=== PATIENT | female | born 1945 | race Asian ===

== ENCOUNTER 2023-01-13 14:39 | Inpatient (IN) ==
[2023-01-13] MEDS ORDERED: FUROSEMIDE 40 MG/4 ML VIAL IV ONE (15:09)
--- NOTE | 2023-01-13 15:12 | Emergency Department Note ---
Impression & Plan Pulmonary edema, Atrial fibrillation with RVR, Non-STEMI (non-ST elevated myocardial infarction), Hypoxia ED Provider Note NAME: JENNIFER RODNEY AGE: 77 SEX: F : 1945 ARRIVES VIA: Ambulance INFORMANT: Patient, EMS ED PROVIDER(S): Ran Madsen DO CHIEF COMPLAINT: Shortness of breath HPI: The patient is a 77-year-old female who presented to the emergency department by ambulance for an evaluation of difficulty breathing. The patient started having difficulty breathing over the last 2 weeks. She was seen in our facility for similar complaints but signed out AGAINST MEDICAL ADVICE. The patient has a history of atrial fibrillation as well as CHF. She appears to be volume overloaded with shortness of breath. She is wearing oxygen. She is currently in atrial fibrillation with RVR. ROS: See above HPI for pertinent positives & negatives. A total of 10 systems reviewed and were otherwise negative. PAST MEDICAL HISTORY: See Below PAST SURGICAL HISTORY: See Below FAMILY HISTORY: See Below SOCIAL HISTORY: See Below HOME MEDICATIONS: See Below ALLERGIES: See Below VITALS: See Below PHYSICAL EXAMINATION: GENERAL: Patient is awake and alert. She appears to be somewhat anxious. EYES: The conjunctivae are clear. The pupils are round and reactive. EARS, NOSE, MOUTH AND THROAT: The nose is without any evidence of any deformity. NECK: The neck is nontender and supple. RESPIRATORY: Shallow respirations were noted. There is significant tachypnea. Diminished breath sounds noted throughout with rales. CARDIOVASCULAR: Tachycardic and irregular heart sounds were noted to auscultation. There is no definite murmur. GASTROINTESTINAL: The abdomen is soft. Abdomen is nontender. MUSCULOSKELETAL/EXTREMITIES: There is no evidence of gross deformity full range of motion is noted in the hips and shoulders. SKIN: Pedal edema was noted bilaterally. Skin was warm and dry. NEUROLOGIC: Patient is awake alert and oriented x3. The patient follows commands. MEDICAL DECISION MAKING: The patient is a 77-year-old female who presented to the emergency department for an evaluation of difficulty breathing. The patient has a history of pulmonary edema. She was seen in our facility recently for similar complaints but ultimately refused to stay in the hospital and signed out AGAINST MEDICAL ADVICE. Today she appears to be more agreeable to evaluation and treatment. She was found to be in rapid atrial fibrillation and was treated with IV Cardizem. She was also treated with IV digoxin as well as IV Lasix for pulmonary edema. The patient was found to have no significant change from her previous EKG however it is an abnormal EKG. She was also found have an elevation in her troponin. I discussed her condition with the on-call [facility]. They have agreed to evaluate the patient in the emergency department for further management and disposition. Triage Nursing notes reviewed. Prior medical records reviewed Vital Signs: reviewed and remarkable for tachycardia and hypertension. The patient was also hypoxic off of supplemental oxygen. Differential diagnosis: Reactive airway disease, pneumonia, pneumothorax, COPD, CHF, infections, cardiac ischemia, pulmonary embolism, musculoskeletal, gastrointestinal, as well as other pathologies. ER treatment provided: See below Diagnostics interpreted by me: ECG: EKG was obtained in the emergency department. My interpretation is atrial fibrillation at 153 bpm. There was no PVCs noted. Low voltage was noted throughout. This was compared to a tracing from January 02, 2023. No changes were noted. Cardiac Monitoring: An order was placed for continuous cardiac monitoring. The monitor shows a rate of 145 bpm with atrial fibrillation RVR. Laboratory studies: As stated above and show below. Imaging studies: See below. Radiographic imaging was reviewed by myself Consultation(s): I discussed this case with Dr. Harrington who is on-call for the [facility] group. ED COURSE: Procedures: none Critical Care: I have personally spent greater than 45 minutes of critical care time in the direct management of this patient. This includes bedside care, interpretation of diagnostic studies, and testing, discussion with consultants, patient, and family members, and other required patient management activities. This 45 minutes is in excess of all separately billable procedures. Past Med/Surg History Medical History Arthritis Atrial fibrillation with RVR Congestive heart failure Surgical History No significant past surgical history Social History Smoking Status: Never smoker Hx Alcohol Use: Yes Hx Substance Use: No Communication Tools: IPad Feels Safe at Home: Yes Allergies Allergies Allergy/AdvReac Type Severity Reaction Status Date / Time No Known Allergies Allergy Verified 01/13/23 15:32 Home Meds Home Medications Medication Instructions Recorded Confirmed furosemide 20 mg tablet 20 mg PO DAILY 01/13/23 01/13/23 Previous Rx's Medication Instructions Recorded metoprolol succinate 25 mg 25 mg PO DAILY #30 tabs 01/02/23 tablet,extended release 24 hr Results & Data (ED) Vital Signs Vital Signs - 24 hr 01/13/23 14:55 01/13/23 14:58 01/13/23 16:52 Temperature 36.5 C Temperature Source Axillary Pulse Rate 157 H 161 H 150 H Pulse Rate [Right Finger] Pulse Rhythm Regular Pulse Rhythm [Right Finger] Pulse Strength Normal Respiratory Rate 18 28 H Respiratory Effort / Characteristics Non-Labored Spontaneous Respiratory Depth Normal Respiratory Pattern Regular Blood Pressure 130/101 H Blood Pressure [Left Arm] Blood Pressure Mean 110 Blood Pressure Mean [Left Arm] Blood Pressure Position Lying Pulse Oximetry 93 93 Oxygen Delivery Method Nasal Cannula Nasal Cannula Oxygen Flow Rate 2 2 Sepsis Recent Fever Within 48 Hours No Sepsis New/Unexplained Change in Mental Status No Sepsis Action Taken by Nursing No Action Required 01/13/23 17:10 01/13/23 17:32 01/13/23 17:47 Temperature Temperature Source Pulse Rate 166 H Pulse Rate [Right Finger] 160 H 145 H Pulse Rhythm Pulse Rhythm [Right Finger] Irregular Pulse Strength Respiratory Rate 22 22 Respiratory Effort / Characteristics Respiratory Depth Normal Normal Respiratory Pattern Blood Pressure Blood Pressure [Left Arm] 137/106 H Blood Pressure Mean Blood Pressure Mean [Left Arm] 116 Blood Pressure Position Pulse Oximetry 92 98 Oxygen Delivery Method Nasal Cannula Nasal Cannula Oxygen Flow Rate Sepsis Recent Fever Within 48 Hours Sepsis New/Unexplained Change in Mental Status Sepsis Action Taken by Nursing 01/13/23 18:08 Temperature Temperature Source Pulse Rate Pulse Rate [Right Finger] 128 H Pulse Rhythm Pulse Rhythm [Right Finger] Pulse Strength Respiratory Rate Respiratory Effort / Characteristics Respiratory Depth Respiratory Pattern Blood Pressure Blood Pressure [Left Arm] 120/88 Blood Pressure Mean Blood Pressure Mean [Left Arm] 98 Blood Pressure Position Pulse Oximetry 99 Oxygen Delivery Method Nasal Cannula Oxygen Flow Rate 2 Sepsis Recent Fever Within 48 Hours Sepsis New/Unexplained Change in Mental Status Sepsis Action Taken by Retirement Medications Current Medication List: was personally reviewed by me Laboratory Data Attestation: I reviewed the patient's lab results. 01/13/23 15:50 01/13/23 15:50 Lab Results 01/13/23 01/13/23 01/13/23 Range/Units 15:40 15:50 15:50 WBC 8.54 (4.8-10.8) K/ul RBC 4.72 (4.20-5.40) M/uL Hgb 14.0 (12.0-16.0) g/dl Hct 40.8 (37.0-47.0) % MCV 86.4 (80.0-100.0) fL MCH 29.7 (25.0-34.0) pg MCHC 34.3 (32.0-36.0) g/dL RDW Std Deviation 60.5 H (36.4-46.3) fL RDW Coeff of Bubba 20.2 H (11.5-14.5) % Plt Count 178 (130-400) K/uL MPV 12.3 (9.4-12.4) fL Immature Gran % (Auto) 0.6 % Neut % (Auto) 82.3 % Lymph % (Auto) 9.7 % [place] % (Auto) 6.9 % Eos % (Auto) 0.1 % Baso % (Auto) 0.4 % Neut # (Auto) 7.03 H (1.40-6.50) K/uL Lymph # (Auto) 0.83 L (1.2-3.4) K/uL [place] # (Auto) 0.59 (0.11-0.59) K/uL Eos # (Auto) 0.01 (0-0.50) K/uL Baso # (Auto) 0.03 (0-0.2) K/uL Immature Gran # (Auto) 0.05 (0.01-0.20) K/uL Absolute Nucleated RBC 0.26 H (0-0.12) K/uL Nucleated RBC % (auto) 3.0 % Polychromasia 1+ Anisocytosis Present Ovalocytes 1+ Echinocytes 1+ PT 13.0 H (9.0-12.0) Seconds INR 1.2 H (0.9-1.1) APTT 26.9 (21.0-31.0) Seconds PTT Ratio 1.0 VBG pH (7.36-7.41) VBG pCO2 (38-50) mmHg VBG pO2 mmHg VBG HCO3 mmol/L VBG O2 Saturation % VBG Base Excess mEq/L Sodium (136-145) mmol/L Potassium (3.5-5.1) mmol/L Chloride (98-107) mmol/L Carbon Dioxide (21-32) mmol/L Anion Gap (3-11) BUN (6-23) mg/dl Creatinine (0.6-1.2) mg/dl Est Cr Clr Drug Dosing ml/min Est GFR ( Amer) ml/min Est GFR (Non-Af Amer) ml/min BUN/Creatinine Ratio (10-20) Glucose (70-99(Fasting)) mg/dl Calcium (8.5-10.1) mg/dl Magnesium (1.7-2.4) mg/dl Total Bilirubin (0.2-1.0) mg/dl AST (13-39) U/L ALT (7-52) U/L Alkaline Phosphatase (34-104) U/L Troponin I High Sens (0-14) pg/ml B-Natriuretic Peptide (0-100) pg/ml Total Protein (6.0-8.3) gm/dl Albumin (3.4-5.0) gm/dl Globulin (2.5-4.0) gm/dl Albumin/Globulin Ratio (0.9-2) TSH (0.300-4.500) uIu/ml Free T4 (0.61-1.60) ng/dl Urine Color Urine Appearance (Clear) Urine pH (4.5-7.5) Ur Specific [place] (1.000-1.030) Urine Protein (Negative) Urine Glucose (UA) (Negative) Urine Ketones (Negative) Urine Blood (Negative) Urine Nitrite (Negative) Urine Bilirubin (Negative) Urine Urobilinogen (Negative) Ur Leukocyte Esterase (Negative) Digoxin (0.8-2.0) ng/ml SARS-CoV-2, RNA, NAAT NEGATIVE (NEGATIVE) 01/13/23 01/13/23 01/13/23 Range/Units 15:50 15:50 15:50 WBC (4.8-10.8) K/ul RBC (4.20-5.40) M/uL Hgb (12.0-16.0) g/dl Hct (37.0-47.0) % MCV (80.0-100.0) fL MCH (25.0-34.0) pg MCHC (32.0-36.0) g/dL RDW Std Deviation (36.4-46.3) fL RDW Coeff of Bubba (11.5-14.5) % Plt Count (130-400) K/uL MPV (9.4-12.4) fL Immature Gran % (Auto) % Neut % (Auto) % Lymph % (Auto) % [place] % (Auto) % Eos % (Auto) % Baso % (Auto) % Neut # (Auto) (1.40-6.50) K/uL Lymph # (Auto) (1.2-3.4) K/uL [place] # (Auto) (0.11-0.59) K/uL Eos # (Auto) (0-0.50) K/uL Baso # (Auto) (0-0.2) K/uL Immature Gran # (Auto) (0.01-0.20) K/uL Absolute Nucleated RBC (0-0.12) K/uL Nucleated RBC % (auto) % Polychromasia Anisocytosis Ovalocytes Echinocytes PT (9.0-12.0) Seconds INR (0.9-1.1) APTT (21.0-31.0) Seconds PTT Ratio VBG pH 7.38 (7.36-7.41) VBG pCO2 41 (38-50) mmHg VBG pO2 26 mmHg VBG HCO3 24 mmol/L VBG O2 Saturation < 60.0 % VBG Base Excess -0.8 mEq/L Sodium 138 (136-145) mmol/L Potassium 4.5 (3.5-5.1) mmol/L Chloride 106 (98-107) mmol/L Carbon Dioxide 23 (21-32) mmol/L Anion Gap 9 (3-11) BUN 46 H (6-23) mg/dl Creatinine 1.47 H (0.6-1.2) mg/dl Est Cr Clr Drug Dosing 29.9 ml/min Est GFR ( Amer) 39.2 ml/min Est GFR (Non-Af Amer) 33.8 ml/min BUN/Creatinine Ratio 31.3 H (10-20) Glucose 114 H (70-99(Fasting)) mg/dl Calcium 8.6 (8.5-10.1) mg/dl Magnesium 2.5 H (1.7-2.4) mg/dl Total Bilirubin 3.1 H (0.2-1.0) mg/dl AST 22 (13-39) U/L ALT 15 (7-52) U/L Alkaline Phosphatase 105 H (34-104) U/L Troponin I High Sens 175.8 H* (0-14) pg/ml B-Natriuretic Peptide 1820 H (0-100) pg/ml Total Protein 6.3 (6.0-8.3) gm/dl Albumin 3.4 (3.4-5.0) gm/dl Globulin 2.9 (2.5-4.0) gm/dl Albumin/Globulin Ratio 1.2 (0.9-2) TSH (0.300-4.500) uIu/ml Free T4 (0.61-1.60) ng/dl Urine Color Urine Appearance (Clear) Urine pH (4.5-7.5) Ur Specific [place] (1.000-1.030) Urine Protein (Negative) Urine Glucose (UA) (Negative) Urine Ketones (Negative) Urine Blood (Negative) Urine Nitrite (Negative) Urine Bilirubin (Negative) Urine Urobilinogen (Negative) Ur Leukocyte Esterase (Negative) Digoxin (0.8-2.0) ng/ml SARS-CoV-2, RNA, NAAT (NEGATIVE) 01/13/23 01/13/23 01/13/23 Range/Units 15:50 15:50 17:25 WBC (4.8-10.8) K/ul RBC (4.20-5.40) M/uL Hgb (12.0-16.0) g/dl Hct (37.0-47.0) % MCV (80.0-100.0) fL MCH (25.0-34.0) pg MCHC (32.0-36.0) g/dL RDW Std Deviation (36.4-46.3) fL RDW Coeff of Bubba (11.5-14.5) % Plt Count (130-400) K/uL MPV (9.4-12.4) fL Immature Gran % (Auto) % Neut % (Auto) % Lymph % (Auto) % [place] % (Auto) % Eos % (Auto) % Baso % (Auto) % Neut # (Auto) (1.40-6.50) K/uL Lymph # (Auto) (1.2-3.4) K/uL [place] # (Auto) (0.11-0.59) K/uL Eos # (Auto) (0-0.50) K/uL Baso # (Auto) (0-0.2) K/uL Immature Gran # (Auto) (0.01-0.20) K/uL Absolute Nucleated RBC (0-0.12) K/uL Nucleated RBC % (auto) % Polychromasia Anisocytosis Ovalocytes Echinocytes PT (9.0-12.0) Seconds INR (0.9-1.1) APTT (21.0-31.0) Seconds PTT Ratio VBG pH (7.36-7.41) VBG pCO2 (38-50) mmHg VBG pO2 mmHg VBG HCO3 mmol/L VBG O2 Saturation % VBG Base Excess mEq/L Sodium (136-145) mmol/L Potassium (3.5-5.1) mmol/L Chloride (98-107) mmol/L Carbon Dioxide (21-32) mmol/L Anion Gap (3-11) BUN (6-23) mg/dl Creatinine (0.6-1.2) mg/dl Est Cr Clr Drug Dosing ml/min Est GFR ( Amer) ml/min Est GFR (Non-Af Amer) ml/min BUN/Creatinine Ratio (10-20) Glucose (70-99(Fasting)) mg/dl Calcium (8.5-10.1) mg/dl Magnesium (1.7-2.4) mg/dl Total Bilirubin (0.2-1.0) mg/dl AST (13-39) U/L ALT (7-52) U/L Alkaline Phosphatase (34-104) U/L Troponin I High Sens (0-14) pg/ml B-Natriuretic Peptide (0-100) pg/ml Total Protein (6.0-8.3) gm/dl Albumin (3.4-5.0) gm/dl Globulin (2.5-4.0) gm/dl Albumin/Globulin Ratio (0.9-2) TSH 8.266 H (0.300-4.500) uIu/ml Free T4 1.30 (0.61-1.60) ng/dl Urine Color Yellow Urine Appearance Clear (Clear) Urine pH 5.0 (4.5-7.5) Ur Specific [place] 1.009 (1.000-1.030) Urine Protein Negative (Negative) Urine Glucose (UA) Negative (Negative) Urine Ketones Negative (Negative) Urine Blood Negative (Negative) Urine Nitrite Negative (Negative) Urine Bilirubin Negative (Negative) Urine Urobilinogen Negative (Negative) Ur Leukocyte Esterase Negative (Negative) Digoxin < 0.3 L (0.8-2.0) ng/ml SARS-CoV-2, RNA, NAAT (NEGATIVE) Administered Medications Diltiazem HCl 125 mg/ Dextrose 125 mls @ 10 mls/hr IV .[id number] [facility]; Protocol Stop: 02/12/23 16:29 Last Titration: 01/13/23 20:40 Dose: 10 mg/hr, 10 mls/hr Documented By: JUAN LUIS Co-signed By: JIM Titration: 01/13/23 18:00 Dose: 10 mg/hr, 10 mls/hr Documented By: VALENTINE Co-signed By: LUIS M Admin: 01/13/23 17:11 Dose: 5 mg/hr, 5 mls/hr Documented By: LUIS M Co-signed By: VALENTINE Discontinued Medications Furosemide (Furosemide 40 Mg/4 Ml Vial) 40 mg IV ONE ONE Stop: 01/13/23 15:10 Last Admin: 01/13/23 16:01 Dose: 40 mg Documented By: LUIS M Digoxin 125 mcg/ Syringe 10 mls @ 2 mls/min IV ONE ONE Stop: 01/13/23 16:33 Last Admin: 01/13/23 17:10 Dose: 2 mls/min Documented By: LUIS M Miscellaneous (Stat Iv Infusion Titration Per Protocol) 1 each N/A NOW STA Stop: 01/13/23 16:30 Last Admin: 01/13/23 17:12 Dose: Not Given Documented By: LUIS M Imaging Data Radiologist's Impression: Chest X-Ray 01/13/23 15:07 SINGLE VIEW CHEST CLINICAL HISTORY: Dyspnea FINDINGS: An AP, portable, upright chest radiograph is compared to study dated 01/02/2023. The examination is degraded by portable technique and apical lordotic positioning. The heart is enlarged noting atherosclerotic calcification of the thoracic aorta. There is pulmonary vascular congestion. There are layering pleural effusions with dependent consolidation. No pneumothorax is seen. The skeletal structures are osteopenic. The bony thorax is grossly intact. IMPRESSION: 1. Cardiomegaly with evidence of congestive failure. 2. Layering pleural effusions with dependent consolidation. ACT 112: Negative or not required by law. Electronically signed by: Sulaiman Diop M.D. 01/13/2023 3:52 PM Discharge Plan Visit Data Chief Complaint: Swelling/Edema to Extremity Stated Complaint: ARM & LEG EDEMA ED Provider: Ran Madsen Discharge Problem: Pulmonary edema, Atrial fibrillation with RVR, Non-STEMI (non-ST elevated myocardial infarction), Hypoxia Patient Disposition: Admitted As Inpatient Discharge Instructions Interventions: ED Discharge Assessment Last Done: 01/13/23 19:13 Pulmonary edema Qualifiers: Chronicity: acute Qualified Code(s): J81.0 - Acute pulmonary edema
--- NOTE | 2023-01-13 15:53 | XRay Report ---
SINGLE VIEW CHEST CLINICAL HISTORY: Dyspnea FINDINGS: An AP, portable, upright chest radiograph is compared to study dated 01/02/2023. The examina tion is degraded by portable technique and apical lordotic positioning. The heart is enlarged noting atherosclerotic calcification of the thoracic aorta. There is pulmonary vascular congestion. There ar e layering pleural effusions with dependent consolidation. No pneumothorax is seen. The skeletal stru ctures are osteopenic. The bony thorax is grossly intact. IMPRESSION: 1. Cardiomegaly with evidence of congestive failure. 2. Layering pleural effusions with dependent consolidation. ACT 112: Negative or not required by law. Electronically signed by: Sulaiman Diop M.D. 01/13/2023 3:52 PM
[2023-01-13 16:25] LABS: Basophils # (auto) 0.03 K/uL (0-0.2); Basophils % (auto) 0.4 %; Eosinophils # (auto) 0.01 K/uL (0-0.50); Eosinophils % (auto) 0.1 %; Hematocrit (blood only) 40.8 % (37.0-47.0); Immature Granulocytes # (auto) 0.05 K/uL (0.01-0.20); Immature Granulocytes % (auto) 0.6 %; Lymphocytes # (auto) 0.83 K/uL (1.2-3.4); Lymphocytes % (auto) 9.7 %; Mean Corpuscular Hemoglobin 29.7 pg (25.0-34.0); Mean Corpuscular Hgb Conc 34.3 g/dL (32.0-36.0); Mean Corpuscular Volume 86.4 fL (80.0-100.0); Mean Platelet Volume 12.3 fL (9.4-12.4); Monocytes # (auto) 0.59 K/uL (0.11-0.59); Monocytes % (auto) 6.9 %; Neutrophils # (auto) 7.03 K/uL (1.40-6.50); Neutrophils % (auto) 82.3 %; Nucleated RBC # (auto) 0.26 K/uL (0-0.12); Platelet Count 178 K/uL (130-400); RDW Coefficient of Variation 20.2 % (11.5-14.5); RDW Standard Deviation 60.5 fL (36.4-46.3); Red Blood Count 4.72 M/uL (4.20-5.40); White Blood Count 8.54 K/ul (4.8-10.8)
[2023-01-13 16:26] LABS: Base Excess VBG -0.8 mEq/L; HCO3 VBG 24 mmol/L; Oxygen Saturation VBG < 60.0 %; PCO2 VBG 41 mmHg (38-50); PO2 VBG 26 mmHg; pH VBG 7.38 (7.36-7.41)
[2023-01-13] MEDS ORDERED: STAT IV Infusion **Titration per Protocol STA (16:29)
[2023-01-13] MEDS ORDERED: DIGOXIN 125 MCG in SYRINGE 9.5 ML IV ONE (16:29)
[2023-01-13] MEDS ORDERED: dilTIAZem HCL 125 MG in DEXTROSE 5% 100 ML IV SCH (16:30)
[2023-01-13 16:46] LABS: Albumin Globulin Ratio 1.2 (0.9-2); Albumin Level 3.4 gm/dl (3.4-5.0); BUN Creatinine Ratio 31.3 (10-20); Bilirubin,Total 3.1 mg/dl (0.2-1.0); Calcium 8.6 mg/dl (8.5-10.1); Creatinine Clr Calc Pharmacy 29.9 ml/min; Est GFR (African American) 39.2 ml/min; Est GFR (Non-African American) 33.8 ml/min; Globulin 2.9 gm/dl (2.5-4.0); Magnesium 2.5 mg/dl (1.7-2.4); Potassium 4.5 mmol/L (3.5-5.1); Total Protein 6.3 gm/dl (6.0-8.3)
[2023-01-13 16:47] LABS: Anisocytosis Present; Echinocytes 1+; Ovalocytes 1+; Polychromasia 1+
[2023-01-13 16:58] LABS: Troponin I High Sensitivity 175.8 pg/ml (0-14)
--- NOTE | 2023-01-13 17:12 | Electrocardiogram Report ---
Test Reason : Blood Pressure : / mmHG Vent. Rate : 153 BPM Atrial Rate : 052 BPM P-R Int : 000 ms QRS Dur : 068 ms QT Int : 254 ms P-R-T Axes : 000 015 254 degrees QTc Int : 405 ms Poor data quality, interpretation may be adversely affected Atrial fibrillation with rapid ventricular response Nonspecific ST abnormality Abnormal ECG When compared with ECG of 02-JAN-2023 16:40, No significant change was found Confirmed by Marc Renee ([id number]) on 01/13/2023 5:12:16 PM Referred By: REFERRED SELF Confirmed By:Shivam Renee
[2023-01-13 17:23] LABS: INR 1.2 (0.9-1.1); Partial Thromboplastin Time 26.9 Seconds (21.0-31.0)
[2023-01-13 17:45] LABS: Thyroid Stimulating Hormone 8.266 uIu/ml (0.300-4.500)
[2023-01-13 17:45] LABS: Appearance Urine Clear (Clear); Bilirubin Urine Negative (Negative); Blood Urine Negative (Negative); Color Urine Yellow; Glucose Urine UA Negative (Negative); Ketones Urine Negative (Negative); Leukocyte Esterase Urine Negative (Negative); Nitrite Urine Negative (Negative); Protein Urine Negative (Negative); Specific Gravity Urine 1.009 (1.000-1.030); Urobilinogen Urine Negative (Negative)
[2023-01-13 18:31] LABS: T4 Free Thyroxine 1.3 ng/dl (0.61-1.60)
--- NOTE | 2023-01-13 19:25 | History & Physical Report ---
Date of Service January 13, 2023 Assessment & Plan (1) Atrial fibrillation with RVR: Plan: Atrial Fibrillation RVR: New diagnosis CXR:Cardiomegaly with evidence of congestive failure. Layering pleural effusions with dependent consolidation. Obtain ECHO Start on metoprolol, Cardizem ggt, Heparin ggt Received digoxin in ED Cardiology consulted Trend Cardiac enzymes Replace electrolytes as needed Acute respiratory failure with hypoxia Volume overload Likely CHF, Afib RVR CXR as above BNP 1820 check ECHO Start IV Lasix 20mg BID Daily weight, I/Os, fluid restriction Low sodium diet, fluid restriction Oxygen support PRN Monitor renal function/electrolytes Cardiology consulted We will check abdominal ultrasound for ascites Check procalcitonin Troponin elevation Likely demand ischemia due to volume overload, A-fib RVR Trend cardiac enzymes N.p.o. after midnight Abnormal thyroid function test Elevated TSH Free normal T4 We will repeat thyroid function test No known history of hypothyroidism ? CKD Unknown baseline Creatinine 1.47 Monitor renal function Hyperglycemia Check HbA1c Ambulatory dysfunction Fall precautions PT OT as able DVT prophylaxis IV heparin CODE STATUS Full code as per my discussion with patient and patient's son Disposition PT OT prior to discharge History of Present Illness Chief Complaint: Shortness of breath Primary Care Provider: NO PCP Patient is a 77-year-old female with past medical history of arthritis and no other significant past medical history presents with history of worsening edema, shortness of breath and ambulatory dysfunction. Patient is mandrin speaking and most of the history is obtained using science interpreter service and also from patient's son over the phone. She states having worsening lower extremity edema, increased abdominal distention which has been gradually worsening since 2021. She had poor oral intake which she attributes to indigestion. Patient's son informs that patient has chronic dyspnea on exertion which worsened especially since since 2 months duration. She uses a cane for ambulation but currently having difficulty with ambulation as well. Intermittent cough with occasional hemoptysis several days ago. Currently denies any history of bleeding. She also has trouble laying flat and at times wakes up in the middle of the night with trouble breathing. She believes her abdomen has been gradually getting distended over few days. She was found in A- fib RVR while in ED and started on Cardizem drip. Denies any history of chest pain, palpitations, dizziness, fever, chills, fall, head trauma, syncope, headache, change in vision, double/blurry vision, nausea, vomiting, abdominal pain, weight loss, dysuria, hematuria. Presented to ED 2 weeks ago but left AMA. Allergies Allergy/AdvReac Type Severity Reaction Status Date / Time No Known Allergies Allergy Verified 01/13/23 15:32 Home Medications Medication Instructions Recorded Confirmed Type metoprolol succinate 25 mg 25 mg PO DAILY #30 tabs 01/02/23 01/13/23 Rx tablet,extended release 24 hr furosemide 20 mg tablet 20 mg PO DAILY 01/13/23 01/13/23 History Past Med/Surg History Medical History Arthritis Atrial fibrillation with RVR Congestive heart failure Surgical History No significant past surgical history Social History Smoking Status: Never smoker Hx Alcohol Use: Yes Hx Substance Use: No Communication Tools: IPad Feels Safe at Home: Yes Review of Systems Review of Systems: All systems reviewed & are unremarkable except as noted in HPI & below Physical Exam Physical Exam: Physical Exam: Vitals signs as noted above General Appearance:Moderately built and nourished, Elderly, Chronic ill appearing, no apparent distress Head: normocephalic, Atraumatic Eyes: normal inspection, EOMI Neck: supple, Trachea midline Respiratory/Chest: Normal breath sounds, CTA, No accessory muscle use Cardiovascular: Irregularly irregular, tachycardic, No murmur Abdomen/GI:Soft, Non tender, +distended, Bowel sounds present Extremities/Musculoskeletal:normal inspection, 2-3+ B/L LE edema Neurologic/Psych:AAOX3, grossly no focal neurological deficits Skin: normal color, warm Results & Data Results & Data ([facility]) Vital Signs (Past 12 Hours) Vital Signs Temp Pulse Pulse Resp BP BP Pulse Ox 01/13/23 18:08 128 H 120/88 99 01/13/23 17:47 145 H 22 98 01/13/23 17:32 160 H 22 137/106 H 92 01/13/23 17:10 166 H 01/13/23 16:52 150 H 28 H 93 01/13/23 14:58 161 H 01/13/23 14:55 36.5 C 157 H 18 130/101 H 93 O2 Del Method O2 Flow Rate 01/13/23 18:08 Nasal Cannula 2 01/13/23 17:47 Nasal Cannula 01/13/23 17:32 Nasal Cannula 01/13/23 17:10 01/13/23 16:52 Nasal Cannula 2 01/13/23 14:58 01/13/23 14:55 Nasal Cannula 2 Laboratory Results Short CBC 01/13/23 Range/Units 15:50 WBC 8.54 (4.8-10.8) K/ul Hgb 14.0 (12.0-16.0) g/dl Hct 40.8 (37.0-47.0) % Plt Count 178 (130-400) K/uL BMP 01/13/23 15:50 Sodium 138 Potassium 4.5 Chloride 106 Carbon Dioxide 23 BUN 46 H Creatinine 1.47 H Glucose 114 H Calcium 8.6 Liver Function 01/13/23 Range/Units 15:50 Total Bilirubin 3.1 H (0.2-1.0) mg/dl AST 22 (13-39) U/L ALT 15 (7-52) U/L Alkaline Phosphatase 105 H (34-104) U/L Albumin 3.4 (3.4-5.0) gm/dl Urine 01/13/23 Range/Units 17:25 Urine Color Yellow Urine Appearance Clear (Clear) Urine pH 5.0 (4.5-7.5) Ur Specific [place] 1.009 (1.000-1.030) Urine Protein Negative (Negative) Urine Glucose (UA) Negative (Negative) ECG Additional Comments: EKG: Atrial fibrillation with RVR, nonspecific ST abnormality, QTc 405 Code Status & VTE Plan VTE Prophylaxis Plan VTE Prophylaxis will be ordered: Yes
[2023-01-13] MEDS ORDERED: Heparin IV Adult Wt-Based Standard *NO* Bolus Protocol IV SCH (19:26)
[2023-01-13] MEDS ORDERED: POLYETHYLENE (MIRALAX) 17 GM PACK PO PRN (19:26)
[2023-01-13] MEDS ORDERED: ACETAMINOPHEN 325 MG TAB PO PRN (19:26)
[2023-01-13] MEDS ORDERED: ALBUMIN 25% 12.5 GM/50 ML VIAL IV ONE (21:03)
[2023-01-13 21:29] LABS: Partial Thromboplastin Time 27.8 Seconds (21.0-31.0)
[2023-01-13] MEDS: METOPROLOL TARTRATE 25 MG TAB PO SCH (21:42)
[2023-01-13] MEDS: FUROSEMIDE INJ 20 MG/2 ML VIAL IV SCH (21:43)
[2023-01-13] MEDS: HEPARIN SODIUM/DEXTROSE 25,000 UNITS/500 ML BAG IV SCH (21:43)
[2023-01-13 21:44] LABS: Basophils # (auto) 0.02 K/uL (0-0.2); Basophils % (auto) 0.2 %; Hematocrit (blood only) 37.6 % (37.0-47.0); Hemoglobin 12.8 g/dl (12.0-16.0); Immature Granulocytes # (auto) 0.04 K/uL (0.01-0.20); Immature Granulocytes % (auto) 0.5 %; Lymphocytes # (auto) 0.66 K/uL (1.2-3.4); Lymphocytes % (auto) 8.1 %; Mean Corpuscular Hemoglobin 29.4 pg (25.0-34.0); Mean Corpuscular Volume 86.2 fL (80.0-100.0); Mean Platelet Volume 12.1 fL (9.4-12.4); Monocytes # (auto) 0.61 K/uL (0.11-0.59); Monocytes % (auto) 7.5 %; Neutrophils # (auto) 6.82 K/uL (1.40-6.50); Neutrophils % (auto) 83.7 %; Nucleated RBC # (auto) 0.11 K/uL (0-0.12); Nucleated RBC % (auto) 1.3 %; Platelet Count 159 K/uL (130-400); RDW Coefficient of Variation 19.9 % (11.5-14.5); RDW Standard Deviation 60.3 fL (36.4-46.3); Red Blood Count 4.36 M/uL (4.20-5.40); White Blood Count 8.15 K/ul (4.8-10.8)
[2023-01-14] MEDS: METOPROLOL TARTRATE 25 MG TAB PO SCH ×4 (02:48→20:17)
[2023-01-14 04:30] LABS: Partial Thromboplastin Ratio 4.4
[2023-01-14 04:40] LABS: Partial Thromboplastin Time 122.2 Seconds (21.0-31.0)
[2023-01-14 06:42] LABS: Basophils # (auto) 0.02 K/uL (0-0.2); Basophils % (auto) 0.3 %; Eosinophils # (auto) 0.01 K/uL (0-0.50); Eosinophils % (auto) 0.1 %; Hematocrit (blood only) 34.9 % (37.0-47.0); Hemoglobin 11.7 g/dl (12.0-16.0); Immature Granulocytes # (auto) 0.06 K/uL (0.01-0.20); Immature Granulocytes % (auto) 0.9 %; Lymphocytes % (auto) 11.6 %; Mean Corpuscular Hemoglobin 29.5 pg (25.0-34.0); Mean Corpuscular Hgb Conc 33.5 g/dL (32.0-36.0); Mean Corpuscular Volume 87.9 fL (80.0-100.0); Mean Platelet Volume 11.5 fL (9.4-12.4); Monocytes % (auto) 7.2 %; Neutrophils # (auto) 5.52 K/uL (1.40-6.50); Neutrophils % (auto) 79.9 %; Nucleated RBC # (auto) 0.07 K/uL (0-0.12); Platelet Count 148 K/uL (130-400); RDW Coefficient of Variation 19.7 % (11.5-14.5); RDW Standard Deviation 60.1 fL (36.4-46.3); Red Blood Count 3.97 M/uL (4.20-5.40); White Blood Count 6.91 K/ul (4.8-10.8)
[2023-01-14 06:57] LABS: Albumin Globulin Ratio 1.2 (0.9-2); BUN Creatinine Ratio 28.6 (10-20); Bilirubin,Total 2.8 mg/dl (0.2-1.0); Calcium 8.3 mg/dl (8.5-10.1); Est GFR (African American) 39.2 ml/min; Est GFR (Non-African American) 33.8 ml/min; Globulin 2.5 gm/dl (2.5-4.0); Magnesium 2.2 mg/dl (1.7-2.4); Potassium 3.8 mmol/L (3.5-5.1); Total Protein 5.5 gm/dl (6.0-8.3)
--- NOTE | 2023-01-14 08:16 | Cardiology Consultation ---
Date of Consultation January 14, 2023 Assessment & Plan (1) Atrial fibrillation with RVR: (2) HFrEF (heart failure with reduced ejection fraction): (3) Tachycardia induced cardiomyopathy: Plan Frail 77 year old female with new onset AFIB with RVR, unknown duration- first discovered 01/02/2023. Found to have new HFrEF, possibly tachycardic induced. No other pertinent past medical history. Rates in AFIB now well controlled in the 70s- patient asymptomatic. She is having short episodes of bradycardia and 1.8 second pauses- dilt was then dc'd. Breathing improved with diuresis, patient remains hypervolemic on exam. Left foot swelling and pain > right. RECOMMENDATIONS: 1. Continue Metoprolol tartrate 12.5 mg q6hr- monitor for worsening TBS on telemetry. Remain OFF diltiazem and digoxin 2. Given patient is asymptomatic will continue rate management at this juncture rather than rhythm control. Patietn would be highly unlikely to maintain NSR given findings on current echo (biatrial enlargement, severe MR/TR). Also, concerns for сергей-dysrhythmias with DCCV. Okay to eat from a cardiology standpoint. 3. Continue Heparin for stroke prevention with AFIB while inpatient- long wall mining machine tender AC will need to be discussed, ? fall risk 4. Continue diuresis with IV Lasix 20 mg BID- monitor renal function and electrolytes. Strict I&Os and daily weights. Will need a low sodium diet. 5. Echo showing a severely reduced LVEF of 15-20%, elevated troponins- likely secondary to demand ischemia in the setting of AFIB RVR. Will attempt titration of GDMT. medication titration limited due to BP and HR readings. 6. BLLE venous duplex ordered for r/o DVT (right leg pain and worsening swelling) Case discussed with Dr. Anguiano-- will follow. Supervising Physician Co-Signing Physician Notes I have reviewed the advanced practitioner documentation and agree. I saw and evaluated the patient on date of service referenced in note and have performed the following medically appropriate history and/or exam: newly discovered afib along with severe biventricular heart failure. Also, possible tachybrady syndrome with rates dipping into 40's. Continue to cautiously diurese. Given transient bradycardia would avoid cardioversion at this time. May benefit from Lexiscan nuclear stress test next week. If BP improves will implement GDMT during stay. Prognosis poor. History of Present Illness Reason for Consultation: PAF with RVR and CHF Requesting Physician: Astrid antonio Attending Physician: Haris Urias MD History of Present Illness 77-year-old Mandarin speaking female. No significant medical history, does not seek regular care by a physician. The use of a medical apparatus model maker was utilized ([employer] [id number]). Patient is very hard of hearting. Patient was initially evaluated in the ED on 01/02 but left AGAINST MEDICAL ADVICE. At this time she was also in atrial fibrillation with RVR with rates in the 160s. She was treated with a dose of IV diltiazem which improved rates into the 90s. She was given a prescription of Lopressor, anticoagulation was not prescribed. Overall exam at this time was unremarkable with the exception of tachycardia. She represented to [facility] emergency department on 01/13 due to ongoing shortness of breath. She was more agreeable to admission and treatment at this time and was given IV Cardizem as well as IV digoxin in the emergency department. Pulmonary edema noted on chest x-ray. Patient diuresed with 40 mg of IV Lasix. Heart rates remained elevated, diltiazem drip started ~1700 on 01/13 and discontinued around 0500 on 01/14- HR in the 70s (AFIB) Heparin drip started for anticoagulation Labs: Ongoing renal dysfunction, serum creatinine of 1.47 (improvement from 2 weeks ago ~1.79)- unknown baseline. BNP elevated at 1800, IV Lasix 20 mg twice daily started. High-sensitivity troponin elevated but flat ( 198.3 on 01/02 >>175>>165>>162) CXR: 1. Cardiomegaly with evidence of congestive failure. 2. Layering pleural effusions with dependent consolidation. Echo: LVEF 15-20%, severe global hypokinesis, RV enlarged with reduced function, Moderate to severe MR and TR, severe biatrial enlargement, large left pleural effusion. Abdominal ultrasound: A right pleural effusion is seen, at least moderate in size. A small amount of ascites is seen, largest pocket is in the right lower quadrant and pelvis. Upon entrance into the room patient resting in bed with HOB about 60 degrees- with the help of the medical apparatus model maker patient denied any chest pain, or palpitations. SOB improved from yesterday. Orthopnea remains. Main concern is left leg/foot pain and swelling. Tele: AFIB 70s, drops for 40-50s for brief moments-patient asymptomatic. 1.8 sec pause. I&O: -800 mL Weight: 82 kg >> 77.6 kg PAST MEDICAL HISTORY: -Arthritis -[place] Allergies Allergy/AdvReac Type Severity Reaction Status Date / Time No Known Allergies Allergy Verified 01/13/23 15:32 Home Medications Medication Instructions Recorded Confirmed Type metoprolol succinate 25 mg 25 mg PO DAILY #30 tabs 01/02/23 01/13/23 Rx tablet,extended release 24 hr furosemide 20 mg tablet 20 mg PO DAILY 01/13/23 01/13/23 History Patient History Medical History Arthritis Atrial fibrillation with RVR Congestive heart failure Surgical History No significant past surgical history Social History Smoking Status: Never smoker Second Hand Exposure: No; Do You Dip or Chew Tobacco: No; Tobacco Cessation Education Requested by Patient: No Hx Alcohol Use: Yes Alcohol type: wine Hx Substance Use: No Preferred Language: Mandarin Slovak Communication Ability Comment: Hard of Hearing Communication Tools: IPad Power Station Operator Required: Yes Current Living Situation: Family Other Information That Helps Us Care for You: No Feels Safe at Home: Yes Safety Concerns: Feels Safe At This Time Assistive Devices: Walker Review of Systems Review of Systems: All systems reviewed & are unremarkable except as noted in HPI & below (Power Station Operator service used. ) Physical Exam Constitutional: + cachectic; no acute distress Eyes: PERRL, conjunctivae normal, anicteric sclerae Neck: normal visual inspection and trachea midline Respiratory: normal respiratory effort; no respiratory distress Auscultation: + crackles; no rhonchi and no wheezes Cardiovascular: Rate/Rhythm: regular rate and + irregularly irregular Heart Sounds: normal S1, normal S2 and + murmur (+systolic murmur ) Vessels: no JVD Extremities: + edema (L>R +2-3) Gastrointestinal (Abdomen): normal bowel sounds, soft, nontender, no hepatosplenomegaly Skin: no rashes, warm and dry Psychiatric: A+Ox3, euthymic affect Results & Data ([facility]) Vital Signs (Past 12 Hours) Vital Signs Temp Pulse Resp BP Pulse Ox O2 Del Method O2 Flow Rate 01/14/23 07:52 Room Air 01/14/23 07:36 36.4 C L 70 14 106/62 95 Nasal Cannula 2 01/14/23 03:29 36.4 C L 79 20 116/76 97 Nasal Cannula 2 01/13/23 22:21 36.5 C 77 18 110/72 97 Nasal Cannula 2 Laboratory Results Cardiac Enzymes 01/13/23 01/13/23 01/13/23 Range/Units 15:50 15:50 22:26 AST 22 (13-39) U/L Troponin I High Sens 175.8 H* 165.7 H* (0-14) pg/ml B-Natriuretic Peptide 1820 H (0-100) pg/ml 01/14/23 01/14/23 Range/Units 06:22 06:22 AST 17 (13-39) U/L Troponin I High Sens 162.3 H* (0-14) pg/ml B-Natriuretic Peptide (0-100) pg/ml Coagulation 01/13/23 01/13/23 01/13/23 Range/Units 15:50 15:50 20:58 PT 13.0 H (9.0-12.0) Seconds APTT 26.9 27.8 (21.0-31.0) Seconds B-Natriuretic Peptide 1820 H (0-100) pg/ml 01/14/23 Range/Units 03:46 PT (9.0-12.0) Seconds APTT 122.2 H* (21.0-31.0) Seconds B-Natriuretic Peptide (0-100) pg/ml CBC 01/13/23 01/13/23 01/14/23 Range/Units 15:50 20:58 06:22 WBC 8.54 8.15 6.91 (4.8-10.8) K/ul RBC 4.72 4.36 3.97 L (4.20-5.40) M/uL Hgb 14.0 12.8 11.7 L (12.0-16.0) g/dl Hct 40.8 37.6 34.9 L (37.0-47.0) % Plt Count 178 159 148 (130-400) K/uL Neut # (Auto) 7.03 H 6.82 H 5.52 (1.40-6.50) K/uL Lymph # (Auto) 0.83 L 0.66 L 0.80 L (1.2-3.4) K/uL [place] # (Auto) 0.59 0.61 H 0.50 (0.11-0.59) K/uL Eos # (Auto) 0.01 0.00 0.01 (0-0.50) K/uL Baso # (Auto) 0.03 0.02 0.02 (0-0.2) K/uL Comprehensive Metabolic Panel 01/13/23 01/14/23 Range/Units 15:50 06:22 Sodium 138 138 (136-145) mmol/L Potassium 4.5 3.8 (3.5-5.1) mmol/L Chloride 106 106 (98-107) mmol/L Carbon Dioxide 23 27 (21-32) mmol/L BUN 46 H 42 H (6-23) mg/dl Creatinine 1.47 H 1.47 H (0.6-1.2) mg/dl Glucose 114 H 93 (70-99(Fasting)) mg/dl Calcium 8.6 8.3 L (8.5-10.1) mg/dl AST 22 17 (13-39) U/L ALT 15 12 (7-52) U/L Alkaline Phosphatase 105 H 73 (34-104) U/L Total Protein 6.3 5.5 L (6.0-8.3) gm/dl Albumin 3.4 3.0 L (3.4-5.0) gm/dl Intake and Output 01/13/23 01/14/23 01/14/23 22:59 06:59 14:59 Intake Total 148.583 / 638.733 490.15 / 638.733 Output Total 250 / 1100 850 / 1100 350 / 350 Balance -101.417 / -461.267 -359.85 / -461.267 -350 / -350 Intake: IV 48.583 / 288.733 240.15 / 288.733 Albumin 25% 12.5 gm In 50 ml @ 50 / 50 50 mls/hr IV ONE ONE Rx#: [id number] Heparin Sodium/Dextrose 25,000 158.4 / 158.4 units In 500 ml @ 850 UNITS/HR 17 mls/hr IV .Q24H [facility] Rx#: [id number] dilTIAZem HCL 125 mg In 48.583 / 80.333 31.75 / 80.333 Dextrose 5% 100 ml @ 5 MG/HR 5 mls/hr IV .Q24H [facility] Rx#: [id number] Oral 100 / 350 250 / 350 Output: Urine 250 / 1100 850 / 1100 350 / 350 Other: Weight 79.8 kg 77.6 kg Weight Measurement Method Built in [facility] Built in [facility]
[2023-01-14] MEDS: FUROSEMIDE INJ 20 MG/2 ML VIAL IV SCH ×2 (08:49→20:18)
[2023-01-14] MEDS: POTASSIUM CHLORIDE 10 MEQ TABCR PO SCH ×2 (08:54→20:17)
[2023-01-14 09:06] LABS: Estimated Average Glucose 137 mg/dl; Hemoglobin A1C 6.4 % (4.5-5.6)
--- NOTE | 2023-01-14 09:12 | Ultrasound Report ---
US abdomen ltd ascites CLINICAL HISTORY: Abdominal distention TECHNIQUE: Real-time grayscale sonographic images of the abdomen were obtained. Comparison: None available at the time of this dictation. FINDINGS/IMPRESSION: A right pleural effusion is seen, at least moderate in size. A small amount of a scites is seen, largest pocket is in the right lower quadrant and pelvis. ACT 112: Negative or not required by law. Electronically signed by: Abrahan Castellanos M.D. 01/14/2023 9:10 AM
--- NOTE | 2023-01-14 11:07 | Ultrasound Report ---
US venous doppler LE BI CLINICAL HISTORY: r/o DVT. Left leg swelling > Right, painful TECHNIQUE: Bilateral lower extremity real-time compression venous ultrasound with Color Doppler imagi ng. Utilizing real-time ultrasonic imaging multiple real time high-resolution ultrasonic images with compression and noncompression maneuvers of the deep venous system in addition to color doppler imagi ng were performed from the common femoral vein through the proximal calf veins. COMPARISON: None available at the time of this dictation. FINDINGS/IMPRESSION: Deep venous thrombus is seen in the posterior tibial vein on the right. No superficial venous thrombo sis is identified. ACT 112: Negative or not required by law. Electronically signed by: Abrahan Castellanos M.D. 01/14/2023 11:05 AM
--- NOTE | 2023-01-14 11:37 | Electrocardiogram Report ---
Test Reason : Blood Pressure : / mmHG Vent. Rate : 070 BPM Atrial Rate : 312 BPM P-R Int : 000 ms QRS Dur : 082 ms QT Int : 500 ms P-R-T Axes : 000 011 200 degrees QTc Int : 540 ms Atrial fibrillation T wave abnormality, consider anterolateral ischemia Prolonged QT Abnormal ECG When compared with ECG of 13-JAN-2023 14:55, Vent. rate has decreased BY 83 BPM Inverted T waves have replaced nonspecific T wave abnormality in Anterolateral leads Confirmed by Marc Renee ([id number]) on 01/14/2023 11:36:30 AM Referred By: REFERRED SELF Confirmed By:Shivam Renee
[2023-01-14 13:53] LABS: Partial Thromboplastin Ratio 3.7
[2023-01-14 14:14] LABS: Partial Thromboplastin Time 101.6 Seconds (21.0-31.0)
--- NOTE | 2023-01-14 16:14 | Hospitalist Progress Note ---
Date of Service January 14, 2023 Assessment & Plan (1) Atrial fibrillation with RVR: Plan: Atrial Fibrillation RVR: New diagnosis Tachybradycardia arrhythmias --CXR:Cardiomegaly with evidence of congestive failure. Layering pleural effusions with dependent consolidation. --ECHO: Mild dilated LV chamber size with normal wall thickness. Severely reduced LV systolic function with severe global hypokinesis, EF 15 to 20%. Right ventricle cavity is enlarged. The right ventricle systolic function is reduced as assessed by tricuspid annular valve systolic excursion. Aortic valve sclerosis moderate, without significant aortic valvular stenosis. Dilated mitral annulus with poor leaflet coaptation. Moderate to severe secondary mitral regurgitation. There is moderate to severe tricuspid regurgitation. Severe biatrial enlargement. Large left pleural effusion. --IV Cardizem discontinued Continue metoprolol On IV heparin for anticoagulation Replace electrolytes as needed Appreciate cardiology input Acute respiratory failure with hypoxia Volume overload Severe biventricular heart failure Acute systolic heart failure CXR as above ABD usd:A right pleural effusion is seen, at least moderate in size. A small amount of ascites is seen, largest pocket is in the right lower quadrant and pelvis. BNP 1820 ECHO as above Likely will need nuclear stress test as able Continue IV Lasix 20mg BID Daily weight, I/Os, fluid restriction Low sodium diet, fluid restriction Oxygen support PRN Monitor renal function/electrolytes We will check abdominal ultrasound for ascites Acute right lower extremity DVT Venous Doppler:Deep venous thrombus is seen in the posterior tibial vein on the right. No superficial venous thrombosis is identified. Continue IV heparin Type II MD likely due to demand ischemia Secondary to volume overload, A-fib RVR Monitor Abnormal thyroid function test No known history of hypothyroidism Elevated TSH Free normal T4 Low Free T3 We will repeat thyroid function test as outpatient ? CKD Unknown baseline Creatinine 1.47 Monitor renal function Prediabetes HbA1C: 6.4 Ambulatory dysfunction Fall precautions PT OT as able DVT prophylaxis IV heparin CODE STATUS Full code Disposition PT OT prior to discharge Admission and Anticipated Discharge Date Admission Date: January 13, 2023 Subjective Patient is seen and examined at bedside History is obtained using interpretation service States feeling much better today Dyspnea much improved States having leg pain and swelling Denies any chest pain, dizziness, nausea, abdominal pain No other complaints Review of Systems Review of Systems: All systems reviewed & are unremarkable except as noted in Subjective Physical Exam Physical Exam: Physical Exam: Vitals signs as noted above General Appearance:Moderately built and nourished, Elderly, Chronic ill appearing, no apparent distress Head: normocephalic, Atraumatic Eyes: normal inspection, EOMI Neck: supple, Trachea midline Respiratory/Chest: Normal breath sounds, CTA, No accessory muscle use Cardiovascular: Irregularly irregular, No murmur Abdomen/GI:Soft, Non tender, +distended, Bowel sounds present Extremities/Musculoskeletal:normal inspection, 2-3+ B/L LE edema Neurologic/Psych:AAOX3, grossly no focal neurological deficits Skin: normal color, warm Results & Data Results & Data ([facility]) Vital Signs (Past 12 Hours) Vital Signs Temp Pulse Pulse Resp BP Pulse Ox O2 Del Method 01/14/23 14:57 80 01/14/23 07:52 Room Air 01/14/23 07:36 36.4 C L 70 14 106/62 95 Nasal Cannula O2 Flow Rate 01/14/23 14:57 01/14/23 07:52 01/14/23 07:36 2 Laboratory Results Short CBC 01/13/23 01/13/23 01/14/23 Range/Units 15:50 20:58 06:22 WBC 8.54 8.15 6.91 (4.8-10.8) K/ul Hgb 14.0 12.8 11.7 L (12.0-16.0) g/dl Hct 40.8 37.6 34.9 L (37.0-47.0) % Plt Count 178 159 148 (130-400) K/uL BMP 01/13/23 01/14/23 15:50 06:22 Sodium 138 138 Potassium 4.5 3.8 Chloride 106 106 Carbon Dioxide 23 27 BUN 46 H 42 H Creatinine 1.47 H 1.47 H Glucose 114 H 93 Calcium 8.6 8.3 L Liver Function 01/13/23 01/14/23 Range/Units 15:50 06:22 Total Bilirubin 3.1 H 2.8 H (0.2-1.0) mg/dl AST 22 17 (13-39) U/L ALT 15 12 (7-52) U/L Alkaline Phosphatase 105 H 73 (34-104) U/L Albumin 3.4 3.0 L (3.4-5.0) gm/dl Urine 01/13/23 Range/Units 17:25 Urine Color Yellow Urine Appearance Clear (Clear) Urine pH 5.0 (4.5-7.5) Ur Specific [place] 1.009 (1.000-1.030) Urine Protein Negative (Negative) Urine Glucose (UA) Negative (Negative)
[2023-01-14] MEDS: HEPARIN SODIUM/DEXTROSE 25,000 UNITS/500 ML BAG IV SCH (19:25)
[2023-01-14 22:38] LABS: Partial Thromboplastin Time 82.1 Seconds (21.0-31.0)
[2023-01-15] MEDS: METOPROLOL TARTRATE 25 MG TAB PO SCH ×4 (02:06→20:15)
[2023-01-15 05:45] LABS: Basophils # (auto) 0.02 K/uL (0-0.2); Basophils % (auto) 0.3 %; Eosinophils # (auto) 0.02 K/uL (0-0.50); Eosinophils % (auto) 0.3 %; Hematocrit (blood only) 35.5 % (37.0-47.0); Hemoglobin 11.9 g/dl (12.0-16.0); Immature Granulocytes # (auto) 0.03 K/uL (0.01-0.20); Immature Granulocytes % (auto) 0.5 %; Lymphocytes # (auto) 1.07 K/uL (1.2-3.4); Lymphocytes % (auto) 16.2 %; Mean Corpuscular Hemoglobin 29.4 pg (25.0-34.0); Mean Corpuscular Hgb Conc 33.5 g/dL (32.0-36.0); Mean Corpuscular Volume 87.7 fL (80.0-100.0); Mean Platelet Volume 11.3 fL (9.4-12.4); Monocytes # (auto) 0.39 K/uL (0.11-0.59); Monocytes % (auto) 5.9 %; Neutrophils # (auto) 5.07 K/uL (1.40-6.50); Neutrophils % (auto) 76.8 %; Nucleated RBC # (auto) 0.04 K/uL (0-0.12); Nucleated RBC % (auto) 0.6 %; Platelet Count 156 K/uL (130-400); RDW Coefficient of Variation 19.5 % (11.5-14.5); RDW Standard Deviation 59.5 fL (36.4-46.3); Red Blood Count 4.05 M/uL (4.20-5.40)
[2023-01-15 06:01] LABS: Albumin Globulin Ratio 1.4 (0.9-2); BUN Creatinine Ratio 27.6 (10-20); Bilirubin,Total 2.5 mg/dl (0.2-1.0); Calcium 8.2 mg/dl (8.5-10.1); Creatinine Clr Calc Pharmacy 29.4 ml/min; Est GFR (African American) 39.9 ml/min; Est GFR (Non-African American) 34.4 ml/min; Globulin 2.2 gm/dl (2.5-4.0); Potassium 3.4 mmol/L (3.5-5.1); Total Protein 5.2 gm/dl (6.0-8.3)
[2023-01-15] MEDS: HEPARIN SODIUM/DEXTROSE 25,000 UNITS/500 ML BAG IV SCH ×2 (06:19→18:35)
[2023-01-15 06:41] LABS: Partial Thromboplastin Time 82.6 Seconds (21.0-31.0)
[2023-01-15] MEDS: POTASSIUM CHLORIDE 10 MEQ TABCR PO SCH (09:49)
[2023-01-15] MEDS: FUROSEMIDE INJ 20 MG/2 ML VIAL IV SCH ×2 (09:49→20:16)
[2023-01-15] MEDS ORDERED: POTASSIUM CHLORIDE 10 MEQ TABCR PO ONE (09:57)
--- NOTE | 2023-01-15 10:22 | Electrocardiogram Report ---
Test Reason : Blood Pressure : / mmHG Vent. Rate : 080 BPM Atrial Rate : 083 BPM P-R Int : 000 ms QRS Dur : 086 ms QT Int : 430 ms P-R-T Axes : 000 007 -85 degrees QTc Int : 495 ms Atrial fibrillation with premature ventricular or aberrantly conducted complexes T wave abnormality, consider anterolateral ischemia Abnormal ECG When compared with ECG of 14-JAN-2023 05:30, No significant change was found Confirmed by Morgan Gupta ([id number]) on 01/15/2023 10:21:53 AM Referred By: REFERRED SELF Confirmed By:Morgan Gupta
[2023-01-15] MEDS ORDERED: lisinopril 5 MG TAB PO ONE (10:44)
--- NOTE | 2023-01-15 10:44 | Cardiology Progress Note ---
Date of Service January 15, 2023 Assessment & Plan (1) Atrial fibrillation with RVR: (2) HFrEF (heart failure with reduced ejection fraction): (3) Tachycardia induced cardiomyopathy: Plan Medically and socially complex patient. She is not only extremely hard of hearing. She only speaks Mandarin. She may also have a degree of dementia. Information taken through the fire controlman as well as nursing would indicate her son speaks very minimal Japanese. She lives alone in an apartment which she never leaves. Apparently her son supplies her with food and other goods. The good news, is that she is diuresing and her blood pressure seems to have improved and her heart rate has slowed. At this point I am going to try to add an MAX inhibitor. I do note that her creatinine is slightly elevated but I think she needs this medication for her heart failure and I will started at a low dose and titrated. She will need several more days in the hospital. Social service should be consulted to help with post discharge management. Admission and Anticipated Discharge Date Admission Date: January 13, 2023 Subjective The patient is extremely hard of hearing and has no command of the Japanese language. We utilized the fire controlman service. I do not believe that patient fully comprehended any of the conversation. Review of Systems Review of Systems: Not obtainable Physical Exam Physical Exam: General: no acute distress and stated age Head: normocephalic, no masses, lesions, tenderness or abnormalities Eyes: conjunctiva are pink and non-injected, sclera clear Neck: supple, no adenopathy, no bruits, normal jugular venous pulse, no hepatojugular reflux Chest: normal shape and normal respiratory effort Lungs: clear to auscultation and percussion Cardiac Exam: - irregular rate & rhythm, no murmurs gallops or rubs - normal S1, normal S2 Pulses: 2(+) throughout Abdomen: abdomen soft, non-tender, no abnormal masses and no hepatosplenomegaly Musculoskeletal: no gait disturbance, no joint inflammation, no deforming arthritis Extremities: Edema of the lower extremities Neuro: grossly normal exam Results & Data ([facility]) Vital Signs (Past 12 Hours) Vital Signs Temp Pulse Pulse Resp BP Pulse Ox O2 Del Method 01/15/23 07:00 85 01/15/23 07:00 Nasal Cannula 01/15/23 07:06 36.5 C 80 18 112/73 93 Nasal Cannula 01/15/23 03:22 36.6 C 89 18 115/83 97 Nasal Cannula 01/15/23 00:00 87 01/14/23 23:03 36.4 C L 80 18 116/75 100 Nasal Cannula O2 Flow Rate 01/15/23 07:00 01/15/23 07:00 2 01/15/23 07:06 01/15/23 03:22 2 01/15/23 00:00 01/14/23 23:03 2 Laboratory Results Laboratory Results - last 24 hr 01/14/23 01/14/23 01/15/23 12:45 21:10 05:23 WBC 6.60 RBC 4.05 L Hgb 11.9 L Hct 35.5 L MCV 87.7 MCH 29.4 MCHC 33.5 RDW Std Deviation 59.5 H RDW Coeff of Bubba 19.5 H Plt Count 156 MPV 11.3 Immature Gran % (Auto) 0.5 Neut % (Auto) 76.8 Lymph % (Auto) 16.2 [place] % (Auto) 5.9 Eos % (Auto) 0.3 Baso % (Auto) 0.3 Neut # (Auto) 5.07 Lymph # (Auto) 1.07 L [place] # (Auto) 0.39 Eos # (Auto) 0.02 Baso # (Auto) 0.02 Immature Gran # (Auto) 0.03 Absolute Nucleated RBC 0.04 Nucleated RBC % (auto) 0.6 APTT 101.6 H* 82.1 H* PTT Ratio 3.7 3.0 Sodium Potassium Chloride Carbon Dioxide Anion Gap BUN Creatinine Est Cr Clr Drug Dosing Est GFR ( Amer) Est GFR (Non-Af Amer) BUN/Creatinine Ratio Glucose Calcium Magnesium Total Bilirubin AST ALT Alkaline Phosphatase Total Protein Albumin Globulin Albumin/Globulin Ratio 01/15/23 01/15/23 05:23 05:23 WBC RBC Hgb Hct MCV MCH MCHC RDW Std Deviation RDW Coeff of Bubba Plt Count MPV Immature Gran % (Auto) Neut % (Auto) Lymph % (Auto) [place] % (Auto) Eos % (Auto) Baso % (Auto) Neut # (Auto) Lymph # (Auto) [place] # (Auto) Eos # (Auto) Baso # (Auto) Immature Gran # (Auto) Absolute Nucleated RBC Nucleated RBC % (auto) APTT 82.6 H* PTT Ratio 3.0 Sodium 138 Potassium 3.4 L Chloride 104 Carbon Dioxide 29 Anion Gap 5 BUN 40 H Creatinine 1.45 H Est Cr Clr Drug Dosing 29.4 Est GFR ( Amer) 39.9 Est GFR (Non-Af Amer) 34.4 BUN/Creatinine Ratio 27.6 H Glucose 79 Calcium 8.2 L Magnesium 2.0 Total Bilirubin 2.5 H AST 16 ALT 11 Alkaline Phosphatase 70 Total Protein 5.2 L Albumin 3.0 L Globulin 2.2 L Albumin/Globulin Ratio 1.4 Medications Administered Current Inpatient Medications Acetaminophen (Acetaminophen 325 Mg Tab) 650 mg PO Q4H PRN PRN Reason: Pain or Fever Stop: 02/12/23 19:25 Last Admin: 01/14/23 08:53 Dose: 650 mg Furosemide (Furosemide Inj 20 Mg/2 Ml Vial) 20 mg IV BID [facility] Stop: 02/12/23 20:59 Last Admin: 01/15/23 09:49 Dose: 20 mg Heparin Sodium/Dextrose (Heparin Sodium/Dextrose) 25,000 units in 500 mls @ 13 mls/hr IV .Q24H [facility]; Protocol Stop: 02/12/23 19:25 Last Titration: 01/15/23 06:52 Dose: 650 units/hr, 13 mls/hr Metoprolol Tartrate (Metoprolol Tartrate 25 Mg Tab) 12.5 mg PO Q6H [facility] Stop: 02/12/23 19:25 Last Admin: 01/15/23 06:32 Dose: 12.5 mg Polyethylene Glycol (Polyethylene (Miralax) 17 Gm Pack) 17 gm PO DAILY PRN PRN Reason: Constipation Stop: 02/12/23 19:25 Potassium Chloride (Potassium Chloride Crtab 20 Meq Tabcr) 20 meq PO BID [facility] Stop: 02/14/23 20:59
[2023-01-15 13:59] LABS: Partial Thromboplastin Ratio 2.4
[2023-01-15 14:00] LABS: Partial Thromboplastin Time 66.1 Seconds (21.0-31.0)
--- NOTE | 2023-01-15 17:08 | Hospitalist Progress Note ---
Date of Service January 15, 2023 Assessment & Plan (1) Atrial fibrillation with RVR: Plan: Atrial Fibrillation RVR: New diagnosis Tachybradycardia arrhythmias --CXR:Cardiomegaly with evidence of congestive failure. Layering pleural effusions with dependent consolidation. --ECHO: Mild dilated LV chamber size with normal wall thickness. Severely reduced LV systolic function with severe global hypokinesis, EF 15 to 20%. Right ventricle cavity is enlarged. The right ventricle systolic function is reduced as assessed by tricuspid annular valve systolic excursion. Aortic valve sclerosis moderate, without significant aortic valvular stenosis. Dilated mitral annulus with poor leaflet coaptation. Moderate to severe secondary mitral regurgitation. There is moderate to severe tricuspid regurgitation. Severe biatrial enlargement. Large left pleural effusion. --IV Cardizem discontinued Continue metoprolol On IV heparin for anticoagulation Replace electrolytes as needed Appreciate cardiology input Will need long-term anticoagulation given acute DVT Acute respiratory failure with hypoxia Volume overload Severe biventricular heart failure Acute systolic heart failure CXR as above ABD usd:A right pleural effusion is seen, at least moderate in size. A small amount of ascites is seen, largest pocket is in the right lower quadrant and pelvis. BNP 1820 ECHO as above Likely will need nuclear stress test as able Continue IV Lasix 20mg BID Daily weight, I/Os, fluid restriction Low sodium diet, fluid restriction Oxygen support PRN Monitor renal function/electrolytes Added lisinopril 5 mg daily Monitor renal function Appreciate cardiology input Acute right lower extremity DVT Venous Doppler:Deep venous thrombus is seen in the posterior tibial vein on the right. No superficial venous thrombosis is identified. Continue IV heparin Type II [place] likely due to demand ischemia Secondary to volume overload, A-fib RVR Monitor Abnormal thyroid function test No known history of hypothyroidism Elevated TSH Free normal T4 Low Free T3 We will repeat thyroid function test as outpatient ? CKD Unknown baseline Creatinine 1.47 Monitor renal function Prediabetes HbA1C: 6.4 Ambulatory dysfunction Fall precautions PT OT as able DVT prophylaxis IV heparin CODE STATUS Full code Disposition PT OT prior to discharge Admission and Anticipated Discharge Date Admission Date: January 13, 2023 Subjective Patient is seen and examined at bedside History is obtained using interpretation service States feeling well today Leg pain improved Denies any dyspnea today Eager to get discharged, initially plan to sign out AMA Discussed with cardiology today Denies any chest pain, dizziness, nausea, abdominal pain On 2 L supplemental oxygen Review of Systems Review of Systems: All systems reviewed & are unremarkable except as noted in Subjective Physical Exam Physical Exam: Physical Exam: Vitals signs as noted above General Appearance:Moderately built and nourished, Elderly, Chronic ill appearing, no apparent distress Head: normocephalic, Atraumatic Eyes: normal inspection, EOMI Neck: supple, Trachea midline Respiratory/Chest: Normal breath sounds, CTA, No accessory muscle use Cardiovascular: Irregularly irregular, No murmur Abdomen/GI:Soft, Non tender, +distended, Bowel sounds present Extremities/Musculoskeletal:normal inspection, 2-3+ B/L LE edema Neurologic/Psych:AAOX3, grossly no focal neurological deficits Skin: normal color, warm Results & Data Results & Data ([facility]) Vital Signs (Past 12 Hours) Vital Signs Temp Pulse Pulse Resp BP BP Pulse Ox 01/15/23 16:00 36.5 C 110 H 22 114/83 98 01/15/23 15:00 114 H 01/15/23 11:44 36.8 C 89 18 115/73 96 01/15/23 07:00 85 01/15/23 07:00 01/15/23 07:06 36.5 C 80 18 112/73 93 O2 Del Method O2 Flow Rate 01/15/23 16:00 Nasal Cannula 2 01/15/23 15:00 01/15/23 11:44 Room Air 01/15/23 07:00 01/15/23 07:00 Nasal Cannula 2 01/15/23 07:06 Nasal Cannula Laboratory Results Short CBC 01/15/23 Range/Units 05:23 WBC 6.60 (4.8-10.8) K/ul Hgb 11.9 L (12.0-16.0) g/dl Hct 35.5 L (37.0-47.0) % Plt Count 156 (130-400) K/uL BMP 01/15/23 05:23 Sodium 138 Potassium 3.4 L Chloride 104 Carbon Dioxide 29 BUN 40 H Creatinine 1.45 H Glucose 79 Calcium 8.2 L Liver Function 01/15/23 Range/Units 05:23 Total Bilirubin 2.5 H (0.2-1.0) mg/dl AST 16 (13-39) U/L ALT 11 (7-52) U/L Alkaline Phosphatase 70 (34-104) U/L Albumin 3.0 L (3.4-5.0) gm/dl
[2023-01-15] MEDS: POTASSIUM CHLORIDE CRTAB 20 MEQ TABCR PO SCH (20:15)
[2023-01-15 22:08] LABS: Partial Thromboplastin Ratio 2.1
[2023-01-15 22:10] LABS: Partial Thromboplastin Time 58.5 Seconds (21.0-31.0)
[2023-01-16] MEDS: METOPROLOL TARTRATE 25 MG TAB PO SCH ×2 (01:45→06:36)
[2023-01-16 07:05] LABS: Calcium 8.3 mg/dl (8.5-10.1); Potassium 3.3 mmol/L (3.5-5.1)
[2023-01-16 07:10] LABS: Creatinine Clr Calc Pharmacy 36.1 ml/min; Est GFR (African American) 52.8 ml/min; Est GFR (Non-African American) 45.5 ml/min
[2023-01-16] MEDS: FUROSEMIDE INJ 20 MG/2 ML VIAL IV SCH ×2 (08:04→21:32)
[2023-01-16] MEDS: lisinopril 5 MG TAB PO SCH (08:05)
[2023-01-16] MEDS: POTASSIUM CHLORIDE CRTAB 20 MEQ TABCR PO SCH ×2 (08:05→21:31)
[2023-01-16 08:31] LABS: Partial Thromboplastin Ratio 2.9
[2023-01-16 08:39] LABS: Partial Thromboplastin Time 81.1 Seconds (21.0-31.0)
[2023-01-16] MEDS ORDERED: POTASSIUM CHLORIDE CRTAB 20 MEQ TABCR PO ONE (08:52)
--- NOTE | 2023-01-16 11:23 | Cardiology Progress Note ---
Date of Service January 16, 2023 Assessment & Plan (1) Atrial fibrillation with RVR: (2) HFrEF (heart failure with reduced ejection fraction): (3) Tachycardia induced cardiomyopathy: Plan The patient's blood pressure has improved and she had another large diuresis yesterday. She still has a lot of volume on board with lower extremity edema. Fortunately, she has agreed to stay at least through tomorrow. I am going to discontinue her heparin and start her on Eliquis 2.5 mg twice daily. The indication for the reduced dose of Eliquis is her age which is almost 79 and her very small size. Her blood pressure has improved and we can make adjustments now to her guideline directed medications for heart failure. I would supplement her potassium as needed. Admission and Anticipated Discharge Date Admission Date: January 13, 2023 Subjective Fortunately, the patient has decided to stay at least through tomorrow. She is sitting in a chair today. Review of Systems Review of Systems: Not obtainable Physical Exam Physical Exam: General: no acute distress and stated age Head: normocephalic, no masses, lesions, tenderness or abnormalities Eyes: conjunctiva are pink and non-injected, sclera clear Neck: supple, no adenopathy, no bruits, normal jugular venous pulse, no hepatojugular reflux Chest: normal shape and normal respiratory effort Lungs: clear to auscultation and percussion Cardiac Exam: - irregular rate & rhythm, no murmurs gallops or rubs - normal S1, normal S2 Pulses: 2(+) throughout Abdomen: abdomen soft, non-tender, no abnormal masses and no hepatosplenomegaly Musculoskeletal: no gait disturbance, no joint inflammation, no deforming arthritis Extremities: Edema of the lower extremities Neuro: grossly normal exam Results & Data ([facility]) Vital Signs (Past 12 Hours) Vital Signs Temp Pulse Pulse Resp BP Pulse Ox O2 Del Method 01/16/23 09:00 77 01/16/23 07:38 37.1 C 88 18 108/69 91 Room Air 01/16/23 07:38 Nasal Cannula 01/16/23 02:42 36.7 C 80 18 103/69 98 Room Air 01/15/23 23:33 97 H O2 Flow Rate 01/16/23 09:00 01/16/23 07:38 01/16/23 07:38 2 01/16/23 02:42 01/15/23 23:33 Laboratory Results Laboratory Results - last 24 hr 01/15/23 01/15/23 01/16/23 13:01 20:31 06:10 APTT 66.1 H* 58.5 H* PTT Ratio 2.4 2.1 Sodium 139 Potassium 3.3 L Chloride 101 Carbon Dioxide 32 Anion Gap 6 BUN 31 H Creatinine 1.15 D Est Cr Clr Drug Dosing 36.1 Est GFR ( Amer) 52.8 Est GFR (Non-Af Amer) 45.5 BUN/Creatinine Ratio 27.0 H Glucose 82 Calcium 8.3 L 01/16/23 07:30 APTT 81.1 H* PTT Ratio 2.9 Sodium Potassium Chloride Carbon Dioxide Anion Gap BUN Creatinine Est Cr Clr Drug Dosing Est GFR ( Amer) Est GFR (Non-Af Amer) BUN/Creatinine Ratio Glucose Calcium Medications Administered Current Inpatient Medications Acetaminophen (Acetaminophen 325 Mg Tab) 650 mg PO Q4H PRN PRN Reason: Pain or Fever Stop: 02/12/23 19:25 Last Admin: 01/14/23 08:53 Dose: 650 mg Apixaban (Apixaban 2.5 Mg Tab) 2.5 mg PO BID [facility] Stop: 02/15/23 11:29 Furosemide (Furosemide Inj 20 Mg/2 Ml Vial) 20 mg IV BID [facility] Stop: 02/12/23 20:59 Last Admin: 01/16/23 08:04 Dose: 20 mg Lisinopril (Lisinopril 5 Mg Tab) 5 mg PO QAM [facility] Stop: 02/15/23 08:59 Last Admin: 01/16/23 08:05 Dose: 5 mg Metoprolol Succinate (Metoprolol Succ 25mg Ext Rel Tab) 12.5 mg PO BID [facility] Stop: 02/15/23 20:59 Polyethylene Glycol (Polyethylene (Miralax) 17 Gm Pack) 17 gm PO DAILY PRN PRN Reason: Constipation Stop: 02/12/23 19:25 Potassium Chloride (Potassium Chloride Crtab 20 Meq Tabcr) 20 meq PO BID [facility] Stop: 02/14/23 20:59 Last Admin: 01/16/23 08:05 Dose: 20 meq
[2023-01-16] MEDS ORDERED: APIXABAN 2.5 MG TAB PO SCH (11:30)
--- NOTE | 2023-01-16 14:47 | Hospitalist Progress Note ---
Date of Service January 16, 2023 Assessment & Plan (1) Atrial fibrillation with RVR: Plan: Atrial Fibrillation RVR: New diagnosis Tachybradycardia arrhythmias --CXR:Cardiomegaly with evidence of congestive failure. Layering pleural effusions with dependent consolidation. --ECHO: Mild dilated LV chamber size with normal wall thickness. Severely reduced LV systolic function with severe global hypokinesis, EF 15 to 20%. Right ventricle cavity is enlarged. The right ventricle systolic function is reduced as assessed by tricuspid annular valve systolic excursion. Aortic valve sclerosis moderate, without significant aortic valvular stenosis. Dilated mitral annulus with poor leaflet coaptation. Moderate to severe secondary mitral regurgitation. There is moderate to severe tricuspid regurgitation. Severe biatrial enlargement. Large left pleural effusion. --IV Cardizem discontinued Continue metoprolol On IV heparin transition to Eliquis (needs therapeutic doses as patient also has acute DVT) Replace electrolytes as needed Appreciate cardiology input Acute respiratory failure with hypoxia Volume overload Severe biventricular heart failure Acute systolic heart failure CXR as above ABD usd:A right pleural effusion is seen, at least moderate in size. A small amount of ascites is seen, largest pocket is in the right lower quadrant and pelvis. BNP 1820 ECHO as above Likely will need nuclear stress test as able Continue IV Lasix 20mg BID Daily weight, I/Os, fluid restriction Low sodium diet, fluid restriction Oxygen support PRN Monitor renal function/electrolytes Added lisinopril 5 mg daily Monitor renal function Appreciate cardiology input Continue current management Acute right lower extremity DVT Venous Doppler:Deep venous thrombus is seen in the posterior tibial vein on the right. No superficial venous thrombosis is identified. Continue IV heparin>> transition to Eliquis Type II [place] likely due to demand ischemia Secondary to volume overload, A-fib RVR Monitor Abnormal thyroid function test No known history of hypothyroidism Elevated TSH Free normal T4 Low Free T3 We will repeat thyroid function test as outpatient ? CKD III Unknown baseline Creatinine 1.47> 1.1 Monitor renal function Prediabetes HbA1C: 6.4 Ambulatory dysfunction Fall precautions PT OT as able DVT prophylaxis Eliquis CODE STATUS Full code Disposition PT OT prior to discharge Admission and Anticipated Discharge Date Admission Date: January 13, 2023 Subjective Patient is seen and examined at bedside History is obtained using interpretation service States having dizziness and generalized weakness Eager to get discharged Weaned off of supplemental oxygen Saturating low 90s on room air Denies any chest pain, dizziness, nausea, abdominal pain Review of Systems Review of Systems: All systems reviewed & are unremarkable except as noted in Subjective Physical Exam Physical Exam: Physical Exam: Vitals signs as noted above General Appearance:Moderately built and nourished, Elderly, Chronic ill appearing, no apparent distress Head: normocephalic, Atraumatic Eyes: normal inspection, EOMI Neck: supple, Trachea midline Respiratory/Chest: Normal breath sounds, CTA, No accessory muscle use Cardiovascular: Irregularly irregular, No murmur Abdomen/GI:Soft, Non tender, +distended, Bowel sounds present Extremities/Musculoskeletal:normal inspection, 2-3+ B/L LE edema Neurologic/Psych:AAOX3, grossly no focal neurological deficits Skin: normal color, warm Results & Data Results & Data ([facility]) Vital Signs (Past 12 Hours) Vital Signs Temp Pulse Pulse Resp BP Pulse Ox O2 Del Method 01/16/23 11:48 37.1 C 112 H 18 93/57 L 92 Room Air 01/16/23 09:00 77 01/16/23 07:38 37.1 C 88 18 108/69 91 Room Air 01/16/23 07:38 Nasal Cannula O2 Flow Rate 01/16/23 11:48 01/16/23 09:00 01/16/23 07:38 01/16/23 07:38 2 Laboratory Results [facility] 01/16/23 06:10 Sodium 139 Potassium 3.3 L Chloride 101 Carbon Dioxide 32 BUN 31 H Creatinine 1.15 D Glucose 82 Calcium 8.3 L
[2023-01-16] MEDS: METOPROLOL SUCC 25MG EXT REL TAB PO SCH (20:16)
[2023-01-16] MEDS: APIXABAN 5 MG TABLET PO SCH (21:31)
[2023-01-17 07:26] LABS: Hematocrit (blood only) 35.2 % (37.0-47.0); Hemoglobin 11.8 g/dl (12.0-16.0); Mean Corpuscular Hemoglobin 29.2 pg (25.0-34.0); Mean Corpuscular Hgb Conc 33.5 g/dL (32.0-36.0); Mean Corpuscular Volume 87.1 fL (80.0-100.0); Mean Platelet Volume 11.4 fL (9.4-12.4); Platelet Count 151 K/uL (130-400); RDW Coefficient of Variation 19.3 % (11.5-14.5); RDW Standard Deviation 59.7 fL (36.4-46.3); Red Blood Count 4.04 M/uL (4.20-5.40); White Blood Count 5.25 K/ul (4.8-10.8)
[2023-01-17 07:41] LABS: BUN Creatinine Ratio 24.2 (10-20); Calcium 8.2 mg/dl (8.5-10.1); Creatinine Clr Calc Pharmacy 34.3 ml/min; Est GFR (African American) 50.1 ml/min; Est GFR (Non-African American) 43.3 ml/min; Magnesium 1.6 mg/dl (1.7-2.4); Potassium 3.5 mmol/L (3.5-5.1)
[2023-01-17] MEDS: POTASSIUM CHLORIDE CRTAB 20 MEQ TABCR PO SCH (08:21)
[2023-01-17] MEDS: APIXABAN 5 MG TABLET PO SCH ×2 (08:21→19:59)
[2023-01-17] MEDS: METOPROLOL SUCC 25MG EXT REL TAB PO SCH ×2 (08:21→19:58)
[2023-01-17] MEDS: FUROSEMIDE INJ 20 MG/2 ML VIAL IV SCH (08:22)
[2023-01-17] MEDS: lisinopril 5 MG TAB PO SCH (08:22)
[2023-01-17] MEDS ORDERED: DOCUSATE SODIUM 100 MG CAP PO PRN (09:49)
[2023-01-17] MEDS ORDERED: PROMETHAZINE HCL 6.25 MG in SODIUM CHLORIDE 0.9% 50 ML IV PRN (09:49)
[2023-01-17] MEDS ORDERED: lisinopril 10 MG TAB PO SCH (10:15)
--- NOTE | 2023-01-17 10:35 | Cardiology Progress Note ---
Date of Service January 17, 2023 Assessment & Plan (1) HFrEF (heart failure with reduced ejection fraction): (2) Tachycardia induced cardiomyopathy: (3) DVT (deep venous thrombosis): (4) Atrial fibrillation: Plan The patient's overall condition has improved. She has only minimal edema in her lower extremities at this point and I think we can lower her diuretics and make them oral. I wanted to also increase her lisinopril from 5 to 10 mg daily however, this morning she had low blood pressure after her morning meds and the IV Lasix. The patient, on a lower extremity ultrasound, has a DVT of the tibial artery and I agree with increasing her Eliquis to 10 mg twice daily however, after discharge I am concerned that the patient may not have dosage decreased as recommended. The patient still is at risk after discharge due to social reasons. Admission and Anticipated Discharge Date Admission Date: January 13, 2023 Subjective The patient is overall doing better. Unfortunately, there is still a language barrier and patient is hard of hearing along with a very difficult social situation. Review of Systems Review of Systems: Not obtainable Physical Exam Physical Exam: General: no acute distress and stated age Head: normocephalic, no masses, lesions, tenderness or abnormalities Eyes: conjunctiva are pink and non-injected, sclera clear Neck: supple, no adenopathy, no bruits, normal jugular venous pulse, no hepatojugular reflux Chest: normal shape and normal respiratory effort Lungs: clear to auscultation and percussion Cardiac Exam: - irregular rate & rhythm, no murmurs gallops or rubs - normal S1, normal S2 Pulses: 2(+) throughout Abdomen: abdomen soft, non-tender, no abnormal masses and no hepatosplenomegaly Musculoskeletal: no gait disturbance, no joint inflammation, no deforming arthritis Extremities: Edema of the lower extremities Neuro: grossly normal exam Results & Data ([facility]) Vital Signs (Past 12 Hours) Vital Signs Temp Pulse Pulse Resp BP BP Pulse Ox 01/17/23 07:18 36.5 C 97 H 16 115/75 97 01/17/23 03:52 76 18 115/76 94 01/17/23 00:00 106 H 01/16/23 23:00 97 H 18 101/68 91 O2 Del Method O2 Flow Rate 01/17/23 07:18 Nasal Cannula 2 01/17/23 03:52 Room Air 01/17/23 00:00 01/16/23 23:00 Room Air Laboratory Results Laboratory Results - last 24 hr 01/17/23 01/17/23 06:21 06:21 WBC 5.25 RBC 4.04 L Hgb 11.8 L Hct 35.2 L MCV 87.1 MCH 29.2 MCHC 33.5 RDW Std Deviation 59.7 H RDW Coeff of Bubba 19.3 H Plt Count 151 MPV 11.4 Sodium 139 Potassium 3.5 Chloride 100 Carbon Dioxide 32 Anion Gap 7 BUN 29 H Creatinine 1.20 Est Cr Clr Drug Dosing 34.3 Est GFR ( Amer) 50.1 Est GFR (Non-Af Amer) 43.3 BUN/Creatinine Ratio 24.2 H Glucose 74 Calcium 8.2 L Magnesium 1.6 L Medications Administered Current Inpatient Medications Acetaminophen (Acetaminophen 325 Mg Tab) 650 mg PO Q4H PRN PRN Reason: Pain or Fever Stop: 02/12/23 19:25 Last Admin: 01/14/23 08:53 Dose: 650 mg Apixaban (Apixaban 5 Mg Tablet) 10 mg PO BID [facility] Stop: 01/23/23 09:01 Last Admin: 01/17/23 08:21 Dose: 10 mg Docusate Sodium (Docusate Sodium 100 Mg Cap) 100 mg PO BID PRN PRN Reason: Constipation Stop: 02/16/23 20:59 Furosemide (Furosemide 20 Mg Tab) 20 mg PO BID17 [facility] Stop: 02/16/23 16:59 Promethazine HCl 6.25 mg/ (Sodium Chloride) 50.25 mls @ 201 mls/hr IV Q6H PRN PRN Reason: Nausea And Vomiting Stop: 02/16/23 09:48 Lisinopril (Lisinopril 5 Mg Tab) 5 mg PO QAM [facility] Stop: 02/17/23 08:59 Magnesium Chloride (Magnesium Chloride W/Calcium 64mg Delayed Rel Tab) 64 mg PO BID [facility] Stop: 02/16/23 09:14 Metoprolol Succinate (Metoprolol Succ 25mg Ext Rel Tab) 12.5 mg PO BID [facility] Stop: 02/15/23 20:59 Last Admin: 01/17/23 08:21 Dose: 12.5 mg Polyethylene Glycol (Polyethylene (Miralax) 17 Gm Pack) 17 gm PO DAILY PRN PRN Reason: Constipation Stop: 02/12/23 19:25 Last Admin: 01/17/23 09:47 Dose: 17 gm Potassium Chloride (Potassium Chloride Crtab 20 Meq Tabcr) [facility] [place]: 02/17/23 08:59
[2023-01-17] MEDS: MAGNESIUM CHLORIDE W/CALCIUM 64MG DELAYED REL TAB PO SCH ×2 (10:59→19:59)
--- NOTE | 2023-01-17 16:01 | Hospitalist Progress Note ---
Date of Service January 17, 2023 Assessment & Plan (1) Atrial fibrillation with RVR: Plan: Atrial Fibrillation RVR: New diagnosis Tachybradycardia arrhythmias --CXR:Cardiomegaly with evidence of congestive failure. Layering pleural effusions with dependent consolidation. --ECHO: Mild dilated LV chamber size with normal wall thickness. Severely reduced LV systolic function with severe global hypokinesis, EF 15 to 20%. Right ventricle cavity is enlarged. The right ventricle systolic function is reduced as assessed by tricuspid annular valve systolic excursion. Aortic valve sclerosis moderate, without significant aortic valvular stenosis. Dilated mitral annulus with poor leaflet coaptation. Moderate to severe secondary mitral regurgitation. There is moderate to severe tricuspid regurgitation. Severe biatrial enlargement. Large left pleural effusion. --IV Cardizem discontinued Continue metoprolol On IV heparin transition to Eliquis (needs therapeutic doses as patient also has acute DVT) Replace electrolytes as needed Appreciate cardiology input Patient prefers to sign out AGAINST MEDICAL ADVICE despite explaining the risks and complications of leaving without complete treatment. Patient understands t he risks involved but prefers to be discharged home. Called patient's son several times: No answer. Requested patient to provide patient's son's cell number but patient reluctant to provide the same. " I take my own decisions, my son has no business with my care" Advised to follow-up with PCP, cardiology upon discharge Acute respiratory failure with hypoxia Volume overload Severe biventricular heart failure Acute systolic heart failure CXR as above ABD usd:A right pleural effusion is seen, at least moderate in size. A small amount of ascites is seen, largest pocket is in the right lower quadrant and pelvis. BNP 1820 ECHO as above Likely will need nuclear stress test as able Continue IV Lasix 20mg BID Daily weight, I/Os, fluid restriction Low sodium diet, fluid restriction Oxygen support PRN Monitor renal function/electrolytes Added lisinopril 5 mg daily Monitor renal function Appreciate cardiology input Continue current management Acute right lower extremity DVT Venous Doppler:Deep venous thrombus is seen in the posterior tibial vein on the right. No superficial venous thrombosis is identified. Continue IV heparin>> transition to Eliquis Type II [place] likely due to demand ischemia Secondary to volume overload, A-fib RVR Monitor Abnormal thyroid function test No known history of hypothyroidism Elevated TSH Free normal T4 Low Free T3 We will repeat thyroid function test as outpatient ? CKD III Unknown baseline Creatinine 1.47> 1.1 Monitor renal function Prediabetes HbA1C: 6.4 Ambulatory dysfunction Fall precautions PT OT as able DVT prophylaxis Eliquis CODE STATUS Full code Disposition PT OT prior to discharge Disposition AGAINST MEDICAL ADVICE Admission and Anticipated Discharge Date Admission Date: January 13, 2023 Subjective Patient is seen and examined at bedside History is obtained using interpretation service States having dizziness, constipation and nausea Discussed with cardiology today Patient prefers to be discharged home despite explaining the risks and complications Denies any chest pain, abdominal pain Review of Systems Review of Systems: All systems reviewed & are unremarkable except as noted in Subjective Physical Exam Physical Exam: Physical Exam: Vitals signs as noted above General Appearance:Moderately built and nourished, Elderly, Chronic ill appearing, no apparent distress Head: normocephalic, Atraumatic Eyes: normal inspection, EOMI Neck: supple, Trachea midline Respiratory/Chest: Normal breath sounds, CTA, No accessory muscle use Cardiovascular: Irregularly irregular, No murmur Abdomen/GI:Soft, Non tender, +distended, Bowel sounds present Extremities/Musculoskeletal:normal inspection, 2-3+ B/L LE edema Neurologic/Psych:AAOX3, grossly no focal neurological deficits Skin: normal color, warm Results & Data Results & Data ([facility]) Vital Signs (Past 12 Hours) Vital Signs Temp Pulse Pulse Resp BP BP Pulse Ox 01/17/23 11:04 36.4 C L 130 H 20 111/65 99 01/17/23 09:50 94/62 L 01/17/23 06:00 88 01/17/23 08:20 01/17/23 07:18 36.5 C 97 H 16 115/75 97 O2 Del Method O2 Flow Rate 01/17/23 11:04 Nasal Cannula 2 01/17/23 09:50 01/17/23 06:00 01/17/23 08:20 Room Air 01/17/23 07:18 Nasal Cannula 2 Laboratory Results Short CBC 01/17/23 Range/Units 06:21 WBC 5.25 (4.8-10.8) K/ul Hgb 11.8 L (12.0-16.0) g/dl Hct 35.2 L (37.0-47.0) % Plt Count 151 (130-400) K/uL BMP 01/17/23 06:21 Sodium 139 Potassium 3.5 Chloride 100 Carbon Dioxide 32 BUN 29 H Creatinine 1.20 Glucose 74 Calcium 8.2 L
--- NOTE | 2023-01-17 16:04 | Discharge Summary ---
Date of Service January 17, 2023 Admission HPI Per Admitting Provider Patient is a 77-year-old female with past medical history of arthritis and no other significant past medical history presents with history of worsening edema, shortness of breath and ambulatory dysfunction. Patient is mandrin speaking and most of the history is obtained using paraprofessional interpreter service and also from patient's son over the phone. She states having worsening lower extremity edema, increased abdominal distention which has been gradually worsening since October 2022. She had poor oral intake which she attributes to indigestion. Patient's son informs that patient has chronic dyspnea on exertion which worsened especially since since 2 months duration. She uses a cane for ambulation but currently having difficulty with ambulation as well. Intermittent cough with occasional hemoptysis several days ago. Currently denies any history of bleeding. She also has trouble laying flat and at times wakes up in the middle of the night with trouble breathing. She believes her abdomen has been gradually getting distended over few days. She was found in A- fib RVR while in ED and started on Cardizem drip. Denies any history of chest pain, palpitations, dizziness, fever, chills, fall, head trauma, syncope, headache, change in vision, double/blurry vision, nausea, vomiting, abdominal pain, weight loss, dysuria, hematuria. Presented to ED 2 weeks ago but left AMA. Admission Exam Per Admitting Provider Physical Exam: Vitals signs as noted above General Appearance:Moderately built and nourished, Elderly, Chronic ill appearing, no apparent distress Head: normocephalic, Atraumatic Eyes: normal inspection, EOMI Neck: supple, Trachea midline Respiratory/Chest: Normal breath sounds, CTA, No accessory muscle use Cardiovascular: Irregularly irregular, tachycardic, No murmur Abdomen/GI:Soft, Non tender, +distended, Bowel sounds present Extremities/Musculoskeletal:normal inspection, 2-3+ B/L LE edema Neurologic/Psych:AAOX3, grossly no focal neurological deficits Skin: normal color, warm Principal Diagnosis Atrial Fibrillation RVR Acute respiratory failure with hypoxia Acute right lower extremity DVT MADY on CKD III Hypomagnesemia Constipation Discharge Data Allergies Allergy/AdvReac Type Severity Reaction Status Date / Time No Known Allergies Allergy Verified 01/13/23 15:32 Consultations 01/13/23 17:52 ED Decision to Admit Stat 01/13/23 19:26 Consult Cardiology Routine Procedures Performed Laboratory Results WBC 5.25 K/ul (4.8-10.8) 01/17/23 06:21 RBC 4.04 M/uL (4.20-5.40) L 01/17/23 06:21 Hgb 11.8 g/dl (12.0-16.0) L 01/17/23 06:21 Hct 35.2 % (37.0-47.0) L 01/17/23 06:21 MCV 87.1 fL (80.0-100.0) 01/17/23 06:21 MCH 29.2 pg (25.0-34.0) 01/17/23 06:21 MCHC 33.5 g/dL (32.0-36.0) 01/17/23 06:21 RDW Std Deviation 59.7 fL (36.4-46.3) H 01/17/23 06:21 RDW Coeff of Bubba 19.3 % (11.5-14.5) H 01/17/23 06:21 Plt Count 151 K/uL (130-400) 01/17/23 06:21 MPV 11.4 fL (9.4-12.4) 01/17/23 06:21 Immature Gran % (Auto) 0.5 % 01/15/23 05:23 Neut % (Auto) 76.8 % 01/15/23 05:23 Lymph % (Auto) 16.2 % 01/15/23 05:23 Mccracken % (Auto) 5.9 % 01/15/23 05:23 Eos % (Auto) 0.3 % 01/15/23 05:23 Baso % (Auto) 0.3 % 01/15/23 05:23 Neut # (Auto) 5.07 K/uL (1.40-6.50) 01/15/23 05:23 Lymph # (Auto) 1.07 K/uL (1.2-3.4) L 01/15/23 05:23 [place]en # (Auto) 0.39 K/uL (0.11-0.59) 01/15/23 05:23 Eos # (Auto) 0.02 K/uL (0-0.50) 01/15/23 05:23 Baso # (Auto) 0.02 K/uL (0-0.2) 01/15/23 05:23 Immature Gran # (Auto) 0.03 K/uL (0.01-0.20) 01/15/23 05:23 Absolute Nucleated RBC 0.04 K/uL (0-0.12) 01/15/23 05:23 Nucleated RBC % (auto) 0.6 % 01/15/23 05:23 Polychromasia 1+ 01/13/23 15:50 Anisocytosis Present 01/13/23 15:50 Ovalocytes 1+ 01/13/23 15:50 Echinocytes 1+ 01/13/23 15:50 PT 13.0 Seconds (9.0-12.0) H 01/13/23 15:50 INR 1.2 (0.9-1.1) H 01/13/23 15:50 APTT 81.1 Seconds (21.0-31.0) H* 01/16/23 07:30 PTT Ratio 2.9 01/16/23 07:30 VBG pH 7.38 (7.36-7.41) 01/13/23 15:50 VBG pCO2 41 mmHg (38-50) 01/13/23 15:50 VBG pO2 26 mmHg 01/13/23 15:50 VBG HCO3 24 mmol/L 01/13/23 15:50 VBG O2 Saturation < 60.0 % 01/13/23 15:50 VBG Base Excess -0.8 mEq/L 01/13/23 15:50 Sodium 139 mmol/L (136-145) 01/17/23 06:21 Potassium 3.5 mmol/L (3.5-5.1) 01/17/23 06:21 Chloride 100 mmol/L (98-107) 01/17/23 06:21 Carbon Dioxide 32 mmol/L (21-32) 01/17/23 06:21 Anion Gap 7 (3-11) 01/17/23 06:21 BUN 29 mg/dl (6-23) H 01/17/23 06:21 Creatinine 1.20 mg/dl (0.6-1.2) 01/17/23 06:21 Est Cr Clr Drug Dosing 34.3 ml/min 01/17/23 06:21 Est GFR ( Amer) 50.1 ml/min 01/17/23 06:21 Est GFR (Non-Af Amer) 43.3 ml/min 01/17/23 06:21 BUN/Creatinine Ratio 24.2 (10-20) H 01/17/23 06:21 Glucose 74 mg/dl (70-99(Fasting)) 01/17/23 06:21 Estimat Average Glucose 137 mg/dl 01/14/23 06:22 Hemoglobin A1c 6.4 % (4.5-5.6) H 01/14/23 06:22 Calcium 8.2 mg/dl (8.5-10.1) L 01/17/23 06:21 Magnesium 1.6 mg/dl (1.7-2.4) L 01/17/23 06:21 Total Bilirubin 2.5 mg/dl (0.2-1.0) H 01/15/23 05:23 AST 16 U/L (13-39) 01/15/23 05:23 ALT 11 U/L (7-52) 01/15/23 05:23 Alkaline Phosphatase 70 U/L (34-104) 01/15/23 05:23 Troponin I High Sens 162.3 pg/ml (0-14) H* 01/14/23 06:22 B-Natriuretic Peptide 1820 pg/ml (0-100) H 01/13/23 15:50 Total Protein 5.2 gm/dl (6.0-8.3) L 01/15/23 05:23 Albumin 3.0 gm/dl (3.4-5.0) L 01/15/23 05:23 Globulin 2.2 gm/dl (2.5-4.0) L 01/15/23 05:23 Albumin/Globulin Ratio 1.4 (0.9-2) 01/15/23 05:23 Procalcitonin < 0.05 ng/ml (0-0.5) 01/14/23 06:22 TSH 6.410 uIu/ml (0.300-4.500) H 01/14/23 06:22 Free T4 1.30 ng/dl (0.61-1.60) 01/13/23 15:50 Free T3 2.13 pg/ml (2.3-4.2) L 01/14/23 06:22 Urine Color Yellow 01/13/23 17:25 Urine Appearance Clear (Clear) 01/13/23 17:25 Urine pH 5.0 (4.5-7.5) 01/13/23 17:25 Ur Specific [place] 1.009 (1.000-1.030) 01/13/23 17:25 Urine Protein Negative (Negative) 01/13/23 17:25 Urine Glucose (UA) Negative (Negative) 01/13/23 17:25 Urine Ketones Negative (Negative) 01/13/23 17:25 Urine Blood Negative (Negative) 01/13/23 17:25 Urine Nitrite Negative (Negative) 01/13/23 17:25 Urine Bilirubin Negative (Negative) 01/13/23 17:25 Urine Urobilinogen Negative (Negative) 01/13/23 17:25 Ur Leukocyte Esterase Negative (Negative) 01/13/23 17:25 Digoxin < 0.3 ng/ml (0.8-2.0) L 01/13/23 15:50 SARS-CoV-2, RNA, NAAT NEGATIVE (NEGATIVE) 01/13/23 15:40 Impressions Chest X-Ray 01/13/23 15:07 SINGLE VIEW CHEST CLINICAL HISTORY: Dyspnea FINDINGS: An AP, portable, upright chest radiograph is compared to study dated 01/02/2023. The examination is degraded by portable technique and apical lordotic positioning. The heart is enlarged noting atherosclerotic calcification of the thoracic aorta. There is pulmonary vascular congestion. There are layering pleural effusions with dependent consolidation. No pneumothorax is seen. The skeletal structures are osteopenic. The bony thorax is grossly intact. IMPRESSION: 1. Cardiomegaly with evidence of congestive failure. 2. Layering pleural effusions with dependent consolidation. ACT 112: Negative or not required by law. Electronically signed by: Sulaiman Diop M.D. 01/13/2023 3:52 PM Abdomen Ultrasound 01/13/23 19:26 US abdomen ltd ascites CLINICAL HISTORY: Abdominal distention TECHNIQUE: Real-time grayscale sonographic images of the abdomen were obtained. Comparison: None available at the time of this dictation. FINDINGS/IMPRESSION: A right pleural effusion is seen, at least moderate in size. A small amount of ascites is seen, largest pocket is in the right lower quadrant and pelvis. ACT 112: Negative or not required by law. Electronically signed by: Abrahan Castellanos M.D. 01/14/2023 9:10 AM Venous Doppler Study 01/14/23 09:03 US venous doppler LE BI CLINICAL HISTORY: r/o DVT. Left leg swelling > Right, painful TECHNIQUE: Bilateral lower extremity real-time compression venous ultrasound with Color Doppler imaging. Utilizing real-time ultrasonic imaging multiple real time high-resolution ultrasonic images with compression and noncompression maneuvers of the deep venous system in addition to color doppler imaging were performed from the common femoral vein through the proximal calf veins. COMPARISON: None available at the time of this dictation. FINDINGS/IMPRESSION: Deep venous thrombus is seen in the posterior tibial vein on the right. No superficial venous thrombosis is identified. ACT 112: Negative or not required by law. Electronically signed by: Abrahan Castellanos M.D. 01/14/2023 11:05 AM Ordered Studies 01/13/23 19:26 US abdomen ltd ascites Routine 01/14/23 09:03 US venous duplex leg [US venous doppler LE BI] Routine Hospital Course (1) Atrial fibrillation with RVR: Atrial Fibrillation RVR: New diagnosis Tachybradycardia arrhythmias --CXR:Cardiomegaly with evidence of congestive failure. Layering pleural effusions with dependent consolidation. --ECHO: Mild dilated LV chamber size with normal wall thickness. Severely reduced LV systolic function with severe global hypokinesis, EF 15 to 20%. Right ventricle cavity is enlarged. The right ventricle systolic function is reduced as assessed by tricuspid annular valve systolic excursion. Aortic valve sclerosis moderate, without significant aortic valvular stenosis. Dilated mitral annulus with poor leaflet coaptation. Moderate to severe secondary mitral regurgitation. There is moderate to severe tricuspid regurgitation. Severe biatrial enlargement. Large left pleural effusion. --IV Cardizem discontinued Continue metoprolol On IV heparin transition to Eliquis (needs therapeutic doses as patient also has acute DVT) Replace electrolytes as needed Appreciate cardiology input Patient prefers to sign out AGAINST MEDICAL ADVICE despite explaining the risks and complications of leaving without complete treatment. Patient understands the risks involved including but prefers to be discharged home. Called patient's son several times: No answer. Requested patient to provide p atient's son's cell number but patient reluctant to provide the same. " I take my own decisions, my son has no business with my care" Advised to follow-up with PCP, cardiology upon discharge Acute respiratory failure with hypoxia Volume overload Severe biventricular heart failure Acute systolic heart failure CXR as above ABD usd:A right pleural effusion is seen, at least moderate in size. A small amount of ascites is seen, largest pocket is in the right lower quadrant and pelvis. BNP 1820 ECHO as above Likely will need nuclear stress test as able Continue IV Lasix 20mg BID Daily weight, I/Os, fluid restriction Low sodium diet, fluid restriction Oxygen support PRN Monitor renal function/electrolytes Added lisinopril 5 mg daily Monitor renal function Appreciate cardiology input Continue current management Acute right lower extremity DVT Venous Doppler:Deep venous thrombus is seen in the posterior tibial vein on the right. No superficial venous thrombosis is identified. Continue IV heparin>> transition to Eliquis Type II OH likely due to demand ischemia Secondary to volume overload, A-fib RVR Monitor Abnormal thyroid function test No known history of hypothyroidism Elevated TSH Free normal T4 Low Free T3 We will repeat thyroid function test as outpatient MADY on CKD III-POA Unknown baseline Creatinine 1.47> 1.1 Monitor renal function Prediabetes HbA1C: 6.4 Ambulatory dysfunction Fall precautions PT OT as able DVT prophylaxis Eliquis CODE STATUS Full code Disposition PT OT prior to discharge Disposition AGAINST MEDICAL ADVICE Total Time Total Time Spent Total Time Spent (In Minutes): 67 minutes Discharge Plan Discharge Items Patient Disposition: Against Medical Advice Reason For Visit: SHORTNESS OF BREATH, EDEMA Activity: As commented below Exercise/Sports: Wait until after follow-up appointment Non-emergency contact: Primary Care Provider and Coroner Forensic Technician Follow-up/Referrals: Blanca Angelo DO [Outside Practitioners] - (Date & Time 01/20/2023 2:00 PM Provider Blanca Angelo DO Department Family Practice [facility] ) Fluids: 1800ml (7 cups) Addtl Hide Puller Provider Instructions: Follow-up with your primary care physician Dr. Blanca Angelo on 01/20/2023 2:00 PM as scheduled Seek immediate medical attention if your symptoms reoccur or worsen Please take all medications as instructed on discharge list below. Please call if you have any questions or problems. You can reach a [facility] hospitalist on duty at [facility] 24 hours a day by calling [phone] Pending Studies at Discharge: No Stand-Alone Forms: My [facility] [employer], Smoking Cessation Medications and DC Order Prescriptions: New Eliquis 5 mg Tablet 10 mg PO UD Qty: 72 2RF Rx Instructions: Start taking apixaban 10 mg twice a day for 6 more days and then take 5 mg twice a day potassium chloride 20 mEq Tablet,Er Particles/Crystals 20 meq PO QAM Qty: 10 0RF lisinopril [Zestril] 5 mg Tablet 5 mg PO QAM Qty: 30 2RF metoprolol succinate 25 mg Tablet Extended Release 24 Hr 12.5 mg PO BID 30 Days Qty: 30 2RF Mag 64 64 mg Tablet,Delayed Release (Dr/Ec) 64 mg PO BID Qty: 60 0RF polyethylene glycol 3350 [Miralax] 17 gram Powder In Packet 17 g PO DAILY PRN (Reason: constipation) Qty: 30 0RF Changed furosemide 20 mg tablet 20 mg PO BID Qty: 60 2RF Discontinued metoprolol succinate 25 mg tablet extended release 24 hr 25 mg PO DAILY Qty: 30 0RF Discharge Orders: Left Against Medical Advice (Routine); Ordered 01/17/23 Ordered By: Haris Fierro/Other Patient Handouts: Prediabetes, 5 Steps for Eating Healthier Admission Data Admit Date/Time: 01/13/23 18:19 Attending Provider: Haris Urias Admit Provider: Haris Urias Primary Care Provider: PCP,NO Other Providers: Haris Urias ; Pavithra Canales ; Min Anguiano ; Charlie Rizzo ; Esteban Gomes ; Jorge Gordon ; Bill Jdud ; Tyrell Garcia ; Miriam Cruz ; Herminia Silva ; Pavithra Rhodes ; Ismael Ojeda
[2023-01-17] MEDS: FUROSEMIDE 20 MG TAB PO SCH (17:10)
[2023-01-18 07:18] LABS: Hematocrit (blood only) 32.5 % (37.0-47.0)
[2023-01-18 07:33] LABS: BUN Creatinine Ratio 24.4 (10-20); Creatinine Clr Calc Pharmacy 31.7 ml/min; Est GFR (African American) 46.8 ml/min; Est GFR (Non-African American) 40.4 ml/min; Magnesium 1.6 mg/dl (1.7-2.4); Potassium 3.2 mmol/L (3.5-5.1)
[2023-01-18] MEDS: METOPROLOL SUCC 25MG EXT REL TAB PO SCH (07:55)
[2023-01-18] MEDS: MAGNESIUM CHLORIDE W/CALCIUM 64MG DELAYED REL TAB PO SCH (07:58)
[2023-01-18] MEDS: APIXABAN 5 MG TABLET PO SCH (07:58)
[2023-01-18] MEDS: FUROSEMIDE 20 MG TAB PO SCH (08:00)
[2023-01-18] MEDS ORDERED: POTASSIUM CHLORIDE CRTAB 20 MEQ TABCR PO SCH (09:00)
[2023-01-18] MEDS ORDERED: lisinopril 5 MG TAB PO SCH (09:00)
[2023-01-18] MEDS ORDERED: POLYETHYLENE (MIRALAX) 17 GM PACK PO ONE (09:35)
[2023-01-18] MEDS ORDERED: bisacodyL 10 MG SUPP PR PRN (09:35)
[2023-01-18] MEDS ORDERED: DOCUSATE SODIUM 100 MG CAP PO ONE (09:45)
--- NOTE | 2023-01-18 10:33 | Cardiology Progress Note ---
Date of Service January 18, 2023 Assessment & Plan (1) HFrEF (heart failure with reduced ejection fraction): (2) Tachycardia induced cardiomyopathy: (3) DVT (deep venous thrombosis): (4) Atrial fibrillation: Plan The patient has had no more dizziness or low blood pressure since switching her to oral Lasix. Unfortunately she has not taken all her medications this morning so not sure where her blood pressure is going to be but I would like to increase her lisinopril if possible to 10 mg daily. Otherwise I would continue her other medications. I do note that she still has some lower extremity edema but I am uncertain as to whether we will be able to clear that completely as I believe most of it is chronic. The patient will be a difficult patient from a compliance standpoint as well as follow-up after discharge. Admission and Anticipated Discharge Date Admission Date: January 13, 2023 Subjective The patient did not want to take medications this morning but now is slowly taking them. Review of Systems Review of Systems: Not obtainable Physical Exam Physical Exam: General: no acute distress and stated age Head: normocephalic, no masses, lesions, tenderness or abnormalities Eyes: conjunctiva are pink and non-injected, sclera clear Neck: supple, no adenopathy, no bruits, normal jugular venous pulse, no hepatojugular reflux Chest: normal shape and normal respiratory effort Lungs: clear to auscultation and percussion Cardiac Exam: - irregular rate & rhythm, no murmurs gallops or rubs - normal S1, normal S2 Pulses: 2(+) throughout Abdomen: abdomen soft, non-tender, no abnormal masses and no hepatosplenomegaly Musculoskeletal: no gait disturbance, no joint inflammation, no deforming arthritis Extremities: Edema of the lower extremities Neuro: grossly normal exam Results & Data ([facility]) Vital Signs (Past 12 Hours) Vital Signs Temp Pulse Pulse Resp BP BP Pulse Ox 01/18/23 08:11 36.4 C L 119 H 18 115/75 111/89 94 01/18/23 07:52 36.4 C L 119 H 18 111/89 94 01/18/23 05:58 92 H 01/18/23 04:30 88 18 111/76 97 O2 Del Method 01/18/23 08:11 01/18/23 07:52 Room Air 01/18/23 05:58 01/18/23 04:30 Nasal Cannula Laboratory Results Laboratory Results - last 24 hr 01/18/23 01/18/23 06:27 06:27 Hgb 11.0 L Hct 32.5 L Sodium 140 Potassium 3.2 L Chloride 101 Carbon Dioxide 34 H Anion Gap 5 BUN 31 H Creatinine 1.27 H Est Cr Clr Drug Dosing 31.7 Est GFR ( Amer) 46.8 Est GFR (Non-Af Amer) 40.4 BUN/Creatinine Ratio 24.4 H Glucose 81 Calcium 8.0 L Magnesium 1.6 L Medications Administered Current Inpatient Medications Acetaminophen (Acetaminophen 325 Mg Tab) 650 mg PO Q4H PRN PRN Reason: Pain or Fever Stop: 02/12/23 19:25 Last Admin: 01/14/23 08:53 Dose: 650 mg Apixaban (Apixaban 5 Mg Tablet) 10 mg PO BID [facility] Stop: 01/23/23 09:01 Last Admin: 01/18/23 07:58 Dose: 10 mg Bisacodyl (Bisacodyl 10 Mg Supp) 10 mg NE BID PRN PRN Reason: Constipation Stop: 02/17/23 09:34 Docusate Sodium (Docusate Sodium 100 Mg Cap) 100 mg PO BID [facility] Stop: 02/17/23 09:44 Furosemide (Furosemide 20 Mg Tab) 20 mg PO BID17 [facility] Stop: 02/16/23 16:59 Last Admin: 01/18/23 08:00 Dose: 20 mg Promethazine HCl 6.25 mg/ (Sodium Chloride) 50.25 mls @ 201 mls/hr IV Q6H PRN PRN Reason: Nausea And Vomiting Stop: 02/16/23 09:48 Lisinopril (Lisinopril 5 Mg Tab) 5 mg PO QAM [facility] Stop: 02/17/23 08:59 Last Admin: 01/18/23 08:00 Dose: 5 mg Magnesium Chloride (Magnesium Chloride W/Calcium 64mg Delayed Rel Tab) 64 mg PO BID [facility] Stop: 02/16/23 09:14 Last Admin: 01/18/23 07:58 Dose: 64 mg Metoprolol Succinate (Metoprolol Succ 25mg Ext Rel Tab) 12.5 mg PO BID [facility] Stop: 02/15/23 20:59 Last Admin: 01/18/23 07:55 Dose: 12.5 mg Polyethylene Glycol (Polyethylene (Miralax) 17 Gm Pack) 17 gm PO DAILY PRN PRN Reason: Constipation Stop: 02/12/23 19:25 Last Admin: 01/17/23 09:47 Dose: 17 gm Potassium Chloride (Potassium Chloride Crtab 20 Meq Tabcr) 20 meq PO QAM ABE Stop: 02/17/23 08:59 Last Admin: 01/18/23 07:58 Dose: 20 meq
--- NOTE | 2023-01-18 10:34 | Hospitalist Progress Note ---
Date of Service January 18, 2023 Assessment & Plan (1) Atrial fibrillation with RVR: Plan: Atrial Fibrillation RVR: New diagnosis Tachybradycardia arrhythmias --CXR:Cardiomegaly with evidence of congestive failure. Layering pleural effusions with dependent consolidation. --ECHO: Mild dilated LV chamber size with normal wall thickness. Severely reduced LV systolic function with severe global hypokinesis, EF 15 to 20%. Right ventricle cavity is enlarged. The right ventricle systolic function is reduced as assessed by tricuspid annular valve systolic excursion. Aortic valve sclerosis moderate, without significant aortic valvular stenosis. Dilated mitral annulus with poor leaflet coaptation. Moderate to severe secondary mitral regurgitation. There is moderate to severe tricuspid regurgitation. Severe biatrial enlargement. Large left pleural effusion. --IV Cardizem discontinued Continue metoprolol On IV heparin transition to Eliquis (needs therapeutic doses as patient also has acute DVT) Replace electrolytes as needed Appreciate cardiology input Patient prefers to sign out AGAINST MEDICAL ADVICE despite explaining the risks and complications of leaving without complete treatment. Patient understands t he risks involved including but prefers to be discharged home. Called patient's son several times: No answer. Requested patient to provide patient's son's cell number but patient reluctant to provide the same. " I take my own decisions, my son has no business with my care" Advised to follow-up with PCP, cardiology upon discharge Advised to continue to get treatment while hospitalized. Explained on multiple occasions risks and complications of leaving without treatment. Patient refused and prefers to sign out AMA Discussed with case management to help with transportation issues Acute respiratory failure with hypoxia Volume overload Severe biventricular heart failure Acute systolic heart failure CXR as above ABD usd:A right pleural effusion is seen, at least moderate in size. A small amount of ascites is seen, largest pocket is in the right lower quadrant and pelvis. BNP 1820 ECHO as above Likely will need nuclear stress test as able Continue IV Lasix 20mg BID Daily weight, I/Os, fluid restriction Low sodium diet, fluid restriction Oxygen support PRN Monitor renal function/electrolytes Added lisinopril 5 mg daily Monitor renal function Appreciate cardiology input Continue current management Acute right lower extremity DVT Venous Doppler:Deep venous thrombus is seen in the posterior tibial vein on the right. No superficial venous thrombosis is identified. Continue IV heparin>> transition to Eliquis Type II NE likely due to demand ischemia Secondary to volume overload, A-fib RVR Monitor Abnormal thyroid function test No known history of hypothyroidism Elevated TSH Free normal T4 Low Free T3 We will repeat thyroid function test as outpatient MADY on CKD III-POA Unknown baseline Creatinine 1.47> 1.1>1.2 Monitor renal function Constipation Continue bowel regimen Prediabetes HbA1C: 6.4 Ambulatory dysfunction Fall precautions PT OT as able DVT prophylaxis Eliquis CODE STATUS Full code Disposition AGAINST MEDICAL ADVICE Admission and Anticipated Discharge Date Admission Date: January 13, 2023 Subjective Patient is seen and examined at bedside History is obtained using interpretation service States having constipation Refused a.m. meds per RN Prefers to be discharged home despite explaining the risks and being unstable Denies any chest pain, abdominal pain Dyspnea better Prefers to leave AMA Review of Systems Review of Systems: All systems reviewed & are unremarkable except as noted in Subjective Physical Exam Physical Exam: Physical Exam: Vitals signs as noted above General Appearance:Moderately built and nourished, Elderly, Chronic ill appearing, no apparent distress Head: normocephalic, Atraumatic Eyes: normal inspection, EOMI Neck: supple, Trachea midline Respiratory/Chest: Normal breath sounds, CTA, No accessory muscle use Cardiovascular: Irregularly irregular, No murmur Abdomen/GI:Soft, Non tender, +distended, Bowel sounds present Extremities/Musculoskeletal:normal inspection, 2-3+ B/L LE edema Neurologic/Psych:AAOX3, grossly no focal neurological deficits Skin: normal color, warm Results & Data Results & Data ([facility]) Vital Signs (Past 12 Hours) Vital Signs Temp Pulse Pulse Resp BP BP Pulse Ox 01/18/23 08:11 36.4 C L 119 H 18 115/75 111/89 94 01/18/23 07:52 36.4 C L 119 H 18 111/89 94 01/18/23 05:58 92 H 01/18/23 04:30 88 18 111/76 97 O2 Del Method 01/18/23 08:11 01/18/23 07:52 Room Air 01/18/23 05:58 01/18/23 04:30 Nasal Cannula Laboratory Results Short CBC 01/18/23 Range/Units 06:27 Hgb 11.0 L (12.0-16.0) g/dl Hct 32.5 L (37.0-47.0) % BMP 01/18/23 06:27 Sodium 140 Potassium 3.2 L Chloride 101 Carbon Dioxide 34 H BUN 31 H Creatinine 1.27 H Glucose 81 Calcium 8.0 L
--- NOTE | 2023-01-18 14:11 | Discharge Summary ---
Date of Service January 18, 2023 Admission HPI Per Admitting Provider Patient is a 77-year-old female with past medical history of arthritis and no other significant past medical history presents with history of worsening edema, shortness of breath and ambulatory dysfunction. Patient is mandrin speaking and most of the history is obtained using brake reliner service and also from patient's son over the phone. She states having worsening lower extremity edema, increased abdominal distention which has been gradually worsening since October 2022. She had poor oral intake which she attributes to indigestion. Patient's son informs that patient has chronic dyspnea on exertion which worsened especially since since 2 months duration. She uses a cane for ambulation but currently having difficulty with ambulation as well. Intermittent cough with occasional hemoptysis several days ago. Currently denies any history of bleeding. She also has trouble laying flat and at times wakes up in the middle of the night with trouble breathing. She believes her abdomen has been gradually getting distended over few days. She was found in A- fib RVR while in ED and started on Cardizem drip. Denies any history of chest pain, palpitations, dizziness, fever, chills, fall, head trauma, syncope, headache, change in vision, double/blurry vision, nausea, vomiting, abdominal pain, weight loss, dysuria, hematuria. Presented to ED 2 weeks ago but left AMA. Admission Exam Per Admitting Provider Physical Exam: Vitals signs as noted above General Appearance:Moderately built and nourished, Elderly, Chronic ill appearing, no apparent distress Head: normocephalic, Atraumatic Eyes: normal inspection, EOMI Neck: supple, Trachea midline Respiratory/Chest: Normal breath sounds, CTA, No accessory muscle use Cardiovascular: Irregularly irregular, tachycardic, No murmur Abdomen/GI:Soft, Non tender, +distended, Bowel sounds present Extremities/Musculoskeletal:normal inspection, 2-3+ B/L LE edema Neurologic/Psych:AAOX3, grossly no focal neurological deficits Skin: normal color, warm Principal Diagnosis Atrial Fibrillation RVR Acute respiratory failure with hypoxia Acute right lower extremity DVT MADY on CKD III Hypomagnesemia Constipation Discharge Data Allergies Allergy/AdvReac Type Severity Reaction Status Date / Time No Known Allergies Allergy Verified 01/13/23 15:32 Consultations 01/13/23 17:52 ED Decision to Admit Stat 01/13/23 19:26 Consult Cardiology Routine Procedures Performed Laboratory Results WBC 5.25 K/ul (4.8-10.8) 01/17/23 06:21 RBC 4.04 M/uL (4.20-5.40) L 01/17/23 06:21 Hgb 11.0 g/dl (12.0-16.0) L 01/18/23 06:27 Hct 32.5 % (37.0-47.0) L 01/18/23 06:27 MCV 87.1 fL (80.0-100.0) 01/17/23 06:21 MCH 29.2 pg (25.0-34.0) 01/17/23 06:21 MCHC 33.5 g/dL (32.0-36.0) 01/17/23 06:21 RDW Std Deviation 59.7 fL (36.4-46.3) H 01/17/23 06:21 RDW Coeff of Bubba 19.3 % (11.5-14.5) H 01/17/23 06:21 Plt Count 151 K/uL (130-400) 01/17/23 06:21 MPV 11.4 fL (9.4-12.4) 01/17/23 06:21 Immature Gran % (Auto) 0.5 % 01/15/23 05:23 Neut % (Auto) 76.8 % 01/15/23 05:23 Lymph % (Auto) 16.2 % 01/15/23 05:23 [place] % (Auto) 5.9 % 01/15/23 05:23 Eos % (Auto) 0.3 % 01/15/23 05:23 Baso % (Auto) 0.3 % 01/15/23 05:23 Neut # (Auto) 5.07 K/uL (1.40-6.50) 01/15/23 05:23 Lymph # (Auto) 1.07 K/uL (1.2-3.4) L 01/15/23 05:23 [place] # (Auto) 0.39 K/uL (0.11-0.59) 01/15/23 05:23 Eos # (Auto) 0.02 K/uL (0-0.50) 01/15/23 05:23 Baso # (Auto) 0.02 K/uL (0-0.2) 01/15/23 05:23 Immature Gran # (Auto) 0.03 K/uL (0.01-0.20) 01/15/23 05:23 Absolute Nucleated RBC 0.04 K/uL (0-0.12) 01/15/23 05: Nucleated RBC % (auto) 0.6 % 01/15/23 05:23 Polychromasia 1+ 01/13/23 15:50 Anisocytosis Present 01/13/23 15:50 Ovalocytes 1+ 01/13/23 15:50 Echinocytes 1+ 01/13/23 15:50 PT 13.0 Seconds (9.0-12.0) H 01/13/23 15:50 INR 1.2 (0.9-1.1) H 01/13/23 15:50 APTT 81.1 Seconds (21.0-31.0) H* 01/16/23 07:30 PTT Ratio 2.9 01/16/23 07:30 VBG pH 7.38 (7.36-7.41) 01/13/23 15:50 VBG pCO2 41 mmHg (38-50) 01/13/23 15:50 VBG pO2 26 mmHg 01/13/23 15:50 VBG HCO3 24 mmol/L 01/13/23 15:50 VBG O2 Saturation < 60.0 % 01/13/23 15:50 VBG Base Excess -0.8 mEq/L 01/13/23 15:50 Sodium 140 mmol/L (136-145) 01/18/23 06:27 Potassium 3.2 mmol/L (3.5-5.1) L 01/18/23 06:27 Chloride 101 mmol/L (98-107) 01/18/23 06:27 Carbon Dioxide 34 mmol/L (21-32) H 01/18/23 06:27 Anion Gap 5 (3-11) 01/18/23 06:27 BUN 31 mg/dl (6-23) H 01/18/23 06:27 Creatinine 1.27 mg/dl (0.6-1.2) H 01/18/23 06:27 Est Cr Clr Drug Dosing 31.7 ml/min 01/18/23 06:27 Est GFR ( Amer) 46.8 ml/min 01/18/23 06:27 Est GFR (Non-Af Amer) 40.4 ml/min 01/18/23 06:27 BUN/Creatinine Ratio 24.4 (10-20) H 01/18/23 06:27 Glucose 81 mg/dl (70-99(Fasting)) 01/18/23 06:27 Estimat Average Glucose 137 mg/dl 01/14/23 06:22 Hemoglobin A1c 6.4 % (4.5-5.6) H 01/14/23 06:22 Calcium 8.0 mg/dl (8.5-10.1) L 01/18/23 06:27 Magnesium 1.6 mg/dl (1.7-2.4) L 01/18/23 06:27 Total Bilirubin 2.5 mg/dl (0.2-1.0) H 01/15/23 05:23 AST 16 U/L (13-39) 01/15/23 05:23 ALT 11 U/L (7-52) 01/15/23 05:23 Alkaline Phosphatase 70 U/L (34-104) 01/15/23 05:23 Troponin I High Sens 162.3 pg/ml (0-14) H* 01/14/23 06:22 B-Natriuretic Peptide 1820 pg/ml (0-100) H 01/13/23 15:50 Total Protein 5.2 gm/dl (6.0-8.3) L 01/15/23 05:23 Albumin 3.0 gm/dl (3.4-5.0) L 01/15/23 05:23 Globulin 2.2 gm/dl (2.5-4.0) L 01/15/23 05:23 Albumin/Globulin Ratio 1.4 (0.9-2) 01/15/23 05:23 Procalcitonin < 0.05 ng/ml (0-0.5) 01/14/23 06: TSH 6.410 uIu/ml (0.300-4.500) H 01/14/23 06:22 Free T4 1.30 ng/dl (0.61-1.60) 01/13/23 15:50 Free T3 2.13 pg/ml (2.3-4.2) L 01/14/23 06:22 Urine Color Yellow 01/13/23 17:25 Urine Appearance Clear (Clear) 01/13/23 17:25 Urine pH 5.0 (4.5-7.5) 01/13/23 17:25 Ur Specific [place] 1.009 (1.000-1.030) 01/13/23 17:25 Urine Protein Negative (Negative) 01/13/23 17:25 Urine Glucose (UA) Negative (Negative) 01/13/23 17:25 Urine Ketones Negative (Negative) 01/13/23 17:25 Urine Blood Negative (Negative) 01/13/23 17:25 Urine Nitrite Negative (Negative) 01/13/23 17:25 Urine Bilirubin Negative (Negative) 01/13/23 17:25 Urine Urobilinogen Negative (Negative) 01/13/23 17:25 Ur Leukocyte Esterase Negative (Negative) 01/13/23 17:25 Digoxin < 0.3 ng/ml (0.8-2.0) L 01/13/23 15:50 SARS-CoV-2, RNA, NAAT NEGATIVE (NEGATIVE) 01/13/23 15:40 Impressions Chest X-Ray 01/13/23 15:07 SINGLE VIEW CHEST CLINICAL HISTORY: Dyspnea FINDINGS: An AP, portable, upright chest radiograph is compared to study dated 01/02/2023. The examination is degraded by portable technique and apical lordotic positioning. The heart is enlarged noting atherosclerotic calcification of the thoracic aorta. There is pulmonary vascular congestion. There are layering pleural effusions with dependent consolidation. No pneumothorax is seen. The skeletal structures are osteopenic. The bony thorax is grossly intact. IMPRESSION: 1. Cardiomegaly with evidence of congestive failure. 2. Layering pleural effusions with dependent consolidation. ACT 112: Negative or not required by law. Electronically signed by: Sulaiman Diop M.D. 01/13/2023 3:52 PM Abdomen Ultrasound 01/13/23 19:26 US abdomen ltd ascites CLINICAL HISTORY: Abdominal distention TECHNIQUE: Real-time grayscale sonographic images of the abdomen were obtained. Comparison: None available at the time of this dictation. FINDINGS/IMPRESSION: A right pleural effusion is seen, at least moderate in size. A small amount of ascites is seen, largest pocket is in the right lower quadrant and pelvis. ACT 112: Negative or not required by law. Electronically signed by: Abrahan Castellanos M.D. 01/14/2023 9:10 AM Venous Doppler Study 01/14/23 09:03 US venous doppler LE BI CLINICAL HISTORY: r/o DVT. Left leg swelling > Right, painful TECHNIQUE: Bilateral lower extremity real-time compression venous ultrasound with Color Doppler imaging. Utilizing real-time ultrasonic imaging multiple real time high-resolution ultrasonic images with compression and noncompression maneuvers of the deep venous system in addition to color doppler imaging were performed from the common femoral vein through the proximal calf veins. COMPARISON: None available at the time of this dictation. FINDINGS/IMPRESSION: Deep venous thrombus is seen in the posterior tibial vein on the right. No superficial venous thrombosis is identified. ACT 112: Negative or not required by law. Electronically signed by: Abrahan Castellanos M.D. 01/14/2023 11:05 AM Ordered Studies 01/13/23 19:26 US abdomen ltd ascites Routine 01/14/23 09:03 US venous duplex leg [US venous doppler LE BI] Routine Hospital Course (1) Atrial fibrillation with RVR: Atrial Fibrillation RVR: New diagnosis Tachybradycardia arrhythmias --CXR:Cardiomegaly with evidence of congestive failure. Layering pleural effusions with dependent consolidation. --ECHO: Mild dilated LV chamber size with normal wall thickness. Severely reduced LV systolic function with severe global hypokinesis, EF 15 to 20%. Right ventricle cavity is enlarged. The right ventricle systolic function is reduced as assessed by tricuspid annular valve systolic excursion. Aortic valve sclerosis moderate, without significant aortic valvular stenosis. Dilated mitral annulus with poor leaflet coaptation. Moderate to severe secondary mitral regurgitation. There is moderate to severe tricuspid regurgitation. Severe biatrial enlargement. Large left pleural effusion. --IV Cardizem discontinued Continue metoprolol On IV heparin transition to Eliquis (needs therapeutic doses as patient also has acute DVT) Replace electrolytes as needed Appreciate cardiology input Patient prefers to sign out AGAINST MEDICAL ADVICE despite explaining the risks and complications of leaving without complete treatment. Patient understands the risks involved including but prefers to be discharged home. Called patient's son several times: No answer. Requested patient to provide patient's son's cell number but patient reluctant to provide the same. " I take my own decisions, my son has no business with my care" Advised to follow-up with PCP, cardiology upon discharge Advised to continue to get treatment while hospitalized. Explained on multiple occasions risks and complications of leaving without treatment. Patient refused and prefers to sign out AMA Discussed with case management to help with transportation issues Acute respiratory failure with hypoxia Volume overload Severe biventricular heart failure Acute systolic heart failure CXR as above ABD usd:A right pleural effusion is seen, at least moderate in size. A small amount of ascites is seen, largest pocket is in the right lower quadrant and pelvis. BNP 1820 ECHO as above Likely will need nuclear stress test as able Continue IV Lasix 20mg BID Daily weight, I/Os, fluid restriction Low sodium diet, fluid restriction Oxygen support PRN Monitor renal function/electrolytes Added lisinopril 5 mg daily Monitor renal function Appreciate cardiology input Continue current management Acute right lower extremity DVT Venous Doppler:Deep venous thrombus is seen in the posterior tibial vein on the right. No superficial venous thrombosis is identified. Continue IV heparin>> transition to Eliquis Type II GA likely due to demand ischemia Secondary to volume overload, A-fib RVR Monitor Abnormal thyroid function test No known history of hypothyroidism Elevated TSH Free normal T4 Low Free T3 We will repeat thyroid function test as outpatient MADY on CKD III-POA Unknown baseline Creatinine 1.47> 1.1>1.2 Monitor renal function Constipation Continue bowel regimen Prediabetes HbA1C: 6.4 Ambulatory dysfunction Fall precautions PT OT as able DVT prophylaxis Eliquis CODE STATUS Full code Disposition AGAINST MEDICAL ADVICE Total Time Total Time Spent Total Time Spent (In Minutes): 69 minutes Discharge Plan Discharge Items Patient Disposition: Against Medical Advice Reason For Visit: SHORTNESS OF BREATH, EDEMA Activity: As commented below Exercise/Sports: Wait until after follow-up appointment Non-emergency contact: Primary Care Provider and Medical Clinic Manager Follow-up/Referrals: Blanca Angelo DO [Outside Practitioners] - (Date & Time 01/20/2023 2:00 PM Provider Blanca Angelo DO Department Family Practice [facility] ) Fluids: 1800ml (7 cups) Addtl Blemish Remover Provider Instructions: Follow-up with your primary care physician Dr. Blanca Angelo on 01/20/2023 2:00 PM as scheduled Seek immediate medical attention if your symptoms reoccur or worsen Please take all medications as instructed on discharge list below. Please call if you have any questions or problems. You can reach a [facility] hospitalist on duty at [facility] 24 hours a day by calling [phone] Pending Studies at Discharge: No Stand-Alone Forms: My [facility], Smoking Cessation Medications and DC Order Prescriptions: New Eliquis 5 mg Tablet 10 mg PO UD Qty: 72 2RF Rx Instructions: Start taking apixaban 10 mg twice a day for 6 more days and then take 5 mg twice a day potassium chloride 20 mEq Tablet,Er Particles/Crystals 20 meq PO QAM Qty: 10 0RF lisinopril [Zestril] 5 mg Tablet 5 mg PO QAM Qty: 30 2RF metoprolol succinate 25 mg Tablet Extended Release 24 Hr 12.5 mg PO BID 30 Days Qty: 30 2RF Mag 64 64 mg Tablet,Delayed Release (Dr/Ec) 64 mg PO BID Qty: 60 0RF polyethylene glycol 3350 [Miralax] 17 gram Powder In Packet 17 g PO DAILY PRN (Reason: constipation) Qty: 30 0RF Changed furosemide 20 mg tablet 20 mg PO BID Qty: 60 2RF Discontinued metoprolol succinate 25 mg tablet extended release 24 hr 25 mg PO DAILY Qty: 30 0RF Discharge Orders: Left Against Medical Advice (Routine); Ordered 01/18/23 Ordered By: Haris Fierro/Other Patient Handouts: Prediabetes, 5 Steps for Eating Healthier Admission Data Admit Date/Time: 01/13/23 18:19 Attending Provider: Haris Urias Admit Provider: Haris Urias Primary Care Provider: PCP,NO Other Providers: Haris Urias ; Pavithra Canales ; Min Anguiano ; Charlie Rizzo ; Esteban Gomes ; Jorge Gordon ; DutchBill becerra ; Tyrell Garcia ; Miriam Cruz ; Herminia Silva ; Pavithra Rhodes ; Ismael Ojeda
[2023-01-18] MEDS ORDERED: DOCUSATE SODIUM 100 MG CAP PO SCH (21:00)
== END 2023-01-18 13:56 | disposition left against medical advice (07) | DRG 280 ==
LOC: ED 14:39 → 2E 18:19

== ENCOUNTER 2023-05-09 15:31 | Inpatient (IN) ==
[2023-05-09] MEDS ORDERED: dilTIAZem HCl 5 MG/ML 5 ML VIAL IV STA (16:02)
[2023-05-09] MEDS ORDERED: FUROSEMIDE 40 MG/4 ML VIAL IV ONE (16:02)
[2023-05-09] MEDS ORDERED: STAT IV Infusion **Titration per Protocol STA (16:02)
[2023-05-09] MEDS ORDERED: MAGNESIUM SULFATE / D5W 1 GM/100 ML BAG IV STA (16:03)
--- NOTE | 2023-05-09 16:07 | Emergency Department Note ---
Impression & Plan Atrial fibrillation with RVR, Pulmonary edema, HFrEF (heart failure with reduced ejection fraction) ED Provider Note Provider: Jae Perry MD DATE OF SERVICE: 05/09/2023 CHIEF COMPLAINT: Swelling, shortness of breath HISTORY OF PRESENT ILLNESS: Patient is a 78-year-old female history of atrial fibrillation and heart failure from records presenting here via ambulance from her home reportedly with some increased swelling and shortness of breath over the last several days and now having difficulty walking. History obtained via [employer] translation services the patient does not speak Cook Islander and is quite hard of hearing. Some limitation with this. Patient denies any pain or falls. States he can get around due to swelling in her legs. States he feels short of breath particular when trying to walk. Again denies chest pain. States she ran out of her medications at the end of March and they would not refill them unless she was seen by the doctor and has not seen them. Was hospitalized here in December. PAST MEDICAL HISTORY: As noted above MEDICATIONS: Reviewed medication list from home but states she is run out of them. SOCIAL HISTORY: Primarily speaks Mandarin Portuguese PHYSICAL EXAM: GENERAL: alert and oriented in no acute distress on stretcher hard of hearing with translation iPad at bedside Head: normocephalic and atraumatic EYES: No injection, discharge or icterus. NECK: Trachea midline. Supple. ENT: Mucous membranes pink and moist. LUNGS: Airway patent. No retractions. Breath sounds diminished in the bases HEART: Regular tachycardic rate and rhythm. No chest wall tenderness ABDOMEN: Soft and non-tender, without guarding or rebound. SKIN: Acyanotic, warm, dry, without rashes EXTREMITIES: Bilateral lower edema swelling without significant weeping. Some chronic skin changes lower legs. Minimally tender. NEUROLOGICAL: Moving all extremities. No aphasia. No facial droop. EK beats per atrial fibrillation rapid ventricular spots. No acute ST segment elevation or depression with decreased amplitudes and flattened to inverted T waves prickly laterally. QTc 379. CONTINUOUS CARDIAC MONITORING: was ordered and showed a heart rate of 80s-120s bpm in atrial fibrillation Patient's laboratory studies and imaging reviewed. Differential includes Infection, dehydration, metabolic abnormality, hypo/hyperglycemia, electrolyte disturbance, anemia, hypoxia, cardiac sources,neurologic, as well as other pathologies. IMPRESSION/MEDICAL DECISION MAKING: Reviewed prior medical records. No outpatient encounters at [facility] since discharge AGAINST MEDICAL ADVICE in December from here with diagnosis at the time of A-fib RVR and heart failure. Ran of her medications in March by her report. Does appear significantly swollen. Somewhat difficult to get a good pulse ox on her. Placed on some liters of oxygen for comfort but not in acute d istress upon evaluation. Appears to have some A-fib RVR. Again does not appear that she has been on medication for some weeks. Initially given some magnesium, diltiazem, Lasix for some diuresis. Given diltiazem bolus and ordered a drip but did not need the drip. X-ray and basic labs obtained. No trauma history reported. Denies pain. Use translation services with [employer] and she was agreeable to stay for optimization at this time. Blood work here without significant anemia or leukocytosis. No severe electrolyte abnormality with actually a slightly high magnesium of 2.6 on labs when they return. Creatinine slightly high at 1.5 but not far off baseline. Mild troponin elevation less than previously. TSH slightly abnormal with free T4 pending. Negative COVID. BNP severely elevated 3125 and chest x-ray per radiology report reviewed shows evidence of fluid overload. Again empirically treated with Lasix. Discussed with hospitalist for further care here. DIAGNOSIS: A-fib with RVR, CHF/fluid overload, ambulatory dysfunction, elevated BNP DISPOSITION: Hospitalist will evaluate Patient was agreeable with this plan. Critical Care I have personally spent 35 minutes of critical care time in the direct management of this patient. This includes bedside care, interpretation of diagnostic studies, and testing, discussion with consultants, patient, and other required patient management activities. These 35 minutes is in excess of all separately billable procedures. Past Med/Surg History Medical History Arthritis Atrial fibrillation with RVR Congestive heart failure Surgical History No significant past surgical history Social History Smoking Status: Never smoker Second Hand Exposure: No; Do You Dip or Chew Tobacco: No; Hx Alcohol Use: Yes Alcohol type: wine Hx Substance Use: No Preferred Language: Mandarin Portuguese Communication Ability: Impaired Communication Ability Comment: Hard of Hearing Communication Tools: IPad Bolting Machine Operator Required: Yes Beliefs That Will Affect Care: None Current Living Situation: Family Other Information That Helps Us Care for You: No Feels Safe at Home: Yes Safety Concerns: Feels Safe At This Time Assistive Devices: Walker Allergies Allergies Allergy/AdvReac Type Severity Reaction Status Date / Time No Known Allergies Allergy Verified 01/13/23 15:32 Home Meds Previous Rx's Medication Instructions Recorded apixaban 5 mg tablet (Eliquis) 10 mg PO UD #72 tabs 01/17/23 furosemide 20 mg tablet 20 mg PO BID #60 tabs 01/17/23 lisinopril 5 mg tablet (Zestril) 5 mg PO QAM #30 tabs 01/17/23 magnesium chloride 64 mg 64 mg PO BID #60 tabs 01/17/23 (magnesium chloride) tablet,delayed release (Mag 64) metoprolol succinate 25 mg 12.5 mg PO BID 30 days #30 tabs 01/17/23 tablet,extended release 24 hr polyethylene glycol 3350 17 gram 17 g PO DAILY PRN constipation #30 01/17/23 oral powder packet (Miralax) ea potassium chloride 20 mEq 20 meq PO QAM #10 tabs 01/17/23 tablet,extended release(part/cryst) Results & Data (ED) Vital Signs Vital Signs - 24 hr 05/09/23 15:36 05/09/23 15:38 05/09/23 15:36 Temperature 36.7 C Temperature Source Oral Pulse Rate 115 H 105 H Pulse Rate [Apical] Pulse Rate from SpO2 Sensor Pulse Rhythm Irregular Pulse Rhythm [Apical] Pulse Strength [Apical] Respiratory Rate 18 Respiratory Effort / Characteristics Non-Labored Labored Respiratory Depth Normal Deep Respiratory Pattern Regular Blood Pressure 147/82 H Blood Pressure [Left Arm] Blood Pressure Mean 103 Blood Pressure Mean [Left Arm] Blood Pressure Position [Left Arm] Pulse Oximetry Oxygen Delivery Method Oxygen Flow Rate Sepsis Recent Fever Within 48 Hours No Sepsis New/Unexplained Change in Mental Status No Sepsis Action Taken by Nursing No Action Required Oxygen Flow Rate - Titration 05/09/23 15:36 05/09/23 15:37 05/09/23 16:00 Temperature Temperature Source Pulse Rate 105 H 115 H Pulse Rate [Apical] Pulse Rate from SpO2 Sensor 114 H Pulse Rhythm Pulse Rhythm [Apical] Pulse Strength [Apical] Respiratory Rate 20 29 H Respiratory Effort / Characteristics Respiratory Depth Respiratory Pattern Blood Pressure Blood Pressure [Left Arm] Blood Pressure Mean Blood Pressure Mean [Left Arm] Blood Pressure Position [Left Arm] Pulse Oximetry 100 Oxygen Delivery Method Room Air Nasal Cannula Oxygen Flow Rate 3 Sepsis Recent Fever Within 48 Hours Sepsis New/Unexplained Change in Mental Status Sepsis Action Taken by Nursing Oxygen Flow Rate - Titration 3 05/09/23 16:01 05/09/23 16:01 05/09/23 16:30 Temperature Temperature Source Pulse Rate 122 H 95 H Pulse Rate [Apical] Pulse Rate from SpO2 Sensor 117 H Pulse Rhythm Pulse Rhythm [Apical] Pulse Strength [Apical] Respiratory Rate 18 16 Respiratory Effort / Characteristics Respiratory Depth Respiratory Pattern Blood Pressure 118/87 97/65 L Blood Pressure [Left Arm] Blood Pressure Mean 97 75 Blood Pressure Mean [Left Arm] Blood Pressure Position [Left Arm] Pulse Oximetry 99 96 Oxygen Delivery Method Nasal Cannula Oxygen Flow Rate 3 3 Sepsis Recent Fever Within 48 Hours Sepsis New/Unexplained Change in Mental Status Sepsis Action Taken by Nursing Oxygen Flow Rate - Titration 05/09/23 17:00 05/09/23 17:10 05/09/23 17:10 Temperature Temperature Source Pulse Rate 81 82 Pulse Rate [Apical] Pulse Rate from SpO2 Sensor 81 Pulse Rhythm Pulse Rhythm [Apical] Pulse Strength [Apical] Respiratory Rate 22 13 Respiratory Effort / Characteristics Respiratory Depth Respiratory Pattern Blood Pressure 113/67 Blood Pressure [Left Arm] Blood Pressure Mean 82 Blood Pressure Mean [Left Arm] Blood Pressure Position [Left Arm] Pulse Oximetry 97 Oxygen Delivery Method Oxygen Flow Rate Sepsis Recent Fever Within 48 Hours Sepsis New/Unexplained Change in Mental Status Sepsis Action Taken by Nursing Oxygen Flow Rate - Titration 05/09/23 16:54 Temperature 36.8 C Temperature Source Oral Pulse Rate Pulse Rate [Apical] 123 H Pulse Rate from SpO2 Sensor Pulse Rhythm Pulse Rhythm [Apical] Regular Pulse Strength [Apical] Normal Respiratory Rate 18 Respiratory Effort / Characteristics Non-Labored Spontaneous Respiratory Depth Normal Respiratory Pattern Regular Blood Pressure Blood Pressure [Left Arm] 120/80 Blood Pressure Mean Blood Pressure Mean [Left Arm] 93 Blood Pressure Position [Left Arm] Lying Pulse Oximetry Oxygen Delivery Method Nasal Cannula Oxygen Flow Rate 2 Sepsis Recent Fever Within 48 Hours Sepsis New/Unexplained Change in Mental Status Sepsis Action Taken by Nursing Oxygen Flow Rate - Titration Laboratory Data 05/09/23 15:35 05/09/23 15:35 Lab Results 05/09/23 05/09/2323 Range/Units 15:35 15:35 15:35 WBC 6.64 (4.8-10.8) K/ul RBC 4.70 (4.20-5.40) M/uL Hgb 14.7 (12.0-16.0) g/dl Hct 44.6 (37.0-47.0) % MCV 94.9 (80.0-100.0) fL MCH 31.3 (25.0-34.0) pg MCHC 33.0 (32.0-36.0) g/dL RDW Std Deviation 72.3 H (36.4-46.3) fL RDW Coeff of Bubba 21.5 H (11.5-14.5) % Plt Count 195 (130-400) K/uL MPV 11.9 (9.4-12.4) fL Immature Gran % (Auto) 0.3 % Neut % (Auto) 71.3 % Lymph % (Auto) 19.4 % Gaston % (Auto) 8.3 % Eos % (Auto) 0.2 % Baso % (Auto) 0.5 % Neut # (Auto) 4.74 (1.40-6.50) K/uL Lymph # (Auto) 1.29 (1.2-3.4) K/uL Gaston # (Auto) 0.55 (0.11-0.59) K/uL Eos # (Auto) 0.01 (0-0.50) K/uL Baso # (Auto) 0.03 (0-0.2) K/uL Immature Gran # (Auto) 0.02 (0.01-0.20) K/uL Absolute Nucleated RBC 0.07 (0-0.12) K/uL Nucleated RBC % (auto) 1.1 % Anisocytosis Present PT INR APTT PTT Ratio Sodium 138 (136-145) mmol/L Potassium 4.1 (3.5-5.1) mmol/L Chloride 104 (98-107) mmol/L Carbon Dioxide 26 (21-32) mmol/L Anion Gap 8 (3-11) BUN 43 H (6-23) mg/dl Creatinine 1.59 H (0.6-1.2) mg/dl Est Cr Clr Drug Dosing Not Reportable Est GFR ( Amer) 35.4 ml/min Est GFR (Non-Af Amer) 30.6 ml/min BUN/Creatinine Ratio 27.0 H (10-20) Glucose 95 (70-99(Fasting)) mg/dl Calcium 8.0 L (8.6-10.3) mg/dl Magnesium 2.6 H (1.7-2.4) mg/dl Total Bilirubin 2.3 H (0.2-1.0) mg/dl AST 24 (13-39) U/L ALT 10 (7-52) U/L Alkaline Phosphatase 116 H (34-104) U/L Troponin I High Sens 60.6 H* (0-14) pg/ml B-Natriuretic Peptide (0-100) pg/ml Total Protein 5.6 L (6.0-8.3) gm/dl Albumin 2.8 L (3.4-5.0) gm/dl Globulin 2.8 (2.5-4.0) gm/dl Albumin/Globulin Ratio 1.0 (0.9-2) TSH 12.497 H (0.300-4.500) uIu/ml Free T4 1.10 (0.61-1.60) ng/dl SARS-CoV-2, RNA, NAAT (NEGATIVE) 05/09/23 05/09/23 05/09/23 Range/Units 15:35 15:35 16:12 WBC (4.8-10.8) K/ul RBC (4.20-5.40) M/uL Hgb (12.0-16.0) g/dl Hct (37.0-47.0) % MCV (80.0-100.0) fL MCH (25.0-34.0) pg MCHC (32.0-36.0) g/dL RDW Std Deviation (36.4-46.3) fL RDW Coeff of Bubba (11.5-14.5) % Plt Count (130-400) K/uL MPV (9.4-12.4) fL Immature Gran % (Auto) % Neut % (Auto) % Lymph % (Auto) % Gaston % (Auto) % Eos % (Auto) % Baso % (Auto) % Neut # (Auto) (1.40-6.50) K/uL Lymph # (Auto) (1.2-3.4) K/uL Gaston # (Auto) (0.11-0.59) K/uL Eos # (Auto) (0-0.50) K/uL Baso # (Auto) (0-0.2) K/uL Immature Gran # (Auto) (0.01-0.20) K/uL Absolute Nucleated RBC (0-0.12) K/uL Nucleated RBC % (auto) % Anisocytosis PT Cancelled INR Cancelled APTT Cancelled PTT Ratio Cancelled Sodium (136-145) mmol/L Potassium (3.5-5.1) mmol/L Chloride (98-107) mmol/L Carbon Dioxide (21-32) mmol/L Anion Gap (3-11) BUN (6-23) mg/dl Creatinine (0.6-1.2) mg/dl Est Cr Clr Drug Dosing Est GFR ( Amer) ml/min Est GFR (Non-Af Amer) ml/min BUN/Creatinine Ratio (10-20) Glucose (70-99(Fasting)) mg/dl Calcium (8.6-10.3) mg/dl Magnesium (1.7-2.4) mg/dl Total Bilirubin (0.2-1.0) mg/dl AST (13-39) U/L ALT (7-52) U/L Alkaline Phosphatase (34-104) U/L Troponin I High Sens (0-14) pg/ml B-Natriuretic Peptide 3125 H (0-100) pg/ml Total Protein (6.0-8.3) gm/dl Albumin (3.4-5.0) gm/dl Globulin (2.5-4.0) gm/dl Albumin/Globulin Ratio (0.9-2) TSH (0.300-4.500) uIu/ml Free T4 (0.61-1.60) ng/dl SARS-CoV-2, RNA, NAAT NEGATIVE (NEGATIVE) Administered Medications Apixaban (Apixaban 5 Mg Tablet) 5 mg PO BID ABE Stop: 06/08/23 20:59 Last Admin: 05/09/23 21:53 Dose: 5 mg Documented By: СВЕТЛАНА Furosemide (Furosemide 40 Mg/4 Ml Vial) 40 mg IV BID ABE Stop: 06/08/23 20:59 Last Admin: 05/09/23 21:54 Dose: 40 mg Documented By: СВЕТЛАНА Metoprolol Tartrate (Metoprolol Tartrate 25 Mg Tab) 12.5 mg PO Q6H ABE Stop: 06/08/23 19:59 Last Admin: 05/09/23 21:53 Dose: 12.5 mg Documented By: СВЕТЛАНА Discontinued Medications Diltiazem HCl (Diltiazem Hcl 5 Mg/Ml 5 Ml Vial) 10 mg IV NOW STA Stop: 05/09/23 16:03 Last Admin: 05/09/23 16:19 Dose: 10 mg Documented By: ODALYS Co-signed By: YEIMI Furosemide (Furosemide 40 Mg/4 Ml Vial) 40 mg IV ONE ONE Stop: 05/09/23 16:03 Last Admin: 05/09/23 16:45 Dose: 40 mg Documented By: YEIMI Diltiazem HCl 125 mg/ Dextrose 125 mls @ 5 mls/hr IV .Q24H ABE; Protocol Stop: 06/08/23 16:14 Last Admin: 05/09/23 19:47 Dose: Not Given Documented By: СВЕТЛАНА Magnesium Sulfate/Dextrose (Magnesium Sulfate / D5w) 1 gm in 100 mls @ 100 mls/hr IV NOW STA Stop: 05/09/23 17:02 Last Infusion: 05/09/23 18:36 Dose: 0 mls/hr Documented By: Admin: 05/09/23 16:20 Dose: 100 mls/hr Documented By: ODALYS Miscellaneous (Stat Iv Infusion Titration Per Protocol) 1 each N/A NOW STA Stop: 05/09/23 16:03 Last Admin: 05/09/23 19:47 Dose: Not Given Documented By: СВЕТЛАНА Imaging Data Radiologist's Impression: Chest X-Ray 05/09/23 16:01 XR chest 1V portable CLINICAL HISTORY: Shortness of breath. Swelling. COMPARISON STUDY: Chest radiograph January 13, 2023. FINDINGS: There is no pneumothorax. Small to moderate right and small left pleural effusions are noted. These appear similar to prior exam. There are associated bibasilar opacities. Pulmonary edema is noted. There is cardiomegaly. This is unchanged. IMPRESSION: Pulmonary edema with small to moderate right and small left pleural effusions with associated bibasilar opacities. ACT 112: Negative or not required by law. Electronically signed by: Olivier Chacon M.D. 05/09/2023 4:44 PM Discharge Plan Visit Data Chief Complaint: Shortness of Breath/Dyspnea Stated Complaint: Shortness of breath ED Provider: Jae Perry Discharge Problem: Atrial fibrillation with RVR, Pulmonary edema, HFrEF (heart failure with reduced ejection fraction) Patient Disposition: Admitted As Inpatient Discharge Instructions Interventions: ED Discharge Assessment Last Done: 05/09/23 19:06
[2023-05-09] MEDS ORDERED: dilTIAZem HCL 125 MG in DEXTROSE 5% 100 ML IV SCH (16:15)
[2023-05-09 16:23] LABS: Basophils # (auto) 0.03 K/uL (0-0.2); Basophils % (auto) 0.5 %; Eosinophils # (auto) 0.01 K/uL (0-0.50); Eosinophils % (auto) 0.2 %; Hematocrit (blood only) 44.6 % (37.0-47.0); Hemoglobin 14.7 g/dl (12.0-16.0); Immature Granulocytes # (auto) 0.02 K/uL (0.01-0.20); Immature Granulocytes % (auto) 0.3 %; Lymphocytes # (auto) 1.29 K/uL (1.2-3.4); Lymphocytes % (auto) 19.4 %; Mean Corpuscular Hemoglobin 31.3 pg (25.0-34.0); Mean Corpuscular Volume 94.9 fL (80.0-100.0); Mean Platelet Volume 11.9 fL (9.4-12.4); Monocytes # (auto) 0.55 K/uL (0.11-0.59); Monocytes % (auto) 8.3 %; Neutrophils # (auto) 4.74 K/uL (1.40-6.50); Neutrophils % (auto) 71.3 %; Nucleated RBC # (auto) 0.07 K/uL (0-0.12); Nucleated RBC % (auto) 1.1 %; Platelet Count 195 K/uL (130-400); RDW Coefficient of Variation 21.5 % (11.5-14.5); RDW Standard Deviation 72.3 fL (36.4-46.3); White Blood Count 6.64 K/ul (4.8-10.8)
[2023-05-09 16:37] LABS: Alanine Aminotransferase 10 U/L (7-52); Albumin Level 2.8 gm/dl (3.4-5.0); Alkaline Phosphatase 116 U/L (34-104); Anion Gap 8 (3-11); Aspartate Aminotransferase 24 U/L (13-39); Bilirubin,Total 2.3 mg/dl (0.2-1.0); Blood Urea Nitrogen 43 mg/dl (6-23); Carbon Dioxide 26 mmol/L (21-32); Chloride 104 mmol/L (98-107); Est GFR (African American) 35.4 ml/min; Est GFR (Non-African American) 30.6 ml/min; Globulin 2.8 gm/dl (2.5-4.0); Glucose 95 mg/dl (70-99(Fasting)); Magnesium 2.6 mg/dl (1.7-2.4); Potassium 4.1 mmol/L (3.5-5.1); Sodium 138 mmol/L (136-145); Total Protein 5.6 gm/dl (6.0-8.3)
--- NOTE | 2023-05-09 16:45 | XRay Report ---
XR chest 1V portable CLINICAL HISTORY: Shortness of breath. Swelling. COMPARISON STUDY: Chest radiograph January 13, 2023. FINDINGS: There is no pneumothorax. Small to moderate right and small left pleural effusions are note d. These appear similar to prior exam. There are associated bibasilar opacities. Pulmonary edema is n oted. There is cardiomegaly. This is unchanged. IMPRESSION: Pulmonary edema with small to moderate right and small left pleural effusions with assoc iated bibasilar opacities. ACT 112: Negative or not required by law. Electronically signed by: Olivier Chacon M.D. 05/09/2023 4:44 PM
[2023-05-09 16:46] LABS: Troponin I High Sensitivity 60.6 pg/ml (0-14)
[2023-05-09 16:53] LABS: Thyroid Stimulating Hormone 12.497 uIu/ml (0.300-4.500)
[2023-05-09 17:13] LABS: Anisocytosis Present
[2023-05-09 17:24] LABS: T4 Free Thyroxine 1.1 ng/dl (0.61-1.60)
--- NOTE | 2023-05-09 17:32 | History & Physical Report ---
Date of Service May 09, 2023 Assessment & Plan (1) Acute exacerbation of CHF (congestive heart failure): (2) Atrial fibrillation with RVR: (3) Elevated troponin: (4) History of DVT (deep vein thrombosis): (5) Elevated TSH: (6) Chronic kidney disease, stage 3b: Plan 78 year old female with h/o HFrEF and DVT RLE who left AMA during recent admission in Dec presented to the ED with SOB and leg swelling after running out of meds and being declined refills until seen in the office Acute exacerbation of HFrEF due to noncompliance with medications - Echo 12/2022 with LVEF 15-20%, severe global hypokinesis, RV enlarged with reduced function, Moderate to severe MR and TR, severe biatrial enlargement, large left pleural effusion. - CXR 05/09 with pulmonary edema with small to moderate right and small left pleural effusions with associated bibasilar opacities. - BNP 3125, Given lasix 40 mg iv. - Will continue iv lasix 40 mg bd, strict I and Os, daily weight -Initiate GDMT as feasible - Repeat echo to see improvement. Cardio eval A fib with RVR- HR in 110s-120s. continue tele. Will continue BB. Avoid diltiazem given depressed cardiac function. Resume eliquis Hypoxia- continue diuresis. Continue supplemental oxygen, wean off as tolerated Elevated trop- likely demand ischemia. Trend for completeness CKD 3b- Renal function likely at baseline. Monitor with diuresis. H/o DVT-states she stopped her Eliquis given her epistaxis. Concern for persistent DVT, will check lower extremity ultrasound. She might need CT PE too but currently renal function precludes and she is already started on blood thinner anyway. Elevated TSH- TSH 12. T4 normal. ?sick euthyroid. OP follow up recommended. DVT ppx- eliquis Dispo- Admit to PCU/tele Code status- Full code History of Present Illness Chief Complaint: leg swelling, SOB, ran out of meds Primary Care Provider: NO PCP Patient is a 78-year-old female with history of HFrEF, atrial fibrillation, DVT right lower extremity who was recently admitted to the hospital from 01/13-01/18 and left AMA with no follow-up with any provider presented to hospital with worsening shortness of breath, leg swelling and pain. Patient is Mandarin speaking and interview completed with the help railway track worker over iPad. Patient is a poor historian. States that she ran out of her medications and was unable to refill, hence came to the hospital. She states she was able to get some elcj-rse-[id number] medications but was unable to specify her current medications. Also unable to specify when her last dose of medications were. She states she does not like to stay in the hospital and is wondering if she can go home with the prescription. She states the max second stay in the hospital is 3 days. She has orthopnea and would get short of breath with few steps. She is unable to walk much because of the leg pain. Denies any fever, chills, chest pain, cough, sputum, abdominal pain, nausea or vomiting. States she had epistaxis with blood thinner and stopped taking it but unable to specify when was the last dose and how many doses she took, she states he still has 3 pills of the blood thinner at home. She denies any history of CAD or CVA or lung disease. She does not smoke. States she drinks wine occasionally. She lives with her son at home. In the ED, she was found to be volume overloaded and with A-fib with RVR. She was given IV Lasix and IV Cardizem. Hospitalist service was consulted for further management. Allergies Allergy/AdvReac Type Severity Reaction Status Date / Time No Known Allergies Allergy Verified 01/13/23 15:32 Home Medications Medication Instructions Recorded Confirmed Type apixaban 5 mg tablet (Eliquis) 10 mg PO UD #72 tabs 01/17/23 Rx furosemide 20 mg tablet 20 mg PO BID #60 tabs 01/17/23 Rx lisinopril 5 mg tablet (Zestril) 5 mg PO QAM #30 tabs 01/17/23 Rx magnesium chloride 64 mg 64 mg PO BID #60 tabs 01/17/23 Rx (magnesium chloride) tablet,delayed release (Mag 64) metoprolol succinate 25 mg 12.5 mg PO BID 30 days #30 tabs 01/17/23 Rx tablet,extended release 24 hr polyethylene glycol 3350 17 gram 17 g PO DAILY PRN constipation #30 01/17/23 Rx oral powder packet (Miralax) ea potassium chloride 20 mEq 20 meq PO QAM #10 tabs 01/17/23 Rx tablet,extended release(part/cryst) Past Med/Surg History Medical History Arthritis Atrial fibrillation with RVR Congestive heart failure Surgical History No significant past surgical history Social History Smoking Status: Unknown if ever smoked Second Hand Exposure: No; Do You Dip or Chew Tobacco: No; Hx Alcohol Use: Yes Alcohol type: wine Hx Substance Use: No Preferred Language: Mandarin Bulgarian Communication Ability: Effective Communication Ability Comment: Hard of Hearing Communication Tools: IPad Swage Toolsetter Required: Yes Current Living Situation: Family Feels Safe at Home: Yes Assistive Devices: Wheelchair Review of Systems Review of Systems: All systems reviewed & are unremarkable except as noted in Subjective Physical Exam Physical Exam: General: Chronically ill looking elderly female sitting up in bed with nasal cannula, some conversational dyspnea noted HEENT: EOMI, AV, MMM Chest: Decreased breath and evaluate basilar crackles CVS: Irregularly irregular, tachycardic, normal heart sounds, no murmur Abdomen: Soft, non tender, distended, normal bowel sounds Neuro: Awake, alert, oriented, conversing well, non focal Extremities: No cyanosis, clubbing. 2+ edema bilaterally, tense, minimal weeping in right lower extremity. Skin: Anasarca Results & Data Results & Data Vital Signs (Past 12 Hours) Vital Signs Temp Pulse Resp BP Pulse Ox O2 Del Method O2 Flow Rate 05/09/23 16:30 95 H 16 97/65 L 96 3 05/09/23 16:01 122 H 18 99 Nasal Cannula 3 05/09/23 16:01 118/87 05/09/23 16:00 115 H 29 H 100 Nasal Cannula 3 05/09/23 15:37 105 H 20 05/09/23 15:36 Room Air 05/09/23 15:38 105 H 05/09/23 15:36 36.7 C 115 H 18 147/82 H Laboratory Results Short CBC 05/09/23 Range/Units 15:35 WBC 6.64 (4.8-10.8) K/ul Hgb 14.7 (12.0-16.0) g/dl Hct 44.6 (37.0-47.0) % Plt Count 195 (130-400) K/uL BMP 05/09/23 15:35 Sodium 138 Potassium 4.1 Chloride 104 Carbon Dioxide 26 BUN 43 H Creatinine 1.59 H Glucose 95 Calcium 8.0 L Liver Function 05/09/23 Range/Units 15:35 Total Bilirubin 2.3 H (0.2-1.0) mg/dl AST 24 (13-39) U/L ALT 10 (7-52) U/L Alkaline Phosphatase 116 H (34-104) U/L Albumin 2.8 L (3.4-5.0) gm/dl Diagnostic Findings Chest X-Ray 05/09/23 16:01 XR chest 1V portable CLINICAL HISTORY: Shortness of breath. Swelling. COMPARISON STUDY: Chest radiograph January 13, 2023. FINDINGS: There is no pneumothorax. Small to moderate right and small left pleural effusions are noted. These appear similar to prior exam. There are associated bibasilar opacities. Pulmonary edema is noted. There is cardiomegaly. This is unchanged. IMPRESSION: Pulmonary edema with small to moderate right and small left pleural effusions with associated bibasilar opacities. ACT 112: Negative or not required by law. Electronically signed by: Olivier Chacon M.D. 05/09/2023 4:44 PM Code Status & VTE Plan VTE Prophylaxis Plan VTE Prophylaxis will be ordered: Yes
[2023-05-09 18:28] LABS: INR 1.2 (0.9-1.1); Partial Thromboplastin Time 28.2 Seconds (21.0-31.0); Prothrombin Time 13.4 Seconds (9.0-12.0)
[2023-05-09 18:48] LABS: Appearance Urine Clear (Clear); Bilirubin Urine Negative (Negative); Blood Urine Negative (Negative); Color Urine Dark Yellow; Glucose Urine UA Negative (Negative); Ketones Urine Negative (Negative); Leukocyte Esterase Urine Negative (Negative); Nitrite Urine Negative (Negative); Protein Urine Negative (Negative); Specific Gravity Urine 1.011 (1.000-1.030); Urobilinogen Urine Negative (Negative)
[2023-05-09] MEDS ORDERED: ACETAMINOPHEN 325 MG TAB PO PRN (19:38)
[2023-05-09] MEDS: METOPROLOL TARTRATE 25 MG TAB PO SCH (21:53)
[2023-05-09] MEDS: APIXABAN 5 MG TABLET PO SCH (21:53)
[2023-05-09] MEDS: FUROSEMIDE 40 MG/4 ML VIAL IV SCH (21:54)
[2023-05-10] MEDS: METOPROLOL TARTRATE 25 MG TAB PO SCH ×4 (01:30→19:49)
--- NOTE | 2023-05-10 06:32 | Ultrasound Report ---
BILATERAL LOWER EXTREMITY VENOUS DOPPLER CLINICAL HISTORY: Bilateral leg swelling. r/o acute DVT COMPARISON STUDY: Bilateral lower extremity venous Doppler ultrasound January 14, 2023. TECHNIQUE: Sonography of the deep venous system of the bilateral lower extremities was performed. Co mpression and augmentation were evaluated. FINDINGS: This exam is mildly compromised due to suboptimal penetration related to lower extremity e juan. The bilateral common femoral, superficial femoral and popliteal veins were compressible. Augmen tation was normal. Flow was shown within the deep calf vessels. IMPRESSION: Exam mildly compromised from a technical standpoint but no evidence of deep venous thromb us within the bilateral lower extremities. ACT 112: Negative or not required by law. Electronically signed by: Olivier Chacon M.D. 05/10/2023 6:30 AM
--- NOTE | 2023-05-10 08:32 | Cardiology Consultation ---
Date of Consultation May 10, 2023 Assessment & Plan (1) Acute on chronic heart failure with reduced ejection fraction and diastolic dysfunction: (2) Atrial fibrillation: (3) Tachycardia induced cardiomyopathy: Plan Patient admitted for recurrent HFrEF after non compliance with oral home medications and outpatient appts (ran out of refills) after admission in Dec 2022 for CHF and afib RVR. Presumed tachy induced cardiomypathy at that time with LVEF 15-20%. Patient admitted signs/symptoms of SOB, edema, b/l pleural effusions. Recommend IV diuretics. Continue furosemide 40 mg IV BID for now. Monitor renal function, creatinine currently at 1.5, slightly higher than adm ission. Monitor and supplement electrolytes. Monitor I+O's. Daily weight, standing scale if able. Limited in other HF medications given borderline hypotension. Will hold MAX/ARB for now. patient was taking low dose lisinopril at home. Echo revealed mild improvement in LVEF at 20-25%, compared to 15% during prior admission. In regards to afib RVR, Diltiazem gtt discontinued due to hypotension and reduced EF. Continue metoprolol tartrate 12.5 mg q 6 hours. Currently HR's controlled. Continue eliquis 5 mg BID. Past admission, patient had borderline tachybrady. Will monitor. Case discussed with Dr. Gordon I spent a total of 60 minutes on the date of service in preparation, delivery, and documentation of the care provided to this patient, excluding any time spent in the performance of separately billed services. Miriam Cruz PA-C Department of Cardiology, [facility] This chart was completed in part utilizing Speech Voice Recognition Software. Grammatical errors, random word insertions, pronoun errors, and incomplete sentences are an occasional consequence of this system due to software limitations, ambient noise, and hardware issues. Any formal questions or concern s about the content, text, or information contained within the body of this dictation should be directly addressed to the provider for clarification. Supervising Physician Co-Signing Physician Notes Patient seen and examined at the bedside. States she is feeling somewhat better today after diuresis. Weight is down 2-3 kg. Renal function trending upward slightly. Telemetry reveals atrial fibrillation with heart rate ranging 80-100 bpm. Intravenous diltiazem discontinued. PE: Gen: NAD, awake and alert. Heart: Irregular rhythm, borderline tachycardic, 2/6 holosystolic murmur heard at the apex. Lungs: Crackles at the bases bilateral, diminished breath sounds at the bases bilateral, no wheeze. Abdomen: Soft, nontender, nondistended. No rebound or guarding extremities: Positive edema with stasis changes. A/P: Agree with above PAFelisha history, physical exam, assessment and plan. Patient admitted with acute decompensated heart failure with reduced ejection fraction and rapid atrial fibrillation in the setting of noncompliance with heart failure/rate control medications. Lisinopril remain on hold currently due to borderline hypotension. Continue IV diuresis. Follow daily weight, fluid balance, electrolytes, and GFR. Restart low-dose lisinopril during hospitalization as blood pressure and renal function allows. Consider addition of low-dose Aldactone. Continue low-dose beta- lynn and oral anticoagulation with apixaban. History of Present Illness Reason for Consultation: CHF Requesting Physician: Dr. Lowry Attending Physician: Dr. Gordon History of Present Illness Patient is a 78 year old female. Most of information was obtained from inpatient records and prior admission. She does not see any health care providers on a regular basis. She lives with her son who is not present at time of consult. Admitted in Dec 2022 with CHF and afib RVR. LVEF 15-20%. Rates improved with metoprolol. Diuresed with lasix. Started on Eliquis for anticoagulation. Unfortunately patient left AMA. She did not keep follow up appointments. Apparently she stopped her medications as well. Patient is Mandarin speaking. Today's consult was assisted by language interpretation services ([facility], #[id number]). Patient reports she was in good state of health and feeling well until March. At that time she ran out of her prescription medications. She began to report worsening lower extremity edema and progressive shortness of breath over the last several weeks. Yesterday her shortness of breath worsened and she was brought to the emergency department by her son. Chest x-ray revealed bilateral pleural effusions. EKG demonstrated A-fib with mildly elevated ventricular rates. Venous duplex was negative for bilateral DVT. High-sensitivity troponin minimally elevated at 60 with repeat stable at 60 and then trending down to 57. She denies acute chest pain. After several doses of IV diuretics, patient admits she is slowly feeling better. Shortness of breath improving. Good urine outputs. Final renal insufficiency reported on this morning's labs. She had been initially started on IV diltiazem for rate control. This is now discontinued. Echo reveals mild improvement in her LVEF compared to December echo with ejection fraction at Eliis and metoprolol were resumed on admission. Currently she voices no acute complaints. All questions were answered with integrated logistics programs director. Allergies Allergy/AdvReac Type Severity Reaction Status Date / Time No Known Allergies Allergy Verified 05/10/23 20:07 Home Medications Medication Instructions Recorded Confirmed Type furosemide 20 mg tablet 20 mg PO BID #60 tabs 01/17/23 05/10/23 Rx lisinopril 5 mg tablet (Zestril) 5 mg PO QAM #30 tabs 01/17/23 05/10/23 Rx magnesium chloride 64 mg 64 mg PO BID #60 tabs 01/17/23 05/10/23 Rx (magnesium chloride) tablet,delayed release (Mag 64) metoprolol succinate 25 mg 12.5 mg PO BID 30 days #30 tabs 01/17/23 05/10/23 Rx tablet,extended release 24 hr polyethylene glycol 3350 17 gram 17 g PO DAILY PRN constipation #30 01/17/23 05/10/23 Rx oral powder packet (Miralax) ea potassium chloride 20 mEq 20 meq PO QAM #10 tabs 01/17/23 05/10/23 Rx tablet,extended release(part/cryst) apixaban 5 mg tablet (Eliquis) 5 mg PO BID 05/10/23 05/10/23 History Patient History Medical History Arthritis Atrial fibrillation with RVR Congestive heart failure Surgical History No significant past surgical history Social History Smoking Status: Never smoker Second Hand Exposure: No; Do You Dip or Chew Tobacco: No; Hx Alcohol Use: Yes Alcohol type: wine Hx Substance Use: No Preferred Language: Mandarin Uzbek Communication Ability: Effective Communication Ability Comment: Hard of Hearing Communication Tools: IPad Door Cutter Required: Yes Beliefs That Will Affect Care: None Current Living Situation: Family Other Information That Helps Us Care for You: No Feels Safe at Home: Yes Safety Concerns: Feels Safe At This Time Assistive Devices: Oxygen - Continuous and Walker Review of Systems Review of Systems: All systems reviewed & are unremarkable except as noted in HPI & below Physical Exam Constitutional: WD/WN, vitals as above no acute distress Neck: trachea midline, no thyromegaly Respiratory: + labored breathing (mild conversational dyspnea) Auscultation: + diminished lung sounds (bases b/l ) and + crackles Cardiovascular: Rate/Rhythm: + irregularly irregular Heart Sounds: + murmur (II/ murmur at apex) Vessels: + JVD Extremities: + edema (2+ hard ind urated edema ) Gastrointestinal (Abdomen): normal bowel sounds, soft, nontender, no hepatosplenomegaly Skin: no rashes, warm and dry Results & Data Vital Signs (Past 12 Hours) Vital Signs Temp Pulse Pulse Resp BP Pulse Ox O2 Del Method 05/10/23 08:03 36.7 C 101 H 18 94/65 L 100 Nasal Cannula 05/10/23 07:51 82 05/10/23 03:55 36.4 C L 82 18 106/68 100 Nasal Cannula 05/09/23 23:10 104 H 05/10/23 00:01 36.3 C L 85 16 113/74 99 Nasal Cannula 05/09/23 20:33 Nasal Cannula O2 Flow Rate 05/10/23 08:03 2 05/10/23 07:51 05/10/23 03:55 2.0 05/09/23 23:10 05/10/23 00:01 1.0 05/09/23 20:33 2 Laboratory Results Cardiac Enzymes 05/09/23 05/09/23 05/09/23 Range/Units 15:35 15:35 20:53 AST 24 (13-39) U/L Troponin I High Sens 60.6 H* 60.1 H* (0-14) pg/ml B-Natriuretic Peptide 3125 H (0-100) pg/ml Coagulation 05/09/23 05/09/23 05/09/23 Range/Units 15:35 15:35 17:42 PT Cancelled 13.4 H APTT Cancelled 28.2 B-Natriuretic Peptide 3125 H (0-100) pg/ml CBC 05/09/23 Range/Units 15:35 WBC 6.64 (4.8-10.8) K/ul RBC 4.70 (4.20-5.40) M/uL Hgb 14.7 (12.0-16.0) g/dl Hct 44.6 (37.0-47.0) % Plt Count 195 (130-400) K/uL Neut # (Auto) 4.74 (1.40-6.50) K/uL Lymph # (Auto) 1.29 (1.2-3.4) K/uL [place] # (Auto) 0.55 (0.11-0.59) K/uL Eos # (Auto) 0.01 (0-0.50) K/uL Baso # (Auto) 0.03 (0-0.2) K/uL Comprehensive Metabolic Panel 05/09/23 Range/Units 15:35 Sodium 138 (136-145) mmol/L Potassium 4.1 (3.5-5.1) mmol/L Chloride 104 (98-107) mmol/L Carbon Dioxide 26 (21-32) mmol/L BUN 43 H (6-23) mg/dl Creatinine 1.59 H (0.6-1.2) mg/dl Glucose 95 (70-99(Fasting)) mg/dl Calcium 8.0 L (8.6-10.3) mg/dl AST 24 (13-39) U/L ALT 10 (7-52) U/L Alkaline Phosphatase 116 H (34-104) U/L Total Protein 5.6 L (6.0-8.3) gm/dl Albumin 2.8 L (3.4-5.0) gm/dl Intake and Output 05/09/23 05/10/23 05/10/23 22:59 06:59 14:59 Intake Total 100 / 250 150 / 250 Output Total 200 / 200 Balance 100 / 50 -50 / 50 Intake: IV 100 / 100 Magnesium Sulfate / D5w 1 gm In 100 / 100 100 ml @ 100 mls/hr IV NOW STA Rx#:[id number] Oral 0 / 150 150 / 150 Output: Urine 200 / 200 Other: # Unmeasured Voids 2 2 Weight 85 kg 82.7 kg Weight Measurement Method [facility] Diagnostic Findings Telemetry reviewed: Atrial fibrillation with controlled ventricular rates ranging 80 to 100 bpm. EKG: Atrial fibrillation with rapid ventricular response Low voltage QRS Septal infarct , age undetermined Abnormal ECG When compared with ECG of 15-JAN-2023 06:41, Questionable change in QRS duration Septal infarct is now Present Echocardiogram dated 05/10/2023: LV systolic function is severely reduced with ejection fraction 20 to 25%. Severe global hypokinesis of the LV. RV is mildly dilated. RV systolic function is moderately reduced. Severe biatrial enlargement. There is moderate to severe MR. Moderate to severe TR. Small circumferential pericardial effusion with mild organization. No indications of cardiac tamponade. Moderate size left pleural effusion. Chest xray on admission: IMPRESSION: Pulmonary edema with small to moderate right and small left pleural effusions with associated bibasilar opacities. Venous duplex: IMPRESSION: Exam mildly compromised from a technical standpoint but no evidence of deep venous thrombus within the bilateral lower extremities. Echo report reviewed from Dec 2022: LV dilated and severely reduced with EF 15-20% Moderate/severe MR Moderate/severe TR Biatrial enlargement Medications Administered Current Inpatient Medications Acetaminophen (Acetaminophen 325 Mg Tab) 650 mg PO Q6H PRN PRN Reason: pain Stop: 06/08/23 19:37 Apixaban (Apixaban 5 Mg Tablet) 5 mg PO BID ABE Stop: 06/08/23 20:59 Last Admin: 05/10/23 08:46 Dose: 5 mg Furosemide (Furosemide 40 Mg/4 Ml Vial) 40 mg IV BID ABE Stop: 06/08/23 20:59 Last Admin: 05/10/23 08:46 Dose: 40 mg Metoprolol Tartrate (Metoprolol Tartrate 25 Mg Tab) 12.5 mg PO Q6H ABE Stop: 06/08/23 19:59 Last Admin: 05/10/23 08:42 Dose: 12.5 mg
[2023-05-10] MEDS: FUROSEMIDE 40 MG/4 ML VIAL IV SCH ×2 (08:46→19:50)
[2023-05-10] MEDS: APIXABAN 5 MG TABLET PO SCH ×2 (08:46→19:49)
[2023-05-10 10:40] LABS: Basophils # (auto) 0.03 K/uL (0-0.2); Basophils % (auto) 0.6 %; Eosinophils # (auto) 0.01 K/uL (0-0.50); Eosinophils % (auto) 0.2 %; Hematocrit (blood only) 37.4 % (37.0-47.0); Hemoglobin 12.1 g/dl (12.0-16.0); Immature Granulocytes # (auto) 0.01 K/uL (0.01-0.20); Immature Granulocytes % (auto) 0.2 %; Lymphocytes # (auto) 0.83 K/uL (1.2-3.4); Lymphocytes % (auto) 16.5 %; Mean Corpuscular Hemoglobin 31.1 pg (25.0-34.0); Mean Corpuscular Hgb Conc 32.4 g/dL (32.0-36.0); Mean Corpuscular Volume 96.1 fL (80.0-100.0); Mean Platelet Volume 11.1 fL (9.4-12.4); Monocytes # (auto) 0.39 K/uL (0.11-0.59); Monocytes % (auto) 7.7 %; Neutrophils # (auto) 3.77 K/uL (1.40-6.50); Neutrophils % (auto) 74.8 %; Nucleated RBC # (auto) 0.02 K/uL (0-0.12); Nucleated RBC % (auto) 0.4 %; Platelet Count 152 K/uL (130-400); RDW Coefficient of Variation 21.3 % (11.5-14.5); RDW Standard Deviation 73.2 fL (36.4-46.3); Red Blood Count 3.89 M/uL (4.20-5.40); White Blood Count 5.04 K/ul (4.8-10.8)
[2023-05-10 10:57] LABS: BUN Creatinine Ratio 27.1 (10-20); Calcium 7.7 mg/dl (8.6-10.3); Creatinine Clr Calc Pharmacy 28.1 ml/min; Est GFR (African American) 36.5 ml/min; Est GFR (Non-African American) 31.5 ml/min; Magnesium 2.6 mg/dl (1.7-2.4); Potassium 3.8 mmol/L (3.5-5.1)
[2023-05-10 11:02] LABS: Anisocytosis Present; Polychromasia 1+
[2023-05-10 11:04] LABS: Troponin I High Sensitivity 57.5 pg/ml (0-14)
--- NOTE | 2023-05-10 13:15 | Electrocardiogram Report ---
Test Reason : Blood Pressure : / mmHG Vent. Rate : 112 BPM Atrial Rate : 000 BPM P-R Int : 000 ms QRS Dur : 058 ms QT Int : 278 ms P-R-T Axes : 000 -14 215 degrees QTc Int : 379 ms Atrial fibrillation with rapid ventricular response Low voltage QRS Septal infarct , age undetermined Abnormal ECG When compared with ECG of 15-JAN-2023 06:41, Questionable change in QRS duration Septal infarct is now Present Confirmed by Ran Blackwood ([id number]) on 05/10/2023 12:11:00 PM Referred By: REFERRED SELF Confirmed By:Ran Blackwood
--- NOTE | 2023-05-10 13:38 | Hospitalist Progress Note ---
Date of Service May 10, 2023 Assessment & Plan (1) Acute exacerbation of CHF (congestive heart failure): (2) Atrial fibrillation with RVR: (3) Elevated troponin: (4) History of DVT (deep vein thrombosis): (5) Elevated TSH: (6) Chronic kidney disease, stage 3b: Plan 78 year old female with h/o HFrEF and DVT RLE who left AMA during recent admission in Dec presented to the ED with SOB and leg swelling after running out of meds and being declined refills until seen in the office Acute exacerbation of HFrEF due to noncompliance with medications - Echo 12/2022 with LVEF 15-20%, severe global hypokinesis, RV enlarged with reduced function, Moderate to severe MR and TR, severe biatrial enlargement, large left pleural effusion. -Repeat echo similar with EF 20-25% days with severe global hypokinesia, moderate to severe MR, moderate to severe TR, severe biatrial enlargement, small circumferential pericardial effusion with mild organization, no evidence of cardiac tamponade. Moderate left pleural effusion - CXR 05/09 with pulmonary edema with small to moderate right and small left pleural effusions with associated bibasilar opacities. - BNP 3125 -Continue IV Lasix 40 twice daily, strict I and Os, daily weight -Initiate GDMT as feasible -Cardiology following A fib with RVR- HR controlled on Lopressor, continue. Will change Lopressor to Toprol likely tomorrow. Continue eliquis Hypoxia- continue diuresis. Continue supplemental oxygen, wean off as tolerated Elevated trop- likely demand ischemia. Troponin trend flat, no chest pain. CKD 3b- Renal function likely at baseline. Monitor with diuresis. H/o DVT-ultrasound lower extremity no evidence of DVT. Elevated TSH- TSH 12. T4 normal. ?sick euthyroid. Previous trend noted. OP follow up recommended. DVT ppx- eliquis Dispo-continue current level of care, pending follow-up [facility] Admission and Anticipated Discharge Date Admission Date: May 09, 2023 Subjective Patient was seen and examined at bedside with the help of garment sorter over iPad. She feels somewhat better diuresis with Lasix. Shortness of breath is improved. Also leg pain is somewhat improved. No fever, chills, chest pain, nausea or vomiting. Review of Systems Review of Systems: All systems reviewed & are unremarkable except as noted in Subjective Physical Exam Physical Exam: General: Chronically ill looking elderly female sitting up in bed with nasal cannula, some conversational dyspnea noted HEENT: EOMI, AV, MMM Chest: Decreased breath and evaluate basilar crackles CVS: Irregularly irregular, tachycardic, normal heart sounds, no murmur Abdomen: Soft, non tender, distended, normal bowel sounds Neuro: Awake, alert, oriented, conversing well, non focal Extremities: No cyanosis, clubbing. 2+ edema bilaterally, tense, minimal weeping in right lower extremity. Skin: Anasarca Results & Data Results & Data Vital Signs (Past 12 Hours) Vital Signs Temp Pulse Pulse Resp BP Pulse Ox O2 Del Method 05/10/23 11:15 36.4 C L 77 19 104/69 100 Nasal Cannula 05/10/23 08:00 Nasal Cannula 05/10/23 08:03 36.7 C 101 H 18 94/65 L 100 Nasal Cannula 05/10/23 07:51 82 05/10/23 03:55 36.4 C L 82 18 106/68 100 Nasal Cannula O2 Flow Rate 05/10/23 11:15 2 05/10/23 08:00 2 05/10/23 08:03 2 05/10/23 07:51 05/10/23 03:55 2.0 Laboratory Results Short CBC 05/09/23 05/10/23 Range/Units 15:35 10:07 WBC 6.64 5.04 (4.8-10.8) K/ul Hgb 14.7 12.1 (12.0-16.0) g/dl Hct 44.6 37.4 (37.0-47.0) % Plt Count 195 152 (130-400) K/uL BMP 05/09/23 05/10/23 15:35 10:07 Sodium 138 138 Potassium 4.1 3.8 Chloride 104 105 Carbon Dioxide 26 26 BUN 43 H 42 H Creatinine 1.59 H 1.55 H Glucose 95 79 Calcium 8.0 L 7.7 L Liver Function 05/09/23 Range/Units 15:35 Total Bilirubin 2.3 H (0.2-1.0) mg/dl AST 24 (13-39) U/L ALT 10 (7-52) U/L Alkaline Phosphatase 116 H (34-104) U/L Albumin 2.8 L (3.4-5.0) gm/dl Urine 05/09/23 Range/Units 18:37 Urine Color Dark Yellow Urine Appearance Clear (Clear) Urine pH 5.0 (4.5-7.5) Ur Specific [place] 1.011 (1.000-1.030) Urine Protein Negative (Negative) Urine Glucose (UA) Negative (Negative) Diagnostic Findings Venous Doppler Study 05/10/23 00:00 BILATERAL LOWER EXTREMITY VENOUS DOPPLER CLINICAL HISTORY: Bilateral leg swelling. r/o acute DVT COMPARISON STUDY: Bilateral lower extremity venous Doppler ultrasound January 14, 2023. TECHNIQUE: Sonography of the deep venous system of the bilateral lower extremities was performed. Compression and augmentation were evaluated. FINDINGS: This exam is mildly compromised due to suboptimal penetration related to lower extremity edema. The bilateral common femoral, superficial femoral and popliteal veins were compressible. Augmentation was normal. Flow was shown within the deep calf vessels. IMPRESSION: Exam mildly compromised from a technical standpoint but no evidence of deep venous thrombus within the bilateral lower extremities. ACT 112: Negative or not required by law. Electronically signed by: Olivier Chacon M.D. 05/10/2023 6:30 AM Medications Administered Current Inpatient Medications Acetaminophen (Acetaminophen 325 Mg Tab) 650 mg PO Q6H PRN PRN Reason: pain Stop: 06/08/23 19:37 Apixaban (Apixaban 5 Mg Tablet) 5 mg PO BID ABE Stop: 06/08/23 20:59 Last Admin: 05/10/23 08:46 Dose: 5 mg Furosemide (Furosemide 40 Mg/4 Ml Vial) 40 mg IV BID ABE Stop: 06/08/23 20:59 Last Admin: 05/10/23 08:46 Dose: 40 mg Metoprolol Tartrate (Metoprolol Tartrate 25 Mg Tab) 12.5 mg PO Q6H ABE Stop: 06/08/23 19:59 Last Admin: 05/10/23 08:42 Dose: 12.5 mg
[2023-05-10] MEDS ORDERED: FUROSEMIDE 20 MG TAB PO SCH (17:00)
[2023-05-11] MEDS: METOPROLOL TARTRATE 25 MG TAB PO SCH ×2 (02:05→09:30)
[2023-05-11 07:16] LABS: Hematocrit (blood only) 33.2 % (37.0-47.0); Hemoglobin 10.9 g/dl (12.0-16.0); Mean Corpuscular Hemoglobin 31.2 pg (25.0-34.0); Mean Corpuscular Hgb Conc 32.8 g/dL (32.0-36.0); Mean Corpuscular Volume 95.1 fL (80.0-100.0); Mean Platelet Volume 11.4 fL (9.4-12.4); Platelet Count 129 K/uL (130-400); RDW Coefficient of Variation 20.8 % (11.5-14.5); RDW Standard Deviation 70.4 fL (36.4-46.3); Red Blood Count 3.49 M/uL (4.20-5.40); White Blood Count 4.29 K/ul (4.8-10.8)
[2023-05-11 07:21] LABS: Calcium 8.1 mg/dl (8.6-10.3); Magnesium 2.4 mg/dl (1.7-2.4); Potassium 3.6 mmol/L (3.5-5.1)
[2023-05-11 07:26] LABS: BUN Creatinine Ratio 27.7 (10-20); Creatinine Clr Calc Pharmacy 27.3 ml/min; Est GFR (African American) 35.4 ml/min; Est GFR (Non-African American) 30.6 ml/min
[2023-05-11] MEDS: APIXABAN 5 MG TABLET PO SCH ×2 (09:14→20:19)
[2023-05-11] MEDS: METOPROLOL SUCC 25MG EXT REL TAB PO SCH ×2 (09:14→20:20)
[2023-05-11] MEDS: FUROSEMIDE 40 MG/4 ML VIAL IV SCH ×2 (09:15→20:19)
[2023-05-11] MEDS: POTASSIUM CHLORIDE CRTAB 20 MEQ TABCR PO SCH ×2 (09:15→20:19)
--- NOTE | 2023-05-11 11:02 | Cardiology Progress Note ---
Date of Service May 11, 2023 Assessment & Plan (1) Acute on chronic heart failure with reduced ejection fraction and diastolic dysfunction: (2) Atrial fibrillation: (3) Tachycardia induced cardiomyopathy: (4) Chronic kidney disease, stage 3b: Plan Patient admitted for recurrent HFrEF after non compliance with oral home medications and outpatient appts (ran out of refills) after admission in Dec 2022 for CHF and afib RVR. Presumed tachy induced cardiomypathy at that time with LVEF 15-20%. Left ventricular ejection fraction mildly improved per repeat echocardiogram. Clinically improving with IV diuresis. Recommend continuing IV furosemide 40 mg twice daily with potassium supplementation. Repeat basic metabolic panel in a.m. Follow daily weight and fluid balance. Hold on MAX inhibitor or Aldactone at this time due to renal insufficiency. Continue beta-lynn therapy and oral anticoagulation with Eliquis. Metoprolol titrated to 12.5 milligrams every 6 hours with improvement of rate control. Tachybradycardia syndrome noted during prior admissions with intolerance to digoxin. Admission and Anticipated Discharge Date Admission Date: May 09, 2023 Subjective Patient seen examined the bedside. History obtained via remote manager business planning. Patient feeling better since admission. Diuresing more than 2 L over the past 24 hours. Concern regarding frequent trips to the bathroom. Edema unchanged. Denies chest discomfort or palpitations. Telemetry reveals atrial fibrillation in the 80s. Review of Systems Review of Systems: All systems reviewed & are unremarkable except as noted in Subjective Physical Exam Constitutional: + ill appearing Respiratory: no respiratory distress, no labored breathing and no retractions Auscultation: + rales (Bases bilateral); no rhonchi and no wheezes Cardiovascular: Rate/Rhythm: + irregularly irregular Heart Sounds: normal S1, normal S2 and + murmur (2/6 holosystolic murmur heard at the apex.) Vessels: + JVD and radial pulses present; no carotid bruit Extremities: + edema (1+ bilateral lower extremity edema with stasis changes) Gastrointestinal (Abdomen): Inspection/Auscultation: normal bowel sounds; abdomen not distended Percussion/Palpation: abdomen nontender, no guarding, abdomen not rigid and + abdomen not soft Neurologic: CN's II-XI intact bilaterally and moves all extremities Results & Data Vital Signs (Past 12 Hours) Vital Signs Temp Pulse Resp BP Pulse Ox O2 Del Method O2 Flow Rate 05/11/23 07:32 36.4 C L 67 18 111/72 05/11/23 03:39 36.4 C L 80 16 116/75 99 Nasal Cannula 2.0 05/11/23 02:06 112/72 05/10/23 23:15 36.3 C L 85 16 100/79 100 Nasal Cannula 3.0 Laboratory Results Cardiac Enzymes 05/10/23 Range/Units 10:07 Troponin I High Sens 57.5 H* (0-14) pg/ml CBC 05/11/23 Range/Units 06:23 WBC 4.29 L (4.8-10.8) K/ul RBC 3.49 L (4.20-5.40) M/uL Hgb 10.9 L (12.0-16.0) g/dl Hct 33.2 L (37.0-47.0) % Plt Count 129 L (130-400) K/uL Comprehensive Metabolic Panel 05/11/23 Range/Units 06:23 Sodium 139 (136-145) mmol/L Potassium 3.6 (3.5-5.1) mmol/L Chloride 105 (98-107) mmol/L Carbon Dioxide 27 (21-32) mmol/L BUN 44 H (6-23) mg/dl Creatinine 1.59 H (0.6-1.2) mg/dl Glucose 69 L (70-99(Fasting)) mg/dl Calcium 8.1 L (8.6-10.3) mg/dl Intake and Output 05/10/23 05/11/23 05/11/23 22:59 06:59 14:59 Intake Total 520 / 570 50 / 570 Output Total 1625 / 2925 1300 / 2925 Balance -1105 / -2355 -1250 / -2355 Intake: Oral 520 / 570 50 / 570 Output: Urine 1625 / 2925 1300 / 2925 Other: Other Intake Source SIPS
--- NOTE | 2023-05-11 14:00 | Hospitalist Progress Note ---
Date of Service May 11, 2023 Assessment & Plan (1) Acute exacerbation of CHF (congestive heart failure): (2) Atrial fibrillation with RVR: (3) Elevated troponin: (4) History of DVT (deep vein thrombosis): (5) Elevated TSH: (6) Chronic kidney disease, stage 3b: Plan 78 year old female with h/o HFrEF and DVT RLE who left AMA during recent admission in Dec presented to the ED with SOB and leg swelling after running out of meds and being declined refills until seen in the office Acute exacerbation of HFrEF due to noncompliance with medications - Echo 12/2022 with LVEF 15-20%, severe global hypokinesis, RV enlarged with reduced function, Moderate to severe MR and TR, severe biatrial enlargement, large left pleural effusion. -Repeat echo similar with EF 20-25% days with severe global hypokinesia, moderate to severe MR, moderate to severe TR, severe biatrial enlargement, small circumferential pericardial effusion with mild organization, no evidence of cardiac tamponade. Moderate left pleural effusion - BNP 3125, CXR 05/09 with pulmonary edema with small to moderate right and small left pleural effusions with associated bibasilar opacities. -Still with volume overload but having good diuresis. continue IV Lasix 40 twice daily, strict I and Os, daily weight -Initiate GDMT as feasible-currently on Toprol. Holding off on MAX inhibitors or Aldactone given renal insufficiency -Cardiology following A fib with RVR- HR controlled on Lopressor, continue. Will change Lopressor to Toprol likely tomorrow. Continue eliquis Hypoxia- continue diuresis. Continue supplemental oxygen, wean off as tolerated Elevated trop- likely demand ischemia. Troponin trend flat, no chest pain. CKD 3b- Renal function at baseline. Monitor with diuresis. H/o DVT-ultrasound lower extremity no evidence of DVT. Elevated TSH- TSH 12. T4 normal. ?sick euthyroid. Previous trend noted. OP follow up recommended. DVT ppx- eliquis Dispo-continue current level of care, pending optimization of volume status Update: I updated her son over the phone. His email address is [email or web address] (for setting up home televisit) as they don't drive and can not make to the appointments. CM following. Admission and Anticipated Discharge Date Admission Date: May 09, 2023 Subjective Patient was seen and examined at bedside with the help of Ebenezer porcelain enamel repairer over the iPad, cardiology was present at bedside. She continues to feel better with diuresis. Her shortness of breath and leg pain is improved. No new issues. Review of Systems Review of Systems: All systems reviewed & are unremarkable except as noted in Subjective Physical Exam Physical Exam: General: Chronically ill looking elderly female sitting up in bed with nasal cannula, some conversational dyspnea noted HEENT: EOMI, AV, MMM Chest: Decreased breath sounds with mild basilar crackles CVS: Irregularly irregular, tachycardic, normal heart sounds, no murmur Abdomen: Soft, non tender, distended, normal bowel sounds Neuro: Awake, alert, oriented, conversing well, non focal Extremities: No cyanosis, clubbing. 2+ edema bilaterally, tense Results & Data Results & Data Vital Signs (Past 12 Hours) Vital Signs Temp Pulse Pulse Resp BP Pulse Ox O2 Del Method 05/11/23 12:24 36.4 C L 94 H 18 111/77 98 Nasal Cannula 05/11/23 08:00 78 05/11/23 08:00 Nasal Cannula 05/11/23 07:32 36.4 C L 67 18 111/72 05/11/23 03:39 36.4 C L 80 16 116/75 99 Nasal Cannula 05/11/23 02:06 112/72 O2 Flow Rate 05/11/23 12:24 2 05/11/23 08:00 05/11/23 08:00 2 05/11/23 07:32 05/11/23 03:39 2.0 05/11/23 02:06 Laboratory Results Short CBC 05/11/23 Range/Units 06: WBC 4.29 L (4.8-10.8) K/ul Hgb 10.9 L (12.0-16.0) g/dl Hct 33.2 L (37.0-47.0) % Plt Count 129 L (130-400) K/uL BMP 05/11/23 06:23 Sodium 139 Potassium 3.6 Chloride 105 Carbon Dioxide 27 BUN 44 H Creatinine 1.59 H Glucose 69 L Calcium 8.1 L Medications Administered Current Inpatient Medications Acetaminophen (Acetaminophen 325 Mg Tab) 650 mg PO Q6H PRN PRN Reason: pain Stop: 06/08/23 19:37 Last Admin: 05/11/23 10:32 Dose: 650 mg Apixaban (Apixaban 5 Mg Tablet) 5 mg PO BID ABE Stop: 06/08/23 20:59 Last Admin: 05/11/23 09:14 Dose: 5 mg Furosemide (Furosemide 40 Mg/4 Ml Vial) 40 mg IV BID ABE Stop: 06/08/23 20:59 Last Admin: 05/11/23 09:15 Dose: 40 mg Metoprolol Succinate (Metoprolol Succ 25mg Ext Rel Tab) 12.5 mg PO BID ABE Stop: 06/10/23 08:59 Last Admin: 05/11/23 09:14 Dose: 12.5 mg Potassium Chloride (Potassium Chloride Crtab 20 Meq Tabcr) 40 meq PO BID ABE Stop: 06/10/23 08:59 Last Admin: 05/11/23 09:15 Dose: 40 meq
[2023-05-12 06:26] LABS: Calcium 8.5 mg/dl (8.6-10.3); Creatinine Clr Calc Pharmacy 24.7 ml/min; Est GFR (African American) 32.2 ml/min; Est GFR (Non-African American) 27.8 ml/min; Potassium 3.4 mmol/L (3.5-5.1)
[2023-05-12] MEDS: FUROSEMIDE 40 MG/4 ML VIAL IV SCH (08:39)
[2023-05-12] MEDS: APIXABAN 5 MG TABLET PO SCH (08:39)
[2023-05-12] MEDS: POTASSIUM CHLORIDE CRTAB 20 MEQ TABCR PO SCH (08:39)
[2023-05-12] MEDS: METOPROLOL SUCC 25MG EXT REL TAB PO SCH ×2 (08:39→20:45)
--- NOTE | 2023-05-12 11:11 | Cardiology Progress Note ---
Date of Service May 12, 2023 Assessment & Plan (1) Acute on chronic heart failure with reduced ejection fraction and diastolic dysfunction: (2) Acute on chronic renal failure: (3) Atrial fibrillation: (4) Tachycardia induced cardiomyopathy: (5) Chronic kidney disease, stage 3b: Plan Patient admitted for recurrent HFrEF after non compliance with oral home medications and outpatient appts (ran out of refills) after admission in Dec 2022 for CHF and afib RVR. Presumed tachy induced cardiomypathy at that time with LVEF 15-20%. Left ventricular ejection fraction mildly improved per repeat echocardiogram. Diuresing well with minimal clinical improvement. Creatinine Trending upward today. Recommend hold evening dose of furosemide. Repeat basic metabolic panel in a.m. Continue Toprol-XL 25 mg twice daily and oral anticoagulation with Eliquis. Hold MAX inhibitor at this time due to renal insufficiency. All questions answered to patient's satisfaction via remote manager administrative services. Patient agreeable to remain in hospital until Tuesday. Admission and Anticipated Discharge Date Admission Date: May 09, 2023 Subjective Patient seen and examined at the bedside. Remote manager administrative services utilized for history. Patient requesting discharge as soon as possible. States she is willing to stay until Tuesday. Requesting discontinuation of Eliquis due to history of epistaxis. No epistaxis during hospitalization. Complaining of constipation since admission. Fluid balance -3.3 L, however, creatinine trending upward to 1.72 today Review of Systems Review of Systems: All systems reviewed & are unremarkable except as noted in Subjective Physical Exam Constitutional: + ill appearing Respiratory: no respiratory distress, no labored breathing and no retractions Auscultation: + rales (Bases bilateral); no rhonchi and no wheezes Cardiovascular: Rate/Rhythm: + irregularly irregular Heart Sounds: normal S1, normal S2 and + murmur (2/6 holosystolic murmur heard at the apex.) Vessels: + JVD and radial pulses present; no carotid bruit Extremities: + edema (2+ bilateral lower extremity edema with stasis changes) Gastrointestinal (Abdomen): Inspection/Auscultation: normal bowel sounds; abdomen not distended Percussion/Palpation: abdomen nontender, no guarding, abdomen not rigid and + abdomen not soft Neurologic: CN's II-XI intact bilaterally and moves all extremities Results & Data Vital Signs (Past 12 Hours) Vital Signs Temp Pulse Resp BP Pulse Ox O2 Del Method O2 Flow Rate 05/12/23 07:52 36.6 C 68 18 141/57 H 98 Nasal Cannula 2 05/12/23 03:32 36.4 C L 110 H 17 111/75 94 Nasal Cannula 2 05/11/23 23:58 83 05/11/23 23:47 36.4 C L 111 H 22 103/71 96 Nasal Cannula 2 Laboratory Results Comprehensive Metabolic Panel 05/12/23 Range/Units 05:26 Sodium 140 (136-145) mmol/L Potassium 3.4 L (3.5-5.1) mmol/L Chloride 102 (98-107) mmol/L Carbon Dioxide 31 (21-32) mmol/L BUN 43 H (6-23) mg/dl Creatinine 1.72 H (0.6-1.2) mg/dl Glucose 82 (70-99(Fasting)) mg/dl Calcium 8.5 L (8.6-10.3) mg/dl Intake and Output 05/11/23 05/12/23 05/12/23 22:59 06:59 14:59 Intake Total 240 / 340 Output Total 950 / 3000 1325 / 3000 700 / 700 Balance -950 / -2660 -1085 / -2660 -700 / -700 Intake: Oral 240 / 340 Output: Urine 950 / 3000 1325 / 3000 700 / 700 Other: # Unmeasured Voids 1
--- NOTE | 2023-05-12 12:28 | Hospitalist Progress Note ---
Date of Service May 12, 2023 Assessment & Plan (1) Acute exacerbation of CHF (congestive heart failure): (2) Atrial fibrillation with RVR: (3) Elevated troponin: (4) History of DVT (deep vein thrombosis): (5) Elevated TSH: (6) Chronic kidney disease, stage 3b: Plan 78 year old female with h/o HFrEF and DVT RLE who left AMA during recent admission in Dec presented to the ED with SOB and leg swelling after running out of meds and being declined refills until seen in the office Acute exacerbation of HFrEF due to noncompliance with medications - Echo 12/2022 with LVEF 15-20%, severe global hypokinesis, RV enlarged with reduced function, Moderate to severe MR and TR, severe biatrial enlargement, large left pleural effusion. -Repeat echo similar with EF 20-25% days with severe global hypokinesia, moderate to severe MR, moderate to severe TR, severe biatrial enlargement, small circumferential pericardial effusion with mild organization, no evidence of cardiac tamponade. Moderate left pleural effusion - BNP 3125, CXR 05/09 with pulmonary edema with small to moderate right and small left pleural effusions with associated bibasilar opacities. -Still with volume overload but having good diuresis with iv lasix 40 bid. IV lasix on hold today due to Cr elevation. Strict I and Os, daily weight -Initiate GDMT as feasible-currently on Toprol. Holding off on MAX inhibitors or Aldactone given renal insufficiency -Cardiology following A fib with RVR- HR controlled, on toprol increased to 25 bid for better rate control. Continue eliquis Hypoxia- continue diuresis. Continue supplemental oxygen, wean off as tolerated Elevated trop- likely demand ischemia. Troponin trend flat, no chest pain. CKD 3b with Creatinine elevation- Cr elevated to 1.7 from baseline of 1.5, on lasix on hold per nephrology. Recheck in am. H/o DVT-ultrasound lower extremity no evidence of DVT. Elevated TSH- TSH 12. T4 normal. ?sick euthyroid. Previous trend noted. OP follow up recommended. DVT ppx- eliquis Dispo-continue current level of care, pending optimization of volume status Admission and Anticipated Discharge Date Admission Date: May 09, 2023 Subjective Patient was seen and examined at bedside with help of Ebenezer plater supervisor over iPad. She feels better. She states he cannot stay past Tuesday morning and wants to be discharged then. States she had a bowel movement and she would feel comfortable at home. She also is asking for providing at least 6 months of medications at discharge. She continues have good diuresis Physical Exam Physical Exam: General: Chronically ill looking elderly female sitting up in chair on room air, conversational dyspnea improved HEENT: EOMI, AV, MMM Chest: Decreased breath sounds with mild basilar crackles CVS: Irregularly irregular, tachycardic, normal heart sounds, no murmur Abdomen: Soft, non tender, distended, normal bowel sounds Neuro: Awake, alert, oriented, conversing well, non focal Extremities: No cyanosis, clubbing. 2+ edema bilaterally, tense Results & Data Results & Data Vital Signs (Past 12 Hours) Vital Signs Temp Pulse Pulse Resp BP Pulse Ox O2 Del Method 05/12/23 11:30 36.3 C L 90 18 111/57 L 97 Nasal Cannula 05/12/23 08:00 98 H 05/12/23 08:00 Nasal Cannula 05/12/23 07:52 36.6 C 68 18 141/57 H 98 Nasal Cannula 05/12/23 03:32 36.4 C L 110 H 17 111/75 94 Nasal Cannula O2 Flow Rate 05/12/23 11:30 2 05/12/23 08:00 05/12/23 08:00 2 05/12/23 07:52 2 05/12/23 03:32 2 Laboratory Results [facility] 05/12/23 05:26 Sodium 140 Potassium 3.4 L Chloride 102 Carbon Dioxide 31 BUN 43 H Creatinine 1.72 H Glucose 82 Calcium 8.5 L Medications Administered Current Inpatient Medications Acetaminophen (Acetaminophen 325 Mg Tab) 650 mg PO Q6H PRN PRN Reason: pain Stop: 06/08/23 19:37 Last Admin: 05/11/23 10:32 Dose: 650 mg Apixaban (Apixaban 5 Mg Tablet) 5 mg PO BID ABE Stop: 06/08/23 20:59 Last Admin: 05/12/23 08:39 Dose: 5 mg Docusate Sodium (Docusate Sodium 100 Mg Cap) 100 mg PO BID ABE Stop: 06/11/23 10:59 Furosemide (Furosemide 40 Mg/4 Ml Vial) 40 mg IV BID ABE Stop: 06/08/23 20:59 Last Admin: 05/12/23 08:39 Dose: 40 mg Metoprolol Succinate (Metoprolol Succ 25mg Ext Rel Tab) 25 mg PO BID ABE Stop: 06/11/23 08:59 Last Admin: 05/12/23 08:39 Dose: 25 mg Polyethylene Glycol (Polyethylene (Miralax) 17 Gm Pack) 17 gm PO DAILY ABE Stop: 06/11/23 10:59 Potassium Chloride (Potassium Chloride Crtab 20 Meq Tabcr) 40 meq PO BID ABE Stop: 06/10/23 08:59 Last Admin: 05/12/23 08:39 Dose: 40 meq Sennosides (Senna 8.6 Mg Tab) 8.6 mg PO HS ABE Stop: 06/11/23 20:59
[2023-05-12] MEDS: DOCUSATE SODIUM 100 MG CAP PO SCH ×2 (13:24→20:45)
[2023-05-12] MEDS: POLYETHYLENE (MIRALAX) 17 GM PACK PO SCH (13:25)
[2023-05-12] MEDS ORDERED: SODIUM CHLORIDE 0.65% NA SOLN 45 ML (OCEAN) ONE (17:40)
[2023-05-12] MEDS ORDERED: SODIUM CHLORIDE 0.65% NA SOLN 45 ML (OCEAN) PRN (17:40)
[2023-05-12] MEDS: APIXABAN 2.5 MG TAB PO SCH (20:36)
[2023-05-12] MEDS ORDERED: SENNA 8.6 MG TAB PO SCH (21:00)
[2023-05-13] MEDS ORDERED: APIXABAN 2.5 MG TAB PO SCH
[2023-05-13] MEDS ORDERED: TORSEMIDE 20 MG TAB PO SCH
[2023-05-13] MEDS ORDERED: METOPROLOL SUCC 25MG EXT REL TAB PO SCH
[2023-05-13] MEDS ORDERED: POTASSIUM CHLORIDE CRTAB 20 MEQ TABCR PO SCH
[2023-05-13] MEDS: POLYETHYLENE (MIRALAX) 17 GM PACK PO SCH (08:05)
[2023-05-13] MEDS: METOPROLOL SUCC 25MG EXT REL TAB PO SCH (08:06)
[2023-05-13] MEDS: APIXABAN 2.5 MG TAB PO SCH (08:06)
[2023-05-13 08:17] LABS: Calcium 8.1 mg/dl (8.6-10.3); Creatinine Clr Calc Pharmacy 29.3 ml/min; Est GFR (Non-African American) 35.3 ml/min; Potassium 3.3 mmol/L (3.5-5.1)
[2023-05-13] MEDS: POTASSIUM CHLORIDE CRTAB 20 MEQ TABCR PO SCH (08:30)
[2023-05-13] MEDS: DOCUSATE SODIUM 100 MG CAP PO SCH (08:31)
[2023-05-13] MEDS: FUROSEMIDE 40 MG/4 ML VIAL IV SCH (08:31)
--- NOTE | 2023-05-13 12:09 | Cardiology Progress Note ---
Date of Service May 13, 2023 Assessment & Plan (1) Acute on chronic heart failure with reduced ejection fraction and diastolic dysfunction: (2) Acute on chronic renal failure: (3) Atrial fibrillation: (4) Tachycardia induced cardiomyopathy: (5) Chronic kidney disease, stage 3b: Plan Recommend ongoing inpatient treatment for acute decompensated heart failure. Patient declines further inpatient management. Discharged on torsemide 20 mg daily with 40 mEq of potassium chloride. Repeat basic metabolic panel in 1 week. Via liquefaction and regasification helper, I explained the importance of close cardiology follow-up as well as repeat lab testing. Patient voiced understanding. Significant barri ers noted to transportation. Patient lives with her son who does not drive. Continue Toprol-XL and reduced dose Eliquis. Cannot add MAX inhibitor, ARB, or Aldactone due to renal insufficiency at this time. Cardiology follow-up in 1 to 2 weeks. Admission and Anticipated Discharge Date Admission Date: May 09, 2023 Subjective Patient seen and examined at the bedside. History taken via liquefaction and regasification helper. Patient states she is leaving hospital today. Refuses to stay for additional treatment. Requesting prescriptions with a 1 year supply. Denies chest pain or shortness of breath at rest. Voices concern regarding ongoing constipation. Renal function improved today. Review of Systems Review of Systems: All systems reviewed & are unremarkable except as noted in Subjective Physical Exam Constitutional: + ill appearing Respiratory: no respiratory distress, no labored breathing and no retractions Auscultation: + rales (Bases bilateral); no rhonchi and no wheezes Cardiovascular: Rate/Rhythm: + irregularly irregular Heart Sounds: normal S1, normal S2 and + murmur (2/6 holosystolic murmur heard at the apex.) Vessels: + JVD and radial pulses present; no carotid bruit Extremities: + edema (2+ bilateral lower extremity edema with stasis changes) Gastrointestinal (Abdomen): Inspection/Auscultation: normal bowel sounds; abdomen not distended Percussion/Palpation: abdomen nontender, no guarding, abdomen not rigid and + abdomen not soft Neurologic: CN's II-XI intact bilaterally and moves all extremities Results & Data Vital Signs (Past 12 Hours) Vital Signs Temp Pulse Pulse Resp BP Pulse Ox O2 Del Method 05/13/23 11:40 36.5 C 85 16 115/76 95 Room Air 05/13/23 11:11 92 H 05/13/23 08:00 Room Air 06/23/23 07:59 36.4 C L 95 H 16 129/85 96 Nasal Cannula 05/13/23 03:14 36.5 C 84 18 129/90 90 Room Air O2 Flow Rate 05/13/23 11:40 05/13/23 11:11 05/13/23 08:00 05/13/23 07:59 2 05/13/23 03:14
--- NOTE | 2023-05-13 13:14 | Discharge Summary ---
Date of Service May 13, 2023 Admission HPI Per Admitting Provider Patient is a 78-year-old female with history of HFrEF, atrial fibrillation, DVT right lower extremity who was recently admitted to the hospital from 01/13-01/18 and left AMA with no follow-up with any provider presented to hospital with worsening shortness of breath, leg swelling and pain. Patient is Mandarin speaking and interview completed with the help retarder operator over iPad. Patient is a poor historian. States that she ran out of her medications and was unable to refill, hence came to the hospital. She states she was able to get some [id number] medications but was unable to specify her current medications. Also unable to specify when her last dose of medications were. She states she does not like to stay in the hospital and is wondering if she can go home with the prescription. She states the max second stay in the hospital is 3 days. She has orthopnea and would get short of breath with few steps. She is unable to walk much because of the leg pain. Denies any fever, chills, chest pain, cou gh, sputum, abdominal pain, nausea or vomiting. States she had epistaxis with blood thinner and stopped taking it but unable to specify when was the last dose and how many doses she took, she states he still has 3 pills of the blood thinner at home. She denies any history of CAD or CVA or lung disease. She does not smoke. States she drinks wine occasionally. She lives with her son at home. In the ED, she was found to be volume overloaded and with A-fib with RVR. She was given IV Lasix and IV Cardizem. Hospitalist service was consulted for further management. Admission Exam Per Admitting Provider General: Chronically ill looking elderly female sitting up in bed with nasal cannula, some conversational dyspnea noted HEENT: EOMI, AV, MMM Chest: Decreased breath and evaluate basilar crackles CVS: Irregularly irregular, tachycardic, normal heart sounds, no murmur Abdomen: Soft, non tender, distended, normal bowel sounds Neuro: Awake, alert, oriented, conversing well, non focal Extremities: No cyanosis, clubbing. 2+ edema bilaterally, tense, minimal weeping in right lower extremity. Skin: Anasarca Principal Diagnosis Acute on chronic HFrEF due to medication non compliance, A fib with RVR Discharge Exam General: Chronically ill looking elderly female sitting up in chair on room air, conversational dyspnea improved HEENT: EOMI, AV, MMM Chest: Fair breath sounds bilaterally- improved CVS: Irregularly irregular, normal heart sounds, no murmur Abdomen: Soft, non tender, distended, normal bowel sounds Neuro: Awake, alert, oriented, conversing well, non focal Extremities: No cyanosis, clubbing. 2+ edema bilaterally, tense Discharge Data Allergies Allergy/AdvReac Type Severity Reaction Status Date / Time No Known Allergies Allergy Verified 05/10/23 20:07 Consultations 05/09/23 17:17 Consult Cardiology Routine 05/09/23 17:20 ED Decision to Admit Stat Ordered Studies 05/10/23 US venous doppler LE BI Routine Laboratory Results WBC 4.29 K/ul (4.8-10.8) L 05/11/23 06: RBC 3.49 M/uL (4.20-5.40) L 05/11/23 06: Hgb 10.9 g/dl (12.0-16.0) L 05/11/23 06: Hct 33.2 % (37.0-47.0) L 05/11/23 06: MCV 95.1 fL (80.0-100.0) 05/11/23 06: MCH 31.2 pg (25.0-34.0) 05/11/23 06: MCHC 32.8 g/dL (32.0-36.0) 05/11/23 06: RDW Std Deviation 70.4 fL (36.4-46.3) H 05/11/23 06:23 RDW Coeff of Bubba 20.8 % (11.5-14.5) H 05/11/23 06:23 Plt Count 129 K/uL (130-400) L 05/11/23 06: MPV 11.4 fL (9.4-12.4) 05/11/23 06: Immature Gran % (Auto) 0.2 % 05/10/23 10:07 Neut % (Auto) 74.8 % 05/10/23 10:07 Lymph % (Auto) 16.5 % 05/10/23 10:07 [place] % (Auto) 7.7 % 05/10/23 10:07 Eos % (Auto) 0.2 % 05/10/23 10:07 Baso % (Auto) 0.6 % 05/10/23 10:07 Neut # (Auto) 3.77 K/uL (1.40-6.50) 05/10/23 10:07 Lymph # (Auto) 0.83 K/uL (1.2-3.4) L 05/10/23 10:07 [place] # (Auto) 0.39 K/uL (0.11-0.59) 05/10/23 10:07 Eos # (Auto) 0.01 K/uL (0-0.50) 05/10/23 10:07 Baso # (Auto) 0.03 K/uL (0-0.2) 05/10/23 10:07 Immature Gran # (Auto) 0.01 K/uL (0.01-0.20) 05/10/23 10:07 Absolute Nucleated RBC 0.02 K/uL (0-0.12) 05/10/23 10:07 Nucleated RBC % (auto) 0.4 % 05/10/23 10:07 Polychromasia 1+ 05/10/23 10:07 Anisocytosis Present 05/10/23 10:07 PT 13.4 Seconds (9.0-12.0) H 05/09/23 17:42 INR 1.2 (0.9-1.1) H 05/09/23 17:42 APTT 28.2 Seconds (21.0-31.0) 05/09/23 17:42 PTT Ratio 1.0 05/09/23 17:42 Sodium 142 mmol/L (136-145) 05/13/23 07:20 Potassium 3.3 mmol/L (3.5-5.1) L 05/13/23 07:20 Chloride 104 mmol/L (98-107) 05/13/23 07:20 Carbon Dioxide 31 mmol/L (21-32) 05/13/23 07:20 Anion Gap 7 (3-11) 05/13/23 07:20 BUN 38 mg/dl (6-23) H 05/13/23 07:20 Creatinine 1.41 mg/dl (0.6-1.2) H D 05/13/23 07:20 Est Cr Clr Drug Dosing 29.3 ml/min 05/13/23 07:20 Est GFR ( Amer) 41.0 ml/min 05/13/23 07:20 Est GFR (Non-Af Amer) 35.3 ml/min 05/13/23 07:20 BUN/Creatinine Ratio 27.0 (10-20) H 05/13/23 07:20 Glucose 79 mg/dl (70-99(Fasting)) 05/13/23 07:20 Calcium 8.1 mg/dl (8.6-10.3) L 05/13/23 07:20 Magnesium 2.4 mg/dl (1.7-2.4) 05/11/23 06: Total Bilirubin 2.3 mg/dl (0.2-1.0) H 05/09/23 15:35 AST 24 U/L (13-39) 05/09/23 15:35 ALT 10 U/L (7-52) 05/09/23 15:35 Alkaline Phosphatase 116 U/L (34-104) H 05/09/23 15:35 Troponin I High Sens 57.5 pg/ml (0-14) H* 05/10/23 10:07 B-Natriuretic Peptide 3125 pg/ml (0-100) H 05/09/23 15:35 Total Protein 5.6 gm/dl (6.0-8.3) L 05/09/23 15:35 Albumin 2.8 gm/dl (3.4-5.0) L 05/09/23 15:35 Globulin 2.8 gm/dl (2.5-4.0) 05/09/23 15:35 Albumin/Globulin Ratio 1.0 (0.9-2) 05/09/23 15:35 TSH 12.497 uIu/ml (0.300-4.500) H 05/09/23 15:35 Free T4 1.10 ng/dl (0.61-1.60) 05/09/23 15:35 Urine Color Dark Yellow 05/09/23 18:37 Urine Appearance Clear (Clear) 05/09/23 18:37 Urine pH 5.0 (4.5-7.5) 05/09/23 18:37 Ur Specific [place] 1.011 (1.000-1.030) 05/09/23 18:37 Urine Protein Negative (Negative) 05/09/23 18:37 Urine Glucose (UA) Negative (Negative) 05/09/23 18:37 Urine Ketones Negative (Negative) 05/09/23 18:37 Urine Blood Negative (Negative) 05/09/23 18:37 Urine Nitrite Negative (Negative) 05/09/23 18:37 Urine Bilirubin Negative (Negative) 05/09/23 18:37 Urine Urobilinogen Negative (Negative) 05/09/23 18:37 Ur Leukocyte Esterase Negative (Negative) 05/09/23 18:37 SARS-CoV-2, RNA, NAAT NEGATIVE (NEGATIVE) 05/09/23 16:12 Impressions Chest X-Ray 05/09/23 16:01 XR chest 1V portable CLINICAL HISTORY: Shortness of breath. Swelling. COMPARISON STUDY: Chest radiograph January 13, 2023. FINDINGS: There is no pneumothorax. Small to moderate right and small left pleural effusions are noted. These appear similar to prior exam. There are as sociated bibasilar opacities. Pulmonary edema is noted. There is cardiomegaly. This is unchanged. IMPRESSION: Pulmonary edema with small to moderate right and small left pleural effusions with associated bibasilar opacities. ACT 112: Negative or not required by law. Electronically signed by: Olivier Chacon M.D. 05/09/2023 4:44 PM Venous Doppler Study 05/10/23 00:00 BILATERAL LOWER EXTREMITY VENOUS DOPPLER CLINICAL HISTORY: Bilateral leg swelling. r/o acute DVT COMPARISON STUDY: Bilateral lower extremity venous Doppler ultrasound January 14, 2023. TECHNIQUE: Sonography of the deep venous system of the bilateral lower extremities was performed. Compression and augmentation were evaluated. FINDINGS: This exam is mildly compromised due to suboptimal penetration related to lower extremity edema. The bilateral common femoral, superficial femoral and popliteal veins were compressible. Augmentation was normal. Flow was shown within the deep calf vessels. IMPRESSION: Exam mildly compromised from a technical standpoint but no evidence of deep venous thrombus within the bilateral lower extremities. ACT 112: Negative or not required by law. Electronically signed by: Olivier Chacon M.D. 05/10/2023 6:30 AM Hospital Course (1) Acute exacerbation of CHF (congestive heart failure): (2) Atrial fibrillation with RVR: (3) Elevated troponin: (4) History of DVT (deep vein thrombosis): (5) Elevated TSH: (6) Chronic kidney disease, stage 3b: Plan 78 year old female with h/o HFrEF and DVT RLE who left AMA during recent admission in Dec presented to the ED with SOB and leg swelling after running out of meds and being declined refills until seen in the office. She was found to have acute exacerbation of systolic CHF and AFib with RVR due to medication non compliance due to having no transportation to go to PCP follow up. She was star suha on iv lasix 40 bid with good diuresis and improvement in symptoms however she remains volume overloaded. I and cardiology spoke to her multiple times for continued inpatient stay for more iv diuresis for volume optimization however patient was very adamant to leave against medical advice today stating her constipation as well as thunderstorm tomorrow. Her Afib has been rate controlled with increased dose of toprol and did not require any additional rate controlling agents. Her Cr temporarily went up to 1.7 with iv lasix but improved with holding dose of iv lasix last evening and hence iv lasix was resumed today. She has been saturating well in room air and her dyspnea/leg swelling has improved. She is set up to see her new PCP via tele health on 05/18 2 pm as well as cardiology in 2 weeks possibly via tele health per cardio. Also recommended repeat BMP in a week for monitoring renal function and electrolytes. This was communicated to the patient via retarder operator; as well as her son over the phone who I spoke to prior to discharge. She is being discharged on torsemide, K supplementation, toprol and reduced eliquis dose per cardio recommendation. Unable to initiate MAX/ARB/Aldactone currently due to her renal function- she might be a candidate for HLZ/isosorbide as OP. Eliquis dose was reduced given her renal dysfunction and age as well as her episodes of epistaxis. Acute exacerbation of HFrEF due to noncompliance with medications - Echo 12/2022 with LVEF 15-20%, severe global hypokinesis, RV enlarged with reduced function, Moderate to severe MR and TR, severe biatrial enlargement, large left pleural effusion. -Repeat echo similar with EF 20-25% days with severe global hypokinesia, moderate to severe MR, moderate to severe TR, severe biatrial enlargement, small circumferential pericardial effusion with mild organization, no evidence of cardiac tamponade. Moderate left pleural effusion - BNP 3125, CXR 05/09 with pulmonary edema with small to moderate right and small left pleural effusions with associated bibasilar opacities. - S/p IV lasix with good diuresis and improvement in symptoms however still volume overloaded- however adamant to leave against our medical advice - Continue torsemide, potassium, toprol, eliquis at discharge - Repeat BMP in a week - F/u with PCP and cardiology - GDMT to be initiated as OP depending on her labs Permanent A fib- HR controlled, continue toprol and eliquis Hypoxia- resolved with diuresis. Now on room air Elevated trop- likely demand ischemia. Troponin trend flat, no chest pain. CKD 3b with Creatinine elevation- Cr stable at baseline of around 1.5. Repeat BMP in a week H/o DVT-ultrasound lower extremity no evidence of DVT. Elevated TSH- TSH 12. T4 normal. ?sick euthyroid. Previous trend noted. OP follow up recommended. Total Time Total Time Spent Total Time Spent (In Minutes): 75 Discharge Plan Discharge Items Patient Disposition: Home - Self-Care Reason For Visit: SOB, SWELLING Discharge Diagnosis: Acute exacerbation of HFrEF due to medication non-compliance, A fib with RVR Activity: Resume your previous activity Non-emergency contact: Primary Care Provider and [facility] Call non-emergency contact if: you have any medication questions, your symptoms worsen and your pain is not controlled Follow-up/Referrals: Jorge Gordon DO [[facility]] - Blanca Angelo DO [Outside Practitioners] - (Date & Time 05/18/2023 2:00 PM Provider Blanca Angelo DO Department Family Practice [facility] *THIS IS A VIDEO VISIT. INSTRUCTIONS WILL BE SENT TO YOUR EMAIL ADDRESS. IF THIS DATE/TIME DOES NOT WORK, PLEASE CALL TO RESCHEDULE.* ) Diet: Heart Healthy and Low Sodium (2gm) Fluids: 1500ml (6 cups) Addtl Attending Provider Instructions: Continue torsemide (water pill) 1 tab daily Continue potassium tablet daily as prescribed Continue toprol (heart medicine) twice daily Continue eliquis (blood thinner) twice daily You have tele appointment with the family doctor in 5 days 05/18/23 2 pm. Be ready for that Cardiology will also reach out to you in 2 weeks. Please follow with them Recommend repeat blood work (BMP) in a week to check your potassium and kidney number and follow with family doctor. TSH was 12. Recommend repeat thyroid test with your family doctor in about 6 weeks. Call 911 and go to the Emergency Room if: * You have tightness or pain in your chest that does not go away with rest or Nitroglycerin * You are very short of breath even with rest Call your doctor if any of the following symptoms or problems start or get worse: * Shortness of breath or difficulty breathing * Wake up at night short of breath * Chest pain * Cough * Swelling of your hands, fee, or legs * More fatigued or tired with your normal activity * Palpitations - sudden fast heart beats WEIGHT * Weigh yourself every morning after using the bathroom. * Use the same scale. * Wear the same amount of clothing. * Write your weight down on your chart. * Call your doctor if you gain more than 2-3 pounds in 1-2 days. MEDICATIONS * Use this discharge instruction sheet for instructions. * Take your medications at the time your doctor ordered. * Do not skip a dose of your medicines. * If you miss a dose of medicine, take as soon as possible, but DO NOT DOUBLE A DOSE. * Read your medicine information when you get home. * Know all of the side effects of your medicine. * Call your doctor's office if you have any side effects. * Be sure all of your doctors know what medicine and herbs you take (including cold, flu, and herbal medicine). * Pain Medicine: If you do not get relief from your pain, please call your doctor for help. Take the following with you to your follow-up doctor appointments: * Weight Chart * Medication List * List of questions Do not drink excessive alcohol, beer or wine. Pending Studies at Discharge: No Stand-Alone Forms: [facility], Smoking Cessation Medications and DC Order Prescriptions: New metoprolol succinate 25 mg Tablet Extended Release 24 Hr 25 mg PO BID Qty: 60 2RF Eliquis 2.5 mg Tablet 2.5 mg PO BID Qty: 60 2RF torsemide 20 mg tablet 20 mg PO DAILY Qty: 30 2RF potassium chloride 20 mEq tablet,ER particles/crystals 40 meq PO DAILY Qty: 30 2RF Continued polyethylene glycol 3350 [Miralax] 17 gram Powder In Packet 17 g PO DAILY PRN (Reason: constipation) Qty: 30 0RF Discontinued potassium chloride 20 mEq Tablet,Er Particles/Crystals 20 meq PO QAM Qty: 10 0RF lisinopril [Zestril] 5 mg Tablet 5 mg PO QAM Qty: 30 2RF metoprolol succinate 25 mg Tablet Extended Release 24 Hr 12.5 mg PO BID 30 Days Qty: 30 2RF Mag 64 64 mg Tablet,Delayed Release (Dr/Ec) 64 mg PO BID Qty: 60 0RF furosemide 20 mg tablet 20 mg PO BID Qty: 60 2RF Eliquis 5 mg tablet 5 mg PO BID Rx Instructions: Start taking apixaban 10 mg twice a day for 6 more days and then take 5 mg twice a day Discharge Orders: Discharge Order (Routine); Ordered 05/13/23 Ordered By: Fitz Lowry Admission Data Admit Date/Time: 05/09/23 17:17 Attending Provider: Fitz Lowry Admit Provider: Fitz Lowry Primary Care Provider: PCP,NO Other Providers: Jorge Gordon Niranjan N.
== END 2023-05-13 17:44 | disposition home or self-care (01) | DRG 292 ==
LOC: ED 15:31 → 2S 17:17

== ENCOUNTER 2024-02-19 11:34 | Inpatient (IN) ==
[2024-02-19] MEDS: SODIUM CHLORIDE 0.9% 500 ML IV STA (12:15)
--- NOTE | 2024-02-19 12:19 | XRay Report ---
SINGLE VIEW CHEST CLINICAL HISTORY: Sepsis FINDINGS: An AP, portable, upright chest radiograph is compared to study dated 05/09/2023. The heart i s enlarged nothing atherosclerotic calcification of the thoracic inlet. The pulmonary vasculature is noncongested. There is a layering right pleural effusion with consolidation of right lower lung. This is at least moderate in size. Atelectasis as seen at the left lung base. No pneumothorax is seen. Th e skeletal structures are osteopenic. The bony thorax is grossly intact. IMPRESSION: 1. Cardiomegaly without radiographic evidence of congestive failure. 2. Layering right pleural effusion with consolidation of the right lower lung. ACT 112: Negative or not required by law. Electronically signed by: Sulaiman Diop M.D. 02/19/2024 12:18 PM
--- NOTE | 2024-02-19 12:29 | Emergency Department Note ---
Impression & Plan Sepsis, Atrial fibrillation with rapid ventricular response, Elevated troponin, Pleural effusion, Cellulitis, Leukocytosis, Elevated lactic acid level ED Provider Note NAME: JENNIFER RODNEY AGE: 79 SEX: F : 1945 ARRIVES VIA: Ambulance INFORMANT: [Patient][ems] ED PROVIDER(S): [Sulaiman Munroe MD] CHIEF COMPLAINT: Illness HISTORY OF PRESENT ILLNESS: The patient is an 79-year-old female who was brought by ambulance. The patient apparently was doing poor the last few weeks. She has drainage and foul odor to her legs. She has fallen and has a contusion to the scalp and face. There is concern that she is not taking her meds, there is concern that she is not receiving proper care from her family. As per the nursing staff, the patient did indicate that she did not feel safe at home. As per the commercial plumber service, the patient complains of leg discomfort. She denies feeling short of breath. She denies nausea or vomiting. She denies chest pain. The patient is in general a poor historian, with this fact coupled with the language barrier--no further history obtainable. PMHx/PSHx/Social Hx: See Below PHYSICAL EXAM: GENERAL: Patient is in mild distress from pain. HEENT: There is older appearing contusion to the right scalp and right face. The right globe appears uninjured. Mucous membranes are dry. NECK: No stridor, no adenopathy, no meningismus, trachea is midline. LUNGS: Equal breath sounds when listening anterior. No wheezing or obvious respiratory distress. There is an increased respiratory rate noted. HEART: Tachycardic and irregular, no obvious murmur. ABDOMEN: Soft, nontender, no peritonitis. No abdominal distention. EXTREMITIES: The patient has discoloration and foul odor to the lower extremities. The changes to the legs are from the knee to the feet. There are dressings that are soaked with purulent discharge. There are areas of erythema as well as darker/black discoloration. NEUROLOGIC: Moves all extremities, awake and alert. SKIN: No jaundice, no diaphoresis. DIFFERENTIAL DIAGNOSIS: Sepsis or bacteremia, neglect, dehydration, medication noncompliance, anemia, electrolyte imbalance, dysrhythmia, AK, intracranial bleeding, among others. EMERGENCY DEPARTMENT PROCEDURES: MEDICAL DECISION MAKING: There is a moderate leukocytosis, this of course would be consistent with infection. There is a normal hemoglobin. Platelet count was low at 82. INR was 1.2, slightly elevated. Sodium was low at 131. Potassium was somewhat high at 5.8. CO2 was low consistent with some acidosis. There was an elevation to the BUN and creatinine consistent with dehydration. Lactic acid level was elevated consistent with infection/sepsis. Bilirubin was high at 5, the remaining liver enzymes were unremarkable. ECG showed rapid A-fib, no obvious acute ischemia. Cardiac enzyme testing x 1 was slightly elevated, this troponin elevation could be secondary to cardiac injury or just mismatch from her tachycardia. The TSH was high however, the T4 was normal. Urinalysis showed some contamination, no obvious infection. Chest x-ray shows a right-sided pleural effusion. The left lung was clear. Brain CT shows no acute bleed or mass effect. CT of the C-spine did not show any acute fracture. Chest CT showed a large right pleural effusion with potential consolidation. Some subtle consolidation was seen also in the left lower lung. On exam, the patient had older contusion to his right scalp and face. She was tachycardic. She had foul-smelling discharge and cellulitis of her bilateral lower extremities. She appeared dehydrated clinically. I was able to discuss things with the patient via the commercial plumber line. She only speaks Mandarin. Nursing staff was able to converse with her through the translation line. The patient was aggressively managed as she appeared septic. She received IV saline. Of note, she only received 1.5 L of IV saline as she has a history of heart failure with a poor EF. She was given a bolus of IV diltiazem and placed on a diltiazem drip. She received IV cefepime and IV daptomycin. The patient is quite ill. I did speak quickly to the ICU, they accepted the patient to their floor. The patient has 2 working IVs for hydration and medication administration. She may eventually require a central line or even intubation however, for now, her airway is adequate and her IV access is adequate. Nursing staff was able to clean and dress her lower extremities. Prior/Outside records/notes reviewed: Previous discharge summary from 05/13/2023 discussing her presentation for A-fib, med noncompliance and CHF. ECG per my interpretation: Indication was sepsis. The ECG shows atrial fibrillation with a rate of 152. There is diffuse nonspecific ST change. There is a potential old septal infarct. No ST elevation. No PVCs. The QTc is 486. Continuous Cardiac Monitoring per my interpretation: An order was placed for continuous cardiac monitoring. The monitor shows a rate of 145 with atrial fibrillation. Imaging/x-ray results per my interpretation: Chest x-ray shows a potential effusion or infiltrate to the right, the left lung is clear. Chronic Medical/Social conditions affecting care: Advanced age, chronic A-fib. Care/Management discussed with: Welding Machine Operator [employer] on-call-Dr. Jimenez. Case management and the on-call hospitalist. Level of care consideration(s): After review of the information above and other included data: --I believe the patient requires escalation of care to admission Critical Care Note: I have personally spent 56 minutes of critical care time in the direct management of this patient. This includes bedside care, interpretation of diagnostic studies, and testing, discussion with consultants, patient, and family members, and other required patient management activities. This 56 minutes is in excess of all separately billable procedures. DISPOSITION: Admission Past Med/Surg History Medical History Arthritis Congestive heart failure Atrial fibrillation with RVR Surgical History No significant past surgical history Social History Smoking Status: Never smoker Second Hand Exposure: No; Do You Dip or Chew Tobacco: No; Hx Alcohol Use: Yes Alcohol type: wine Hx Substance Use: No Preferred Language: Mozambican Communication Ability: Effective Communication Ability Comment: Hard of Hearing Communication Tools: IPad Club Manager Required: Yes Beliefs That Will Affect Care: None Current Living Situation: Family Feels Safe at Home: No Is there a partner from a previous relationship who is making you feel unsafe now?: No Assistive Devices: Oxygen - Continuous and Walker Allergies Allergies Allergy/AdvReac Type Severity Reaction Status Date / Time No Known Allergies Allergy Verified 05/10/23 20:07 Home Meds Previous Rx's Medication Instructions Recorded apixaban 2.5 mg tablet (Eliquis) 2.5 mg PO BID #60 tabs 05/13/23 metoprolol succinate 25 mg 25 mg PO BID #60 tabs 05/13/23 tablet,extended release 24 hr polyethylene glycol 3350 17 gram 17 g PO DAILY PRN constipation #30 05/13/23 oral powder packet (Miralax) ea potassium chloride 20 mEq 40 meq (2 x 20 mEq) PO DAILY #30 05/13/23 tablet,extended release(part/cryst) tabs torsemide 20 mg tablet 20 mg PO DAILY #30 tabs 05/13/23 Results & Data (ED) Vital Signs Vital Signs - 24 hr 02/19/24 11:53 02/19/24 11:53 02/19/24 12:00 Temperature 36 C L 36 C L Temperature Source Axillary Axillary Pulse Rate 155 H 145 H Pulse Rate [Apical] 155 H Pulse Rate from SpO2 Sensor 139 H Respiratory Rate 20 26 H 23 Blood Pressure 100/77 105/81 Blood Pressure [Right Arm] 100/72 Blood Pressure Mean 84 89 Blood Pressure Mean [Right Arm] 81 Pulse Oximetry 93 93 93 Oxygen Delivery Method Oxygen Flow Rate Sepsis Recent Fever Within 48 Hours No Sepsis New/Unexplained Change in Mental Status No Sepsis Action Taken by Nursing No Action Required Oxygen Flow Rate - Titration Pulse Oximetry Post Tiitration 02/19/24 12:15 02/19/24 12:26 02/19/24 12:31 Temperature Temperature Source Pulse Rate 155 H 149 H 146 H Pulse Rate [Apical] Pulse Rate from SpO2 Sensor 156 H 144 H Respiratory Rate 31 H 38 H Blood Pressure 103/82 111/78 Blood Pressure [Right Arm] Blood Pressure Mean 89 89 Blood Pressure Mean [Right Arm] Pulse Oximetry 95 99 Oxygen Delivery Method Oxygen Flow Rate Sepsis Recent Fever Within 48 Hours Sepsis New/Unexplained Change in Mental Status Sepsis Action Taken by Nursing Oxygen Flow Rate - Titration Pulse Oximetry Post Tiitration 02/19/24 12:45 02/19/24 13:01 02/19/24 13:13 Temperature Temperature Source Pulse Rate 135 H 149 H Pulse Rate [Apical] Pulse Rate from SpO2 Sensor 137 H 148 H Respiratory Rate 25 H 27 H Blood Pressure 109/93 118/79 Blood Pressure [Right Arm] Blood Pressure Mean 98 92 Blood Pressure Mean [Right Arm] Pulse Oximetry 99 97 94 Oxygen Delivery Method Nasal Cannula Nasal Cannula Nasal Cannula Oxygen Flow Rate 2 2 0 Sepsis Recent Fever Within 48 Hours Sepsis New/Unexplained Change in Mental Status Sepsis Action Taken by Nursing Oxygen Flow Rate - Titration 2 Pulse Oximetry Post Tiitration 100 02/19/24 13:13 Temperature Temperature Source Pulse Rate Pulse Rate [Apical] Pulse Rate from SpO2 Sensor Respiratory Rate Blood Pressure Blood Pressure [Right Arm] Blood Pressure Mean Blood Pressure Mean [Right Arm] Pulse Oximetry 100 Oxygen Delivery Method Nasal Cannula Oxygen Flow Rate 2 Sepsis Recent Fever Within 48 Hours Sepsis New/Unexplained Change in Mental Status Sepsis Action Taken by Nursing Oxygen Flow Rate - Titration Pulse Oximetry Post Tiitration Home Medications Current Medication List: was personally reviewed by me Laboratory Data Attestation: I reviewed the patient's lab results. 02/19/24 12:04 02/19/24 12:04 Lab Results 02/19/24 02/19/24 02/19/24 Range/Units 11:55 12:04 13:13 WBC 15.05 H (4.8-10.8) K/ul RBC 4.41 (4.20-5.40) M/uL Hgb 13.5 (12.0-16.0) g/dl Hct 42.2 (37.0-47.0) % MCV 95.7 (80.0-100.0) fL MCH 30.6 (25.0-34.0) pg MCHC 32.0 (32.0-36.0) g/dL RDW Std Deviation 68.4 H (36.4-46.3) fL RDW Coeff of Bubba 20.2 H (11.5-14.5) % Plt Count 82 L (130-400) K/uL MPV 11.5 (9.4-12.4) fL Immature Gran % (Auto) 1.3 % Neut % (Auto) 93.6 % Lymph % (Auto) 1.5 % Donley % (Auto) 3.5 % Eos % (Auto) 0.0 % Baso % (Auto) 0.1 % Neut # (Auto) 14.09 H (1.40-6.50) K/uL Lymph # (Auto) 0.23 L (1.20-3.40) K/uL Donley # (Auto) 0.52 (0.11-0.59) K/uL Eos # (Auto) 0.00 (0.00-0.50) K/uL Baso # (Auto) 0.02 (0.00-0.20) K/uL Immature Gran # (Auto) 0.19 (0.01-0.20) K/uL Absolute Nucleated RBC 0.46 H (0.00-0.12) K/uL Nucleated RBC % (auto) 3.1 % Polychromasia 1+ Anisocytosis Present PT 13.5 H (9.0-12.0) Seconds INR 1.2 H (0.9-1.1) APTT 31 (21-31) Seconds PTT Ratio 1.1 ABG pH Cancelled ABG pCO2 Cancelled ABG pO2 Cancelled ABG HCO3 Cancelled ABG O2 Saturation Cancelled ABG Base Excess Cancelled Jose Test Cancelled Barometric Pressure Cancelled Oxygen Given Cancelled Sodium 131 L (136-145) mmol/L Potassium 5.8 H (3.5-5.1) mmol/L Chloride 107 (98-107) mmol/L Carbon Dioxide 16 L (21-32) mmol/L Anion Gap 8 (3-11) BUN 60 H (6-23) mg/dl Creatinine 1.36 H (0.6-1.2) mg/dl Est Cr Clr Drug Dosing 27.1 ml/min Est GFR ( Amer) 42.5 ml/min Est GFR (Non-Af Amer) 36.7 ml/min BUN/Creatinine Ratio 44.1 H (10-20) Glucose 89 (70-99(Fasting)) mg/dl Lactate 2.2 H* (0.4-2.0) mmol/L Calcium 8.2 L (8.6-10.3) mg/dl Magnesium 2.8 H (1.7-2.4) mg/dl Total Bilirubin 5.0 H (0.2-1.0) mg/dl AST 21 (13-39) U/L ALT 13 (7-52) U/L Alkaline Phosphatase 91 (34-104) U/L Troponin I High Sens 87.3 H* (0-14) pg/ml Total Protein 6.6 (6.0-8.3) gm/dl Albumin 2.7 L (3.4-5.0) gm/dl Globulin 3.9 (2.5-4.0) gm/dl Albumin/Globulin Ratio 0.7 L (0.9-2) Procalcitonin 1.00 H (0-0.5) ng/ml TSH 12.227 H (0.300-4.500) uIu/ml Free T4 0.68 (0.61-1.60) ng/dl Random Cortisol 23.19 mcg/dl Administered Medications Diltiazem HCl 125 mg/ Dextrose 125 mls @ 5 mls/hr IV .Q24H ABE; Protocol Stop: 03/20/24 12:59 Last Titration: 02/19/24 15:26 Dose: Infused Documented By: WAGNER Co-signed By: THANIA Admin: 02/19/24 14:24 Dose: 5 mg/hr, 5 mls/hr Documented By: WAGNER Co-signed By: THANIA Discontinued Medications Amiodarone HCl/Dextrose (Amiodarone 150mg / 100ml D5w) Confirm Administered Dose 150 mg IV .STK-MED ONE Stop: 02/19/24 15:02 Last Admin: 02/19/24 15:25 Dose: 150 mg Documented By: WAGNER Co-signed By: THANIA Amiodarone HCl/Dextrose (Amiodarone 360mg / 200ml D5w) Confirm Administered Dose 360 mg IV .STK-MED ONE Stop: 02/19/24 15:02 Last Admin: 02/19/24 15:25 Dose: 360 mg Documented By: WAGNER Co-signed By: THANIA Diltiazem HCl (Diltiazem Hcl 5 Mg/Ml 5 Ml Vial) 10 mg IV NOW STA Stop: 02/19/24 12:58 Last Admin: 02/19/24 13:07 Dose: 10 mg Documented By: AMY Co-signed By: ODALYS Sodium Chloride (Nss) 500 mls @ 999 mls/hr IV .Q31M STA Stop: 02/19/24 12:24 Last Infusion: 02/19/24 13:06 Dose: Infused Documented By: Admin: 02/19/24 12:15 Dose: 999 mls/hr Documented By: AMY Sodium Chloride (Nss) 1,000 mls @ 999 mls/hr IV .Q1H1M ONE Stop: 02/19/24 13:13 Last Infusion: 02/19/24 14:06 Dose: Infused Documented By: Admin: 02/19/24 13:05 Dose: 999 mls/hr Documented By: AMY Cefepime HCl (Maxipime) 2,000 mg in 20 mls @ 5 mls/min IV NOW STA; Protocol Stop: 02/19/24 12:16 Last Admin: 02/19/24 13:06 Dose: 5 mls/min Documented By: AMY Daptomycin 275 mg/ Syringe 5.5 mls @ 2.75 mls/min IV Q24H ABE; Protocol Stop: 02/21/24 12:14 Last Admin: 02/19/24 13:07 Dose: 2.75 mls/min Documented By: AMY Miscellaneous (Stat Iv Infusion Titration Per Protocol) 1 each N/A NOW STA Stop: 02/19/24 12:58 Last Admin: 02/19/24 15:32 Dose: Not Given Documented By: WAGNER Imaging Data Radiologist's Impression: Chest X-Ray 02/19/24 11:54 SINGLE VIEW CHEST CLINICAL HISTORY: Sepsis FINDINGS: An AP, portable, upright chest radiograph is compared to study dated 05/09/2023. The heart is enlarged nothing atherosclerotic calcification of the thoracic inlet. The pulmonary vasculature is noncongested. There is a layering right pleural effusion with consolidation of right lower lung. This is at least moderate in size. Atelectasis as seen at the left lung base. No pneumothorax is seen. The skeletal structures are osteopenic. The bony thorax is grossly intact. IMPRESSION: 1. Cardiomegaly without radiographic evidence of congestive failure. 2. Layering right pleural effusion with consolidation of the right lower lung. ACT 112: Negative or not required by law. Electronically signed by: Sulaiman Diop M.D. 02/19/2024 12:[address] 02/19/24 12:13 CT SCAN OF THE CERVICAL SPINE CLINICAL HISTORY: Fall. COMPARISON STUDY: No priors. TECHNIQUE: CT scan of the cervical spine is performed from the skull base to the upper thoracic spine. Images are reviewed in the axial, sagittal, and coronal planes. IV contrast was not administered for this examination. A dose lowering technique was utilized adhering to the principles of ALARA. CT DOSE: 1771.51 mGy.cm FINDINGS: Skeletal structures: The skeletal structures are osteopenic. There is no evidence of fracture or subluxation involving the cervical spine. Vertebral body height and alignment are maintained. Small anterior osteophytes are seen throughout. The odontoid process and lateral masses are intact. The atlantoaxial articulation is preserved noting mild productive degenerative change. The spinous processes appear intact. There is mild multilevel facet arthropathy. Intervertebral discs: There is moderate disc space narrowing at C6-C7. Mild narrowing is seen at the remaining levels. Central canal: Posterior disc osteophyte complexes at C5-C6 and C6-C7 may contribute to acquired compromise of the central canal. Soft tissues: The prevertebral and paraspinous soft tissues are within normal limits. Calvarium: The visualized calvarium at the skull base appears intact. Brain parenchyma: Partially visualized brain parenchyma at the skull base is within normal limits. Sinuses and mastoids: The visualized paranasal sinuses are clear. The mastoid air cells are well pneumatized. Lung apices: Pleural effusion is seen at the right apex. IMPRESSION: 1. There is no evidence of fracture or subluxation involving the cervical spine. 2. Right pleural effusion. ACT 112: Negative or not required by law. Electronically signed by: Sulaiman Diop M.D. 02/19/2024 1:[address] 02/19/24 12:13 CT SCAN OF THE BRAIN WITHOUT IV CONTRAST CLINICAL HISTORY: Fall. COMPARISON STUDY: No priors. TECHNIQUE: Unenhanced axial CT scan of the brain is performed from the vertex to the skull base. A dose lowering technique was utilized adhering to the principles of ALARA. The skull base was scanned twice due to motion artifact. FINDINGS: Brain parenchyma: There is age-related involutional change noting mild subcortical and periventricular microangiopathic disease. There is no hemorrhage, mass effect, or evidence of acute territorial ischemia by CT criteria. Ndiaye-white matter differentiation is preserved. No extra-axial fluid collection is seen. Ventricles, sulci, cisterns: Prominent secondary to involutional change. Intracranial vasculature: There is atherosclerotic calcification of the cavernous carotid arteries. Calvarium: The skeletal structures are osteopenic. No depressed calvarial fracture is seen. Soft tissues: There is a right frontal scalp contusion. Sinuses and mastoids: The paranasal sinuses are clear. The mastoid air cells are well pneumatized. Orbits: The bony orbits are grossly intact. IMPRESSION: 1. There is no hemorrhage, mass effect, or evidence of acute territorial ischemia by CT criteria. 2. Right frontal scalp contusion. ACT 112: Negative or not required by law. Electronically signed by: Sulaiman Diop M.D. 02/19/2024 1:[address] 02/19/24 12:16 CT SCAN OF THE CHEST WITHOUT IV CONTRAST CLINICAL HISTORY: Fall. Pleural effusion. COMPARISON STUDY: Chest x-ray dated 02/19/2024. TECHNIQUE: CT scan of the thorax was performed from the thoracic inlet to the upper abdomen. Images are reviewed in the axial, sagittal, and coronal planes. IV contrast was not administered for this examination. Note that the examination is suboptimal without IV contrast. The examination is also degraded by motion artifact, as well as by streak artifact from the arms which could not be elevated above the chest. A dose lowering technique was utilized adhering to the principles of ALARA. FINDINGS: Thyroid: Normal in size and heterogeneous in attenuation. Thoracic aorta: There is mild atherosclerotic calcification of the thoracic aorta, which is normal in caliber and demonstrates standard 3-vessel arch anatomy. Heart: The heart is enlarged noting a small pericardial effusion. The main pulmonary arteries are dilated suggesting pulmonary artery hypertension. Lungs and pleural spaces: There is a large right pleural effusion with atelectasis/consolidation of the right lower lung. Mild patchy airspace consolidation is seen at the left lung base and there is trace left pleural effusion. There is also airspace consolidation in the subpleural left upper lobe. No pneumothorax is seen. The trachea and central airways are clear. Mediastinum: There is no mediastinal hematoma or lymphadenopathy. Gaby: Not well assessed without IV contrast. Axillae: There is no axillary lymphadenopathy. Upper abdomen: Nodularity of the hepatic surface contour suggests morphologic changes of cirrhosis. There is a small volume of upper abdominal ascites. Skeletal structures: The skeletal structures are osteopenic. There is a moderate age-indeterminate inferior endplate compression deformity of T7. The bony thorax is otherwise intact. Degenerative changes noted in the shoulders and spine. No lytic or blastic bony lesions are seen. IMPRESSION: 1. Large right pleural effusion with atelectasis/consolidation of the right lower lung. Correlate clinically for evidence of pneumonia. 2. There is airspace consolidation at the left lung base and a trace left pleural effusion. There are also foci of subpleural consolidation in the left upper lobe. Again, this could represent pneumonia or possible small pulmonary infarcts and clinical correlation will be required. 3. Cardiomegaly and small pericardial effusion. 4. Nodularity of the hepatic surface contour suggests morphologic change of cirrhosis. There is a small volume of upper abdominal ascites. 5. Minimal and age indeterminate inferior endplate compression deformity of T7. Correlate for point tenderness. 6. Additional findings as above. ACT 112: Negative or not required by law. Electronically signed by: Sulaiman Diop M.D. 02/19/2024 2:31 PM Discharge Plan Visit Data Chief Complaint: Illness Stated Complaint: PAIN ALL OVER, LEGS SEEPING POSS INFECTED ED Provider: Sulaiman Munroe Discharge Problem: Sepsis, Atrial fibrillation with rapid ventricular response, Elevated troponin, Pleural effusion, Cellulitis, Leukocytosis, Elevated lactic acid level Patient Disposition: Admitted As Inpatient Condition: Serious Discharge Instructions Interventions: ED Discharge Assessment Last Done: 02/19/24 13:36 Discharge Problem: Sepsis Qualifiers: Sepsis type: sepsis due to unspecified organism Sepsis acute organ dysfunction status: unspecified Qualified Code(s): A41.9 - Sepsis, unspecified organism Cellulitis Qualifiers: Site of cellulitis: extremity Site of cellulitis of extremity: lower extremity Laterality: unspecified laterality Qualified Code(s): L03.119 - Cellulitis of unspecified part of limb Leukocytosis Qualifiers: Leukocytosis type: unspecified Qualified Code(s): D72.829 - Elevated white blood cell count, unspecified
[2024-02-19 12:32] LABS: INR 1.2 (0.9-1.1); Partial Thromboplastin Ratio 1.1; Partial Thromboplastin Time 31 Seconds (21-31); Prothrombin Time 13.5 Seconds (9.0-12.0)
--- NOTE | 2024-02-19 12:32 | Critical Care Consultation ---
Date of Consultation February 19, 2024 Assessment & Plan (1) Sepsis: (2) Chronic kidney disease, stage 3b: (3) History of DVT (deep vein thrombosis): (4) Elevated troponin: (5) Acute exacerbation of CHF (congestive heart failure): (6) Atrial fibrillation with RVR: (7) Hypoxia: (8) Pleural effusion: Plan Reason Critically Ill: 79-year-old female coming to the hospital for hypotension and questionable neglect. Past medical history of systolic CHF. Sent to the ICU for further management Neuro - [facility] ICU: Unable to assess -- S/p mechanical fall CT head as well as CT cervical spine negative Continue with fall precautions Cardiac - --Elevated troponin Likely secondary to type II VA Continue to trend EKG 02/19/2024, 11:42 AM: A-fib, heart rate 152, no ST-T wave changes appreciated -- Systolic CHF Elevated TSH with normal free T4 Random cortisol 23.19 2D echo 05/10/2023: EF 20-25%, severe global hypokinesis, RV mildly dilated, moderate MR, moderate to severe TR --A-fib with RVR On apixaban at home Likely from underlying sepsis Respiratory - -- Acute respiratory failure with hypoxia Multifactorial Bilateral pleural effusion A-fib with RVR --Right-sided pleural effusion with left upper lobe pneumonia Continue with antibiotics CT chest 02/19/2024 personally reviewed: Motion degraded study Large right-sided pleural effusion with compressive atelectasis of the right lower lobe Patchy opacity appreciated in the left lower lobe as well as left upper lobe Cardiomegaly No significant mediastinal lymphadenopathy GI - -- Small volume abdominal ascites No need for any intervention right now RENAL/LYTES - -- MADY on CKD Follow-up urine lites Monitor BUN/creatinine Avoid nephrotoxic medications Strict ins and outs --Hyperkalemia From underlying CKD as well as acidosis Continue to trend - -- Continue with Burch catheter ENDO - -- ICU hypoglycemia protocol -- TSH 12.2 with free T4 within normal limit HEME - -- Normocytic anemia Monitor H&H --Thrombocytopenia Multifactorial Sepsis with possible cirrhosis Continue to monitor ID - --Cellulitis with possible pneumonia left upper lobe Continue with antibiotics Wound care consult has been placed Follow-up blood culture --Prophylaxis VTE: On apixaban at home GI: Pantoprazole Lines: Peripheral Diet: N.p.o. Plan: Strict in and out Continue with broad-spectrum antibiotics Start the patient on amiodarone drip. [facility] has been consulted For hyperkalemia start the patient on Lokelma, repeat BMP later today Hold anticoagulation for possible thoracentesis tomorrow. Continue daptomycin for possible cellulitis, cefepime for cellulitis as well as pneumonia I have personally spent 68 minutes of critical care time in the direct management of this patient. This is a life/limb threatening event. This includes time spent evaluating patient, direct bedside care, chart review, placing orders, interpretation of diagnostic studies, discussion with consultants, patient, and family members, as well as other required patient management activities. This time is exclusive of all separately billable procedures, and teaching time and separate from and in addition to any other critical care service time. History of Present Illness History of Present Illness 79-year-old female coming to the hospital for hypotension and questionable neglect Past medical history: Systolic CHF, CKD, history of DVT Social was transferred to the ICU for further management History was obtained from previous records and from ER signout. As per the son patient fell approximately a week ago and her legs have been turning color Patient had soiled clothing as well as the dressing of the legs was soiled. Patient was given approximately 1.5 L in the ER. She was also given cefepime and daptomycin. Initially she was hypotensive with systolic blood pressure in the 70s but it improved with IV fluids When she came to the ICU her systolic blood pressure was in the 110s, heart rate was still in the 140s. She was in distress secondary to pain. Respiratory rate was in the mid 20s. She denied any chest pain. She had bruising over the right eye as well as the forehead. Allergies Allergy/AdvReac Type Severity Reaction Status Date / Time No Known Allergies Allergy Verified 05/10/23 20:07 Home Medications Medication Instructions Recorded Confirmed Type apixaban 2.5 mg tablet (Eliquis) 2.5 mg PO BID #60 tabs 05/13/23 Rx metoprolol succinate 25 mg 25 mg PO BID #60 tabs 05/13/23 Rx tablet,extended release 24 hr polyethylene glycol 3350 17 gram 17 g PO DAILY PRN constipation #30 05/13/23 Rx oral powder packet (Miralax) ea potassium chloride 20 mEq 40 meq (2 x 20 mEq) PO DAILY #30 05/13/23 Rx tablet,extended release(part/cryst) tabs torsemide 20 mg tablet 20 mg PO DAILY #30 tabs 05/13/23 Rx Patient History Medical History Arthritis Atrial fibrillation with RVR Congestive heart failure Surgical History No significant past surgical history Social History Smoking Status: Never smoker Second Hand Exposure: No; Do You Dip or Chew Tobacco: No; Hx Alcohol Use: Yes Alcohol type: wine Hx Substance Use: No Preferred Language: Indonesian Communication Ability: Effective Communication Ability Comment: Hard of Hearing Communication Tools: IPad Case Management Coordinator Required: Yes Beliefs That Will Affect Care: None Current Living Situation: Family Feels Safe at Home: No Is there a partner from a previous relationship who is making you feel unsafe now?: No Assistive Devices: Oxygen - Continuous and Walker Review of Systems 2 Review of Systems: Unobtainable due to mental health condition and Unobtainable due to cognitive status Physical Exam 2 Physical Exam: Constitutional: In distress secondary to pain HEENT: EOMI, PERRLA, hematoma right frontal area with swelling which is tender, ecchymosis around the right eye Respiratory system: Decreased air entry bilaterally, more decreased on the right side, no wheeze, rhonchi, positive crackles bilaterally CVS: S1-S2 positive, no murmurs or gallops, irregular Abdomen: Soft, nontender, nondistended, positive bowel sounds x4 Extremities: +1 pulses bilaterally radialis/ dorsalis pedis, no cyanosis, +1 edema, macerations appreciated bilateral walker, positive rubor, positive calor, onychomycosis appreciated bilateral toes as well as fingers, no clear open wound Neuro: Somnolent but easily arousable, oriented to self Psych: Unable to assess G/U: Positive Burch Skin: no rashes, warm and dry Lymphatic: no cervical or axillary lymphadenopathy Results & Data Results & Data Vital Signs (Past 12 Hours) Vital Signs Temp Pulse Pulse Resp BP BP Pulse Ox 02/19/24 12:26 149 H 02/19/24 11:53 36 C L 155 H 26 H 100/72 93 02/19/24 11:53 36 C L 155 H 20 100/77 93 Laboratory Results 02/19/24 12:04 02/19/24 12:04 Coding Level of Care Code 41144 CRITICAL CARE 1ST 30-74M Diagnoses Sepsis, due to unspecified organism, unspecified whether acute organ dysfunction present A41.9 Sepsis type: sepsis due to unspecified organism Sepsis acute organ dysfunction status: unspecified Chronic kidney disease, stage 3b N18.32 History of DVT (deep vein thrombosis) Z86.718 Elevated troponin R77.8 Acute exacerbation of CHF (congestive heart failure) I50.9 Atrial fibrillation with RVR I48.91 Hypoxia R09.02 Pleural effusion J90 (1) Sepsis Sepsis type: sepsis due to unspecified organism Sepsis acute organ dysfunction status: unspecified Qualified Code(s): A41.9 - Sepsis, unspecified organism
[2024-02-19 12:42] LABS: Albumin Globulin Ratio 0.7 (0.9-2); Albumin Level 2.7 gm/dl (3.4-5.0); BUN Creatinine Ratio 44.1 (10-20); Calcium 8.2 mg/dl (8.6-10.3); Creatinine Clr Calc Pharmacy 27.1 ml/min; Est GFR (African American) 42.5 ml/min; Est GFR (Non-African American) 36.7 ml/min; Globulin 3.9 gm/dl (2.5-4.0); Magnesium 2.8 mg/dl (1.7-2.4); Potassium 5.8 mmol/L (3.5-5.1); Total Protein 6.6 gm/dl (6.0-8.3)
[2024-02-19 12:54] LABS: Troponin I High Sensitivity 87.3 pg/ml (0-14)
[2024-02-19] MEDS: SODIUM CHLORIDE 0.9% 1,000 ML IV ONE (13:05)
[2024-02-19] MEDS: CEFEPIME 2,000 MG/20 ML VIAL IV STA (13:06)
[2024-02-19] MEDS: dilTIAZem HCl 5 MG/ML 5 ML VIAL IV STA (13:07)
[2024-02-19] MEDS: DAPTOmycin 275 MG in SYRINGE 0 ML IV SCH (13:07)
[2024-02-19 13:25] LABS: Appearance Urine Clear (Clear); Bacteria Urine Automated Negative (Negative); Blood Urine Negative (Negative); Color Urine Dark Yellow; Glucose Urine UA Negative (Negative); Ketones Urine Negative (Negative); Leukocyte Esterase Urine Trace (Negative); Nitrite Urine Positive (Negative); Protein Urine 1+ (Negative); Specific Gravity Urine 1.023 (1.000-1.030); Urobilinogen Urine Negative (Negative); pH Urine 5.5 (4.5-7.5)
[2024-02-19 13:27] LABS: Anisocytosis Present; Basophils # (auto) 0.02 K/uL (0.00-0.20); Basophils % (auto) 0.1 %; Hematocrit (blood only) 42.2 % (37.0-47.0); Hemoglobin 13.5 g/dl (12.0-16.0); Immature Granulocytes # (auto) 0.19 K/uL (0.01-0.20); Immature Granulocytes % (auto) 1.3 %; Lymphocytes # (auto) 0.23 K/uL (1.20-3.40); Lymphocytes % (auto) 1.5 %; Mean Corpuscular Hemoglobin 30.6 pg (25.0-34.0); Mean Corpuscular Volume 95.7 fL (80.0-100.0); Mean Platelet Volume 11.5 fL (9.4-12.4); Monocytes # (auto) 0.52 K/uL (0.11-0.59); Monocytes % (auto) 3.5 %; Neutrophils # (auto) 14.09 K/uL (1.40-6.50); Neutrophils % (auto) 93.6 %; Nucleated RBC # (auto) 0.46 K/uL (0.00-0.12); Nucleated RBC % (auto) 3.1 %; Platelet Count 82 K/uL (130-400); Polychromasia 1+; RDW Coefficient of Variation 20.2 % (11.5-14.5); RDW Standard Deviation 68.4 fL (36.4-46.3); Red Blood Count 4.41 M/uL (4.20-5.40); White Blood Count 15.05 K/ul (4.8-10.8)
[2024-02-19 13:29] LABS: Thyroid Stimulating Hormone 12.227 uIu/ml (0.300-4.500)
[2024-02-19 13:34] LABS: Chloride Random Urine 22 mmol/L; Potassium Random Urine 43.9 mmol/L; Sodium Random Urine < 10 mmol/L
[2024-02-19 13:35] LABS: Bilirubin Urine 1+ (Negative)
[2024-02-19 13:42] LABS: Creatinine Urine Random 99.9 mg/dl
--- NOTE | 2024-02-19 13:56 | History & Physical Report ---
Date of Service February 19, 2024 Assessment & Plan (1) Sepsis: Plan: This is an 79 y/o female with history of atrial fibrillation with RVR, HFrEF, prior DVT, CKD3b, elevated TSH , and medical noncompliance who was brought in via EMS today with generalized pain since a fall a week ago. CT head personally reviewed - no evidence of acute hemorrhage. CXR personally reviewed - large right pleural effusion. Pt met for sepsis criteria on presentation. She has received 1.5L of IVF thus far but due to underlying LV dysfunction, additional IVF were held. BP has improved with fluid resuscitation but lactate is persistently elevated at 2.2, repeat 2.4. She has been started on broad-spectrum antibiotics with cefepime and daptomycin. - Admit to ICU - appreciate assistance from critical care team - ED case management reported case to office of aging, who will be evaluating further due to concerns for possible neglect - Continue broad-spectrum antibiotics for now - cultures pending - Consult wound care for LE wounds, ortho evaluation for possible debridement? (2) Atrial fibrillation with rapid ventricular response: Plan: Started on diltiazem gtt in the ED - consider changing due to underlying HFrEF Cardio consult (3) Pleural effusion: Plan: Management per pulm/critical care (4) Elevated troponin: Plan: Likely demand ischemic in the setting of afib w/ RVR and sepsis Will trend troponin (5) History of DVT (deep vein thrombosis): Plan: Unclear if pt has been taking apixaban since no f/u with PCP outpatient, no recent fills of the medication from pharmacy records (6) Acute exacerbation of CHF (congestive heart failure): Plan: ECHO from 05/10/23 - EF 20-25% w/ severe global hypokinesis, mildly dilated RV, moderate MR, mod to severe TR Started on diltiazem gtt in the ED but consider changing to amiodarone due to HF (7) Chronic kidney disease, stage 3b: Plan: Creatinine from last admission around 1.4 - today 1.36 so appears around baseline Follow labs (8) Hyperkalemia: Plan: started on Lokelma - repeat BMP Plan Pt seen and reviewed with attending physician, Dr. Casanova. Plan of care discussed and as outlined above. Code status: Full code DVT Prophylaxis: holding apixaban for possible thoracentesis tomorrow Maria Del Carmen Mello PA-C History of Present Illness Chief Complaint: generalized pain Primary Care Provider: NO PCP This is an 79 y/o female with history of atrial fibrillation with RVR, HFrEF, prior DVT, CKD3b, elevated TSH , and medical noncompliance who was brought in via EMS today with generalized pain since a fall a week ago. EMS noted pt found lying on the couch at home with son reporting that pt fell a week ago and that her legs have been "turning black" over that time. Upon presentation, pt's clothing was noted to be soiled and legs were wrapped with soiled dressings. Pt currently is just repeatedly asking for water. She reportedly told the ED nursing staff that she does not feel safe at home. Report filed with the Office of Aging. Pt's chart was extensively reviewed including her two admissions in 2022. It appears that she canceled her appts to establish with a [facility] PCP and f/u with cardiology so it is unclear if she has been taking any of the recommended medications. Upon query of her pharmacy, she appears to have had a recent prescription for Doxycycline from a dermatology provider. In the ED, the pt received 1500 cc NSS and was given cefepime and daptomycin for sepsis. Also started on a diltiazem gtt due to afib with RVR. Admitted 01/13/23-01/18/23 for atrial fibrillation with RVR, acute respiratory failure with hypoxia, and severe biventricular heart failure - initially on IV Cardizem/IV furosemide/heparin gtt but transitioned to metoprolol and Eliquis. Pt signed out AMA and apparently did not f/u with PCP or cardiology. Admitted 05/09/23-05/13/23 for acute exacerbation of CHF after running out of meds. Treated with IV furosemide but again signed out AMA before treatment completed. Allergies Allergy/AdvReac Type Severity Reaction Status Date / Time No Known Allergies Allergy Verified 05/10/23 20:07 Home Medications Medication Instructions Recorded Confirmed Type apixaban 2.5 mg tablet (Eliquis) 2.5 mg PO BID #60 tabs 05/13/23 Rx metoprolol succinate 25 mg 25 mg PO BID #60 tabs 05/13/23 Rx tablet,extended release 24 hr polyethylene glycol 3350 17 gram 17 g PO DAILY PRN constipation #30 05/13/23 Rx oral powder packet (Miralax) ea potassium chloride 20 mEq 40 meq (2 x 20 mEq) PO DAILY #30 05/13/23 Rx tablet,extended release(part/cryst) tabs torsemide 20 mg tablet 20 mg PO DAILY #30 tabs 05/13/23 Rx Past Med/Surg History Medical History (Updated 02/21/24 @ 16:02 by Nereyda Juares DNP) Palliative care by specialist Weakness generalized Dyspnea and respiratory abnormalities Acute renal failure Septic shock History of DVT (deep vein thrombosis) Chronic kidney disease, stage 3b Arthritis Congestive heart failure Atrial fibrillation with RVR Surgical History No significant past surgical history Social History Smoking Status: Unknown if ever smoked Second Hand Exposure: No; Do You Dip or Chew Tobacco: No; Preferred Language: Mandarin Kiswahili Communication Ability: Unable Communication Ability Comment: Hard of Hearing Communication Tools: Facial Expression Applications Processor Required: Yes Beliefs That Will Affect Care: None Current Living Situation: Family Current Living Situation Comment: Patient is reported to live with her son. Feels Safe at Home: No Is there a partner from a previous relationship who is making you feel unsafe now?: No Assistive Devices: Walker Assistive Devices Comment: Patient has documented past use of walker at home Review of Systems Review of Systems: Limited - see HPI Physical Exam Physical Exam: General: awake as currently have blood drawn but appears uncomfortable, asking for water HEENT: right periorbital ecchymosis, frontal scalp hematoma Heart: irregular, tachycardic Lungs: diminished right > left, +crackles bilaterally Abdomen: soft, +BS Extremities: bilateral LE with dressings C/D/I to knees - partially unwrapped RLE and noted macerated areas, +LE edema Burch in place Results & Data Results & Data Vital Signs (Past 12 Hours) Vital Signs Temp Pulse Pulse Resp BP BP Pulse Ox 02/19/24 13:13 100 02/19/24 13:13 94 02/19/24 12:26 149 H 02/19/24 11:53 36 C L 155 H 26 H 100/72 93 02/19/24 11:53 36 C L 155 H 20 100/77 93 O2 Del Method O2 Flow Rate 02/19/24 13:13 Nasal Cannula 2 02/19/24 13:13 Nasal Cannula 0 02/19/24 12:26 02/19/24 11:53 02/19/24 11:53 Laboratory Results Laboratory Results - last 24 hr 02/19/24 02/19/24 02/19/24 11:55 12:04 13:13 WBC 15.05 H RBC 4.41 Hgb 13.5 Hct 42.2 MCV 95.7 MCH 30.6 MCHC 32.0 RDW Std Deviation 68.4 H RDW Coeff of Bubba 20.2 H Plt Count 82 L MPV 11.5 Immature Gran % (Auto) 1.3 Neut % (Auto) 93.6 Lymph % (Auto) 1.5 [place] % (Auto) 3.5 Eos % (Auto) 0.0 Baso % (Auto) 0.1 Neut # (Auto) 14.09 H Lymph # (Auto) 0.23 L [place] # (Auto) 0.52 Eos # (Auto) 0.00 Baso # (Auto) 0.02 Immature Gran # (Auto) 0.19 Absolute Nucleated RBC 0.46 H Nucleated RBC % (auto) 3.1 Polychromasia 1+ Anisocytosis Present PT 13.5 H INR 1.2 H APTT 31 PTT Ratio 1.1 ABG pH Cancelled ABG pCO2 Cancelled ABG pO2 Cancelled ABG HCO3 Cancelled ABG O2 Saturation Cancelled ABG Base Excess Cancelled Jose Test Cancelled Barometric Pressure Cancelled Oxygen Given Cancelled Sodium 131 L Potassium 5.8 H Chloride 107 Carbon Dioxide 16 L Anion Gap 8 BUN 60 H Creatinine 1.36 H Est Cr Clr Drug Dosing 27.1 Est GFR ( Amer) 42.5 Est GFR (Non-Af Amer) 36.7 BUN/Creatinine Ratio 44.1 H Glucose 89 Lactate 2.2 H* Calcium 8.2 L Magnesium 2.8 H Total Bilirubin 5.0 H AST 21 ALT 13 Alkaline Phosphatase 91 Troponin I High Sens 87.3 H* Total Protein 6.6 Albumin 2.7 L Globulin 3.9 Albumin/Globulin Ratio 0.7 L Procalcitonin Pending TSH 12.227 H Free T4 Pending Random Cortisol 23.19 Urine Color Urine Appearance Urine pH Ur Specific [place] Urine Protein Urine Glucose (UA) Urine Ketones Urine Blood Urine Nitrite Urine Bilirubin Urine Urobilinogen Ur Leukocyte Esterase Urine WBC (Auto) Urine RBC (Auto) U Hyaline Cast (Auto) U Epithel Cells (Auto) Urine Bacteria (Auto) Urine Osmolality Ur Random Creatinine Ur Random Sodium Ur Random Potassium Ur Random Chloride 02/19/24 Unknown WBC RBC Hgb Hct MCV MCH MCHC RDW Std Deviation RDW Coeff of Bubba Plt Count MPV Immature Gran % (Auto) Neut % (Auto) Lymph % (Auto) [place] % (Auto) Eos % (Auto) Baso % (Auto) Neut # (Auto) Lymph # (Auto) [place] # (Auto) Eos # (Auto) Baso # (Auto) Immature Gran # (Auto) Absolute Nucleated RBC Nucleated RBC % (auto) Polychromasia Anisocytosis PT INR APTT PTT Ratio ABG pH ABG pCO2 ABG pO2 ABG HCO3 ABG O2 Saturation ABG Base Excess Jose Test Barometric Pressure Oxygen Given Sodium Potassium Chloride Carbon Dioxide Anion Gap BUN Creatinine Est Cr Clr Drug Dosing Est GFR ( Amer) Est GFR (Non-Af Amer) BUN/Creatinine Ratio Glucose Lactate Calcium Magnesium Total Bilirubin AST ALT Alkaline Phosphatase Troponin I High Sens Total Protein Albumin Globulin Albumin/Globulin Ratio Procalcitonin TSH Free T4 Random Cortisol Urine Color Dark Yellow Urine Appearance Clear Urine pH 5.5 Ur Specific [place] 1.023 Urine Protein 1+ H Urine Glucose (UA) Negative Urine Ketones Negative Urine Blood Negative Urine Nitrite Positive A Urine Bilirubin 1+ H Urine Urobilinogen Negative Ur Leukocyte Esterase Trace H Urine WBC (Auto) 1-5 Urine RBC (Auto) 5-10 H U Hyaline Cast (Auto) 5-10 H U Epithel Cells (Auto) 10-20 H Urine Bacteria (Auto) Negative Urine Osmolality 723 Ur Random Creatinine 99.9 Ur Random Sodium < 10 Ur Random Potassium 43.9 Ur Random Chloride 22 Diagnostic Findings Chest X-Ray 02/19/24 11:54 SINGLE VIEW CHEST CLINICAL HISTORY: Sepsis FINDINGS: An AP, portable, upright chest radiograph is compared to study dated 05/09/2023. The heart is enlarged nothing atherosclerotic calcification of the thoracic inlet. The pulmonary vasculature is noncongested. There is a layering right pleural effusion with consolidation of right lower lung. This is at least moderate in size. Atelectasis as seen at the left lung base. No pneumothorax is seen. The skeletal structures are osteopenic. The bony thorax is grossly intact. IMPRESSION: 1. Cardiomegaly without radiographic evidence of congestive failure. 2. Layering right pleural effusion with consolidation of the right lower lung. ACT 112: Negative or not required by law. Electronically signed by: Sulaiman Diop M.D. 02/19/2024 12:18 PM Medications Administered Daptomycin 275 mg/ Syringe 5.5 mls @ 2.75 mls/min IV Q24H ABE; Protocol Stop: 02/21/24 12:14 Last Admin: 02/19/24 13:07 Dose: 2.75 mls/min Documented By: NRContreras Discontinued Medications Diltiazem HCl (Diltiazem Hcl 5 Mg/Ml 5 Ml Vial) 10 mg IV NOW STA Stop: 02/19/24 12:58 Last Admin: 02/19/24 13:07 Dose: 10 mg Documented By: NRContreras Co-signed By: ML Sodium Chloride (Nss) 500 mls @ 999 mls/hr IV .Q31M STA Stop: 02/19/24 12:24 Last Infusion: 02/19/24 13:06 Dose: Infused Documented By: NRContreras Admin: 02/19/24 12:15 Dose: 999 mls/hr Documented By: NRContreras Sodium Chloride (Nss) 1,000 mls @ 999 mls/hr IV .Q1H1M ONE Stop: 02/19/24 13:13 Last Admin: 02/19/24 13:05 Dose: 999 mls/hr Documented By: AMY Cefepime HCl (Maxipime) 2,000 mg in 20 mls @ 5 mls/min IV NOW STA; Protocol Stop: 02/19/24 12:16 Last Admin: 02/19/24 13:06 Dose: 5 mls/min Documented By: NRContreras Code Status & VTE Plan VTE Prophylaxis Plan VTE Prophylaxis will be ordered: Yes Supervising Physician Co-Signing Physician Notes Pt seen and examined by me, care coordinated w/ Maria Del Carmen Mello PA-C, pls refer to her note above for further detail. Pt is an 79 y/o female with history of atrial fibrillation with RVR, HFrEF, prior DVT, CKD3b, elevated TSH , and medical noncompliance who was brought in via EMS today with generalized pain since a fall a week ago. EMS noted pt found lying on the couch at home with son reporting that pt fell a week ago and that her legs have been "turning black" over that time. Upon presentation, pt's rosa elena neff was noted to be soiled and legs were wrapped with soiled dressings. In the ED she was found to have a large pleural effusion/ poss. consolidation. Pt is being admitted to ICU for sepsis, Afib w/ RVR, started on broad spectrum antibiotics in the ED, also started on diltiazem for Afib w/RVR. CT head - as reported hx of fall and visible scalp hematoma. Will also consult orthopedics and wound care for leg wounds. Pt is awake - Mandarin speaking and translation services attempted by ICU nursing staff, pt does not answer appropriately and only is asking for water. She has visible scalp hematoma. She is moving extremities. She is tachycardic HR into 140s, irregular. Breath sounds diminished , w/+ crackles. Abdomen seems nontender, soft, + bowel sounds. Legs wrapped up to knees - dressings partially uncovered and superficial skin wounds noted. Pt is currently critically ill. I was informed Office of Ageing was also contacted. Will further discuss with ICU staff and consulted specialists to coordinate care. MD Edilberto (1) Sepsis Sepsis acute organ dysfunction status: unspecified Sepsis type: sepsis due to unspecified organism Qualified Code(s): A41.9 - Sepsis, unspecified organism (6) Acute exacerbation of CHF (congestive heart failure) Heart failure type: unspecified Qualified Code(s): I50.9 - Heart failure, unspecified
--- NOTE | 2024-02-19 13:57 | CT Scan Report ---
CT SCAN OF THE BRAIN WITHOUT IV CONTRAST CLINICAL HISTORY: Fall. COMPARISON STUDY: No priors. TECHNIQUE: Unenhanced axial CT scan of the brain is performed from the vertex to the skull base. A do se lowering technique was utilized adhering to the principles of ALARA. The skull base was scanned tw ice due to motion artifact. FINDINGS: Brain parenchyma: There is age-related involutional change noting mild subcortical and periventricula r microangiopathic disease. There is no hemorrhage, mass effect, or evidence of acute territorial isc hemia by CT criteria. Ndiaye-white matter differentiation is preserved. No extra-axial fluid collection is seen. Ventricles, sulci, cisterns: Prominent secondary to involutional change. Intracranial vasculature: There is atherosclerotic calcification of the cavernous carotid arteries. Calvarium: The skeletal structures are osteopenic. No depressed calvarial fracture is seen. Soft tissues: There is a right frontal scalp contusion. Sinuses and mastoids: The paranasal sinuses are clear. The mastoid air cells are well pneumatized. Orbits: The bony orbits are grossly intact. IMPRESSION: 1. There is no hemorrhage, mass effect, or evidence of acute territorial ischemia by CT criteria. 2. Right frontal scalp contusion. ACT 112: Negative or not required by law. Electronically signed by: Sulaiman Diop M.D. 02/19/2024 1:54 PM
--- NOTE | 2024-02-19 13:59 | CT Scan Report ---
CT SCAN OF THE CERVICAL SPINE CLINICAL HISTORY: Fall. COMPARISON STUDY: No priors. TECHNIQUE: CT scan of the cervical spine is performed from the skull base to the upper thoracic spine . Images are reviewed in the axial, sagittal, and coronal planes. IV contrast was not administered fo r this examination. A dose lowering technique was utilized adhering to the principles of ALARA. CT DOSE: 1771.51 mGy.cm FINDINGS: Skeletal structures: The skeletal structures are osteopenic. There is no evidence of fracture or subl uxation involving the cervical spine. Vertebral body height and alignment are maintained. Small anter ior osteophytes are seen throughout. The odontoid process and lateral masses are intact. The atlanto axial articulation is preserved noting mild productive degenerative change. The spinous processes krissy ear intact. There is mild multilevel facet arthropathy. Intervertebral discs: There is moderate disc space narrowing at C6-C7. Mild narrowing is seen at the remaining levels. Central canal: Posterior disc osteophyte complexes at C5-C6 and C6-C7 may contribute to acquired comp romise of the central canal. Soft tissues: The prevertebral and paraspinous soft tissues are within normal limits. Calvarium: The visualized calvarium at the skull base appears intact. Brain parenchyma: Partially visualized brain parenchyma at the skull base is within normal limits. Sinuses and mastoids: The visualized paranasal sinuses are clear. The mastoid air cells are well pneu matized. Lung apices: Pleural effusion is seen at the right apex. IMPRESSION: 1. There is no evidence of fracture or subluxation involving the cervical spine. 2. Right pleural effusion. ACT 112: Negative or not required by law. Electronically signed by: Sulaiman Diop M.D. 02/19/2024 1:58 PM
[2024-02-19 14:06] LABS: T4 Free Thyroxine 0.68 ng/dl (0.61-1.60)
[2024-02-19] MEDS: dilTIAZem HCL 125 MG in DEXTROSE 5% 100 ML IV SCH (14:24)
--- NOTE | 2024-02-19 14:33 | CT Scan Report ---
CT SCAN OF THE CHEST WITHOUT IV CONTRAST CLINICAL HISTORY: Fall. Pleural effusion. COMPARISON STUDY: Chest x-ray dated 02/19/2024. TECHNIQUE: CT scan of the thorax was performed from the thoracic inlet to the upper abdomen. Images are reviewed in the axial, sagittal, and coronal planes. IV contrast was not administered for this ex amination. Note that the examination is suboptimal without IV contrast. The examination is also degra ded by motion artifact, as well as by streak artifact from the arms which could not be elevated above the chest. A dose lowering technique was utilized adhering to the principles of ALARA. FINDINGS: Thyroid: Normal in size and heterogeneous in attenuation. Thoracic aorta: There is mild atherosclerotic calcification of the thoracic aorta, which is normal in caliber and demonstrates standard 3-vessel arch anatomy. Heart: The heart is enlarged noting a small pericardial effusion. The main pulmonary arteries are dil ated suggesting pulmonary artery hypertension. Lungs and pleural spaces: There is a large right pleural effusion with atelectasis/consolidation of t he right lower lung. Mild patchy airspace consolidation is seen at the left lung base and there is tr estrella left pleural effusion. There is also airspace consolidation in the subpleural left upper lobe. No pneumothorax is seen. The trachea and central airways are clear. Mediastinum: There is no mediastinal hematoma or lymphadenopathy. Gaby: Not well assessed without IV contrast. Axillae: There is no axillary lymphadenopathy. Upper abdomen: Nodularity of the hepatic surface contour suggests morphologic changes of cirrhosis. T here is a small volume of upper abdominal ascites. Skeletal structures: The skeletal structures are osteopenic. There is a moderate age-indeterminate in ferior endplate compression deformity of T7. The bony thorax is otherwise intact. Degenerative change s noted in the shoulders and spine. No lytic or blastic bony lesions are seen. IMPRESSION: 1. Large right pleural effusion with atelectasis/consolidation of the right lower lung. Correlate cli nically for evidence of pneumonia. 2. There is airspace consolidation at the left lung base and a trace left pleural effusion. There are also foci of subpleural consolidation in the left upper lobe. Again, this could represent pneumonia or possible small pulmonary infarcts and clinical correlation will be required. 3. Cardiomegaly and small pericardial effusion. 4. Nodularity of the hepatic surface contour suggests morphologic change of cirrhosis. There is a sma ll volume of upper abdominal ascites. 5. Minimal and age indeterminate inferior endplate compression deformity of T7. Correlate for point t enderness. 6. Additional findings as above. ACT 112: Negative or not required by law. Electronically signed by: Sulaiman Diop M.D. 02/19/2024 2:31 PM
[2024-02-19] MEDS: AMIODARONE 150MG / 100ML D5W IV ONE (15:25)
[2024-02-19] MEDS: AMIODARONE 360MG / 200ML D5W IV ONE (15:25)
[2024-02-19] MEDS: STAT IV Infusion **Titration per Protocol STA (15:32)
[2024-02-19] MEDS ORDERED: 0.2 MICRON FILTER SET 1 EACH IV ONE (18:35)
[2024-02-19] MEDS: ICU Protocol for HYPERglycemia SCH (18:43)
[2024-02-19] MEDS: AMIODARONE / D5W 360 MG/200 ML BAG IV ONE (18:44)
[2024-02-19 19:11] LABS: Calcium 7.7 mg/dl (8.6-10.3); Magnesium 2.7 mg/dl (1.7-2.4)
[2024-02-19 19:16] LABS: BUN Creatinine Ratio 45.9 (10-20); Creatinine Clr Calc Pharmacy 27.5 ml/min; Est GFR (African American) 43.6 ml/min; Est GFR (Non-African American) 37.7 ml/min
[2024-02-19] MEDS: AMIODARONE / D5W 360 MG/200 ML BAG IV SCH (20:26)
[2024-02-19] MEDS: ACETAMINOPHEN 1,000 MG/100 ML VIAL IV PRN (21:00)
[2024-02-19 21:18] LABS: BUN Creatinine Ratio 41.2 (10-20); Calcium 7.8 mg/dl (8.6-10.3); Creatinine Clr Calc Pharmacy 24.7 ml/min; Est GFR (African American) 38.4 ml/min; Est GFR (Non-African American) 33.1 ml/min; Magnesium 2.7 mg/dl (1.7-2.4); Potassium 6.4 mmol/L (3.5-5.1)
[2024-02-19] MEDS ORDERED: STAT IV/IM STA (21:18)
[2024-02-19] MEDS: SODIUM CHLORIDE 0.9% 250 ML IV ONE (21:24)
[2024-02-19] MEDS: DEXTROSE 50% 50 ML SYRINGE IV STA (21:43)
[2024-02-19] MEDS: INSULIN HUMAN REGULAR PER UNIT 10 UNITS in SYRINGE 9.9 ML IV STA (21:43)
[2024-02-19] MEDS: SODIUM BICARBONATE 8.4% 150 MEQ in DEXTROSE 5% 1,000 ML IV SCH (21:44)
[2024-02-19] MEDS: CALCIUM GLUCONATE 10% 1,000 MG in SODIUM CHLOR 0.9% MINI-B 50 ML IV SCH (21:44)
[2024-02-19] MEDS ORDERED: STAT IV Infusion **Titration per Protocol STA (22:02)
[2024-02-19] MEDS: PHENYLEPHRINE/NSS 25 MG/250 ML BAG IV SCH (23:39)
[2024-02-19] MEDS: SODIUM BICARB 8.4% INJ 50 MEQ/50 ML SYR IV STA (23:56)
[2024-02-20 00:29] LABS: Base Excess VBG -12.9 mEq/L; HCO3 VBG 14 mmol/L; Oxygen Saturation VBG 64.2 %; PCO2 VBG 35 mmHg (38-50); PO2 VBG 46 mmHg; pH VBG 7.21 (7.36-7.41)
[2024-02-20 00:54] LABS: BUN Creatinine Ratio 39.9 (10-20); Calcium 7.7 mg/dl (8.6-10.3); Creatinine Clr Calc Pharmacy 23.2 ml/min; Est GFR (African American) 35.4 ml/min; Est GFR (Non-African American) 30.6 ml/min; Potassium 5.7 mmol/L (3.5-5.1)
[2024-02-20] MEDS: CEFEPIME 1,000 MG in SYRINGE 0 ML IV SCH (01:04)
[2024-02-20 04:22] LABS: Base Excess VBG -10.4 mEq/L; HCO3 VBG 17 mmol/L; Oxygen Saturation VBG 66.8 %; PCO2 VBG 41 mmHg (38-50); PO2 VBG 46 mmHg; pH VBG 7.22 (7.36-7.41)
[2024-02-20 04:39] LABS: Hematocrit (blood only) 38.6 % (37.0-47.0); Mean Corpuscular Hemoglobin 30.4 pg (25.0-34.0); Mean Corpuscular Hgb Conc 31.1 g/dL (32.0-36.0); Mean Corpuscular Volume 97.7 fL (80.0-100.0); Mean Platelet Volume 12.3 fL (9.4-12.4); Nucleated RBC # (auto) 1.41 K/uL (0.00-0.12); Nucleated RBC % (auto) 7.6 %; Platelet Count 79 K/uL (130-400); RDW Coefficient of Variation 20.1 % (11.5-14.5); Red Blood Count 3.95 M/uL (4.20-5.40); White Blood Count 18.52 K/ul (4.8-10.8)
[2024-02-20 04:56] LABS: Albumin Level 2.2 gm/dl (3.4-5.0); BUN Creatinine Ratio 41.4 (10-20); Bilirubin Direct 3.2 mg/dl (0-0.2); Calcium 7.8 mg/dl (8.6-10.3); Creatinine Clr Calc Pharmacy 22.6 ml/min; Est GFR (African American) 34.4 ml/min; Est GFR (Non-African American) 29.7 ml/min; Magnesium 2.6 mg/dl (1.7-2.4); Total Protein 5.6 gm/dl (6.0-8.3)
[2024-02-20 04:57] LABS: Basophils # (auto) 0.03 K/uL (0.00-0.20); Basophils % (auto) 0.2 %; Echinocytes 1+; Immature Granulocytes % (auto) 2.2 %; Lymphocytes # (auto) 0.01 K/uL (1.20-3.40); Lymphocytes % (auto) 0.1 %; Monocytes # (auto) 0.86 K/uL (0.11-0.59); Monocytes % (auto) 4.6 %; Neutrophils # (auto) 17.22 K/uL (1.40-6.50); Neutrophils % (auto) 92.9 %; Polychromasia 2+
[2024-02-20] MEDS: PNEUMOCOCCAL VACCINE (PCV20) 20-VAL CONJ-DIP CRM/PF 0.5 ML SYR IM ONE (07:26)
[2024-02-20 07:49] LABS: Base Excess VBG -11.1 mEq/L; HCO3 VBG 16 mmol/L; Oxygen Saturation VBG < 60.0 %; PCO2 VBG 39 mmHg (38-50); PO2 VBG 24 mmHg; pH VBG 7.22 (7.36-7.41)
[2024-02-20] MEDS: ALBUMIN 5% 250 ML IV ONE (07:51)
--- NOTE | 2024-02-20 08:30 | Orthopedic Consultation ---
Date of Service February 20, 2024 Assessment & Plan (1) Decubitus ulcer of left leg: (2) Decubitus ulcer of right leg: Plan 79-year-old female with bilateral circumferential partial-thickness skin sloughing consistent with advanced cellulitis, without abscess. Potentially due to decubitus like effect from tight dressing or contaminated wraps. Certainly there is a component of cellulitis that is contributing to her overall sepsis. Recommend treating for cellulitis. Recommend generalized wound care for superficial debridement to eliminate some of the bacterial burden on the exposed dermis. At this point I do not see any urgent need for a decompressive surgery, which in fact may worsen her condition. I will order x-rays to look for obvious signs of advanced condition such as osteomyelitis. Will continue to follow. History of Present Illness Reason for Consultation: Bilateral leg wounds/cellulitis Requesting Physician: . Attending Physician: Chato Casanova MD 79-year-old female brought to the emergency room by ambulance acutely ill and obtunded. Reports of clothing and wraps on her legs that were foul-smelling with purulent drainage. Seen in the ICU with mental status changes and a language barrier. Critical care team was present at the time my evaluation. Allergies Allergy/AdvReac Type Severity Reaction Status Date / Time No Known Allergies Allergy Verified 05/10/23 20:07 Home Medications Medication Instructions Recorded Confirmed Type apixaban 2.5 mg tablet (Eliquis) 2.5 mg PO BID #60 tabs 05/13/23 Rx metoprolol succinate 25 mg 25 mg PO BID #60 tabs 05/13/23 Rx tablet,extended release 24 hr polyethylene glycol 3350 17 gram 17 g PO DAILY PRN constipation #30 05/13/23 Rx oral powder packet (Miralax) ea potassium chloride 20 mEq 40 meq (2 x 20 mEq) PO DAILY #30 05/13/23 Rx tablet,extended release(part/cryst) tabs torsemide 20 mg tablet 20 mg PO DAILY #30 tabs 05/13/23 Rx Past Med/Surg History Medical History Chronic kidney disease, stage 3b Arthritis Congestive heart failure Atrial fibrillation with RVR Surgical History No significant past surgical history Social History Smoking Status: Unknown if ever smoked Second Hand Exposure: No; Do You Dip or Chew Tobacco: No; Preferred Language: Mandarin Maltese Communication Ability: Impaired Communication Ability Comment: Hard of Hearing Communication Tools: IPad Supervisor Of Instruction Required: Yes Beliefs That Will Affect Care: None Current Living Situation: Family Current Living Situation Comment: Patient is reported to live with her son. Feels Safe at Home: No Is there a partner from a previous relationship who is making you feel unsafe now?: No Assistive Devices: Walker Assistive Devices Comment: Patient has documented past use of walker at home Review of Systems All systems reviewed & are unremarkable except as noted in HPI & below. Physical Exam General: Minimally responsive. She did seem to lift her right leg through her hip to assist with dressing reapplication. Bilateral lower extremities: Kerlix and Xeroform dressings were taken down to visualize the wounds. There is circumferential partial-thickness skin breakdown from the tibial tuberosity to the level of the lateral malleolus. No evidence of fluid collection or abscess formation. There is hyperkeratosis and areas of sloughing. Both feet show significant hyperkeratosis and onychomycosis. There is the appearance of neglected dressing or tight wraps around the soft tissues of both legs. No full-thickness skin compromise that I could find. The muscle compartments are soft and compressible, though she is irritable with any firm touch of the lower leg. Thigh compartments are soft. There are palpable pulses to the dorsalis pedis. The feet seem to have adequate perfusion. Light dressings were reapplied. Constitutional + thin, + cachectic, + altered mental status and + frail appearing Results & Data Results & Data Laboratory Results Laboratory Tests 02/19/24 02/19/24 02/19/24 12:04 12:04 22:37 WBC 15.05 H PT 13.5 H INR 1.2 H POC pH Creatinine POC Glucose Lactate 6.3 H* 02/20/24 02/20/24 02/20/24 04:12 04:12 08:03 WBC 18.52 H PT INR POC pH Creatinine 1.62 H POC Glucose Lactate 3.9 H* 02/20/24 02/20/24 09:35 10:49 WBC PT INR POC pH 7.26 L Creatinine POC Glucose 126 H Lactate Diagnostic Findings Ordered bilateral tibia/fibula radiographs in case of obvious findings of osteomyelitis PG Care Time/CCT Total # of Minutes Spent Total Time Spent with Patient: Total time spent is greater than 50% in coordination of care (as documented) at patient's floor/unit and/or counseling patient: Coding Level of Care Code 94866 IN/OBS CONSULT LVL 2,35M Diagnoses Decubitus ulcer of left leg L89.899 Decubitus ulcer of right leg L89.899
--- NOTE | 2024-02-20 08:35 | Critical Care Progress Note ---
Date of Service February 20, 2024 Assessment & Plan (1) Sepsis: (2) Chronic kidney disease, stage 3b: (3) History of DVT (deep vein thrombosis): (4) Elevated troponin: (5) Acute exacerbation of CHF (congestive heart failure): (6) Atrial fibrillation with RVR: (7) Hypoxia: (8) Pleural effusion: Plan Reason Critically Ill: 79-year-old female coming to the hospital for hypotension and questionable neglect. Past medical history of systolic CHF. Sent to the ICU for further management Neuro - Mild delirium -- S/p mechanical fall CT head as well as CT cervical spine negative Continue with fall precautions Cardiac - Currently on phenylephrine to maintain maps above 65 mmHg due to hypotension from septic shock. Low threshold for central line, pressors. --Elevated troponin Likely secondary to type II RI Continue to trend EKG 02/19/2024, 11:42 AM: A-fib, heart rate 152, no ST-T wave changes appreciated -- Systolic CHF Elevated TSH with normal free T4 Random cortisol 23.19 2D echo 05/10/2023: EF 20-25%, severe global hypokinesis, RV mildly dilated, moderate MR, moderate to severe TR --A-fib with RVR On apixaban at home Likely from underlying sepsis Respiratory - -- Acute respiratory failure with hypoxia Multifactorial Bilateral pleural effusion A-fib with RVR --Right-sided pleural effusion with left upper lobe pneumonia Continue with antibiotics CT chest 02/19/2024 personally reviewed: Motion degraded study Large right-sided pleural effusion with compressive atelectasis of the right lower lobe Patchy opacity appreciated in the left lower lobe as well as left upper lobe Cardiomegaly No significant mediastinal lymphadenopathy GI - -- Small volume abdominal ascites No need for any intervention right now RENAL/LYTES - -- MADY on CKD. Ultimately may require hemodialysis given worsening renal function and urine output. Patient also with hyperkalemia. Repeat BMP pending. Obtain CT chest to further evaluate abdominal imaging and for signs of renal obstruction. -Follow CK level. --Hyperkalemia From underlying CKD as well as acidosis Continue to trend - Juni GRAY - -- Continue with Burch catheter ENDO - -- ICU hypoglycemia protocol -- TSH 12.2 with free T4 within normal limit HEME - -- Normocytic anemia Monitor H&H --Thrombocytopenia Multifactorial Sepsis with possible cirrhosis Continue to monitor ID - --Cellulitis with possible pneumonia left upper lobe Continue daptomycin. Transition cefepime to Zosyn. Wound care consult has been placed Follow-up blood culture Ortho consult appreciated. --Prophylaxis VTE: On apixaban at home, heparin while hospitalized GI: Pantoprazole Lines: Peripheral Diet: N.p.o. I have personally spent 45 minutes of critical care time in the direct management of this patient. This is a life/limb threatening event. This includes time spent evaluating patient, direct bedside care, chart review, placing orders, interpretation of diagnostic studies, discussion with consultants, patient, and family members, as well as other required patient management activities. This time is exclusive of all separately billable procedures, and teaching time and separate from and in addition to any other critical care service time. Admission and Anticipated Discharge Date Admission Date: February 19, 2024 Subjective Patient seen and examined. Unable to obtain history from the patient and she is a [id number] dividual. Apparently translates to services were attempted by nursing earlier in the day, but were not able to get any meaningful answers from the patient due to presumptive encephalopathy. No acute events at this time. She remains on low-dose phenylephrine and urine output remains quite poor. Review of Systems Review of Systems: Unobtainable due to cognitive status Physical Exam Physical Exam: Constitutional: No apparent distress. HEENT: EOMI, PERRLA, hematoma right frontal area with swelling which is tender, ecchymosis around the right eye Respiratory system: Decreased air entry bilaterally, more decreased on the right side, no wheeze, rhonchi, positive crackles bilaterally CVS: S1-S2 positive, no murmurs or gallops, irregular Abdomen: Soft, nontender, nondistended, positive bowel sounds x4 Extremities: +1 pulses bilaterally radialis/ dorsalis pedis, no cyanosis, +1 edema, macerations appreciated bilateral walker, positive rubor, positive calor, onychomycosis appreciated bilateral toes as well as fingers, no clear open wound Neuro: Somnolent but easily arousable, oriented to self Psych: Unable to assess G/U: Positive Burch Skin: no rashes, warm and dry Lymphatic: no cervical or axillary lymphadenopathy Results & Data Results & Data Vital Signs (Past 12 Hours) Vital Signs Temp Pulse Resp BP Pulse Ox O2 Del Method O2 Flow Rate 02/20/24 08:00 36.4 C L 96 H 21 93 Nasal Cannula 2 02/20/24 07:45 90/65 L 02/20/24 07:45 36.4 C L 93 H 19 97 02/20/24 07:30 36.4 C L 95 H 27 H 97 02/20/24 07:30 85/63 L 02/20/24 07:15 82/62 L 02/20/24 07:15 36.4 C L 90 13 98 02/20/24 07:00 84/58 L 02/20/24 07:00 36.4 C L 82 14 98 02/20/24 06:45 80/60 L 02/20/24 06:45 36.4 C L 75 15 98 02/20/24 06:33 36.4 C L 83 20 95 02/20/24 06:33 81/62 L 02/20/24 06:30 72/56 L 02/20/24 06:30 36.4 C L 89 15 98 02/20/24 06:15 92/57 L 02/20/24 06:15 36.4 C L 89 16 98 02/20/24 06:00 82/65 L 02/20/24 06:00 36.4 C L 96 H 25 H 99 02/20/24 05:45 87/62 L 02/20/24 05:45 36.4 C L 98 H 24 94 02/20/24 05:32 81/62 L 02/20/24 05:32 36.4 C L 91 H 14 96 02/20/24 05:30 78/55 L 02/20/24 05:30 36.4 C L 89 14 97 02/20/24 05:25 36.4 C L 79 14 98 02/20/24 05:25 85/60 L 02/20/24 05:15 77/53 L 02/20/24 05:15 36.3 C L 89 20 95 02/20/24 05:02 36.4 C L 92 H 18 96 02/20/24 05:02 90/59 L 02/20/24 05:00 76/58 L 02/20/24 05:00 36.3 C L 98 H 17 95 02/20/24 04:46 36.3 C L 93 H 17 97 02/20/24 04:46 83/59 L 02/20/24 04:30 36.3 C L 88 18 97 02/20/24 04:30 88/56 L 02/20/24 04:16 74/61 L 02/20/24 04:16 74/61 L 02/20/24 04:16 36.3 C L 90 19 97 02/20/24 04:00 36.3 C L 104 H 20 97 02/20/24 03:45 83/59 L 02/20/24 03:45 36.3 C L 85 19 96 02/20/24 03:30 88/46 L 02/20/24 03:30 36.3 C L 89 19 97 02/20/24 03:15 36.3 C L 98 H 16 99 02/20/24 03:15 98/27 L 02/20/24 03:02 80/64 L 02/20/24 03:02 36.2 C L 96 H 15 100 02/20/24 03:00 76/56 L 02/20/24 03:00 36.2 C L 101 H 15 100 02/20/24 02:45 81/49 L 02/20/24 02:45 36.2 C L 88 17 100 02/20/24 02:30 36.2 C L 93 H 20 95 02/20/24 02:30 84/54 L 02/20/24 02:15 83/62 L 02/20/24 02:15 36.2 C L 85 19 98 02/20/24 02:00 36.2 C L 98 H 20 97 02/20/24 01:46 36.2 C L 93 H 17 99 02/20/24 01:46 90/57 L 02/20/24 01:30 36.2 C L 100 H 20 98 02/20/24 01:30 99/57 L 02/20/24 01:16 36.2 C L 95 H 19 98 02/20/24 01:16 86/57 L 02/20/24 01:02 36.2 C L 82 24 97 02/20/24 01:02 85/60 L 02/20/24 01:00 75/59 L 02/20/24 01:00 36.2 C L 97 H 24 99 02/20/24 00:30 87/71 L 02/20/24 00:30 36.1 C L 100 H 24 97 02/20/24 00:22 86/65 L 02/20/24 00:22 36.1 C L 101 H 25 H 97 02/20/24 00:01 86/63 L 02/20/24 00:01 36.1 C L 100 H 27 H 97 02/20/24 00:00 36.1 C L 102 H 18 92 02/20/24 00:00 98 H 02/19/24 23:34 36.2 C L 107 H 20 96 02/19/24 23:34 98/63 L 02/19/24 23:30 87/53 L 02/19/24 23:30 36.2 C L 97 H 26 H 98 02/19/24 23:23 Nasal Cannula 2 02/19/24 23:00 36.2 C L 109 H 26 H 98 02/19/24 23:00 110/59 L 02/19/24 22:30 36.3 C L 114 H 24 96 02/19/24 22:30 90/62 L 02/19/24 22:11 36.4 C L 111 H 40 H 96 02/19/24 22:11 97/65 L 02/19/24 22:00 36.5 C 106 H 32 H 99 02/19/24 22:00 86/56 L 02/19/24 21:54 36.5 C 111 H 38 H 100 02/19/24 21:54 84/61 L 02/19/24 21:30 84/68 L 02/19/24 21:30 36.6 C 95 H 28 H 99 02/19/24 21:01 92/62 L 02/19/24 21:01 36.6 C 94 H 40 H 98 02/19/24 21:00 36.6 C 91 H 35 H 96 Coding Level of Care Code 18922 CRITICAL CARE 1ST 30-74M Diagnoses Sepsis, due to unspecified organism, unspecified whether acute organ dysfunction present A41.9 Sepsis type: sepsis due to unspecified organism Sepsis acute organ dysfunction status: unspecified Chronic kidney disease, stage 3b N18.32 History of DVT (deep vein thrombosis) Z86.718 Elevated troponin R77.8 Acute on chronic congestive heart failure, unspecified heart failure type I50.9 Heart failure type: unspecified Atrial fibrillation with RVR I48.91 Hypoxia R09.02 Pleural effusion J90 Time Spent (min) 45 (1) Sepsis Sepsis type: sepsis due to unspecified organism Sepsis acute organ dysfunction status: unspecified Qualified Code(s): A41.9 - Sepsis, unspecified organism (5) Acute exacerbation of CHF (congestive heart failure) Heart failure type: unspecified Qualified Code(s): I50.9 - Heart failure, unspecified
[2024-02-20 08:51] LABS: BUN Creatinine Ratio 40.1 (10-20); Calcium 7.6 mg/dl (8.6-10.3); Creatinine Clr Calc Pharmacy 23.4 ml/min; Est GFR (African American) 34.4 ml/min; Est GFR (Non-African American) 29.7 ml/min; Magnesium 2.5 mg/dl (1.7-2.4); Phosphorus 4.6 mg/dl (2.5-4.9)
[2024-02-20] MEDS: PIPERACILLIN/TAZOBACTAM 4.5 GM in DEXTROSE 5% MINI-B 100 ML IV SCH (09:26)
[2024-02-20] MEDS: SODIUM ZIRCONIUM CYCLOSILICATE 10 GM PACKET PO SCH (09:26)
[2024-02-20] MEDS ORDERED: STAT IV/IM STA (09:49)
[2024-02-20] MEDS ORDERED: STAT IV Infusion **Titration per Protocol STA ×3 (10:00→12:47)
[2024-02-20] MEDS: ROCURONIUM BROMIDE 10 MG/ML 5 ML VIAL IV STA (10:07)
[2024-02-20] MEDS: ETOMIDATE 2 MG/ML 20 ML VIAL IV ONE (10:07)
--- NOTE | 2024-02-20 10:13 | Procedure Note ---
Procedure Note Date of Service February 20, 2024 Note INTUBATION PROCEDURE NOTE: Dr. Zhang Aguilar A time-out was completed verifying correct patient, procedure, site, positioning. Patient was evaluated and required intubation for altered mental status and hypoxia. Sedative agent used: 20 mg etomidate Paralysis agent used: 27 mg of rocuronium Emergent consent was implied given patients rapidly declining clinical status and need for airway protection. Number of attempts: 1 Grade view: Not applicable The patient was prepared in the appropriate fashion. Sedation was achieved utilizing etomidate and rocuronium. The patient was easily ventilated using [id number] to achieve adequate oxygenation. A 7.5 [place] endotracheal tube was placed under GlideScope to 24 cm at the lip. The stylette was removed and balloon was inflated with 10mL of air. Appropriate Colorimetric change was appreciated. Bilateral breath sounds were heard without air sounds in the abdomen. Post Intubation Chest X-ray ordered. Patient tolerated the procedure well and there were no immediate complications. Coding CPT Codes Resuscitation - Resuscitation: 40951 Endotracheal Intubation, emergency ([id number]) [facility] [place]arges) Resuscitation Resuscitation: 42618 Endotracheal Intubation, emergency
[2024-02-20] MEDS: fentaNYL citrate 2,500 MCG/250 ML BAG IV SCH (10:15)
[2024-02-20] MEDS: fentaNYL citrate 2,500 MCG/250 ML BAG IV ONE (10:15)
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
[2024-02-20] MEDS: RAPID SEQUENCE INDUCTION BAG ONE (10:23)
[2024-02-20] MEDS: DEXTROSE 50% 50 ML SYRINGE IV ONE (10:23)
[2024-02-20] MEDS: NOREPINEPHRINE/D5W 4 MG/250 ML IV ONE (10:23)
[2024-02-20] MEDS: CALCIUM GLUCONATE 10% 1,000 MG in SODIUM CHLOR 0.9% MINI-B 50 ML IV ONE (10:38)
[2024-02-20] MEDS: INSULIN HUMAN REGULAR PER UNIT 10 UNITS in SYRINGE 9.9 ML IV STA (10:42)
[2024-02-20] MEDS: Standard Conc; 4mg in 250mL IV SCH (10:43)
--- NOTE | 2024-02-20 10:50 | Procedure Note ---
Procedure Note Date of Service February 20, 2024 Note INTERNAL JUGULAR DIALYSIS CATHETER LINE PROCEDURE NOTE: Procedure: Internal Jugular triple-lumen dialysis cath t Indication: Hemodialysis, use of vasoactive medications. Anesthesia: Fentanyl/8 ml lidocaine 1% Procedure was done emergently as the patient is currently intubated and sedated and unable to give consent. A time-out was completed verifying correct patient, procedure, site, positioning, and implants(s) or special equipment if applicable. Patients right neck was cleansed and draped in the typical sterile fashion using Chloraprep. The Internal Jugular Vein and Carotid Artery were identified using ultrasound. The superficial tissue was anesthetized using he mL of 1% lidocaine without epinephrine under direct visualization with the ultrasound. After adequate anesthetization was achieved, the Internal Jugular vein was cannulated under direct ultrasound guidance using an introducer needle on a syringe. Good venous blood return was maintained prior to removal of syringe from introducer needle. Using Seldinger Technique, a guide wire was advanced through the introducer needle without resistance. The introducer needle was removed and ultrasound images were obtained of the guide wire within the Internal Jugular Vein and saved to the patients medical record. A small incision was made in penetrating fashion at the guide wire insertion site utilizing an 11 blade scalpel. The dilator was advanced to the vessel without resistance. The dilator was exchanged for the triple lumen catheter which was advanced into the vessel without resistance. The guide wire was removed intact from the catheter without issue. Claves were placed on each catheter tip with confirmation of good blood flow from each lumen. Each port was easily flushed with sterile saline. The catheter was placed at 13 cm and sut[address] in place. BioPatch was applied to the catheter and a sterile Tegaderm dressing was applied over the catheter with careful attention to sterility. Patient tolerated procedure well. No immediate complications were met. Post procedure x-ray is pending. Ultrasound guidance was used throughout the procedure. Coding CPT Codes Tubes, Drains, and Vasc Access - Tubes, Drains, and Vasc Access: [id number] Place catheter in vein superior or inferior vena cava ([id number]) Tubes, Drains, and Vasc Access - Tubes, Drains, and Vasc Access: [id number] Insertion of cannula for hemodialysis ([id number]) Tubes, Drains, and Vasc Access - Tubes, Drains, and Vasc Access: [id number] Ultrasound Guidance For Vascular ([id number]) [facility] [place] [facility] [place] Procedure Codes (Charges) Tubes, Drains, and Vasc Access Procedure 1: Tubes, Drains, and Vasc Access: [id number] Place catheter in vein superior or inferior vena cava Procedure 2: Tubes, Drains, and Vasc Access: [id number] Insertion of cannula for hemodialysis Procedure 3: Tubes, Drains, and Vasc Access: [id number] Ultrasound Guidance For Vascular
[2024-02-20] MEDS ORDERED: SODIUM CHLORIDE 0.9% 1,000 ML IV PRN (10:54)
--- NOTE | 2024-02-20 11:12 | XRay Report ---
XR chest 1V portable HISTORY: 79 years-old Female s/p intubation, central line placement acute respiratory failure COMPARISON: Chest CT 02/19/2024 TECHNIQUE: AP view the chest FINDINGS: Malpositioned endotracheal tube course into the proximal right mainstem bronchus. Right lung volume l oss. Right greater than left pleural effusions with right greater than left bibasilar prominent conso lidation. No pneumothorax. Right IJ central venous catheter distal tip is noted with the distal tip i n the expected location of the mid SVC. Enteric tube distal tip projects over the gastric body. Bones appear grossly intact. IMPRESSION: 1. Low lying endotracheal tube courses into the right mainstem bronchus. There is resultant right amee g volume loss. Retraction of 3 to 4 cm is needed. 2. Cardiomegaly with pulmonary vascular congestion. 3. Right greater than left pleural effusions with right greater than left airspace opacities redemons trated, better evaluated on the comparison chest CT. ACT 112: Negative or not required by law. The above report was generated using voice recognition software. It may contain grammatical, syntax o r spelling errors. Electronically signed by: Serafin Sims M.D. 02/20/2024 11:10 AM
--- NOTE | 2024-02-20 11:31 | Procedure Note ---
Procedure Note Date of Service February 20, 2024 Note ARTERIAL LINE PROCEDURE NOTE: Procedure: Arterial Line Placement Indication: Monitoring on Pressors Anesthesia: 5 mL lidocaine 1% Procedure was done emergently as the patient was intubated and sedated. Patient is hemodynamically unstable requiring vasopressors. A time-out was completed verifying correct patient, procedure, site, positioning, and implant(s) or special equipment if applicable. Patients right wrist was prepped and draped in the usual sterile fashion. Ultrasound guidance was used to aid needle placement. A 20g Arrow arterial line was introduced into the radial artery. Catheter was threaded, and the needle was removed with appropriate blood return. Good waveform was observed. The patient tolerated the procedure well. Blood Loss: Minimal Complications: None Coding CPT Codes Tubes, Drains, and Vasc Access - Tubes, Drains, and Vasc Access: [id number] Arterial Cath/Cannulation Sampling/Monitoring/Transfusion ([id number]) Tubes, Drains, and Vasc Access - Tubes, Drains, and Vasc Access: [id number] Ultrasound Guidance For Vascular ([id number]) [facility] [place] Procedure Codes (Charges) Tubes, Drains, and Vasc Access Procedure 1: Tubes, Drains, and Vasc Access: [id number] Arterial Cath/Cannulation Sampling/Monitoring/Transfusion Procedure 2: Tubes, Drains, and Vasc Access: [id number] Ultrasound Guidance For Vascular
[2024-02-20] MEDS: VASOPRESSIN 20 UNITS in 0.9 % SODIUM CHLORIDE 100 ML IV SCH (11:51)
--- NOTE | 2024-02-20 11:51 | Cardiology Consultation ---
Date of Consultation February 20, 2024 Assessment & Plan (1) Atrial fibrillation with rapid ventricular response: (2) HFrEF (heart failure with reduced ejection fraction): (3) Elevated lactic acid level: (4) Hyperkalemia: 79-year-old female who speaks Swiss as primary language presents status post fall with findings of care deficit on presentation. Atrial fibrillation with rapid ventricular response observed on presentation, rate improved with fluid resuscitation and initiation of IV amiodarone. She has had hypotension which has required vasopressor administration. Her lactic acidosis is present with lactate trending up to 6.6 mmol/L at 20: 42 and down to 3.9 mmol/L as of 4:12 AM. Patient has been found to have hyperkalemia with potassium as high as 6.4 mmol/L last evening, and is 6 mmol/L on repeat this morning. During my initial assessment in intensive care unit this morning the patient was on IV fluid resuscitation with sodium bicarb at 120 mL/h, phenylephrine at 1.1 mg/kg/min, and Burch catheter was in place. The critical care team has since made some adjustments in her medications and she has now on norepinephrine and vasopressin for blood pressure support instead of phenylephrine. She is not anticoagulated due to for procedures. And since my initial assessment has undergone endotracheal tube placement and placement of a dialysis catheter in the right internal jugular vein. She has been seen by nephrology, and efforts are underway to initiate dialysis if tolerated hemodynamically for treatment of the hyperkalemia. An echocardiogram will be completed. Continue amiodarone for rate control. History of Present Illness Attending Physician: Chato Casanova MD History of Present Illness Ladan Trujillo is an 79-year-old female seen in cardiology consultation per the request of Maria Del Carmen Mello PA-C for the evaluation of atrial fibrillation with rapid ventricular response and previous diagnosis of heart failure with reduced ejection fraction. Patient without acute cardiac complaint. Presented with a fall with resulting closed head injury and noted large area of ecchymosis over the right forehead and right orbit. Atrial fibrillation with rapid ventricular response noted on presentation the emergency room, ventricular rate 155 bpm on presentation with ventricular rate currently improved down to the 80s in the intensive care unit while on am iodarone infusion at 0.5 mg/min. Per review of records, patient was admitted in December, with congestive heart failure and atrial fibrillation with rapid ventricular spots. 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 She apparently left the hospital AGAINST MEDICAL ADVICE during that admission and presented again in April,. Per discharge summary in April, patient was prescribed metoprolol succinate 25 mg daily, Eliquis 2.5 mg twice daily, torsemide 20 mg daily and potassium chloride 20 mill colons daily. Cardiology follow-up was recommended and scheduled, but appointment was canceled per her outpatient record. If she has seen cardiology and has not been within the [facility] or the [facility] system. Allergies Allergy/AdvReac Type Severity Reaction Status Date / Time No Known Allergies Allergy Verified 05/10/23 20:07 Home Medications Medication Instructions Recorded Confirmed Type apixaban 2.5 mg tablet (Eliquis) 2.5 mg PO BID #60 tabs 05/13/23 Rx metoprolol succinate 25 mg 25 mg PO BID #60 tabs 05/13/23 Rx tablet,extended release 24 hr polyethylene glycol 3350 17 gram 17 g PO DAILY PRN constipation #30 05/13/23 Rx oral powder packet (Miralax) ea potassium chloride 20 mEq 40 meq (2 x 20 mEq) PO DAILY #30 05/13/23 Rx tablet,extended release(part/cryst) tabs torsemide 20 mg tablet 20 mg PO DAILY #30 tabs 05/13/23 Rx Patient History Medical History Chronic kidney disease, stage 3b Arthritis Congestive heart failure Atrial fibrillation with RVR Surgical History No significant past surgical history Social History Smoking Status: Unknown if ever smoked Second Hand Exposure: No; Do You Dip or Chew Tobacco: No; Preferred Language: Mandarin [place] Communication Ability: Impaired Communication Ability Comment: Hard of Hearing Communication Tools: IPad Structures Assembler Required: Yes Beliefs That Will Affect Care: None Current Living Situation: Family Current Living Situation Comment: Patient is reported to live with her son. Feels Safe at Home: No Is there a partner from a previous relationship who is making you feel unsafe now?: No Assistive Devices: Walker Assistive Devices Comment: Patient has documented past use of walker at home Review of Systems Review of Systems: Unobtainable due to cognitive status Physical Exam Physical Exam: Temp Pulse Resp BP Pulse Ox O2 Del Method O2 Flow Rate 36.3 C L 103 H 18 79/60 L 94 Nasal Cannula 2 02/20/24 09:30 02/20/24 10:24 02/20/24 10:24 02/20/24 09:30 02/20/24 10:24 02/20/24 08:00 02/20/24 08:00 FiO2 60 02/20/24 10:24 Constitutional: + ill appearing Respiratory: Auscultation: + diminished lung sounds (Decreased breath sounds at the right base and right midlung consistent with) Cardiovascular: Rate/Rhythm: + irregularly irregular Heart Sounds: normal S1, normal S2 and + murmur (1/6 systolic murmur) Legs wrapped bilaterally, with right lower leg wound as per reports from other providers Gastrointestinal (Abdomen): normal bowel sounds, soft, nontender, no hepa tosplenomegaly Neurologic: Moves all 4 extremities Results & Data Laboratory Results Cardiac Enzymes 02/19/24 02/19/24 02/19/24 Range/Units 12:04 14:42 17:22 AST 21 (13-39) U/L Troponin I High Sens 87.3 H* 72.9 H* D (0-14) pg/ml B-Natriuretic Peptide 1399 H (0-100) pg/ml 02/20/24 Range/Units 04:12 AST 33 (13-39) U/L Troponin I High Sens (0-14) pg/ml B-Natriuretic Peptide (0-100) pg/ml Coagulation 02/19/24 02/19/24 Range/Units 12:04 17:22 PT 13.5 H (9.0-12.0) Seconds APTT 31 (21-31) Seconds B-Natriuretic Peptide 1399 H (0-100) pg/ml CBC 02/19/24 02/20/24 Range/Units 12:04 04:12 WBC 15.05 H 18.52 H (4.8-10.8) K/ul RBC 4.41 3.95 L (4.20-5.40) M/uL Hgb 13.5 12.0 (12.0-16.0) g/dl Hct 42.2 38.6 (37.0-47.0) % Plt Count 82 L 79 L (130-400) K/uL Neut # (Auto) 14.09 H 17.22 H (1.40-6.50) K/uL Lymph # (Auto) 0.23 L 0.01 L (1.20-3.40) K/uL Bartholomew # (Auto) 0.52 0.86 H (0.11-0.59) K/uL Eos # (Auto) 0.00 0.00 (0.00-0.50) K/uL Baso # (Auto) 0.02 0.03 (0.00-0.20) K/uL Comprehensive Metabolic Panel 02/19/24 02/19/24 02/19/24 Range/Units 12:04 17:22 20:42 Sodium 131 L 132 L 131 L (136-145) mmol/L Potassium 5.8 H 6.0 H 6.4 H* (3.5-5.1) mmol/L Chloride 107 110 H 109 H (98-107) mmol/L Carbon Dioxide 16 L 10 L 11 L (21-32) mmol/L BUN 60 H 61 H 61 H (6-23) mg/dl Creatinine 1.36 H 1.33 H 1.48 H (0.6-1.2) mg/dl Glucose 89 107 H 84 (70-99(Fasting)) mg/dl Calcium 8.2 L 7.7 L 7.8 L (8.6-10.3) mg/dl Direct Bilirubin (0-0.2) mg/dl AST 21 (13-39) U/L ALT 13 (7-52) U/L Alkaline Phosphatase 91 (34-104) U/L Total Protein 6.6 (6.0-8.3) gm/dl Albumin 2.7 L (3.4-5.0) gm/dl 02/20/24 02/20/24 02/20/24 Range/Units 00:23 04:12 08:03 Sodium 132 L 131 L 132 L (136-145) mmol/L Potassium 5.7 H 6.0 H 6.0 H (3.5-5.1) mmol/L Chloride 109 H 107 107 (98-107) mmol/L Carbon Dioxide 13 L 16 L 20 L (21-32) mmol/L BUN 63 H 67 H 65 H (6-23) mg/dl Creatinine 1.58 H 1.62 H 1.62 H (0.6-1.2) mg/dl Glucose 120 H 130 H 141 H (70-99(Fasting)) mg/dl Calcium 7.7 L 7.8 L 7.6 L (8.6-10.3) mg/dl Direct Bilirubin 3.2 H (0-0.2) mg/dl AST 33 (13-39) U/L ALT 12 (7-52) U/L Alkaline Phosphatase 69 (34-104) U/L Total Protein 5.6 L (6.0-8.3) gm/dl Albumin 2.2 L (3.4-5.0) gm/dl Intake and Output 02/19/24 02/20/24 02/20/24 22:59 06:59 14:59 Intake Total 459.167 / 3065.019 1105.852 / 3065.019 722.459 / 722.459 Output Total 25 / 110 35 / 110 Balance 434.167 / 2955.019 1070.852 / 2955.019 722.459 / 722.459 Intake: IV 459.167 / 3065.019 1105.852 / 3065.019 722.459 / 722.459 Acetaminophen 1,000 mg In 100 100 / 100 100 / 100 ml @ 400 mls/hr IV Q8H PRN Rx#: [id number] Albumin 5% 250 ml @ 500 mls/hr 250 / 250 IV ONE ONE Rx#:[id number] Amiodarone / D5w 360 mg In 200 188.988 / 188.988 ml @ 0.5 MG/MIN 16.667 mls/hr IV .Q12H [facility] Rx#:[id number] Calcium Gluconate 10% 1,000 mg 104 / 104 In Sodium Chlor 0.9% Mini-B 50 ml @ 240 mls/hr IV Q15M [facility] Rx# :[id number] Phenylephrine/Nss 25 mg In 250 212.852 / 212.852 182.513 / 182.513 ml @ 0.5 MCG/KG/MIN 18.27 mls/ hr IV .[id number] [facility] Rx#:[id number] Sodium Bicarbonate 8.4% 150 meq 893 / 893 In Dextrose 5% 1,000 ml @ 120 mls/hr IV .Q9H35M [facility] Rx#: [id number] Sodium Chloride 0.9% 250 ml @ 250 / 250 999 mls/hr IV .Q16M [facility] Rx#: [id number] dilTIAZem HCL 125 mg In 5.167 / 5.167 Dextrose 5% 100 ml @ 5 MG/HR 5 mls/hr IV .Q24H [facility] Rx#: [id number] fentaNYL citrate 2,500 mcg In 0.958 / 0.958 250 ml @ 25 MCG/HR 2.5 mls/hr IV .Q96H [facility] Rx#:[id number] Oral 0 / 0 Output: Urine Amount (Catheter) Burch/Indwelling Other: Weight 65.5 kg Weight Measurement Method Built in [facility] Diagnostic Findings EKG on arrival 02/19/2024 at 11:42 AM revealed atrial fibrillation with rapid ventricular response 152 bpm, nonspecific diffuse T wave flattening noted. Age- indeterminate septal infarct pattern noted unchanged compared to April,. Repeat EKG 02/19/2024 at 2115: Atrial fibrillation 116 bpm, age-indeterminate septal infarct pattern unchanged, ongoing nonspecific diffuse T wave flattening. Echocardiogram performed April, revealed severely diffuse left ventricular hypokinesis, LVEF in the range of 20-25%, mild right ventricular dilatation, moderate to severe mitral regurgitation, moderate-severe tricuspid regurgitation, small circumferential pericardial effusion. Summary of CT chest performed 02/19/2024: 1. Large right pleural effusion with atelectasis/consolidation of the right lower lung. Correlate clinically for evidence of pneumonia. 2. There is airspace consolidation at the left lung base and a trace left pleu ral effusion. There are also foci of subpleural consolidation in the left upper lobe. Again, this could represent pneumonia or possible small pulmonary infarcts and clinical correlation will be required. 3. Cardiomegaly and small pericardial effusion. 4. Nodularity of the hepatic surface contour suggests morphologic change of cirrhosis. There is a small volume of upper abdominal ascites. 5. Minimal and age indeterminate inferior endplate compression deformity of T7. Correlate for point tenderness.
[2024-02-20 11:59] LABS: iSTAT Art Bld Gas pCO2 Correct 40 mmHg (35-46); iSTAT Art Bld Gas pH Corrected 7.264 (7.35-7.45); iSTAT Arterial Blood Gas HCO3 18 meg/L (19-24); iSTAT Arterial Blood Gas pCO2 41 mmHg (35-46); iSTAT Arterial Blood Gas pH 7.26 (7.35-7.45); iSTAT Arterial Blood Gas pO2 101 mmHg (80-95); iSTAT Arterial Blood Gas pO2 C 98; iSTAT Carbon Dioxide 20 mmol/L (24-31); iSTAT FiO2 60 %; iSTAT Hematocrit 39 % (37-47); iSTAT Hemoglobin 13.3 g/dl (12.0-16.0); iSTAT Potassium 5.2 mmol/L (3.3-5.0); iSTAT Site Art Line; iSTAT Sodium 134 mmol/L (135-144)
[2024-02-20 13:44] LABS: A calco-baum cmplx NotReported Not Detected (NotDetected); Bact fragilis Not Reported Not Detected (NotDetected); Blood Culture Id Panel See PCR Comment (NotDetected); C auris Not Reported Not Detected (NotDetected); Calbicans Not Reported Not Detected (NotDetected); Candida glabrata Not Reported Not Detected (NotDetected); Candida krusei Not Reported Not Detected (NotDetected); Cneoformans/gatti Not Reported Not Detected (NotDetected); Cparapsilosis Not Reported Not Detected (NotDetected); E cloacae compx Not Reported Not Detected (NotDetected); Efaecalis Not Reported Not Detected (NotDetected); Efaecium Not Reported Not Detected (NotDetected); Enterobacterales Not Reported Not Detected (NotDetected); Escherichia coli Not Reported Not Detected (NotDetected); H influenzae Not Reported Not Detected (NotDetected); K aerogenes Not Reported Not Detected (NotDetected); Koxytoca Not Reported Not Detected (NotDetected); Kpneumoniae grp Not Reported Not Detected (NotDetected); Lmonocyt Not Reported Not Detected (NotDetected); N meningitidis Not Reported Not Detected (NotDetected); P aeruginosa Not Reported Not Detected (NotDetected); Proteus spp Not Reported Not Detected (NotDetected); Salmonella spp Not Reported Not Detected (NotDetected); Smarcescens Not Reported Not Detected (NotDetected); Staph lugdunensis Not Reported Not Detected (NotDetected); Staph spp. Not Reported DETECTED (NotDetected); Staphaureus Not Reported Not Detected (NotDetected); Staphepi Not Reported Not Detected (NotDetected); Stenmaltophilia Not Reported Not Detected (NotDetected); Strep agal(GrpB) Not Reported Not Detected (NotDetected); Strep pneum Not Reported Not Detected (NotDetected); Strep pyog (GrpA) Not Reported Not Detected (NotDetected); Strep spp Not Reported Not Detected (NotDetected)
[2024-02-20 13:52] LABS: Staphylococcus spp. DETECTED (NotDetected)
[2024-02-20 14:02] LABS: Hematocrit (blood only) 34.2 % (37.0-47.0); Mean Corpuscular Hemoglobin 30.7 pg (25.0-34.0); Mean Corpuscular Hgb Conc 32.2 g/dL (32.0-36.0); Mean Corpuscular Volume 95.5 fL (80.0-100.0); Mean Platelet Volume 12.1 fL (9.4-12.4); Nucleated RBC # (auto) 1.58 K/uL (0.00-0.12); Nucleated RBC % (auto) 11.4 %; Platelet Count 60 K/uL (130-400); RDW Coefficient of Variation 19.9 % (11.5-14.5); Red Blood Count 3.58 M/uL (4.20-5.40); White Blood Count 13.82 K/ul (4.8-10.8)
[2024-02-20] MEDS: PHENYLEPHRINE/NSS 25 MG/250 ML BAG IV SCH (14:12)
--- NOTE | 2024-02-20 14:16 | XRay Report ---
XR tibia fibula LT 2V HISTORY: 79 years-old Female eval for osteo chronic pain of the left lower leg COMPARISON: None TECHNIQUE: 2 views of the left tibia and fibula FINDINGS: Diffuse soft tissue prominence. Demineralized appearance of the bones. Osteoarthritis of the knee and ankle. No acute fracture, dislocation or osseous erosion. Arterial calcifications. IMPRESSION: Soft tissue swelling without acute osseous abnormality. ACT 112: Negative or not required by law. The above report was generated using voice recognition software. It may contain grammatical, syntax o r spelling errors. Electronically signed by: Serafin Sims M.D. 02/20/2024 2:15 PM
--- NOTE | 2024-02-20 14:24 | XRay Report ---
XR tibia fibula RT 2V CLINICAL HISTORY: eval for osteo TECHNIQUE: 2 radiographic views of the right leg were obtained. Comparison: None available at the time of this dictation. FINDINGS: There is no evidence of an acute fracture. Degenerative changes are seen most prominently in the medi al compartment of the knee. Soft tissue swelling is seen. IMPRESSION: Degenerative changes are seen. There is soft tissue swelling without focal erosions to suggest osteom yelitis. ACT 112: Negative or not required by law. Electronically signed by: Abrahan Castellanos M.D. 02/20/2024 2:23 PM
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
[2024-02-21 04:57] LABS: Hematocrit (blood only) 35.4 % (37.0-47.0); Hemoglobin 11.6 g/dl (12.0-16.0); Mean Corpuscular Hemoglobin 30.5 pg (25.0-34.0); Mean Corpuscular Hgb Conc 32.8 g/dL (32.0-36.0); Mean Corpuscular Volume 93.2 fL (80.0-100.0); Mean Platelet Volume 12.7 fL (9.4-12.4); Platelet Count 57 K/uL (130-400); RDW Coefficient of Variation 19.9 % (11.5-14.5); RDW Standard Deviation 63.6 fL (36.4-46.3)
[2024-02-21 05:24] LABS: Albumin Level 2.1 gm/dl (3.4-5.0); BUN Creatinine Ratio 31.4 (10-20); Bilirubin Direct 2.6 mg/dl (0-0.2); Bilirubin,Total 4.4 mg/dl (0.2-1.0); Calcium 6.7 mg/dl (8.6-10.3); Creatinine Clr Calc Pharmacy 32.1 ml/min; Est GFR (African American) 50.4 ml/min; Est GFR (Non-African American) 43.5 ml/min; Magnesium 1.9 mg/dl (1.7-2.4); Total Protein 4.8 gm/dl (6.0-8.3)
[2024-02-21 05:46] LABS: Basophils # (auto) 0.03 K/uL (0.00-0.20); Basophils % (auto) 0.2 %; Echinocytes 1+; Eosinophils # (auto) 0.01 K/uL (0.00-0.50); Eosinophils % (auto) 0.1 %; Immature Granulocytes # (auto) 0.16 K/uL (0.01-0.20); Immature Granulocytes % (auto) 1.2 %; Lymphocytes % (auto) 0.8 %; Monocytes # (auto) 0.51 K/uL (0.11-0.59); Neutrophils # (auto) 12.07 K/uL (1.40-6.50); Neutrophils % (auto) 93.7 %; Nucleated RBC # (auto) 1.38 K/uL (0.00-0.12); Nucleated RBC % (auto) 10.7 %; Polychromasia 3+; White Blood Count 12.88 K/ul (4.8-10.8)
--- NOTE | 2024-02-21 07:41 | Nephrology Progress Note ---
Date of Service February 21, 2024 Assessment & Plan (1) Acute renal failure superimposed on stage 3b chronic kidney disease: Plan: now stage 3 MADY by KDIGO based on <0.3 ml/kg/hr UOP for >24 hrs and CLINICAL NURSE REVIEWER. baseline creatinine best we can tell (only IP data over past year) > mid ones. anemia, acid base all for now acceptable > CK wnl. tolerated HD 02/19 w/ no UF for clearance only >hold HD today > reevaluate in AM; may need for volume mgt at that time or other -continue strict I/O -f/u pending blood cultures >> consider repeat set (2) Septic shock: Plan: f/u pending cultures and wound care recs and abd imaging cont abtx > covered currently w/ zosyn (3) Hyperkalemia: Plan: now resolved but on admission elevated potassium in the setting of septic shock, hemodynamic instability and oligoanuria > c/b lactic acidemia. most likely source is dying tissue in her BLE though team has not yet had opportunity to image abdomen. needed emergent HD x 1 tx on 02/19. >hold HD today and follow >> continue abtx/wound care >>low threshold to stop lokelma and use prn only >> I put hold parameters on it to hold for K < 4 Admission and Anticipated Discharge Date Admission Date: February 19, 2024 Subjective tolerated HD yesterday. also 240 mL UOP on the day. lightly sedated today; remains on 2 pressors and amio gtt when I evaluated her midday; has been too unstable to lie flat, transport for abdominal imaging; attempts underway repeatedly to contact son for discussion of goals of care; some elevated temps trending to fever Review of Systems 2 Review of Systems: Unobtainable due to endotracheal tube Physical Exam 2 Constitutional: well developed, + frail appearing and + mechanically ventilated ENMT: Ears: no external ear abnormality Nose: no external nose abnormality Mouth: + dry oral mucous membranes Neck: no nuchal rigidity Respiratory: normal respiratory effort Auscultation: + diminished lung sounds and + rhonchi Cardiovascular: Rate/Rhythm: + tachycardic (but HR lower today) and + irregularly irregular Extremities: + edema Gastrointestinal (Abdomen): Inspection/Auscultation: + hypoactive bowel sounds (possible) Percussion/Palpation: + abdomen firm; abdomen nontender, no guarding and abdomen not rigid Skin: Trauma: + periorbital ecchymosis (R brow) extensive ulcers BLE wrapped Results & Data Vital Signs (Past 12 Hours) Vital Signs Temp Pulse Resp BP Pulse Ox O2 Del Method FiO2 02/21/24 07:14 95 H 22 97 50 02/21/24 06:00 37.5 C 107 H 23 90 02/21/24 05:00 37.6 C H 93 H 22 100 02/21/24 04:00 37.7 C H 108 H 22 98 02/21/24 04:00 50 02/21/24 04:00 100 H 111/66 02/21/24 03:00 95 H 19 97 02/21/24 02:14 98 H 23 98 50 02/21/24 02:00 37.9 C H 98 H 25 H 97 02/21/24 01:00 37.9 C H 97 H 22 97 02/21/24 00:00 37.9 C H 107 H 22 99 02/21/24 00:00 50 02/21/24 00:00 91 H 107/57 L 02/21/24 00:00 89 02/20/24 23:08 85 22 100 50 02/20/24 23:00 37.8 C H 101 H 22 100 02/20/24 22:00 37.7 C H 94 H 22 99 02/20/24 21:00 37.6 C H 93 H 22 99 02/20/24 20:00 50 02/20/24 20:00 88 108/40 L 02/20/24 20:00 Mechanical Vent 50 02/20/24 20:00 37.4 C 108 H 22 100 02/20/24 19:49 93 H 23 97 50 Laboratory Results 02/21/24 04:31 02/21/24 04:31
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
--- NOTE | 2024-02-21 10:04 | XRay Report ---
XR chest 1V portable CLINICAL HISTORY: Pneumonia. COMPARISON STUDY: Chest CT February 19, 2024. Chest radiograph February 20, 2024. FINDINGS: The endotracheal tube is 1 cm above the uriel. Tip of nasogastric tube is within the dista l body of the stomach. There is apparent oral contrast within the stomach. Right internal jugular mason tral line is in place. There is no pneumothorax. Moderate to large right and small left pleural effus ions are again noted. Extensive bilateral airspace opacities are present. Left lung opacities have pr ogressed since CT of February 19, 2024. Interstitial thickening persists. IMPRESSION: 1. Tip of endotracheal tube 1 cm above the uriel. The tube could be withdrawn an additional 1 cm. 2. Moderate to large right and small left pleural effusions. Extensive bilateral airspace opacities w hich favor pneumonia. 3. No pneumothorax. 4. Suspected mild pulmonary edema. ACT 112: Negative or not required by law. Electronically signed by: Olivier Chacon M.D. 02/21/2024 10:02 AM
--- NOTE | 2024-02-21 10:10 | Communication Note ---
Date of Service: February 21, 2024 [facility] [address] Med Brief Note attempted to call son, no answer at 1008am [facility] req call back, advised in message this was to seek his input for decisions re Mom's care. Thank you for allowing us to participate in the ongoing care of this patient. Please don't hesitate to call or page with any additional concerns. Dr. Nereyda Juares DNP Director, Palliative Care
[2024-02-21] MEDS: HYDROCORTISONE SOD 50 MG in SYRINGE 0 ML IV SCH (10:39)
[2024-02-21] MEDS: PANTOprazole 40 MG in SYRINGE 0 ML IV SCH (10:39)
[2024-02-21] MEDS: PHENYLEPHRINE HCL 100 MG in SODIUM CHLORIDE 0.9% 240 ML IV SCH (10:43)
[2024-02-21] MEDS: DAPTOmycin 275 MG in SYRINGE 0 ML IV SCH (10:43)
--- NOTE | 2024-02-21 12:25 | Cardiology Progress Note ---
Date of Service February 21, 2024 Assessment & Plan (1) Septic shock: (2) Acute renal failure superimposed on stage 3b chronic kidney disease: (3) Atrial fibrillation with rapid ventricular response: (4) HFrEF (heart failure with reduced ejection fraction): Plan Repeat echocardiogram performed 02/21/24: There is severe global hypokinesis of the left ventricle. Left ventricular systolic function is severely reduced. The calculated left ventricular ejection fraction=22%. The right ventricle is severely dilated. The right ventricular systolic function is severely reduced. Severe biatrial enlargement is present. Moderate to severe mitral regurgitation is present. There is severe tricuspid regurgitation. The pulmonary artery systolic pressure is estimated to be 56 mm Hg (moderately elevated). There is a moderate left pleural effusion. -Compared to the images obtained on 05/10/23, the right ventricle is is now severely dilated. Anticoagulation on hold due to head trauma. Pt is on Levophed and Vasopressin as well as hydrocortisone. Agree with amiodarone for rate control. Not candidate for beta lynn or calcium channel lynn due to hypotension. Prognosis is poor. Admission and Anticipated Discharge Date Admission Date: February 19, 2024 Subjective Patient seen in cardiology follow up. Pt is sedated and on the ventilator. Telemetry reveals AF with ventricular rate ranging from 90-110 bpm. Physical Exam Constitutional: + ill appearing ENMT: Right scalp shahrzad right orbital hematoma Respiratory: Auscultation: + diminished lung sounds (decreased BS at the bases ) Cardiovascular: Rate/Rhythm: + tachycardic and + irregularly irregular Heart Sounds: + murmur (1/6 SM ) Gastrointestinal (Abdomen): normal bowel sounds, soft, nontender, no hepatosplenomegaly Neurologic: sedated Genitourinary: Burch catheter in place Results & Data Vital Signs (Past 12 Hours) Vital Signs Temp Pulse Resp BP Pulse Ox O2 Del Method FiO2 02/21/24 12:00 37.5 C 103 H 26 H 95 40 02/21/24 11:58 40 02/21/24 11:30 37.5 C 123 H 22 89 L 02/21/24 11:01 97 H 22 98 40 02/21/24 11:00 37.5 C 93 H 23 92 02/21/24 10:00 37.5 C 86 22 97 02/21/24 09:00 37.6 C H 102 H 20 97 02/21/24 08:00 50 02/21/24 08:00 Mechanical Vent 50 02/21/24 08:00 37.6 C H 104 H 24 94 02/21/24 07:14 95 H 22 97 50 02/21/24 07:00 37.5 C 96 H 22 95 02/21/24 06:00 37.5 C 107 H 23 90 02/21/24 05:00 37.6 C H 93 H 22 100 02/21/24 04:00 37.7 C H 108 H 22 98 02/21/24 04:00 50 02/21/24 04:00 100 H 111/66 02/21/24 03:00 95 H 19 97 02/21/24 02:14 98 H 23 98 50 02/21/24 02:00 37.9 C H 98 H 25 H 97 02/21/24 01:00 37.9 C H 97 H 22 97 Laboratory Results Cardiac Enzymes 02/21/24 Range/Units 04:31 AST 29 (13-39) U/L CBC 02/20/24 02/21/24 Range/Units 12:52 04:31 WBC 13.82 H 12.88 H (4.8-10.8) K/ul RBC 3.58 L 3.80 L (4.20-5.40) M/uL Hgb 11.0 L 11.6 L (12.0-16.0) g/dl Hct 34.2 L 35.4 L (37.0-47.0) % Plt Count 60 L 57 L (130-400) K/uL Neut # (Auto) 12.07 H (1.40-6.50) K/uL Lymph # (Auto) 0.10 L (1.20-3.40) K/uL [place] # (Auto) 0.51 (0.11-0.59) K/uL Eos # (Auto) 0.01 (0.00-0.50) K/uL Baso # (Auto) 0.03 (0.00-0.20) K/uL Comprehensive Metabolic Panel 02/21/24 Range/Units 04:31 Sodium 132 L (136-145) mmol/L Potassium 4.0 D (3.5-5.1) mmol/L Chloride 103 (98-107) mmol/L Carbon Dioxide 20 L (21-32) mmol/L BUN 37 H D (6-23) mg/dl Creatinine 1.18 D (0.6-1.2) mg/dl Glucose 161 H (70-99(Fasting)) mg/dl Calcium 6.7 L (8.6-10.3) mg/dl Direct Bilirubin 2.6 H (0-0.2) mg/dl AST 29 (13-39) U/L ALT 12 (7-52) U/L Alkaline Phosphatase 60 (34-104) U/L Total Protein 4.8 L (6.0-8.3) gm/dl Albumin 2.1 L (3.4-5.0) gm/dl Intake and Output 02/20/24 02/21/24 02/21/24 22:59 06:59 14:59 Intake Total 1316.597 / 6209.442 2486.718 / 6209.442 1805.000 / 1805.000 Output Total 60 / 240 120 / 240 40 / 40 Balance 1256.597 / 5969.442 2366.718 / 5969.442 1765.000 / 1765.000 Intake: IV 1316.597 / 6059.442 2486.718 / 6059.442 1655.000 / 1655.000 Amiodarone / D5w 360 mg In 200 164.495 / 538.296 184.813 / 538.296 ml @ 0.5 MG/MIN 16.667 mls/hr IV .Q12H [facility] Rx#:[id number] Norepinephrine/D5w 4 mg In 250 122.795 / 236.755 0 / 0 ml @ 0 MCG/KG/MIN IV .Q0M [facility] Rx#:[id number] Phenylephrine/Nss 25 mg In 250 687.986 / 1650.956 962.970 / 1650.956 750.000 / 750.000 ml @ 0.5 MCG/KG/MIN 19.65 mls/ hr IV .[id number] [facility] Rx#:[id number] Piperacillin/Tazobactam 4.5 gm 100 / 300 100 / 300 100 / 100 In Dextrose 5% Mini-B 100 ml @ 25 mls/hr IV Q8H [facility] Rx#: [id number] Sodium Bicarbonate 8.4% 150 meq 1150 / 2156 484 / 484 In Dextrose 5% 1,000 ml @ 120 mls/hr IV .Q9H35M [facility] Rx#: [id number] Vasopressin 20 units In 0.9 % 87.321 / 176.256 88.935 / 176.256 101.000 / 101.000 Sodium Chloride 100 ml @ 0.04 UNIT/MIN 12.12 mls/hr IV . Q8H20M [facility] Rx#:[id number] fentaNYL citrate 2,500 mcg In 154.00 / 158.666 220 / 220 250 ml @ 150 MCG/HR 15 mls/hr IV .[id number] [facility] Rx#:[id number] Oral 0 / 0 0 / 0 Tube Irrigant 150 / 150 Output: Urine Amount (Catheter) 60 / 240 120 / 240 40 / 40 Burch/Indwelling 60 / 240 120 / 240 40 / 40 Other: Hemodialysis Ultrafiltration 0 Amount # Unmeasured Voids 0 0 Weight 72 kg Weight Measurement Method Built in [facility]
[2024-02-21 12:34] LABS: HBSAG NON-REACTIVE (NON-REACTIVE); Hepatitis B Core Antibody IgM NON-REACTIVE (NON-REACTIVE); Hepatitis B Surface Ab, Quant 34 mIU/mL (> OR = 10)
--- NOTE | 2024-02-21 12:55 | Orthopedic Progress Note ---
Date of Service February 21, 2024 Assessment & Plan (1) Decubitus ulcer of right leg: (2) Decubitus ulcer of left leg: Plan 79-year-old female admitted with lower extremity contact ulceration and potential cellulitis. On today's exam, there is no evidence of gangrene or overt signs of active infection in the legs. The skin breakdown on the legs is amenable to superficial wound care and hygiene. No indications for surgical debridement. Recommend pursuing of the wound care consult to address the partial-thickness blistered lesions and raw areas. Dressing should be changed at least daily and these areas can get wet with soap and water for hygiene purposes. At this point, we will sign off. Please [place] text me for any questions or concerns. Subjective Chart reviewed. Patient continues on pressor support. No wound care evaluation yet. Review of Systems All systems reviewed & are unremarkable except as noted in HPI & below. Physical Exam Intubated and obtunded. Not able to cooperate. BLE: Both legs were undressed for inspection. Well-demarcated and decompressed blister formation about the anterolateral tibia. Hyperkeratosis along the posterior soft tissue of the calf. Not overtly infected or purulent. Compartments are soft. All partial-thickness skin lesions. No areas of abscess. No gangrenous tissue. Abundant hyperkeratosis at the anterior distal aspect of her leg, as well as posteriorly along the Achilles -most likely from lack of hygiene and immobility. Results & Data Results & Data Laboratory Results Laboratory Tests 02/21/24 04:31 WBC 12.88 H Hct 35.4 L Total Protein 4.8 L Albumin 2.1 L Diagnostic Findings Radiographs of the bilateral tibias show no areas concerning for osteomyelitis. Surprisingly there is no evidence of osteopenia. Would suspect that she has been recently ambulatory. PG Care Time/CCT Total # of Minutes Spent Total Time Spent with Patient: Total time spent is greater than 50% in coordination of care (as documented) at patient's floor/unit and/or counseling patient: Coding Level of Care Code 21759 SUB INP/OBS CARE 1/25MIN Diagnoses Decubitus ulcer of right leg L89.899 Decubitus ulcer of left leg L89.899
--- NOTE | 2024-02-21 16:05 | Palliative Care Consultation ---
Date of Consultation February 21, 2024 Assessment & Plan (1) Dyspnea and respiratory abnormalities: +VDRF (2) Weakness generalized: (3) Septic shock: (4) Palliative care by specialist: Plan * Patient is not decisional, remains intubated and sedated * Son is SDM but under investigation by [facility] for neglect vs abuse, he is not responding to any attempts from providers and staff to contact him. He has not returned any of my calls over the past 2 days * Suggest sending local police to son's home for welfare check and communicate he needs to contact ICU for family meeting Thank you for allowing us to participate in the ongoing care of this patient. Please don't hesitate to call or page with any additional concerns. Dr. Nereyda Juares DNP Director, Palliative Care History of Present Illness Reason for Consultation: goals of care Attending Physician: Tripp Jacome MD History of Present Illness 79y female with VDRF, septic shock, multipressor support. She remains intubated and sedated her son Maria T Wright is SDM but also under [facility] office investigation for abuse vs neglect He is not responding to our calls and voicemails. Her case liner at [facility] is on vacation and no covering case liner has returned our calls. Allergies Allergy/AdvReac Type Severity Reaction Status Date / Time No Known Allergies Allergy Verified 05/10/23 20:07 Home Medications Medication Instructions Recorded Confirmed Type apixaban 2.5 mg tablet (Eliquis) 2.5 mg PO BID #60 tabs 05/13/23 Rx metoprolol succinate 25 mg 25 mg PO BID #60 tabs 05/13/23 Rx tablet,extended release 24 hr polyethylene glycol 3350 17 gram 17 g PO DAILY PRN constipation #30 05/13/23 Rx oral powder packet (Miralax) ea potassium chloride 20 mEq 40 meq (2 x 20 mEq) PO DAILY #30 05/13/23 Rx tablet,extended release(part/cryst) tabs torsemide 20 mg tablet 20 mg PO DAILY #30 tabs 05/13/23 Rx Patient History Medical History (Updated 02/21/24 @ 16:02 by Nereyda Juares DNP) Palliative care by specialist Weakness generalized Dyspnea and respiratory abnormalities Acute renal failure Septic shock History of DVT (deep vein thrombosis) Chronic kidney disease, stage 3b Arthritis Congestive heart failure Atrial fibrillation with RVR Surgical History No significant past surgical history Social History Smoking Status: Unknown if ever smoked Second Hand Exposure: No; Do You Dip or Chew Tobacco: No; Preferred Language: Mandarin [place]ian Communication Ability: Unable Communication Ability Comment: Hard of Hearing Communication Tools: Physical Gestures Manganese Wheeler Required: Yes Beliefs That Will Affect Care: None Current Living Situation: Family Current Living Situation Comment: Patient is reported to live with her son. Feels Safe at Home: No Is there a partner from a previous relationship who is making you feel unsafe now?: No Assistive Devices: Walker Assistive Devices Comment: Patient has documented past use of walker at home Review of Systems Review of Systems: Unobtainable due to endotracheal tube and Other (sedated) Physical Exam Physical Exam: critically ill intubated, +ETT inc effort tachy color ashen/+pallor sedated/unable to repsond. Results & Data Vital Signs (Past 12 Hours) Vital Signs Temp Pulse Resp BP Pulse Ox O2 Del Method FiO2 02/21/24 13:00 37.6 C H 117 H 24 98 02/21/24 12:00 37.5 C 103 H 26 H 95 40 02/21/24 11:58 40 02/21/24 11:30 37.5 C 123 H 22 89 L 02/21/24 11:01 97 H 22 98 40 02/21/24 11:00 37.5 C 93 H 23 92 02/21/24 10:00 37.5 C 86 22 97 02/21/24 09:00 37.6 C H 102 H 20 97 02/21/24 08:00 50 02/21/24 08:00 Mechanical Vent 50 02/21/24 08:00 37.6 C H 104 H 24 94 02/21/24 07:14 95 H 22 97 50 02/21/24 07:00 37.5 C 96 H 22 95 02/21/24 06:00 37.5 C 107 H 23 90 02/21/24 05:00 37.6 C H 93 H 22 100 02/21/24 04:00 37.7 C H 108 H 22 98 02/21/24 04:00 50 04/02/24 04:00 100 H 111/66 Laboratory Results 02/21/24 02/21/24 02/20/24 Range/Units 10:42 04:31 21:24 WBC 12.88 H (4.8-10.8) K/ul RBC 3.80 L (4.20-5.40) M/uL Hgb 11.6 L (12.0-16.0) g/dl POC Hgb (12.0-16.0) g/dl Hct 35.4 L (37.0-47.0) % POC Hct (37-47) % MCV 93.2 (80.0-100.0) fL MCH 30.5 (25.0-34.0) pg MCHC 32.8 (32.0-36.0) g/dL RDW Std Deviation 63.6 H (36.4-46.3) fL RDW Coeff of Bubba 19.9 H (11.5-14.5) % Plt Count 57 L (130-400) K/uL MPV 12.7 H (9.4-12.4) fL Immature Gran % (Auto) 1.2 % Neut % (Auto) 93.7 % Lymph % (Auto) 0.8 % [place] % (Auto) 4.0 % Eos % (Auto) 0.1 % Baso % (Auto) 0.2 % Neut # (Auto) 12.07 H (1.40-6.50) K/uL Lymph # (Auto) 0.10 L (1.20-3.40) K/uL [place] # (Auto) 0.51 (0.11-0.59) K/uL Eos # (Auto) 0.01 (0.00-0.50) K/uL Baso # (Auto) 0.03 (0.00-0.20) K/uL Immature Gran # (Auto) 0.16 (0.01-0.20) K/uL Absolute Nucleated RBC 1.38 H (0.00-0.12) K/uL Nucleated RBC % (auto) 10.7 % Polychromasia 3+ Anisocytosis Echinocytes 1+ PT (9.0-12.0) Seconds INR (0.9-1.1) APTT (21-31) Seconds PTT Ratio Sample Site POC pH (7.35-7.45) POC pCO2 (35-46) mmHg POC pO2 (80-95) mmHg POC HCO3 (19-24) shana/L POC Total CO2 (24-31) mmol/L POC Base Excess (-9-1.8) shana/L ABG pH ABG pH (Temp Correct) (7.35-7.45) ABG pCO2 ABG pCO2 (Temp Corrct (35-46) mmHg ABG pO2 POC ABG pO2 at Pt Temp ABG HCO3 POC ABG O2 Sat (90-95) % ABG O2 Saturation ABG Base Excess Jose Test VBG pH (7.36-7.41) VBG pCO2 (38-50) mmHg VBG pO2 mmHg VBG HCO3 mmol/L VBG O2 Saturation % VBG Base Excess mEq/L Barometric Pressure Oxygen Given O2 Delivery Device POC O2 Rate Minute Ventilation POC FiO2 % Tidal Volume PEEP POC Sodium (135-144) mmol/L Sodium 132 L (136-145) mmol/L POC Potassium (3.3-5.0) mmol/L Potassium 4.0 D (3.5-5.1) mmol/L Chloride 103 (98-107) mmol/L Carbon Dioxide 20 L (21-32) mmol/L Anion Gap 9 (3-11) BUN 37 H D (6-23) mg/dl Creatinine 1.18 D (0.6-1.2) mg/dl Est Cr Clr Drug Dosing 32.1 ml/min Est GFR ( Amer) 50.4 ml/min Est GFR (Non-Af Amer) 43.5 ml/min BUN/Creatinine Ratio 31.4 H (10-20) Glucose 161 H (70-99(Fasting)) mg/dl POC Glucose 99 136 H (70-99) mg/dl Lactate (0.4-2.0) mmol/L Calcium 6.7 L (8.6-10.3) mg/dl Phosphorus (2.5-4.9) mg/dl Magnesium 1.9 (1.7-2.4) mg/dl Total Bilirubin 4.4 H (0.2-1.0) mg/dl Direct Bilirubin 2.6 H (0-0.2) mg/dl AST 29 (13-39) U/L ALT 12 (7-52) U/L Alkaline Phosphatase 60 (34-104) U/L Total Creatine Kinase (26-192) U/L Troponin I High Sens (0-14) pg/ml B-Natriuretic Peptide (0-100) pg/ml Total Protein 4.8 L (6.0-8.3) gm/dl Albumin 2.1 L (3.4-5.0) gm/dl Globulin (2.5-4.0) gm/dl Albumin/Globulin Ratio (0.9-2) Procalcitonin (0-0.5) ng/ml TSH (0.300-4.500) uIu/ml Free T4 (0.61-1.60) ng/dl Random Cortisol mcg/dl Urine Color Urine Appearance (Clear) Urine pH (4.5-7.5) Ur Specific [place] (1.000-1.030) Urine Protein (Negative) Urine Glucose (UA) (Negative) Urine Ketones (Negative) Urine Blood (Negative) Urine Nitrite (Negative) Urine Bilirubin (Negative) Urine Urobilinogen (Negative) Ur Leukocyte Esterase (Negative) Urine WBC (Auto) (0-5) /hpf Urine RBC (Auto) (0-4) /hpf U Hyaline Cast (Auto) (0-5) /lpf U Epithel Cells (Auto) (0-5) /lpf Urine Bacteria (Auto) (Negative) Urine Osmolality (500-800) mOsm/kg Ur Random Creatinine mg/dl Ur Random Sodium mmol/L Ur Random Potassium mmol/L Ur Random Chloride mmol/L Nasal Screen MRSA (PCR) (Negative) Hep Bs Antigen (NON-REACTIVE) Hep Bs Ag Confirmation Hep Bs Antibody, Quant (> OR = 10) mIU/mL Hep B Core IgM Ab (NON-REACTIVE) Staphylococcus sp PCR (NotDetected) Bld Cult ID Panel PCR (NotDetected) 02/20/24 02/20/24 02/20/24 Range/Units 17:36 12:52 11:35 WBC 13.82 H (4.8-10.8) K/ul RBC 3.58 L (4.20-5.40) M/uL Hgb 11.0 L (12.0-16.0) g/dl POC Hgb (12.0-16.0) g/dl Hct 34.2 L (37.0-47.0) % POC Hct (37-47) % MCV 95.5 (80.0-100.0) fL MCH 30.7 (25.0-34.0) pg MCHC 32.2 (32.0-36.0) g/dL RDW Std Deviation 67.0 H (36.4-46.3) fL RDW Coeff of Bubba 19.9 H (11.5-14.5) % Plt Count 60 L (130-400) K/uL MPV 12.1 (9.4-12.4) fL Immature Gran % (Auto) % Neut % (Auto) % Lymph % (Auto) % [place] % (Auto) % Eos % (Auto) % Baso % (Auto) % Neut # (Auto) (1.40-6.50) K/uL Lymph # (Auto) (1.20-3.40) K/uL [place] # (Auto) (0.11-0.59) K/uL Eos # (Auto) (0.00-0.50) K/uL Baso # (Auto) (0.00-0.20) K/uL Immature Gran # (Auto) (0.01-0.20) K/uL Absolute Nucleated RBC 1.58 H (0.00-0.12) K/uL Nucleated RBC % (auto) 11.4 % Polychromasia Anisocytosis Echinocytes PT (9.0-12.0) Seconds INR (0.9-1.1) APTT (21-31) Seconds PTT Ratio Sample Site POC pH (7.35-7.45) POC pCO2 (35-46) mmHg POC pO2 (80-95) mmHg POC HCO3 (19-24) shana/L POC Total CO2 (24-31) mmol/L POC Base Excess (-9-1.8) shana/L ABG pH ABG pH (Temp Correct) (7.35-7.45) ABG pCO2 ABG pCO2 (Temp Corrct (35-46) mmHg ABG pO2 POC ABG pO2 at Pt Temp ABG HCO3 POC ABG O2 Sat (90-95) % ABG O2 Saturation ABG Base Excess Jose Test VBG pH (7.36-7.41) VBG pCO2 (38-50) mmHg VBG pO2 mmHg VBG HCO3 mmol/L VBG O2 Saturation % VBG Base Excess mEq/L Barometric Pressure Oxygen Given O2 Delivery Device POC O2 Rate Minute Ventilation POC FiO2 % Tidal Volume PEEP POC Sodium (135-144) mmol/L Sodium (136-145) mmol/L POC Potassium (3.3-5.0) mmol/L Potassium (3.5-5.1) mmol/L Chloride (98-107) mmol/L Carbon Dioxide (21-32) mmol/L Anion Gap (3-11) BUN (6-23) mg/dl Creatinine (0.6-1.2) mg/dl Est Cr Clr Drug Dosing ml/min Est GFR ( Amer) ml/min Est GFR (Non-Af Amer) ml/min BUN/Creatinine Ratio (10-20) Glucose (70-99(Fasting)) mg/dl POC Glucose 126 H (70-99) mg/dl Lactate (0.4-2.0) mmol/L Calcium (8.6-10.3) mg/dl Phosphorus (2.5-4.9) mg/dl Magnesium (1.7-2.4) mg/dl Total Bilirubin (0.2-1.0) mg/dl Direct Bilirubin (0-0.2) mg/dl AST (13-39) U/L ALT (7-52) U/L Alkaline Phosphatase (34-104) U/L Total Creatine Kinase (26-192) U/L Troponin I High Sens (0-14) pg/ml B-Natriuretic Peptide (0-100) pg/ml Total Protein (6.0-8.3) gm/dl Albumin (3.4-5.0) gm/dl Globulin (2.5-4.0) gm/dl Albumin/Globulin Ratio (0.9-2) Procalcitonin (0-0.5) ng/ml TSH (0.300-4.500) uIu/ml Free T4 (0.61-1.60) ng/dl Random Cortisol mcg/dl Urine Color Urine Appearance (Clear) Urine pH (4.5-7.5) Ur Specific [place] (1.000-1.030) Urine Protein (Negative) Urine Glucose (UA) (Negative) Urine Ketones (Negative) Urine Blood (Negative) Urine Nitrite (Negative) Urine Bilirubin (Negative) Urine Urobilinogen (Negative) Ur Leukocyte Esterase (Negative) Urine WBC (Auto) (0-5) /hpf Urine RBC (Auto) (0-4) /hpf U Hyaline Cast (Auto) (0-5) /lpf U Epithel Cells (Auto) (0-5) /lpf Urine Bacteria (Auto) (Negative) Urine Osmolality (500-800) mOsm/kg Ur Random Creatinine mg/dl Ur Random Sodium mmol/L Ur Random Potassium mmol/L Ur Random Chloride mmol/L Nasal Screen MRSA (PCR) (Negative) Hep Bs Antigen NON-REACTIVE (NON-REACTIVE) Hep Bs Ag Confirmation TNP Hep Bs Antibody, Quant 34 (> OR = 10) mIU/mL Hep B Core IgM Ab NON-REACTIVE (NON-REACTIVE) Staphylococcus sp PCR (NotDetected) Bld Cult ID Panel PCR (NotDetected) 02/20/24 02/20/24 02/20/24 Range/Units 10:49 09:35 08:03 WBC (4.8-10.8) K/ul RBC (4.20-5.40) M/uL Hgb (12.0-16.0) g/dl POC Hgb 13.3 (12.0-16.0) g/dl Hct (37.0-47.0) % POC Hct 39 (37-47) % MCV (80.0-100.0) fL MCH (25.0-34.0) pg MCHC (32.0-36.0) g/dL RDW Std Deviation (36.4-46.3) fL RDW Coeff of Bubba (11.5-14.5) % Plt Count (130-400) K/uL MPV (9.4-12.4) fL Immature Gran % (Auto) % Neut % (Auto) % Lymph % (Auto) % [place] % (Auto) % Eos % (Auto) % Baso % (Auto) % Neut # (Auto) (1.40-6.50) K/uL Lymph # (Auto) (1.20-3.40) K/uL [place] # (Auto) (0.11-0.59) K/uL Eos # (Auto) (0.00-0.50) K/uL Baso # (Auto) (0.00-0.20) K/uL Immature Gran # (Auto) (0.01-0.20) K/uL Absolute Nucleated RBC (0.00-0.12) K/uL Nucleated RBC % (auto) % Polychromasia Anisocytosis Echinocytes PT (9.0-12.0) Seconds INR (0.9-1.1) APTT (21-31) Seconds PTT Ratio Sample Site Art Line POC pH 7.26 L (7.35-7.45) POC pCO2 41 (35-46) mmHg POC pO2 101 H (80-95) mmHg POC HCO3 18 L (19-24) shana/L POC Total CO2 20 L (24-31) mmol/L POC Base Excess -9.0 (-9-1.8) shana/L ABG pH ABG pH (Temp Correct) 7.264 L (7.35-7.45) ABG pCO2 ABG pCO2 (Temp Corrct 40 (35-46) mmHg ABG pO2 POC ABG pO2 at Pt Temp 98 ABG HCO3 POC ABG O2 Sat 97.0 H (90-95) % ABG O2 Saturation ABG Base Excess Jose Test NA VBG pH (7.36-7.41) VBG pCO2 (38-50) mmHg VBG pO2 mmHg VBG HCO3 mmol/L VBG O2 Saturation % VBG Base Excess mEq/L Barometric Pressure Oxygen Given O2 Delivery Device Ventilator POC O2 Rate 18 Minute Ventilation 5.4 POC FiO2 60 % Tidal Volume 300 PEEP 5 POC Sodium 134 L (135-144) mmol/L Sodium 132 L (136-145) mmol/L POC Potassium 5.2 H (3.3-5.0) mmol/L Potassium 6.0 H (3.5-5.1) mmol/L Chloride 107 (98-107) mmol/L Carbon Dioxide 20 L (21-32) mmol/L Anion Gap 5 (3-11) BUN 65 H (6-23) mg/dl Creatinine 1.62 H (0.6-1.2) mg/dl Est Cr Clr Drug Dosing 23.4 ml/min Est GFR ( Amer) 34.4 ml/min Est GFR (Non-Af Amer) 29.7 ml/min BUN/Creatinine Ratio 40.1 H (10-20) Glucose 141 H (70-99(Fasting)) mg/dl POC Glucose 126 H (70-99) mg/dl Lactate (0.4-2.0) mmol/L Calcium 7.6 L (8.6-10.3) mg/dl Phosphorus 4.6 (2.5-4.9) mg/dl Magnesium 2.5 H (1.7-2.4) mg/dl Total Bilirubin (0.2-1.0) mg/dl Direct Bilirubin (0-0.2) mg/dl AST (13-39) U/L ALT (7-52) U/L Alkaline Phosphatase (34-104) U/L Total Creatine Kinase 45 (26-192) U/L Troponin I High Sens (0-14) pg/ml B-Natriuretic Peptide (0-100) pg/ml Total Protein (6.0-8.3) gm/dl Albumin (3.4-5.0) gm/dl Globulin (2.5-4.0) gm/dl Albumin/Globulin Ratio (0.9-2) Procalcitonin (0-0.5) ng/ml TSH (0.300-4.500) uIu/ml Free T4 (0.61-1.60) ng/dl Random Cortisol mcg/dl Urine Color Urine Appearance (Clear) Urine pH (4.5-7.5) Ur Specific [place] (1.000-1.030) Urine Protein (Negative) Urine Glucose (UA) (Negative) Urine Ketones (Negative) Urine Blood (Negative) Urine Nitrite (Negative) Urine Bilirubin (Negative) Urine Urobilinogen (Negative) Ur Leukocyte Esterase (Negative) Urine WBC (Auto) (0-5) /hpf Urine RBC (Auto) (0-4) /hpf U Hyaline Cast (Auto) (0-5) /lpf U Epithel Cells (Auto) (0-5) /lpf Urine Bacteria (Auto) (Negative) Urine Osmolality (500-800) mOsm/kg Ur Random Creatinine mg/dl Ur Random Sodium mmol/L Ur Random Potassium mmol/L Ur Random Chloride mmol/L Nasal Screen MRSA (PCR) (Negative) Hep Bs Antigen (NON-REACTIVE) Hep Bs Ag Confirmation Hep Bs Antibody, Quant (> OR = 10) mIU/mL Hep B Core IgM Ab (NON-REACTIVE) Staphylococcus sp PCR (NotDetected) Bld Cult ID Panel PCR (NotDetected) 02/20/24 02/20/24 02/19/24 Range/Units 04:12 00:23 Unknown WBC 18.52 H (4.8-10.8) K/ul RBC 3.95 L (4.20-5.40) M/uL Hgb 12.0 (12.0-16.0) g/dl POC Hgb (12.0-16.0) g/dl Hct 38.6 (37.0-47.0) % POC Hct (37-47) % MCV 97.7 (80.0-100.0) fL MCH 30.4 (25.0-34.0) pg MCHC 31.1 L (32.0-36.0) g/dL RDW Std Deviation 69.0 H (36.4-46.3) fL RDW Coeff of Bubba 20.1 H (11.5-14.5) % Plt Count 79 L (130-400) K/uL MPV 12.3 (9.4-12.4) fL Immature Gran % (Auto) 2.2 % Neut % (Auto) 92.9 % Lymph % (Auto) 0.1 % [place] % (Auto) 4.6 % Eos % (Auto) 0.0 % Baso % (Auto) 0.2 % Neut # (Auto) 17.22 H (1.40-6.50) K/uL Lymph # (Auto) 0.01 L (1.20-3.40) K/uL [place] # (Auto) 0.86 H (0.11-0.59) K/uL Eos # (Auto) 0.00 (0.00-0.50) K/uL Baso # (Auto) 0.03 (0.00-0.20) K/uL Immature Gran # (Auto) 0.40 H (0.01-0.20) K/uL Absolute Nucleated RBC 1.41 H (0.00-0.12) K/uL Nucleated RBC % (auto) 7.6 % Polychromasia 2+ Anisocytosis Echinocytes 1+ PT (9.0-12.0) Seconds INR (0.9-1.1) APTT (21-31) Seconds PTT Ratio Sample Site POC pH (7.35-7.45) POC pCO2 (35-46) mmHg POC pO2 (80-95) mmHg POC HCO3 (19-24) shana/L POC Total CO2 (24-31) mmol/L POC Base Excess (-9-1.8) shana/L ABG pH ABG pH (Temp Correct) (7.35-7.45) ABG pCO2 ABG pCO2 (Temp Corrct (35-46) mmHg ABG pO2 POC ABG pO2 at Pt Temp ABG HCO3 POC ABG O2 Sat (90-95) % ABG O2 Saturation ABG Base Excess Jose Test VBG pH 7.22 L 7.21 L (7.36-7.41) VBG pCO2 41 35 L (38-50) mmHg VBG pO2 46 46 mmHg VBG HCO3 17 14 mmol/L VBG O2 Saturation 66.8 64.2 % VBG Base Excess -10.4 -12.9 mEq/L Barometric Pressure Oxygen Given O2 Delivery Device POC O2 Rate Minute Ventilation POC FiO2 % Tidal Volume PEEP POC Sodium (135-144) mmol/L Sodium 131 L 132 L (136-145) mmol/L POC Potassium (3.3-5.0) mmol/L Potassium 6.0 H 5.7 H (3.5-5.1) mmol/L Chloride 107 109 H (98-107) mmol/L Carbon Dioxide 16 L 13 L (21-32) mmol/L Anion Gap 8 10 (3-11) BUN 67 H 63 H (6-23) mg/dl Creatinine 1.62 H 1.58 H (0.6-1.2) mg/dl Est Cr Clr Drug Dosing 22.6 23.2 ml/min Est GFR ( Amer) 34.4 35.4 ml/min Est GFR (Non-Af Amer) 29.7 30.6 ml/min BUN/Creatinine Ratio 41.4 H 39.9 H (10-20) Glucose 130 H 120 H (70-99(Fasting)) mg/dl POC Glucose (70-99) mg/dl Lactate 3.9 H* (0.4-2.0) mmol/L Calcium 7.8 L 7.7 L (8.6-10.3) mg/dl Phosphorus (2.5-4.9) mg/dl Magnesium 2.6 H (1.7-2.4) mg/dl Total Bilirubin 5.0 H (0.2-1.0) mg/dl Direct Bilirubin 3.2 H (0-0.2) mg/dl AST 33 (13-39) U/L ALT 12 (7-52) U/L Alkaline Phosphatase 69 (34-104) U/L Total Creatine Kinase (26-192) U/L Troponin I High Sens (0-14) pg/ml B-Natriuretic Peptide (0-100) pg/ml Total Protein 5.6 L (6.0-8.3) gm/dl Albumin 2.2 L (3.4-5.0) gm/dl Globulin (2.5-4.0) gm/dl Albumin/Globulin Ratio (0.9-2) Procalcitonin (0-0.5) ng/ml TSH (0.300-4.500) uIu/ml Free T4 (0.61-1.60) ng/dl Random Cortisol mcg/dl Urine Color Dark Yellow Urine Appearance Clear (Clear) Urine pH 5.5 (4.5-7.5) Ur Specific [place] 1.023 (1.000-1.030) Urine Protein 1+ H (Negative) Urine Glucose (UA) Negative (Negative) Urine Ketones Negative (Negative) Urine Blood Negative (Negative) Urine Nitrite Positive A (Negative) Urine Bilirubin 1+ H (Negative) Urine Urobilinogen Negative (Negative) Ur Leukocyte Esterase Trace H (Negative) Urine WBC (Auto) 1-5 (0-5) /hpf Urine RBC (Auto) 5-10 H (0-4) /hpf U Hyaline Cast (Auto) 5-10 H (0-5) /lpf U Epithel Cells (Auto) 10-20 H (0-5) /lpf Urine Bacteria (Auto) Negative (Negative) Urine Osmolality 723 (500-800) mOsm/kg Ur Random Creatinine 99.9 mg/dl Ur Random Sodium < 10 mmol/L Ur Random Potassium 43.9 mmol/L Ur Random Chloride 22 mmol/L Nasal Screen MRSA (PCR) Negative (Negative) Hep Bs Antigen (NON-REACTIVE) Hep Bs Ag Confirmation Hep Bs Antibody, Quant (> OR = 10) mIU/mL Hep B Core IgM Ab (NON-REACTIVE) Staphylococcus sp PCR (NotDetected) Bld Cult ID Panel PCR (NotDetected) 02/19/24 02/19/24 02/19/24 Range/Units 22:37 20:42 20:14 WBC (4.8-10.8) K/ul RBC (4.20-5.40) M/uL Hgb (12.0-16.0) g/dl POC Hgb (12.0-16.0) g/dl Hct (37.0-47.0) % POC Hct (37-47) % MCV (80.0-100.0) fL MCH (25.0-34.0) pg MCHC (32.0-36.0) g/dL RDW Std Deviation (36.4-46.3) fL RDW Coeff of Bubba (11.5-14.5) % Plt Count (130-400) K/uL MPV (9.4-12.4) fL Immature Gran % (Auto) % Neut % (Auto) % Lymph % (Auto) % [place] % (Auto) % Eos % (Auto) % Baso % (Auto) % Neut # (Auto) (1.40-6.50) K/uL Lymph # (Auto) (1.20-3.40) K/uL [place] # (Auto) (0.11-0.59) K/uL Eos # (Auto) (0.00-0.50) K/uL Baso # (Auto) (0.00-0.20) K/uL Immature Gran # (Auto) (0.01-0.20) K/uL Absolute Nucleated RBC (0.00-0.12) K/uL Nucleated RBC % (auto) % Polychromasia Anisocytosis Echinocytes PT (9.0-12.0) Seconds INR (0.9-1.1) APTT (21-31) Seconds PTT Ratio Sample Site POC pH (7.35-7.45) POC pCO2 (35-46) mmHg POC pO2 (80-95) mmHg POC HCO3 (19-24) shana/L POC Total CO2 (24-31) mmol/L POC Base Excess (-9-1.8) shana/L ABG pH ABG pH (Temp Correct) (7.35-7.45) ABG pCO2 ABG pCO2 (Temp Corrct (35-46) mmHg ABG pO2 POC ABG pO2 at Pt Temp ABG HCO3 POC ABG O2 Sat (90-95) % ABG O2 Saturation ABG Base Excess Jose Test VBG pH (7.36-7.41) VBG pCO2 (38-50) mmHg VBG pO2 mmHg VBG HCO3 mmol/L VBG O2 Saturation % VBG Base Excess mEq/L Barometric Pressure Oxygen Given O2 Delivery Device POC O2 Rate Minute Ventilation POC FiO2 % Tidal Volume PEEP POC Sodium (135-144) mmol/L Sodium 131 L (136-145) mmol/L POC Potassium (3.3-5.0) mmol/L Potassium 6.4 H* (3.5-5.1) mmol/L Chloride 109 H (98-107) mmol/L Carbon Dioxide 11 L (21-32) mmol/L Anion Gap 11 (3-11) BUN 61 H (6-23) mg/dl Creatinine 1.48 H (0.6-1.2) mg/dl Est Cr Clr Drug Dosing 24.7 ml/min Est GFR ( Amer) 38.4 ml/min Est GFR (Non-Af Amer) 33.1 ml/min BUN/Creatinine Ratio 41.2 H (10-20) Glucose 84 (70-99(Fasting)) mg/dl POC Glucose 74 (70-99) mg/dl Lactate 6.3 H* 6.6 H* (0.4-2.0) mmol/L Calcium 7.8 L (8.6-10.3) mg/dl Phosphorus (2.5-4.9) mg/dl Magnesium 2.7 H (1.7-2.4) mg/dl Total Bilirubin (0.2-1.0) mg/dl Direct Bilirubin (0-0.2) mg/dl AST (13-39) U/L ALT (7-52) U/L Alkaline Phosphatase (34-104) U/L Total Creatine Kinase (26-192) U/L Troponin I High Sens (0-14) pg/ml B-Natriuretic Peptide (0-100) pg/ml Total Protein (6.0-8.3) gm/dl Albumin (3.4-5.0) gm/dl Globulin (2.5-4.0) gm/dl Albumin/Globulin Ratio (0.9-2) Procalcitonin (0-0.5) ng/ml TSH (0.300-4.500) uIu/ml Free T4 (0.61-1.60) ng/dl Random Cortisol mcg/dl Urine Color Urine Appearance (Clear) Urine pH (4.5-7.5) Ur Specific [place] (1.000-1.030) Urine Protein (Negative) Urine Glucose (UA) (Negative) Urine Ketones (Negative) Urine Blood (Negative) Urine Nitrite (Negative) Urine Bilirubin (Negative) Urine Urobilinogen (Negative) Ur Leukocyte Esterase (Negative) Urine WBC (Auto) (0-5) /hpf Urine RBC (Auto) (0-4) /hpf U Hyaline Cast (Auto) (0-5) /lpf U Epithel Cells (Auto) (0-5) /lpf Urine Bacteria (Auto) (Negative) Urine Osmolality (500-800) mOsm/kg Ur Random Creatinine mg/dl Ur Random Sodium mmol/L Ur Random Potassium mmol/L Ur Random Chloride mmol/L Nasal Screen MRSA (PCR) (Negative) Hep Bs Antigen (NON-REACTIVE) Hep Bs Ag Confirmation Hep Bs Antibody, Quant (> OR = 10) mIU/mL Hep B Core IgM Ab (NON-REACTIVE) Staphylococcus sp PCR (NotDetected) Bld Cult ID Panel PCR (NotDetected) 02/19/24 02/19/24 02/19/24 Range/Units 18:18 17:22 14:42 WBC (4.8-10.8) K/ul RBC (4.20-5.40) M/uL Hgb (12.0-16.0) g/dl POC Hgb (12.0-16.0) g/dl Hct (37.0-47.0) % POC Hct (37-47) % MCV (80.0-100.0) fL MCH (25.0-34.0) pg MCHC (32.0-36.0) g/dL RDW Std Deviation (36.4-46.3) fL RDW Coeff of Bubba (11.5-14.5) % Plt Count (130-400) K/uL MPV (9.4-12.4) fL Immature Gran % (Auto) % Neut % (Auto) % Lymph % (Auto) % [place] % (Auto) % Eos % (Auto) % Baso % (Auto) % Neut # (Auto) (1.40-6.50) K/uL Lymph # (Auto) (1.20-3.40) K/uL [place] # (Auto) (0.11-0.59) K/uL Eos # (Auto) (0.00-0.50) K/uL Baso # (Auto) (0.00-0.20) K/uL Immature Gran # (Auto) (0.01-0.20) K/uL Absolute Nucleated RBC (0.00-0.12) K/uL Nucleated RBC % (auto) % Polychromasia Anisocytosis Echinocytes PT (9.0-12.0) Seconds INR (0.9-1.1) APTT (21-31) Seconds PTT Ratio Sample Site POC pH (7.35-7.45) POC pCO2 (35-46) mmHg POC pO2 (80-95) mmHg POC HCO3 (19-24) shana/L POC Total CO2 (24-31) mmol/L POC Base Excess (-9-1.8) shana/L ABG pH ABG pH (Temp Correct) (7.35-7.45) ABG pCO2 ABG pCO2 (Temp Corrct (35-46) mmHg ABG pO2 POC ABG pO2 at Pt Temp ABG HCO3 POC ABG O2 Sat (90-95) % ABG O2 Saturation ABG Base Excess Jose Test VBG pH (7.36-7.41) VBG pCO2 (38-50) mmHg VBG pO2 mmHg VBG HCO3 mmol/L VBG O2 Saturation % VBG Base Excess mEq/L Barometric Pressure Oxygen Given O2 Delivery Device POC O2 Rate Minute Ventilation POC FiO2 % Tidal Volume PEEP POC Sodium (135-144) mmol/L Sodium 132 L (136-145) mmol/L POC Potassium (3.3-5.0) mmol/L Potassium 6.0 H (3.5-5.1) mmol/L Chloride 110 H (98-107) mmol/L Carbon Dioxide 10 L (21-32) mmol/L Anion Gap 12 H (3-11) BUN 61 H (6-23) mg/dl Creatinine 1.33 H (0.6-1.2) mg/dl Est Cr Clr Drug Dosing 27.5 ml/min Est GFR ( Amer) 43.6 ml/min Est GFR (Non-Af Amer) 37.7 ml/min BUN/Creatinine Ratio 45.9 H (10-20) Glucose 107 H (70-99(Fasting)) mg/dl POC Glucose 85 (70-99) mg/dl Lactate (0.4-2.0) mmol/L Calcium 7.7 L (8.6-10.3) mg/dl Phosphorus (2.5-4.9) mg/dl Magnesium 2.7 H (1.7-2.4) mg/dl Total Bilirubin (0.2-1.0) mg/dl Direct Bilirubin (0-0.2) mg/dl AST (13-39) U/L ALT (7-52) U/L Alkaline Phosphatase (34-104) U/L Total Creatine Kinase 42 (26-192) U/L Troponin I High Sens 72.9 H* D (0-14) pg/ml B-Natriuretic Peptide 1399 H (0-100) pg/ml Total Protein (6.0-8.3) gm/dl Albumin (3.4-5.0) gm/dl Globulin (2.5-4.0) gm/dl Albumin/Globulin Ratio (0.9-2) Procalcitonin (0-0.5) ng/ml TSH (0.300-4.500) uIu/ml Free T4 (0.61-1.60) ng/dl Random Cortisol mcg/dl Urine Color Urine Appearance (Clear) Urine pH (4.5-7.5) Ur Specific [place] (1.000-1.030) Urine Protein (Negative) Urine Glucose (UA) (Negative) Urine Ketones (Negative) Urine Blood (Negative) Urine Nitrite (Negative) Urine Bilirubin (Negative) Urine Urobilinogen (Negative) Ur Leukocyte Esterase (Negative) Urine WBC (Auto) (0-5) /hpf Urine RBC (Auto) (0-4) /hpf U Hyaline Cast (Auto) (0-5) /lpf U Epithel Cells (Auto) (0-5) /lpf Urine Bacteria (Auto) (Negative) Urine Osmolality (500-800) mOsm/kg Ur Random Creatinine mg/dl Ur Random Sodium mmol/L Ur Random Potassium mmol/L Ur Random Chloride mmol/L Nasal Screen MRSA (PCR) (Negative) Hep Bs Antigen (NON-REACTIVE) Hep Bs Ag Confirmation Hep Bs Antibody, Quant (> OR = 10) mIU/mL Hep B Core IgM Ab (NON-REACTIVE) Staphylococcus sp PCR (NotDetected) Bld Cult ID Panel PCR (NotDetected) 02/19/24 02/19/24 02/19/24 Range/Units 14:29 13:30 13:13 WBC (4.8-10.8) K/ul RBC (4.20-5.40) M/uL Hgb (12.0-16.0) g/dl POC Hgb (12.0-16.0) g/dl Hct (37.0-47.0) % POC Hct (37-47) % MCV (80.0-100.0) fL MCH (25.0-34.0) pg MCHC (32.0-36.0) g/dL RDW Std Deviation (36.4-46.3) fL RDW Coeff of Bubba (11.5-14.5) % Plt Count (130-400) K/uL MPV (9.4-12.4) fL Immature Gran % (Auto) % Neut % (Auto) % Lymph % (Auto) % [place] % (Auto) % Eos % (Auto) % Baso % (Auto) % Neut # (Auto) (1.40-6.50) K/uL Lymph # (Auto) (1.20-3.40) K/uL [place] # (Auto) (0.11-0.59) K/uL Eos # (Auto) (0.00-0.50) K/uL Baso # (Auto) (0.00-0.20) K/uL Immature Gran # (Auto) (0.01-0.20) K/uL Absolute Nucleated RBC (0.00-0.12) K/uL Nucleated RBC % (auto) % Polychromasia Anisocytosis Echinocytes PT (9.0-12.0) Seconds INR (0.9-1.1) APTT (21-31) Seconds PTT Ratio Sample Site POC pH (7.35-7.45) POC pCO2 (35-46) mmHg POC pO2 (80-95) mmHg POC HCO3 (19-24) shana/L POC Total CO2 (24-31) mmol/L POC Base Excess (-9-1.8) shana/L ABG pH Cancelled ABG pH (Temp Correct) (7.35-7.45) ABG pCO2 Cancelled ABG pCO2 (Temp Corrct (35-46) mmHg ABG pO2 Cancelled POC ABG pO2 at Pt Temp ABG HCO3 Cancelled POC ABG O2 Sat (90-95) % ABG O2 Saturation Cancelled ABG Base Excess Cancelled Jose Test Cancelled VBG pH 7.22 L (7.36-7.41) VBG pCO2 39 (38-50) mmHg VBG pO2 24 mmHg VBG HCO3 16 mmol/L VBG O2 Saturation < 60.0 % VBG Base Excess -11.1 mEq/L Barometric Pressure Cancelled Oxygen Given Cancelled O2 Delivery Device POC O2 Rate Minute Ventilation POC FiO2 % Tidal Volume PEEP POC Sodium (135-144) mmol/L Sodium (136-145) mmol/L POC Potassium (3.3-5.0) mmol/L Potassium (3.5-5.1) mmol/L Chloride (98-107) mmol/L Carbon Dioxide (21-32) mmol/L Anion Gap (3-11) BUN (6-23) mg/dl Creatinine (0.6-1.2) mg/dl Est Cr Clr Drug Dosing ml/min Est GFR ( Amer) ml/min Est GFR (Non-Af Amer) ml/min BUN/Creatinine Ratio (10-20) Glucose (70-99(Fasting)) mg/dl POC Glucose (70-99) mg/dl Lactate 2.4 H* (0.4-2.0) mmol/L Calcium (8.6-10.3) mg/dl Phosphorus (2.5-4.9) mg/dl Magnesium (1.7-2.4) mg/dl Total Bilirubin (0.2-1.0) mg/dl Direct Bilirubin (0-0.2) mg/dl AST (13-39) U/L ALT (7-52) U/L Alkaline Phosphatase (34-104) U/L Total Creatine Kinase (26-192) U/L Troponin I High Sens (0-14) pg/ml B-Natriuretic Peptide (0-100) pg/ml Total Protein (6.0-8.3) gm/dl Albumin (3.4-5.0) gm/dl Globulin (2.5-4.0) gm/dl Albumin/Globulin Ratio (0.9-2) Procalcitonin (0-0.5) ng/ml TSH (0.300-4.500) uIu/ml Free T4 (0.61-1.60) ng/dl Random Cortisol mcg/dl Urine Color Urine Appearance (Clear) Urine pH (4.5-7.5) Ur Specific [place] (1.000-1.030) Urine Protein (Negative) Urine Glucose (UA) (Negative) Urine Ketones (Negative) Urine Blood (Negative) Urine Nitrite (Negative) Urine Bilirubin (Negative) Urine Urobilinogen (Negative) Ur Leukocyte Esterase (Negative) Urine WBC (Auto) (0-5) /hpf Urine RBC (Auto) (0-4) /hpf U Hyaline Cast (Auto) (0-5) /lpf U Epithel Cells (Auto) (0-5) /lpf Urine Bacteria (Auto) (Negative) Urine Osmolality (500-800) mOsm/kg Ur Random Creatinine mg/dl Ur Random Sodium mmol/L Ur Random Potassium mmol/L Ur Random Chloride mmol/L Nasal Screen MRSA (PCR) (Negative) Hep Bs Antigen (NON-REACTIVE) Hep Bs Ag Confirmation Hep Bs Antibody, Quant (> OR = 10) mIU/mL Hep B Core IgM Ab (NON-REACTIVE) Staphylococcus sp PCR DETECTED A (NotDetected) Bld Cult ID Panel PCR See PCR Comment (NotDetected) 02/19/24 02/19/24 Range/Units 12:04 11:55 WBC 15.05 H (4.8-10.8) K/ul RBC 4.41 (4.20-5.40) M/uL Hgb 13.5 (12.0-16.0) g/dl POC Hgb (12.0-16.0) g/dl Hct 42.2 (37.0-47.0) % POC Hct (37-47) % MCV 95.7 (80.0-100.0) fL MCH 30.6 (25.0-34.0) pg MCHC 32.0 (32.0-36.0) g/dL RDW Std Deviation 68.4 H (36.4-46.3) fL RDW Coeff of Bubba 20.2 H (11.5-14.5) % Plt Count 82 L (130-400) K/uL MPV 11.5 (9.4-12.4) fL Immature Gran % (Auto) 1.3 % Neut % (Auto) 93.6 % Lymph % (Auto) 1.5 % [place] % (Auto) 3.5 % Eos % (Auto) 0.0 % Baso % (Auto) 0.1 % Neut # (Auto) 14.09 H (1.40-6.50) K/uL Lymph # (Auto) 0.23 L (1.20-3.40) K/uL [place] # (Auto) 0.52 (0.11-0.59) K/uL Eos # (Auto) 0.00 (0.00-0.50) K/uL Baso # (Auto) 0.02 (0.00-0.20) K/uL Immature Gran # (Auto) 0.19 (0.01-0.20) K/uL Absolute Nucleated RBC 0.46 H (0.00-0.12) K/uL Nucleated RBC % (auto) 3.1 % Polychromasia 1+ Anisocytosis Present Echinocytes PT 13.5 H (9.0-12.0) Seconds INR 1.2 H (0.9-1.1) APTT 31 (21-31) Seconds PTT Ratio 1.1 Sample Site POC pH (7.35-7.45) POC pCO2 (35-46) mmHg POC pO2 (80-95) mmHg POC HCO3 (19-24) shana/L POC Total CO2 (24-31) mmol/L POC Base Excess (-9-1.8) shana/L ABG pH ABG pH (Temp Correct) (7.35-7.45) ABG pCO2 ABG pCO2 (Temp Corrct (35-46) mmHg ABG pO2 POC ABG pO2 at Pt Temp ABG HCO3 POC ABG O2 Sat (90-95) % ABG O2 Saturation ABG Base Excess Jose Test VBG pH (7.36-7.41) VBG pCO2 (38-50) mmHg VBG pO2 mmHg VBG HCO3 mmol/L VBG O2 Saturation % VBG Base Excess mEq/L Barometric Pressure Oxygen Given O2 Delivery Device POC O2 Rate Minute Ventilation POC FiO2 % Tidal Volume PEEP POC Sodium (135-144) mmol/L Sodium 131 L (136-145) mmol/L POC Potassium (3.3-5.0) mmol/L Potassium 5.8 H (3.5-5.1) mmol/L Chloride 107 (98-107) mmol/L Carbon Dioxide 16 L (21-32) mmol/L Anion Gap 8 (3-11) BUN 60 H (6-23) mg/dl Creatinine 1.36 H (0.6-1.2) mg/dl Est Cr Clr Drug Dosing 27.1 ml/min Est GFR ( Amer) 42.5 ml/min Est GFR (Non-Af Amer) 36.7 ml/min BUN/Creatinine Ratio 44.1 H (10-20) Glucose 89 (70-99(Fasting)) mg/dl POC Glucose (70-99) mg/dl Lactate 2.2 H* (0.4-2.0) mmol/L Calcium 8.2 L (8.6-10.3) mg/dl Phosphorus (2.5-4.9) mg/dl Magnesium 2.8 H (1.7-2.4) mg/dl Total Bilirubin 5.0 H (0.2-1.0) mg/dl Direct Bilirubin (0-0.2) mg/dl AST 21 (13-39) U/L ALT 13 (7-52) U/L Alkaline Phosphatase 91 (34-104) U/L Total Creatine Kinase (26-192) U/L Troponin I High Sens 87.3 H* (0-14) pg/ml B-Natriuretic Peptide (0-100) pg/ml Total Protein 6.6 (6.0-8.3) gm/dl Albumin 2.7 L (3.4-5.0) gm/dl Globulin 3.9 (2.5-4.0) gm/dl Albumin/Globulin Ratio 0.7 L (0.9-2) Procalcitonin 1.00 H (0-0.5) ng/ml TSH 12.227 H (0.300-4.500) uIu/ml Free T4 0.68 (0.61-1.60) ng/dl Random Cortisol 23.19 mcg/dl Urine Color Urine Appearance (Clear) Urine pH (4.5-7.5) Ur Specific [place] (1.000-1.030) Urine Protein (Negative) Urine Glucose (UA) (Negative) Urine Ketones (Negative) Urine Blood (Negative) Urine Nitrite (Negative) Urine Bilirubin (Negative) Urine Urobilinogen (Negative) Ur Leukocyte Esterase (Negative) Urine WBC (Auto) (0-5) /hpf Urine RBC (Auto) (0-4) /hpf U Hyaline Cast (Auto) (0-5) /lpf U Epithel Cells (Auto) (0-5) /lpf Urine Bacteria (Auto) (Negative) Urine Osmolality (500-800) mOsm/kg Ur Random Creatinine mg/dl Ur Random Sodium mmol/L Ur Random Potassium mmol/L Ur Random Chloride mmol/L Nasal Screen MRSA (PCR) (Negative) Hep Bs Antigen (NON-REACTIVE) Hep Bs Ag Confirmation Hep Bs Antibody, Quant (> OR = 10) mIU/mL Hep B Core IgM Ab (NON-REACTIVE) Staphylococcus sp PCR (NotDetected) Bld Cult ID Panel PCR (NotDetected) Diagnostic Findings Laboratory Results WBC 12.88 K/ul (4.8-10.8) H 02/21/24 04:31 RBC 3.80 M/uL (4.20-5.40) L 02/21/24 04:31 Hgb 11.6 g/dl (12.0-16.0) L 02/21/24 04:31 POC Hgb 13.3 g/dl (12.0-16.0) 02/20/24 10:49 Hct 35.4 % (37.0-47.0) L 02/21/24 04:31 POC Hct 39 % (37-47) 02/20/24 10:49 MCV 93.2 fL (80.0-100.0) 02/21/24 04:31 MCH 30.5 pg (25.0-34.0) 02/21/24 04:31 MCHC 32.8 g/dL (32.0-36.0) 02/21/24 04:31 RDW Std Deviation 63.6 fL (36.4-46.3) H 02/21/24 04:31 RDW Coeff of Bubba 19.9 % (11.5-14.5) H 02/21/24 04:31 Plt Count 57 K/uL (130-400) L 02/21/24 04:31 MPV 12.7 fL (9.4-12.4) H 02/21/24 04:31 Immature Gran % (Auto) 1.2 % 02/21/24 04:31 Neut % (Auto) 93.7 % 02/21/24 04:31 Lymph % (Auto) 0.8 % 02/21/24 04:31 [place] % (Auto) 4.0 % 02/21/24 04:31 Eos % (Auto) 0.1 % 02/21/24 04:31 Baso % (Auto) 0.2 % 02/21/24 04:31 Neut # (Auto) 12.07 K/uL (1.40-6.50) H 02/21/24 04:31 Lymph # (Auto) 0.10 K/uL (1.20-3.40) L 02/21/24 04:31 [place] # (Auto) 0.51 K/uL (0.11-0.59) 02/21/24 04:31 Eos # (Auto) 0.01 K/uL (0.00-0.50) 02/21/24 04:31 Baso # (Auto) 0.03 K/uL (0.00-0.20) 02/21/24 04:31 Immature Gran # (Auto) 0.16 K/uL (0.01-0.20) 02/21/24 04:31 Absolute Nucleated RBC 1.38 K/uL (0.00-0.12) H 02/21/24 04:31 Nucleated RBC % (auto) 10.7 % 02/21/24 04:31 Polychromasia 3+ 02/21/24 04:31 Anisocytosis Present 02/19/24 12:04 Echinocytes 1+ 02/21/24 04:31 PT 13.5 Seconds (9.0-12.0) H 02/19/24 12:04 INR 1.2 (0.9-1.1) H 02/19/24 12:04 APTT 31 Seconds (21-31) 02/19/24 12:04 PTT Ratio 1.1 02/19/24 12:04 Sample Site Art Line 02/20/24 10:49 POC pH 7.26 (7.35-7.45) L 02/20/24 10:49 POC pCO2 41 mmHg (35-46) 02/20/24 10:49 POC pO2 101 mmHg (80-95) H 02/20/24 10:49 POC HCO3 18 shana/L (19-24) L 02/20/24 10:49 POC Total CO2 20 mmol/L (24-31) L 02/20/24 10:49 POC Base Excess -9.0 shana/L (-9-1.8) 02/20/24 10:49 ABG pH Cancelled 02/19/24 13:13 ABG pH (Temp Correct) 7.264 (7.35-7.45) L 02/20/24 10:49 ABG pCO2 Cancelled 02/19/24 13:13 ABG pCO2 (Temp Corrct 40 mmHg (35-46) 02/20/24 10:49 ABG pO2 Cancelled 02/19/24 13:13 POC ABG pO2 at Pt Temp 98 02/20/24 10:49 ABG HCO3 Cancelled 02/19/24 13:13 POC ABG O2 Sat 97.0 % (90-95) H 02/20/24 10:49 ABG O2 Saturation Cancelled 02/19/24 13:13 ABG Base Excess Cancelled 02/19/24 13:13 Jose Test NA 02/20/24 10:49 VBG pH 7.22 (7.36-7.41) L 02/20/24 04:12 VBG pCO2 41 mmHg (38-50) 02/20/24 04:12 VBG pO2 46 mmHg 02/20/24 04:12 VBG HCO3 17 mmol/L 02/20/24 04:12 VBG O2 Saturation 66.8 % 02/20/24 04:12 VBG Base Excess -10.4 mEq/L 02/20/24 04:12 Barometric Pressure Cancelled 02/19/24 13:13 Oxygen Given Cancelled 02/19/24 13:13 O2 Delivery Device Ventilator 02/20/24 10:49 POC O2 Rate 18 02/20/24 10:49 Minute Ventilation 5.4 02/20/24 10:49 POC FiO2 60 % 02/20/24 10:49 Tidal Volume 300 02/20/24 10:49 PEEP 5 02/20/24 10:49 POC Sodium 134 mmol/L (135-144) L 02/20/24 10:49 Sodium 132 mmol/L (136-145) L 02/21/24 04:31 POC Potassium 5.2 mmol/L (3.3-5.0) H 02/20/24 10:49 Potassium 4.0 mmol/L (3.5-5.1) D 02/21/24 04:31 Chloride 103 mmol/L (98-107) 02/21/24 04:31 Carbon Dioxide 20 mmol/L (21-32) L 02/21/24 04:31 Anion Gap 9 (3-11) 02/21/24 04:31 BUN 37 mg/dl (6-23) H D 02/21/24 04:31 Creatinine 1.18 mg/dl (0.6-1.2) D 02/21/24 04:31 Est Cr Clr Drug Dosing 32.1 ml/min 02/21/24 04:31 Est GFR ( Amer) 50.4 ml/min 02/21/24 04:31 Est GFR (Non-Af Amer) 43.5 ml/min 02/21/24 04:31 BUN/Creatinine Ratio 31.4 (10-20) H 02/21/24 04:31 Glucose 161 mg/dl (70-99(Fasting)) H 02/21/24 04:31 POC Glucose 99 mg/dl (70-99) 02/21/24 10:42 Lactate 3.9 mmol/L (0.4-2.0) H* 02/20/24 04:12 Calcium 6.7 mg/dl (8.6-10.3) L 02/21/24 04:31 Phosphorus 4.6 mg/dl (2.5-4.9) 02/20/24 08:03 Magnesium 1.9 mg/dl (1.7-2.4) 02/21/24 04:31 Total Bilirubin 4.4 mg/dl (0.2-1.0) H 02/21/24 04:31 Direct Bilirubin 2.6 mg/dl (0-0.2) H 02/21/24 04:31 AST 29 U/L (13-39) 02/21/24 04:31 ALT 12 U/L (7-52) 02/21/24 04:31 Alkaline Phosphatase 60 U/L (34-104) 02/21/24 04:31 Total Creatine Kinase 45 U/L (26-192) 02/20/24 08:03 Troponin I High Sens 72.9 pg/ml (0-14) H* D 02/19/24 14:42 B-Natriuretic Peptide 1399 pg/ml (0-100) H 02/19/24 17:22 Total Protein 4.8 gm/dl (6.0-8.3) L 02/21/24 04:31 Albumin 2.1 gm/dl (3.4-5.0) L 02/21/24 04:31 Globulin 3.9 gm/dl (2.5-4.0) 02/19/24 12:04 Albumin/Globulin Ratio 0.7 (0.9-2) L 02/19/24 12:04 Procalcitonin 1.00 ng/ml (0-0.5) H 02/19/24 12:04 TSH 12.227 uIu/ml (0.300-4.500) H 02/19/24 12:04 Free T4 0.68 ng/dl (0.61-1.60) 02/19/24 12:04 Random Cortisol 23.19 mcg/dl 02/19/24 12:04 Urine Color Dark Yellow 02/19/24 Unknown Urine Appearance Clear (Clear) 02/19/24 Unknown Urine pH 5.5 (4.5-7.5) 02/19/24 Unknown Ur Specific [place] 1.023 (1.000-1.030) 02/19/24 Unknown Urine Protein 1+ (Negative) H 02/19/24 Unknown Urine Glucose (UA) Negative (Negative) 02/19/24 Unknown Urine Ketones Negative (Negative) 02/19/24 Unknown Urine Blood Negative (Negative) 02/19/24 Unknown Urine Nitrite Positive (Negative) A 02/19/24 Unknown Urine Bilirubin 1+ (Negative) H 02/19/24 Unknown Urine Urobilinogen Negative (Negative) 02/19/24 Unknown Ur Leukocyte Esterase Trace (Negative) H 02/19/24 Unknown Urine WBC (Auto) 1-5 /hpf (0-5) 02/19/24 Unknown Urine RBC (Auto) 5-10 /hpf (0-4) H 02/19/24 Unknown U Hyaline Cast (Auto) 5-10 /lpf (0-5) H 02/19/24 Unknown U Epithel Cells (Auto) 10-20 /lpf (0-5) H 02/19/24 Unknown Urine Bacteria (Auto) Negative (Negative) 02/19/24 Unknown Urine Osmolality 723 mOsm/kg (500-800) 02/19/24 Unknown Ur Random Creatinine 99.9 mg/dl 02/19/24 Unknown Ur Random Sodium < 10 mmol/L 02/19/24 Unknown Ur Random Potassium 43.9 mmol/L 02/19/24 Unknown Ur Random Chloride 22 mmol/L 02/19/24 Unknown Nasal Screen MRSA (PCR) Negative (Negative) 02/19/24 Unknown Hep Bs Antigen NON-REACTIVE (NON-REACTIVE) 02/20/24 11:35 Hep Bs Ag Confirmation TNP 02/20/24 11:35 Hep Bs Antibody, Quant 34 mIU/mL (> OR = 10) 02/20/24 11:35 Hep B Core IgM Ab NON-REACTIVE (NON-REACTIVE) 02/20/24 11:35 Staphylococcus sp PCR DETECTED (NotDetected) A 02/19/24 13:30 Bld Cult ID Panel PCR See PCR Comment (NotDetected) 02/19/24 13:[address] 02/19/24 12:13 CT SCAN OF THE CERVICAL SPINE CLINICAL HISTORY: Fall. COMPARISON STUDY: No priors. TECHNIQUE: CT scan of the cervical spine is performed from the skull base to the upper thoracic spine. Images are reviewed in the axial, sagittal, and coronal planes. IV contrast was not administered for this examination. A dose lowering technique was utilized adhering to the principles of ALARA. CT DOSE: 1771.51 mGy.cm FINDINGS: Skeletal structures: The skeletal structures are osteopenic. There is no evidence of fracture or subluxation involving the cervical spine. Vertebral body height and alignment are maintained. Small anterior osteophytes are seen throughout. The odontoid process and lateral masses are intact. The atlantoaxial articulation is preserved noting mild productive degenerative change. The spinous processes appear intact. There is mild multilevel facet arthropathy. Intervertebral discs: There is moderate disc space narrowing at C6-C7. Mild narrowing is seen at the remaining levels. Central canal: Posterior disc osteophyte complexes at C5-C6 and C6-C7 may contribute to acquired compromise of the central canal. Soft tissues: The prevertebral and paraspinous soft tissues are within normal limits. Calvarium: The visualized calvarium at the skull base appears intact. Brain parenchyma: Partially visualized brain parenchyma at the skull base is within normal limits. Sinuses and mastoids: The visualized paranasal sinuses are clear. The mastoid air cells are well pneumatized. Lung apices: Pleural effusion is seen at the right apex. IMPRESSION: 1. There is no evidence of fracture or subluxation involving the cervical spine. 2. Right pleural effusion. ACT 112: Negative or not required by law. Electronically signed by: Sulaiman Diop M.D. 02/19/2024 1:[address] 02/19/24 12:13 CT SCAN OF THE BRAIN WITHOUT IV CONTRAST CLINICAL HISTORY: Fall. COMPARISON STUDY: No priors. TECHNIQUE: Unenhanced axial CT scan of the brain is performed from the vertex to the skull base. A dose lowering technique was utilized adhering to the principles of ALARA. The skull base was scanned twice due to motion artifact. FINDINGS: Brain parenchyma: There is age-related involutional change noting mild subcortical and periventricular microangiopathic disease. There is no hemorrhage, mass effect, or evidence of acute territorial ischemia by CT criteria. [place]di[place]-white matter differentiation is preserved. No extra-axial fluid collection is seen. Ventricles, sulci, cisterns: Prominent secondary to involutional change. Intracranial vasculature: There is atherosclerotic calcification of the cavernous carotid arteries. Calvarium: The skeletal structures are osteopenic. No depressed calvarial fracture is seen. Soft tissues: There is a right frontal scalp contusion. Sinuses and mastoids: The paranasal sinuses are clear. The mastoid air cells are well pneumatized. Orbits: The bony orbits are grossly intact. IMPRESSION: 1. There is no hemorrhage, mass effect, or evidence of acute territorial ischemia by CT criteria. 2. Right frontal scalp contusion. ACT 112: Negative or not required by law. Electronically signed by: Sulaiman Diop M.D. 02/19/2024 1:[address] 02/19/24 12:16 CT SCAN OF THE CHEST WITHOUT IV CONTRAST CLINICAL HISTORY: Fall. Pleural effusion. COMPARISON STUDY: Chest x-ray dated 02/19/2024. TECHNIQUE: CT scan of the thorax was performed from the thoracic inlet to the upper abdomen. Images are reviewed in the axial, sagittal, and coronal planes. IV contrast was not administered for this examination. Note that the examination is suboptimal without IV contrast. The examination is also degraded by motion artifact, as well as by streak artifact from the arms which could not be elevated above the chest. A dose lowering technique was utilized adhering to the principles of ALARA. FINDINGS: Thyroid: Normal in size and heterogeneous in attenuation. Thoracic aorta: There is mild atherosclerotic calcification of the thoracic aorta, which is normal in caliber and demonstrates standard 3-vessel arch anatomy. Heart: The heart is enlarged noting a small pericardial effusion. The main pulmonary arteries are dilated suggesting pulmonary artery hypertension. Lungs and pleural spaces: There is a large right pleural effusion with atelectasis/consolidation of the right lower lung. Mild patchy airspace consolidation is seen at the left lung base and there is trace left pleural effusion. There is also airspace consolidation in the subpleural left upper lobe. No pneumothorax is seen. The trachea and central airways are clear. Mediastinum: There is no mediastinal hematoma or lymphadenopathy. Gaby: Not well assessed without IV contrast. Axillae: There is no axillary lymphadenopathy. Upper abdomen: Nodularity of the hepatic surface contour suggests morphologic changes of cirrhosis. There is a small volume of upper abdominal ascites. Skeletal structures: The skeletal structures are osteopenic. There is a moderate age-indeterminate inferior endplate compression deformity of T7. The bony thorax is otherwise intact. Degenerative changes noted in the shoulders and spine. No lytic or blastic bony lesions are seen. IMPRESSION: 1. Large right pleural effusion with atelectasis/consolidation of the right lower lung. Correlate clinically for evidence of pneumonia. 2. There is airspace consolidation at the left lung base and a trace left pleural effusion. There are also foci of subpleural consolidation in the left upper lobe. Again, this could represent pneumonia or possible small pulmonary infarcts and clinical correlation will be required. 3. Cardiomegaly and small pericardial effusion. 4. Nodularity of the hepatic surface contour suggests morphologic change of cirrhosis. There is a small volume of upper abdominal ascites. 5. Minimal and age indeterminate inferior endplate compression deformity of T7. Correlate for point tenderness. 6. Additional findings as above. ACT 112: Negative or not required by law. Electronically signed by: Sulaiman Diop M.D. 02/19/2024 2:31 PM Tibia/Fibula X-Ray 02/20/24 13:22 XR tibia fibula RT 2V CLINICAL HISTORY: eval for osteo TECHNIQUE: 2 radiographic views of the right leg were obtained. Comparison: None available at the time of this dictation. FINDINGS: There is no evidence of an acute fracture. Degenerative changes are seen most prominently in the medial compartment of the knee. Soft tissue swelling is seen. IMPRESSION: Degenerative changes are seen. There is soft tissue swelling without focal erosions to suggest osteomyelitis. ACT 112: Negative or not required by law. Electronically signed by: Abrahan Castellanos M.D. 02/20/2024 2:23 PM Chest X-Ray 02/21/24 09:15 XR chest 1V portable CLINICAL HISTORY: Pneumonia. COMPARISON STUDY: Chest CT February 19, 2024. Chest radiograph February 20, 2024. FINDINGS: The endotracheal tube is 1 cm above the uriel. Tip of nasogastric tube is within the distal body of the stomach. There is apparent oral contrast within the stomach. Right internal jugular central line is in place. There is no pneumothorax. Moderate to large right and small left pleural effusions are again noted. Extensive bilateral airspace opacities are present. Left lung opacities have progressed since CT of February 19, 2024. Interstitial thickening persists. IMPRESSION: 1. Tip of endotracheal tube 1 cm above the uriel. The tube could be withdrawn an additional 1 cm. 2. Moderate to large right and small left pleural effusions. Extensive bilateral airspace opacities which favor pneumonia. 3. No pneumothorax. 4. Suspected mild pulmonary edema. ACT 112: Negative or not required by law. Electronically signed by: Olivier Chacon M.D. 02/21/2024 10:02 AM PG Care Time/CCT Total # of Minutes Spent Total Time Spent with Patient: Total time spent is greater than 50% in coordination of care (as documented) at patient's floor/unit and/or counseling patient: I spent 40 minutes overall addressing this case: 20 min in medical data review/discussion with referring provider(s) and/or preparation for the visit 5 min in direct interaction with the patient/exam 00 min in Advance Care Planning/Goals of Care discussions as detailed above in note (must be >16min) 5 min in subsequent review and synthesis of assessment and plan 10 min communicating with other providers regarding the patient's case: [place] [address] IN/OBS CONSULT LVL 3,45M Patient Type New History Comprehensive Exam Detailed Medical Decision Making High Complexity Diagnoses Dyspnea and respiratory abnormalities R06.00; R06.89 Weakness generalized R53.1 Septic shock A41.9; R65.21 Palliative care by specialist Z51.5
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
[2024-02-21] MEDS: SODIUM BICARB 8.4% INJ 50 MEQ/50 ML SYR IV STA ×2 (19:54)
[2024-02-21 20:00] LABS: iSTAT Allen Test Pass; iSTAT Art Bld Gas pCO2 Correct 47 mmHg (35-46); iSTAT Art Bld Gas pH Corrected 7.401 (7.35-7.45); iSTAT Arterial Blood Gas HCO3 29 meg/L (19-24); iSTAT Arterial Blood Gas pCO2 45 mmHg (35-46); iSTAT Arterial Blood Gas pH 7.42 (7.35-7.45); iSTAT Arterial Blood Gas pO2 81 mmHg (80-95); iSTAT Arterial Blood Gas pO2 C 87; iSTAT Carbon Dioxide 30 mmol/L (24-31); iSTAT FiO2 40 %; iSTAT Hematocrit 39 % (37-47); iSTAT Hemoglobin 13.3 g/dl (12.0-16.0); iSTAT Potassium 4.2 mmol/L (3.3-5.0); iSTAT Site Art Line; iSTAT Sodium 140 mmol/L (135-144)
[2024-02-22 05:48] LABS: Alanine Aminotransferase 42 U/L (7-52); Albumin Level 2.3 gm/dl (3.4-5.0); Alkaline Phosphatase 59 U/L (34-104); Anion Gap 20 (3-11); Aspartate Aminotransferase 171 U/L (13-39); BUN Creatinine Ratio 21.5 (10-20); Bilirubin,Total 7.2 mg/dl (0.2-1.0); Blood Urea Nitrogen 41 mg/dl (6-23); Calcium 6.9 mg/dl (8.6-10.3); Carbon Dioxide 13 mmol/L (21-32); Chloride 101 mmol/L (98-107); Creatinine Clr Calc Pharmacy 20.8 ml/min; Est GFR (African American) 28.2 ml/min; Est GFR (Non-African American) 24.3 ml/min; Glucose 77 mg/dl (70-99(Fasting)); Potassium 4.7 mmol/L (3.5-5.1); Sodium 134 mmol/L (136-145); Total Protein 5.4 gm/dl (6.0-8.3)
[2024-02-22 06:16] LABS: Hematocrit (blood only) 39.9 % (37.0-47.0); Hemoglobin 12.7 g/dl (12.0-16.0); Mean Corpuscular Hemoglobin 30.7 pg (25.0-34.0); Mean Corpuscular Hgb Conc 31.8 g/dL (32.0-36.0); Mean Corpuscular Volume 96.4 fL (80.0-100.0); Mean Platelet Volume 12.1 fL (9.4-12.4); Nucleated RBC # (auto) 0.75 K/uL (0.00-0.12); Nucleated RBC % (auto) 4.5 %; Platelet Count 55 K/uL (130-400); RDW Coefficient of Variation 21.1 % (11.5-14.5); RDW Standard Deviation 70.4 fL (36.4-46.3); Red Blood Count 4.14 M/uL (4.20-5.40); White Blood Count 16.53 K/ul (4.8-10.8)
[2024-02-22 06:18] LABS: Anisocytosis Present; Basophils # (auto) 0.03 K/uL (0.00-0.20); Basophils % (auto) 0.2 %; Echinocytes 2+; Immature Granulocytes # (auto) 0.26 K/uL (0.01-0.20); Immature Granulocytes % (auto) 1.6 %; Lymphocytes # (auto) 0.03 K/uL (1.20-3.40); Lymphocytes % (auto) 0.2 %; Monocytes # (auto) 0.44 K/uL (0.11-0.59); Monocytes % (auto) 2.7 %; Neutrophils # (auto) 15.77 K/uL (1.40-6.50); Neutrophils % (auto) 95.3 %; Polychromasia 1+
[2024-02-22] MEDS: FUROSEMIDE 10 MG/ML 10 ML VIAL IV ONE (08:49)
[2024-02-22] MEDS: fentaNYL BOLUS from BAG IV PRN (08:50)
--- NOTE | 2024-02-22 09:44 | Nephrology Progress Note ---
Date of Service February 22, 2024 Assessment & Plan Admission and Anticipated Discharge Date Admission Date: February 19, 2024 Subjective A/P; Flaco--Oliguric ATN with Sepsis. No urine. Labs worse. K is not high but Does have met acidosis and volume overload. can give some Bicarb drip if allowed However not possible to do Conventional HD with Such severe Septic shock. risk of on the dialysis machine if we do Conventional HD would do CRRT if possible and patient transferred. Son wants everything done including transfer. however patient is so far With critical illness that everything is futile at thi s point. S--critically sick. On 3 pressors. No urine. Intubated. Physical Exam Constitutional: + frail appearing and + mechanically ventilated ENMT: Ears: no external ear abnormality Nose: no external nose abnormality Mouth: + dry oral mucous membranes Neck: no nuchal rigidity Respiratory: normal respiratory effort Auscultation: + diminished lung sounds and + rhonchi Cardiovascular: Rate/Rhythm: + tachycardic (but HR lower today) and + irregularly irregular Extremities: + edema Gastrointestinal (Abdomen): Inspection/Auscultation: + hypoactive bowel sounds (possible) Percussion/Palpation: + abdomen firm; abdomen nontender, no guarding and abdomen not rigid Skin: Trauma: + periorbital ecchymosis (R brow) extensive ulcers BLE wrapped Results & Data Vital Signs (Past 12 Hours) Vital Signs Temp Pulse Resp BP Pulse Ox FiO2 02/22/24 09:00 37.4 C 111 H 23 98 02/22/24 08:00 37.5 C 124 H 24 99 02/22/24 07:46 112 H 26 H 99 40 02/22/24 07:00 37.5 C 125 H 22 97 02/22/24 05:30 37.9 C H 128 H 21 100 02/22/24 05:15 37.9 C H 126 H 23 97 02/22/24 05:00 38.0 C H 112 H 22 100 02/22/24 04:45 38.0 C H 128 H 27 H 98 02/22/24 04:30 38.0 C H 132 H 23 100 02/22/24 04:15 38.1 C H 129 H 22 97 02/22/24 04:00 38.1 C H 126 H 22 97 02/22/24 03:51 40 02/22/24 03:51 138 H 109/62 02/22/24 03:45 38.1 C H 120 H 23 96 02/22/24 03:30 38.2 C H 121 H 22 98 02/22/24 03:15 38.2 C H 141 H 24 94 02/22/24 03:00 38.3 C H 124 H 21 100 02/22/24 02:45 38.3 C H 145 H 20 100 02/22/24 02:30 38.3 C H 131 H 22 100 02/22/24 02:15 38.3 C H 133 H 22 100 02/22/24 02:15 24 40 02/22/24 02:00 38.3 C H 136 H 33 H 100 02/22/24 01:45 38.3 C H 111 H 28 H 100 02/22/24 01:30 38.3 C H 133 H 29 H 86 L 02/22/24 01:15 38.3 C H 124 H 27 H 100 02/22/24 01:00 38.3 C H 127 H 35 H 97 02/22/24 00:45 38.4 C H 117 H 32 H 94 02/22/24 00:30 38.4 C H 110 H 31 H 91 02/22/24 00:15 38.4 C H 118 H 35 H 88 L 02/22/24 00:00 38.4 C H 123 H 36 H 93 02/22/24 00:00 40 02/22/24 00:00 125 H 91/54 L 02/22/24 00:00 113 H 02/21/24 23:45 38.4 C H 119 H 35 H 96 02/21/24 23:30 38.4 C H 115 H 37 H 96 02/21/24 23:15 38.4 C H 131 H 32 H 94 02/21/24 23:04 24 40 02/21/24 23:00 38.4 C H 113 H 33 H 100 02/21/24 22:45 38.4 C H 131 H 19 96 02/21/24 22:30 38.4 C H 108 H 20 98 02/21/24 22:15 38.4 C H 117 H 24 100 02/21/24 22:00 38.4 C H 120 H 24 99 02/21/24 21:45 38.4 C H 122 H 22 99
[2024-02-22] MEDS: DAPTOmycin 275 MG in SYRINGE 0 ML IV SCH (09:59)
[2024-02-22 10:06] LABS: iSTAT Art Bld Gas pCO2 Correct 37 mmHg (35-46); iSTAT Art Bld Gas pH Corrected 7.228 (7.35-7.45); iSTAT Arterial Blood Gas HCO3 15 meg/L (19-24); iSTAT Arterial Blood Gas pCO2 36 mmHg (35-46); iSTAT Arterial Blood Gas pH 7.23 (7.35-7.45); iSTAT Arterial Blood Gas pO2 107 mmHg (80-95); iSTAT Arterial Blood Gas pO2 C 109; iSTAT Carbon Dioxide 16 mmol/L (24-31); iSTAT FiO2 40 %; iSTAT Hematocrit 44 % (37-47); iSTAT Potassium 5.1 mmol/L (3.3-5.0); iSTAT Site Art Line; iSTAT Sodium 135 mmol/L (135-144)
--- NOTE | 2024-02-22 10:17 | XRay Report ---
XR chest 1V portable HISTORY: 79 years-old Female pneumonia acute shortness of breath COMPARISON: 02/21/2024 TECHNIQUE: AP view of the chest FINDINGS: Endotracheal tube overlies the midline, 2 cm superior to the uriel. Right IJ central venous catheter distal tip is noted in the expected location of the mid SVC. Enteric tube courses below the diaphrag m with distal tip outside the [id number]. Pulmonary edema. No pneumothorax. Layering pleural effusions with bibasilar consolidation redemonstra suha. Contrast noted within the gastric lumen. IMPRESSION: 1. Lines and tubes as above. 2. No pneumothorax. 3. Cardiomegaly with pulmonary edema and persistent layering pleural effusions with bilateral consoli dative opacities. ACT 112: Negative or not required by law. The above report was generated using voice recognition software. It may contain grammatical, syntax o r spelling errors. Electronically signed by: Serafin Sims M.D. 02/22/2024 10:16 AM
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
[2024-02-22] MEDS: SODIUM BICARB 8.4% INJ 50 MEQ/50 ML SYR IV STA (10:57)
[2024-02-22 12:24] LABS: Influenza A virus by PCR Negative (Neg); Influenza B virus by PCR Negative (Neg); RSV by PCR Negative (Neg); SARS CoV2 RNA(COVID-19) Ceph NEGATIVE (Negative)
--- NOTE | 2024-02-22 12:56 | Electrocardiogram Report ---
Test Reason : Blood Pressure : / mmHG Vent. Rate : 152 BPM Atrial Rate : 000 BPM P-R Int : 000 ms QRS Dur : 088 ms QT Int : 306 ms P-R-T Axes : 000 017 207 degrees QTc Int : 486 ms Atrial fibrillation with rapid ventricular response Low voltage QRS Septal infarct (cited on or before 09-MAY-2023) Abnormal ECG When compared with ECG of 09-MAY-2023 15:37, HR has increased Confirmed by Morgan Gupta ([id number]) on 02/22/2024 12:56:06 PM Referred By: REFERRED SELF Confirmed By:Morgan Gupta
--- NOTE | 2024-02-22 13:15 | Electrocardiogram Report ---
Test Reason : Blood Pressure : / mmHG Vent. Rate : 116 BPM Atrial Rate : 105 BPM P-R Int : 000 ms QRS Dur : 094 ms QT Int : 352 ms P-R-T Axes : 000 010 219 degrees QTc Int : 489 ms Atrial fibrillation with rapid ventricular response Septal infarct (cited on or before 09-MAY-2023) Abnormal ECG When compared with ECG of 19-FEB-2024 11:42, (unconfirmed) No significant change was found Confirmed by Morgan Gupta ([id number]) on 02/22/2024 1:14:50 PM Referred By: REFERRED SELF Confirmed By:Morgan Gupta
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
== END 2024-02-22 13:30 | disposition short-term general hospital (02) | DRG 871 ==
LOC: ED 11:34 → 1E 13:36 → SUATTDRO 13:53 → 1E 13:53